=== PATIENT | female | born 1955 | race Caucasian/White ===

== ENCOUNTER 2021-10-11 09:24 | Outpatient (CLI) | payer OTHER, SELFPAY | END 2021-10-11 09:25 | disposition home or self-care (01) | LOC: INJ CL 09:25 | PROVIDERS: PCP Internal Medicine; Visit Provider Family Medicine | DX: M54.16 Radiculopathy, lumbar region (principal); M51.36 Other intervertebral disc degeneration, lumbar region | CPT/HCPCS: 62323; J0702; Q9966 ==

== ENCOUNTER 2023-04-03 09:13 | Outpatient (CLI) | payer OTHER, SELFPAY | END 2023-04-03 09:14 | disposition home or self-care (01) | LOC: INJ CL 09:15 | PROVIDERS: PCP Internal Medicine; Visit Provider Family Medicine | DX: M51.36 Other intervertebral disc degeneration, lumbar region (principal); M54.16 Radiculopathy, lumbar region | CPT/HCPCS: 62323; J0702; Q9966 ==

== ENCOUNTER 2023-07-02 10:52 | Outpatient (RCR) | payer OTHER, SELFPAY | END 2023-07-11 17:01 | disposition home or self-care (01) | PROVIDERS: PCP Internal Medicine; Visit Provider Orthopaedic Surgery | DX: M16.12 Unilateral primary osteoarthritis, left hip (principal); Z96.642 Presence of left artificial hip joint; M25.552 Pain in left hip; Z74.09 Other reduced mobility; R26.9 Unspecified abnormalities of gait and mobility; M62.81 Muscle weakness (generalized); Z51.89 Encounter for other specified aftercare | CPT/HCPCS: 97161; 97535 ==

== ENCOUNTER 2023-07-10 06:01 | Day surgery (SDC) | payer OTHER, SELFPAY ==
[2023-07-10] VITALS (40 sets, daily range): BP systolic 82–159; BP diastolic 46–112; PULSE 50–78; RESP 6–20; TEMP 35.7–36.8; O2SAT 95–100; BMI 32.8
[2023-07-10] MEDS: LACTATED RINGERS 1000 ML 1,000 ML 100 ML IV (06:31)
[2023-07-10] MEDS: OXYCODONE (CR) 10 MG TAB.ER.12H PO (06:40)
[2023-07-10] MEDS: ACETAMINOPHEN 500 MG TABLET 1000 MG PO ×3 (06:40→18:44)
[2023-07-10] MEDS: CELECOXIB 200 MG CAPSULE PO (06:40)
--- NOTE | 2023-07-10 06:57 | SUR.PREOP ---
TIME?OUT:?0700 PT/RN/MDA?VERIFICATION?OF?SURGICAL?SITE,?PROCEDURE,?AND?CONSENT OBTAINED?PRIOR?TO?INVASIVE?PROCEDURE.
[2023-07-10] MEDS: fentaNYL 100 MCG/2 ML inj IVP (07:08)
[2023-07-10] MEDS: MIDAZOLAM HCL 1 MG/ML inj IVP (07:08)
--- NOTE | 2023-07-10 07:15 | XR_ITS ---
Patient: PRO NELSON Facility:?[facility] Patient ID:?[id number] Site Patient ID:?[id number]. Site :?[id number] Study:?XRay-Hip LT HIP CORINNA-07/10/2023 9:02:17 AM Ordering Physician:JEFFREY Final Report: INDICATION: Post left hip arthroplasty. TECHNIQUE: AP view of the pelvis as well as AP and lateral projections of the left hip. COMPARISON: : 05/23/2023 FINDINGS: Immediate postop change of left total hip arthroplasty. Prosthetic components well-seated and aligned. Pre-existing right hip arthroplasty. IMPRESSION: : Immediate postop left total hip arthroplasty without evidence of complication. Dictated by Juma Brock MD @ 07/10/2023 2:27:55 PM Signed by:?Juma Brock MD @07/10/2023 2:27:55 PM (Electronic Signature)
[2023-07-10] MEDS: CEFAZOLIN 2 GM INJ IVP (07:34)
[2023-07-10] MEDS: TRANEXAMIC ACID 100 MG/ML INJ 1000 MG IV (07:42)
--- NOTE | 2023-07-10 08:04 | SUR.OPER ---
PATIENT QUESTIONS ANSWERED SATISFACTORILY PREOPERATIVELY. PATIENT BROUGHT TO OR #3 PER CART AFTER ADMINISTRATION OF A BLOCK. Patient positioned supine on OR #3 bed. The perioperative team supported arms bilaterally on arm boards. Final approval of positioning by surgeon.
--- NOTE | 2023-07-10 08:50 | XR_ITS ---
Patient: PRO NELSON Facility:?[facility] Patient ID:?[id number] Site Patient ID:?[id number]. Site :?[id number] Study:?XRay-Hip Left POST OP LT CORINNA-07/10/2023 10:13:57 AM Ordering Physician:JEFFREY Final Report: INDICATION: Post left hip arthroplasty. TECHNIQUE: AP view of the pelvis as well as AP and lateral projections of the left hip. COMPARISON: : 05/23/2023 FINDINGS: Immediate postop change of left total hip arthroplasty. Prosthetic components well-seated and aligned. Pre-existing right total hip arthroplasty. IMPRESSION: : Immediate postop left total hip arthroplasty without evidence of complication. Dictated by Juma Brock MD @ 07/10/2023 5:05:10 PM Signed by:?Juma Brock MD @07/10/2023 5:05:10 PM (Electronic Signature)
--- NOTE | 2023-07-10 08:52 | P.ORPRC_ITS ---
Procedure Note Date of procedure: 07/10/23 Procedure: PREOPERATIVE DIAGNOSIS: Left hip osteoarthritis POSTOPERATIVE DIAGNOSIS: Left hip osteoarthritis NAME OF OPERATION: Left total hip arthroplasty SURGEON: Abhijit Rai MD ALUMINUM MOLDING MACHINE OPERATOR: Mary Anne Connolly PA-C, ROSIE Matthews IMPLANTS: 1. [employer] [place] # 50 sector ingrowth cup 2. 32 x 50 +4 neutral polyethylene 3. Actis # 3 standard collared ingrowth stem 4. 32 + 1 ceramic femoral head ANESTHESIA: General ESTIMATED BLOOD LOSS: 500 cc COMPLICATIONS: None SPECIMENS: None DRAINS: None PREOPERATIVE ANTIBIOTICS: Ancef 2 grams INDICATIONS: The patient is a 67-year-old with a longstanding history of sever e, unrelenting left hip pain secondary to end-stage left hip osteoarthritis. Despite appropriate nonoperative management, including activity modification, use of an assist device, anti-inflammatories, [id number] pain medication, physical therapy and injections, they continue to have pain and disability. Operative intervention was offered. The risks, benefits and expected outcomes were discussed in detail. These included but were not limited to: Infection, bleeding, injury to blood vessel or nerve, venous thromboembolism. All questions were answered to their satisfaction. Use of an graduate assistant athletic trainer was necessary throughout the case for patient positioning and safety, soft tissue retraction and closure. PROCEDURE: The patient was placed supine on the [place] table. General anesthesia was administered. The graduate assistant athletic trainer made sure the patient was properly positioned. The left hip was prepped and draped in the usual sterile fashion. The image intensifier was brought in for a perfect AP pelvis and a perfect double tear drop AP view of each hip which were used for intraoperative templating with our fluoroscopic guide. An oblique incision was made 3 cm distal and 3 cm lateral to the anterior superior iliac spine. The graduate assistant athletic trainer retracted the soft tissues to protect them. Subcutaneous dissection was taken with electrocautery to the superficial fascia. The fascia was divided in line with the incision. Blunt dissection was carried medially to the tensor fascia anabel and sartorius interval. Deep dissection was carried with electrocautery. The circumflex vessels were caute rized and divided. The capsule was exposed and then divided in a T-fashion, tagged with #1 Ethibond sutures. Retractors were placed in the joint, held by the graduate assistant athletic trainer. The corkscrew was placed in the femoral head. The neck cut was made in the subcapital region. We made a second neck cut more distal. The napkin ring of bone was removed. The femoral head was removed intact. Acetabular retractors were placed, held by the graduate assistant athletic trainer. The labrum was sharply debrided. The capsule was released. The 43 mm reamer was used to the true medial wall. We then enlarged in 2 mm increments using the image intensifier for our reamer placement. We impacted the cup which had excellent purchase. We placed the polyethylene. Attention was then turned to the proximal femur. The limb was placed in 140 degrees of external rotation, maximum extension and adduction. A significant amount of time was spent releasing the capsule to allow us to deliver the femur into the wound and complete the femoral side safely. Retractors were held by the graduate assistant athletic trainer throughout the femoral preparation. The stretch box tender and canal finder were used. Broaches were used to a stable size. The calcar reamer was used. Trial components were placed. The hip was reduced and was found to be stable with appropriate soft tissue tension. Length and offset had been nicely restored using the image intensifier and our fluoroscopic guide. Trial components were removed. The stem was impacted. We placed the femoral head. Again, the hip was reduced and was found to be stable with appropriate soft tissue tension. Length and offset had been nicely restored. The graduate assistant athletic trainer did a three minute dilute Betadine solution soak. The graduate assistant athletic trainer irrigated the wound with 3 liters of normal saline via pulse lavage. The dm delgado repaired the anterior capsule with a #1 Vicryl and our previously placed Ethibond sutures. The graduate assistant athletic trainer closed the fascia over the tensor fascia anabel with a #1 PDO Stratafix, subcutaneous tissues with 2-0 Vicryl, skin with a running 3-0 Stratafix and glue. A dry dressing was applied by the graduate assistant athletic trainer. Sponge and needle counts were correct x 2. The patient tolerated the procedure well; there were no apparent complications. They were awakened and extubated in the operating room, sent to the Post-Anesthesia Care Unit in satisfactory condition. PLAN: 1. The patient will be mobilized with physical therapy, weight-bearing as tolerates 2. Xarelto x 5 days then aspirin x 30 days will be used for DVT prophylaxis 3. The patient will be discharged once medically appropriate
[2023-07-10] MEDS: LACTATED RINGERS 1000 ML 1,000 ML 35 ML IV ×2 (09:36→11:30)
--- NOTE | 2023-07-10 09:50 | W.ANESCHARGE ---
Anesthesia Charges Start Date/Time Anesthesia Start Date: 07/10/23 Anesthesia Start Time: 07:15 Stop Date/Time Anesthesia Stop Date: 07/10/23 Anesthesia Stop Time: 09:38
[2023-07-10] MEDS: HYDROmorphone 0.5 mg/0.5 ml inj IVP ×4 (10:00→12:13)
[2023-07-10] MEDS: hydrOXYzine pamoate 25 MG CAPSULE PO (10:12)
[2023-07-10] MEDS: fentaNYL 100 MCG/2 ML inj 50 MCG IVP ×2 (10:20→10:44)
--- NOTE | 2023-07-10 11:24 | P.NB_ITS ---
Nerve Block Nerve Block Time Seen by Provider: 07:10 Date Seen: 07/10/23 Type of block requested by surgeon for post-operative analgesia: JHONY/LFCN Side: left Time out performed: Yes Verification of patient name: Yes Verification of date of : Yes Site marking: site marked Name of person performing procedure: Stefan Continuous monitoring Was continuous monitoring of O2 sat, B/P, property assessment monitor, recorded every 15 minutes?: Yes Procedure Checklist: sterile prep, needles and gloves Ultrasound guided. Images saved: Yes Medications given in 5ml increments after negative aspiration: Ropivicaine %: 0.5 mL: 30 Needle gauge: 20 Decadron (mg): 10 Precedex (mcg): 25 Patient tolerated procedure well: Yes Additional comments: Needle noted below psoas tendon needle noted adjacent to LFCN Block Charges Block Charge (with Pro Fee): Other Periph Nerve Block Use of Ultrasound Machine for Block: Yes- US Guidance/pain block
--- NOTE | 2023-07-10 11:24 | W.ANESCHARGE ---
Anesthesia Charges Start Date/Time Anesthesia Start Date: 07/10/23 Anesthesia Start Time: 07:15 Stop Date/Time Anesthesia Stop Date: 07/10/23 Anesthesia Stop Time: 09:38
--- NOTE | 2023-07-10 11:50 | SUR.PHASEI ---
patient remained in pain rating 10/10 throughout recovery. All doses of narcotics allotted for pain management utilized. Patient falls asleep and sedated after medications given but once medications subside patient wakes up and states pain still 10/10. Patient Moaning from pain. train operations supervisor/medsurg rn/MDA aware of situation and patient requiring hospital stay.
[2023-07-10] MEDS: OXYCODONE 5 MG TABLET PO ×4 (13:48→23:49)
--- NOTE | 2023-07-10 14:21 | P.IMCN_ITS ---
Date of Consult Patient: Girish Patient Consult date: 07/10/23 Requesting Physician: Orthopedics Primary Care Provider: Lucero Bunch Consult Narrative Reason for consult: Medical management of comorbidities Narrative: Bell Hernandez is a 67 year old female who presented to the hospital today for an elective L CORINNA. There were no surgical or anesthetic complications noted during procedure. Patient's H&P reviewed, PCP is Dr. Bunch at [facility]. Past medical history significant for: CKD, anxiety, GERD, HTN, hyperlipidemia. Chronic neck pain, on daily Gabapentin and [place]. History of blood clots: No Postoperative plan: Home with sister Patient was initially a same-day surgery trial, but had uncontrolled pain in the PACU. Upon arrival to the floor, she had severe bradypnea (4-6 breaths/minute) with a significantly decreased level of responsiveness. After monitoring, decision was made to administer 0.02mg of Naloxone. Patient was awake soon after administration, noting pain but no other concerns. Review of Systems Status of ROS: Reports: 10 or more systems reviewed and unremarkable except as noted in History and below [facility] Medical History (Updated 07/09/23 @ 11:35 by Carlie Loya RN) Controlled substance agreement signed ?Z79.899 - Other certified rehabilitation counselor (current) drug therapy (ICD-10) Hypertensive heart and chronic kidney disease stage 3 ?I13.10 - Hypertensive heart and chronic kidney disease without heart failure, with stage 1 through stage 4 chronic kidney disease, or unspecified chronic kidney disease (ICD-10) ?N18.30 - Chronic kidney disease, stage 3 unspecified (ICD-10) Uncomplicated opioid dependence ?F11.20 - Opioid dependence, uncomplicated (ICD-10) Chronic pain ?G89.29 - Other chronic pain (ICD-10) Anxiety ?F41.9 - Anxiety disorder, unspecified (ICD-10) PTSD (post-traumatic stress disorder) ?F43.10 - Post-traumatic stress disorder, unspecified (ICD-10) GERD (gastroesophageal reflux disease) ?K21.9 - Gastro-esophageal reflux disease without esophagitis (ICD-10) Hyperlipidemia ?E78.5 - Hyperlipidemia, unspecified (ICD-10) Hypertension ?I10 - Essential (primary) hypertension (ICD-10) Rosacea ?L71.9 - Rosacea, unspecified (ICD-10) Neck pain ?M54.2 - Cervicalgia (ICD-10) Surgical History (Updated 07/10/23 @ 14:30 by Isabella Odonnell MD) Status post left hip replacement ?Z96.642 - Presence of left artificial hip joint (ICD-10) History of carpal tunnel release (~2021) ?Z98.890 - Other specified postprocedural states (ICD-10) H/O foot surgery ?Z98.890 - Other specified postprocedural states (ICD-10) History of right hip replacement (~01/2022) ?Z96.641 - Presence of right artificial hip joint (ICD-10) Meds Home Medications and Allergies Home Medications Medication Instructions Recorded Confirmed Type amlodipine 10 mg tablet 10 mg PO DAILY 05/23/23 07/10/23 History citalopram 20 mg tablet 20 mg PO DAILY 05/23/23 07/10/23 History doxycycline hyclate 100 mg capsule 100 mg PO DAILY 05/23/23 07/10/23 History eszopiclone 3 mg tablet 3 mg PO HS 05/23/23 07/10/23 History gabapentin 300 mg capsule 300 mg PO HS PRN 05/23/23 07/10/23 History hydrocodone 10 mg-acetaminophen 1 tab PO BID PRN 05/23/23 07/10/23 History 325 mg tablet lorazepam 0.5 mg tablet 0.5 mg PO DAILY PRN 05/23/23 07/10/23 History meloxicam 7.5 mg tablet 7.5 mg PO BIDWM PRN 05/23/23 05/23/23 History omeprazole 20 mg capsule,delayed 20 mg PO DAILY 05/23/23 07/10/23 History release tizanidine 4 mg tablet 4 mg PO Q8H PRN 05/23/23 07/10/23 History furosemide 20 mg tablet 20 mg PO DAILY PRN 07/09/23 07/10/23 History indomethacin 50 mg capsule 50 mg PO TID PRN 07/09/23 07/10/23 History Allergies Allergy/AdvReac Type Severity Reaction Status Date / Time adhesive Allergy Verified 07/10/23 06:28 amoxicillin Allergy Verified 07/10/23 06:28 latex Allergy Verified 07/10/23 06:28 prednisone Allergy Verified 07/10/23 06:28 tramadol Allergy Verified 07/10/23 06:28 Exam Narrative: Exam Narrative: GEN: After Narcan, patient is alert and answering questions appropriately, nontoxic HEENT: EOMIs bilaterally, no scleral icterus CV: RRR, No concerning murmurs R: LCTA bilaterally without concerning wheezing, air movement adequate Skin: No concerning skin lesions or rashes on exposed skin Neuro: Nonfocal Psych: Appropriate Const: Vital Signs, click to edit/add: Vital Signs - 24 hr 07/10/23 06:46 07/10/23 07:09 07/10/23 07:15 Temperature 98.2 F Pulse Rate 67 71 64 Respiratory Rate 16 16 16 Blood Pressure 134/66 159/112 H 134/63 Pulse Oximetry 97 98 99 Oxygen Delivery Me thod Room Air Nasal Cannula Nasal Cannula Oxygen Flow Rate 3 3 07/10/23 09:33 07/10/23 09:40 07/10/23 09:45 Temperature 97.3 F L Pulse Rate 50 L 53 L 59 L Respiratory Rate 14 14 16 Blood Pressure 95/51 L 91/54 L 83/52 L Pulse Oximetry 100 100 98 Oxygen Delivery Me thod OxyMask Oxygen Flow Rate 6 07/10/23 09:50 07/10/23 09:55 07/10/23 10:00 Temperature Pulse Rate 58 L 58 L 57 L Respiratory Rate 16 18 20 Blood Pressure 101/53 L 101/78 95/46 L Pulse Oximetry 96 100 99 Oxygen Delivery Me thod Oxygen Flow Rate 07/10/23 10:05 07/10/23 10:10 07/10/23 10:15 Temperature Pulse Rate 57 L 54 L 59 L Respiratory Rate 18 16 16 Blood Pressure 137/76 135/70 100/52 L Pulse Oximetry 100 99 100 Oxygen Delivery Me thod Oxygen Flow Rate 07/10/23 10:20 07/10/23 10:25 07/10/23 10:30 Temperature Pulse Rate 61 59 L 57 L Respiratory Rate 14 12 14 Blood Pressure 104/69 102/50 L 87/52 L Pulse Oximetry 99 100 99 Oxygen Delivery Me thod Oxygen Flow Rate 07/10/23 10:35 07/10/23 10:40 07/10/23 10:45 Temperature Pulse Rate 53 L 55 L 61 Respiratory Rate 12 14 12 Blood Pressure 94/50 L 98/53 L 82/72 L Pulse Oximetry 100 100 100 Oxygen Delivery Me thod Oxygen Flow Rate 07/10/23 10:50 07/10/23 10:55 07/10/23 11:00 Temperature Pulse Rate 65 63 69 Respiratory Rate 14 16 14 Blood Pressure 108/61 104/58 L 105/64 Pulse Oximetry 99 98 99 Oxygen Delivery Me thod Oxygen Flow Rate 07/10/23 11:05 07/10/23 11:10 07/10/23 11:15 Temperature Pulse Rate 62 67 67 Respiratory Rate 16 16 14 Blood Pressure 111/62 107/65 100/65 Pulse Oximetry 96 96 95 Oxygen Delivery Me thod Room Air Oxygen Flow Rate 07/10/23 11:20 07/10/23 11:25 07/10/23 11:47 Temperature 97.2 F L Pulse Rate 62 65 62 Respiratory Rate 12 12 6 L Blood Pressure 105/60 98/63 106/55 L Pulse Oximetry 98 97 97 Oxygen Delivery Me thod Nasal Cannula Oxygen Flow Rate 2 07/10/23 12:00 07/10/23 12:15 07/10/23 12:30 Temperature 96.3 F L 96.7 F L 96.5 F L Pulse Rate 54 L 64 56 L Respiratory Rate 10 L 12 12 Blood Pressure 98/53 L 117/89 104/50 L Pulse Oximetry 99 100 100 Oxygen Delivery Me thod Nasal Cannula Nasal Cannula Nasal Cannula Oxygen Flow Rate 2 2 2 07/10/23 13:00 07/10/23 13:30 07/10/23 13:56 Temperature 96.3 F L 96.2 F L Pulse Rate 69 68 64 Respiratory Rate 14 14 6 L Blood Pressure 105/54 L 110/56 L 95/49 L Pulse Oximetry 98 98 97 Oxygen Delivery Me thod Nasal Cannula Nasal Cannula Nasal Cannula Oxygen Flow Rate 2 2 2 Assessment and Plan Assessment and plan (1) Status post left hip replacement: Problem comment: - Dr. Rai, 07/10/23 Status: Acute Plan - pain management and prophylaxis per orthopedic surgery team - continue home medications for comorbidities - anticipate routine postoperative course
--- NOTE | 2023-07-10 14:37 | PC.NURSE ---
End of Shift Nursing Note: Patient arrived to room on med/surg unit at 11:30 post-operatively. Per report from OR nurse, patient required a significant amount of pain medication post-operatively and patient was quite lethargic when she arrived to unit. Patient closely monitored and required 2L O2 to maintain saturations. Patient became very bradypneic (4-6 breaths per minute). MD notified and came to bedside and ordered Narcan IV. Patient responded well to Narcan but had an increase of pain. Respirations increased and patient became much more alert. Patient's pain currently managed with PRN pain medications per MAY. Patient able to work with PT and use [email or web address] and has urinated twice post-operatively. Vitals stable post-operatively after Narcan administration. L) hip dressing C/D/I. Patient has full sensation in L) hip but weakness noted. Patient reports significant anxiety due to previous issue with block when R) hip was replaced. Patient afebrile post-operatively. Patient has fluids running and IV remains patent. Patient currently on room air and recovering as anticipated. Will continue to implement ongoing plan of care.
[2023-07-10] MEDS: SENNOSIDES 1 TAB TABLET 2 TAB PO (23:13)
--- NOTE | 2023-07-10 23:55 | PC.NURSE ---
End of shift [id number] - Pt alert, oriented, cooperative. Up with standby assistance and walker/gait belt to bathroom. Ice pack to surgical site, dressing CDI. Pt reported pain as 8/10 which was tolerable with medication given per MAY. Tolerating RA, regular diet, fluids. Observed to sleep during shift. Pt appears to be resting comfortably in chair at end of shift.
[2023-07-11] MEDS: ACETAMINOPHEN 500 MG TABLET 1000 MG PO ×2 (01:33→07:49)
[2023-07-11 01:50] VITALS: BP 140/60; PULSE 75; RESP 18; TEMP 36.6; O2SAT 97
[2023-07-11] MEDS: OXYCODONE 5 MG TABLET PO ×3 (05:08→10:10)
[2023-07-11 07:00] VITALS: BP 139/60; PULSE 86; RESP 16; TEMP 36.7; O2SAT 99
--- NOTE | 2023-07-11 07:47 | PM.ORPN ---
Subjective Subjective Time Seen by Provider: 07:47 Date Seen: 07/11/23 Principal diagnosis: Status post left hip replacement Interval history: Traci is moving well. She will discharge to home. She has family members helping her. Ortho Exam Narrative Exam Narrative: Alert and oriented x3. Patient is in no acute distress. Converses without labored breathing. Hearing is grossly intact. Ambulates with a walker. Examination of the left hip shows dressing is clean, dry, and intact. No ecchymosis. Very minimal soft tissue edema. No erythema or warmth or sign of infection. Bilateral calves are soft and nontender. CMS intact left lower extremity. In her recliner she easily moves from reclining to sitting position. She is quite comfortable. Const Vital Signs, click to edit/add: Vital Signs - 24 hr 07/10/23 09:33 07/10/23 09:40 07/10/23 09:45 Temperature 97.3 F L Pulse Rate 50 L 53 L 59 L Pulse Rate [Left Pulse Oximeter] Respiratory Rate 14 14 16 Blood Pressure 95/51 L 91/54 L 83/52 L Blood Pressure [Right Arm] Pulse Oximetry 100 100 98 Oxygen Delivery Method OxyMask Oxygen Flow Rate 6 07/10/23 09:50 07/10/23 09:55 07/10/23 10:00 Temperature Pulse Rate 58 L 58 L 57 L Pulse Rate [Left Pulse Oximeter] Respiratory Rate 16 18 20 Blood Pressure 101/53 L 101/78 95/46 L Blood Pressure [Right Arm] Pulse Oximetry 96 100 99 Oxygen Delivery Method Oxygen Flow Rate 07/10/23 10:05 07/10/23 10:10 07/10/23 10:15 Temperature Pulse Rate 57 L 54 L 59 L Pulse Rate [Left Pulse Oximeter] Respiratory Rate 18 16 16 Blood Pressure 137/76 135/70 100/52 L Blood Pressure [Right Arm] Pulse Oximetry 100 99 100 Oxygen Delivery Method Oxygen Flow Rate 07/10/23 10:20 07/10/23 10:25 07/10/23 10:30 Temperature Pulse Rate 61 59 L 57 L Pulse Rate [Left Pulse Oximeter] Respiratory Rate 14 12 14 Blood Pressure 104/69 102/50 L 87/52 L Blood Pressure [Right Arm] Pulse Oximetry 99 100 99 Oxygen Delivery Method Oxygen Flow Rate 07/10/23 10:35 07/10/23 10:40 07/10/23 10:45 Temperature Pulse Rate 53 L 55 L 61 Pulse Rate [Left Pulse Oximeter] Respiratory Rate 12 14 12 Blood Pressure 94/50 L 98/53 L 82/72 L Blood Pressure [Right Arm] Pulse Oximetry 100 100 100 Oxygen Delivery Method Oxygen Flow Rate 07/10/23 10:50 07/10/23 10:55 07/10/23 11:00 Temperature Pulse Rate 65 63 69 Pulse Rate [Left Pulse Oximeter] Respiratory Rate 14 16 14 Blood Pressure 108/61 104/58 L 105/64 Blood Pressure [Right Arm] Pulse Oximetry 99 98 99 Oxygen Delivery Method Oxygen Flow Rate 07/10/23 11:05 07/10/23 11:10 07/10/23 11:15 Temperature Pulse Rate 62 67 67 Pulse Rate [Left Pulse Oximeter] Respiratory Rate 16 16 14 Blood Pressure 111/62 107/65 100/65 Blood Pressure [Right Arm] Pulse Oximetry 96 96 95 Oxygen Delivery Method Room Air Oxygen Flow Rate 07/10/23 11:20 07/10/23 11:25 07/10/23 11:47 Temperature 97.2 F L Pulse Rate 62 65 62 Pulse Rate [Left Pulse Oximeter] Respiratory Rate 12 12 6 L Blood Pressure 105/60 98/63 106/55 L Blood Pressure [Right Arm] Pulse Oximetry 98 97 97 Oxygen Delivery Method Nasal Cannula Oxygen Flow Rate 2 07/10/23 12:00 07/10/23 12:15 07/10/23 12:30 Temperature 96.3 F L 96.7 F L 96.5 F L Pulse Rate 54 L 64 56 L Pulse Rate [Left Pulse Oximeter] Respiratory Rate 10 L 12 12 Blood Pressure 98/53 L 117/89 104/50 L Blood Pressure [Right Arm] Pulse Oximetry 99 100 100 Oxygen Delivery Method Nasal Cannula Nasal Cannula Nasal Cannula Oxygen Flow Rate 2 2 2 07/10/23 13:00 07/10/23 13:30 07/10/23 13:56 Temperature 96.3 F L 96.2 F L Pulse Rate 69 68 64 Pulse Rate [Left Pulse Oximeter] Respiratory Rate 14 14 6 L Blood Pressure 105/54 L 110/56 L 95/49 L Blood Pressure [Right Arm] Pulse Oximetry 98 98 97 Oxygen Delivery Method Nasal Cannula Nasal Cannula Nasal Cannula Oxygen Flow Rate 2 2 2 07/10/23 14:30 07/10/23 15:30 07/10/23 16:06 Temperature 96.4 F L 96.6 F L Pulse Rate 64 70 Pulse Rate [Left Pulse Oximeter] Respiratory Rate 16 16 16 Blood Pressure 109/61 115/62 Blood Pressure [Right Arm] Pulse Oximetry 98 96 96 Oxygen Delivery Method Nasal Cannula Nasal Cannula Nasal Cannula Oxygen Flow Rate 1 2 2 07/10/23 16:30 07/10/23 17:30 07/10/23 23:00 Temperature 96.7 F L Pulse Rate 57 L 68 Pulse Rate [Left Pulse Oximeter] Respiratory Rate 16 16 18 Blood Pressure 106/60 Blood Pressure [Right Arm] Pulse Oximetry 98 99 97 Oxygen Delivery Method Nasal Cannula Nasal Cannula Room Air Oxygen Flow Rate 2 2 07/10/23 23:57 07/11/23 01:50 Temperature 97.5 F L 97.8 F Pulse Rate Pulse Rate [Left Pulse Oximeter] 78 75 Respiratory Rate 16 18 Blood Pressure Blood Pressure [Right Arm] 125/52 L 140/60 H Pulse Oximetry 96 97 Oxygen Delivery Method Room Air Room Air Oxygen Flow Rate Assessment and Plan Assessment and plan (1) Status post left hip replacement: Problem details: - Dr. Rai, 07/10/23 Status: Acute Assessment and Plan: Traci and I had a very long discussion regarding her hydrocodone/acetaminophen 10/325 and taking oxycodone along with that. She is also on an antianxiety lower leg pain medication. The combination of all these could cause decrease respiratory issues, especially at night and with rest. She understands. She feels she is well equipped to manage all of these medications for she has been doing it for many years and has taken the same medications after her right hip replacement. She will discuss with her provider refilling her hydrocodone/acetaminophen 10/325 for she has a pain contract. Plan for discharge is today, and when they meets discharge criteria. DVT prophylaxis upon discharge include Xarelto 10 mg daily for 5 days, then aspirin 81 mg b.i.d. for 30 days. Compression stockings as needed for edema. On the side ambulate every hour throughout the day. Remove dressing 1 week. Observe wound and phone Orthopedics with any questions or concerns Use Ice on operative hip unrestricted. Return to clinic in 1 week with PA for a wound check Return to clinic in 6 weeks with surgeon Minimize narcotic use. Wean off and discontinue soon as possible. Activities as tolerated. No strenuous activity. Attend outpt PT
[2023-07-11] MEDS: OMEPRAZOLE 20 MG CAPSULE DR PO (07:49)
--- NOTE | 2023-07-11 07:59 | PC.NURSE ---
Pt is alert and oriented x3. Afebrile. Pt reports 7/10 pain in left hip managed with cold pack to site and scheduled and PRN medications. Pt?s left hip dressing is CDI. Pt is voiding, tolerating a regular diet and up SBA with walker and gait belt to bathroom. Pt slept throughout most of night. ?
[2023-07-11] MEDS: SENNOSIDES 1 TAB TABLET 2 TAB PO (08:30)
[2023-07-11] MEDS: RIVAROXABAN 10 MG TABLET PO (08:30)
--- NOTE | 2023-07-11 10:27 | PC.NURSE ---
Patient discharged home self care today at 10:22. Patient transported to vehicle via wheelchair and accompanied by daughter who will be staying with patient at patient's home while patient recovers. Discharge education provided to patient and family member. Prescriptions sent to patient's preferred pharmacy. VSS stable prior to DC and patient asymptomatic. IV removed prior to DC. Patient denied any further questions/concerns at discharge and knows how to follow-up with orthopedic services if needed.
== END 2023-07-11 10:22 | disposition home or self-care (01) ==
LOC: OR 06:02 → MEDSURG 11:59
PROVIDERS: PCP Internal Medicine; Visit Provider Orthopaedic Surgery
PROC: (CPT 27130; principal; 2023-07-10 07:15)
DX: M16.12 Unilateral primary osteoarthritis, left hip (principal); G89.18 Other acute postprocedural pain; R06.89 Other abnormalities of breathing; I12.9 Hypertensive chronic kidney disease with stage 1 through stage 4 chronic kidney disease, or unspecified chronic kidney disease; N18.30 Chronic kidney disease, stage 3 unspecified; F41.9 Anxiety disorder, unspecified; K21.9 Gastro-esophageal reflux disease without esophagitis; M54.2 Cervicalgia; G89.29 Other chronic pain; E78.5 Hyperlipidemia, unspecified
CPT/HCPCS: 27130; 01214; 36415; 64450; 73501; 76000; 76942; 86850; 86900; 86901; 97110; 97116; 97161; 97165; 97530; 97535; A9270; C1776; J0330; J0690; J1100; J1170; J2250; J2310; J2405; J2704; J2710; J2795; J3010; J3475; J3490; J7120

== ENCOUNTER 2023-10-30 10:29 | Outpatient (CLI) | payer OTHER, SELFPAY | END 2023-10-30 10:30 | disposition home or self-care (01) | LOC: RAD 10:30 | PROVIDERS: PCP Internal Medicine; Visit Provider Family Medicine | DX: M54.16 Radiculopathy, lumbar region (principal); M51.36 Other intervertebral disc degeneration, lumbar region | CPT/HCPCS: 62323; J0702; Q9966 ==

== ENCOUNTER 2024-01-07 20:11 | Outpatient (CLI) | payer OTHER, SELFPAY ==
--- OUTSIDE RECORDS SUMMARY | 2024-01-07 20:16 | XMS_ITS | Encounter Summary ---
Author Organization [facility] Address [address] [place] [address] Care Team Providers Care Life Enrichment Specialist Name Role Phone Elsewhere, Pcp Primary Care Provider Unavailabl e Reason for Visit * Reason Comments Rosacea * Outpatient (Routine) - Closed Specialty Diagnoses / Procedures Referred By Donaldo vargas Referred To Contact Dermatology Diagnoses Rosacea Darien Rodriguez Jr., M.D. [address] [place] [address] Phone: tel: fax: [facility] Region Referral ID Status Reason Start Date Expiration Date V isits Requested Visits Authorized [id number] Closed Specialty Services Required 09/18/2023 03/19/2025 1 1 Encounter Details Date Type Department Care Team (Latest Contact Info) Description 10/18/2023 1:30 PM CDT Comprehensive Visit Department of Family Medicine, [facility], in [place], [place] [address] [place] [address] Mckenna Montalvo APRN, C.N.P. [address], [place] [phone] Keratosis Seborrheic Inflamed (Primary Dx); Rosacea; Wart Social History Tobacco Use Types Packs/Day Years Used Date Smoking Tobacco: Former Cigarettes 1.5 35.8 0 03/05/1969 - 01/03/2005 Smokeless Tobacco: Former Tobacco Cessation:Counseling Given: Not Answered Alcohol Use Standard Drinks/Week Comments Yes 1 (1 standard drink = 0.6 oz pur e alcohol) only on rare occasions [facility] Utilities Answer Date Recorded In the past 12 months has e electric, gas, oil, or water company threatened to shut off services in your home? No 05/10/2023 Humiliation, Afraid, Rape, and Kick questionnair e Answer Date Recorded Within the last year, have y ou been afraid of your partner or ex-partner? No 03/27/2022 Within the last year, have y ou been humiliated or emotionally abused in other ways by your partner or ex-partner? No Within the last year, have y ou been kicked, hit, slapped, or otherwise physically hurt by your partner or ex-partner? No 03/27/2022 Within the last year, have y ou been raped or forced to have any kind of sexual activity by your partner or ex-partner? No 03/27/2022 Social Connection and Isolation Panel [NHANES] A nswer Date Recorded In a typical week, how many times do you talk on the phone with family, friends, or neighbors? Twice a week 03/27/2022 How often do you get togethe r with friends or relatives? Once a week 03/27/2022 How often do you attend orthodoxy or jehovah's witness serv ices? Patient declined 03/27/2022 Do you belong to any clubs o r organizations such as orthodoxy groups, unions, fraternal or athletic groups, or school groups? No 03/27/2022 How often do you attend meet ings of the clubs or organizations you belong to? Never 03/27/2022 Are you , , di vorced, , never , or living with a partner? 03/27/2022 AUDIT-C Answer Date Recorded Q1: How often do you have a drink containing alc ohol? Never 09/18/2021 Average Number of Drinks Not on file 022 Frequency of Binge Drinking Not on file 09/02 Overall Financial Resource Strain (CARDIA) Answe r Date Recorded How hard is it for you to pa y for the very basics like food, housing, medical care, and heating? Not very hard 03/27/2022 PHQ-2 Answer Date Recorded PHQ-2 Score 2 03/15/2023 [place] [facility] - Occupational Stress Questionnaire Answer Date Recorded Do you feel stress - tense, restless, nervous, or anxious, or unable to sleep at night because your mind is troubled all the time - these days? To some extent 03/27/2022 Exercise Vital Sign Answer Date Recorde d On average, how many days pe r week do you engage in moderate to strenuous exercise (like a brisk walk)? 0 days 05/10/2023 On average, how many minutes do you engage in exercise at this level? 0 min 05/10/2023 Hunger Vital Sign Answer Date Recorded Within the past 12 months, y ou worried that your food would run out before you got the money to buy more. Never true 05/10/19 24 Within the past 12 months, t he food you bought just didn't last and you didn't have money to get more. Never true 05/10/2023 PRAPARE - Transportation Answer Date Re corded In the past 12 months, has l ack of transportation kept you from medical appointments or from getting medications? No 09/2023 In the past 12 months, has l ack of transportation kept you from meetings, work, or from getting things needed for daily living? No 05/10/2023 Depression Answer Date Recor ded PHQ-9 Total Score (max 27) 17 04/01 Nutrition Answer Date Recorded On average, how many serving s of fruits and vegetables do you eat per day (serving size is equal to 1 cup or approximately the size of a tennis ball)? 0-2 05/10/2023 Dental Answer Date Recorded Dental: Regular Dentist Yes 04/22/19 21 Employment Answer Date Recorded Employment status Retired 05/10/2023 Housing Stability Answer Date Recorded What is your living situation today? I have a [facility] place to live 05/10/2023 Education Answer Date Recorded What is the highest level of school you have completed or the highest degree you have received? Associate degree: academic program 09/18/2021 Comments No Sex and Gender Information Value Date Recorded Sex Assigned at Female 01/15/2017 8:07 PM WINDOWS SOFTWARE ENGINEER Legal Sex Female 5:08 AM WINDOWS SOFTWARE ENGINEER Gender Identity Female 01/15/2017 8:07 PM WINDOWS SOFTWARE ENGINEER Sexual Orientation Straight 01/15/2017 8: 07 PM WINDOWS SOFTWARE ENGINEER Occupation Industry Job Start Date Job End Date Not on file Not on file Not on file Not on file documented as of this encounter Progress Notes * Mckenna Montalvo APRN, C.N.P. - 10/18/2023 1:30 PM CDT SUBJECTIVE CHIEF COMPLAINT / REASON FOR VISIT Rosacea. HISTORY OF PRESENT ILLNESS Bell Perea is a 68 y.o. female who presents for evaluation of her rosacea, irritated lesion her left inframammary, and a wart her right index finger. Per nursing notes: How long has rash been present, any symptoms (pain, bleeding, or itching)? : Hussein General location of rash: Referral from Dr. Rodriguez-eyes What treatments/medication has patient tried: was given minocycline- hasn't started Was patient referred, self referred, or a returning derm patient? : Returning The following portions of the patient's history were reviewed and updated as appropriate: allergies, current medications, family history, medical history, social history and problem list. REVIEW OF SYSTEMS Constitutional, integumentary, and allergic/immunologic review of systems is negative except as otherwise remarked above or below. OBJECTIVE PHYSICAL EXAM General: Well-appearing female in no acute distress. Well groomed and dressed and answers appropriately to questions. Skin: This skin was examined and palpated where appropriate, skin findings as described below: There is washing and telangiectasias on the cheeks and nose. No significant acne rosacea noted on exam. Eyes are slightly injected. On the left inframammary there is an inflamed, brown, hyperkeratotic, stuck on appearing papule consistent with seborrheic keratosis. On the right index finger along the distal there is a small verrucous papule. ASSESSMENT / PLAN #1 Rosacea The nature of condition was discussed with patient, advised that she avoid triggers and recommend sensitive/dry skin care. She is not interested in any topicals at this time and does not have any significant acne rosacea. She does report having scaling on the left nasal sidewall areas. I suggested some [id number] clotrimazole 1% cream and/or hydrocortisone 1% cream 2 to 3 times a week to help with possible underlying seborrheic dermatitis. #2 Keratosis Seborrheic Inflamed The benign nature of this lesion(s) was discussed with the patient. Given the inflamed nature of this lesion(s), its treatment is medically indicated. We treated a total of 1 lesion(s) with one 20-second freeze-thaw cycle of liquid nitrogen cryotherapy. The patient tolerated the procedure well. Aftercare instructions were provided in written and verbal form to the patient. Should any of these lesions recur, the patient should return for further evaluation. #3 Wart After explaining the procedure, discussing the associated risks, benefits, and alternatives, and obtaining verbal informed consent, the lesion(s) underwent treatment with liquid nitrogen cryotherapy in the standard fashion. Wound care was discussed. Patient offered educational materials. PATIENT EDUCATION Ready to learn, no apparent learning barriers were identified; learning preferences include listening. Explained diagnosis and treatment plan; patient expressed understanding of the content. This note represents shared documentation between the assisting nurse and the encounter provider. The content has been reviewed and edited as needed by the provider. documented in this encounter Plan of Treatment Upcoming Encounters Date Type Department Care Team (Latest Contact Info) Description 01/21/2024 11:15 AM WINDOWS SOFTWARE ENGINEER Comprehensive Visit Department of Ophthalmology in [place], [place] [address] [phone] Darien Rodriguez Jr., M.D. [address] [phone] documented as of this encounter Visit Diagnoses Diagnosis Keratosis Seborrheic Inflamed- Primary Rosacea Wart documented in this encounter Additional Health Concerns Assessment Noted Time PHQ-9 Depression Total Score: 17 020 8:36 AM WINDOWS SOFTWARE ENGINEER documented as of this encounter Care Teams Life Enrichment Specialist Relationship Specialty Start Date End Date Elsewhere, Pcp PCP - General Family Medicine 11/01/20 documented as of this encounter
--- OUTSIDE RECORDS SUMMARY | 2024-01-07 20:16 | XMS_ITS | Encounter Summary ---
Author Organization [facility] Address [address] [place] [address] Care Team Providers Care Pigment Pusher Name Role Phone Elsewhere, Pcp Primary Care Provider Unavailabl e Encounter Details Date Type Department Care Team (Late st Contact Info) Description 12/15/2016 Historical Ophthalmology [facility] Wilson Hurley M.D. [address] [phone] Social History Tobacco Use Types Packs/Day Years Used Date Smoking Tobacco: Former Comments No Sex and Gender Information Value Date Recorded Sex Assigned at Female 01/15/2017 8:07 PM HEMMER CHAINSTITCH Legal Sex Female 5:08 AM HEMMER CHAINSTITCH Gender Identity Female 01/15/2017 8:07 PM HEMMER CHAINSTITCH Sexual Orientation Straight 01/15/2017 8: 07 PM HEMMER CHAINSTITCH documented as of this encounter Progress Notes * Wilson Hurley M.D. - 12/15/2016 8:00 AM CDT Eye General CHIEF COMPLAINT Complete exam HISTORY OF PRESENT ILLNESS Feels her vision has gotten a little worse. Would like glasses updated. Current RX is 2 years old IMPRESSION / REPORT / PLAN #1 Age related macular degeneration AREDS 2 #2 Meibomian gland dysfunction Hot Packs lid scrubs 2 to 3 times a weeks Art tears EES ointment qhs prn #4 Cortical cataract mild #3 Blepharoplasty s/p RTC 1 year CE refract DIAGNOSIS #1 Age related macular degeneration #2 Meibomian gland dysfunction #4 Cortical cataract #3 Blepharoplasty CDM Reports - EYEGEN Id: [id number] Status: Fnl documented in this encounter Plan of Treatment Upcoming Encounters Date Type Department Care Team (Latest Contact Info) Description 01/21/2024 11:15 AM HEMMER CHAINSTITCH Comprehensive Visit Department of Ophthalmology in [place], [place] [address] [place] [phone] Darien Rodriguez Jr., M.D. [address] [place] [address] documented as of this encounter Visit Diagnoses Not on filedocumented in this encounter Additional Health Concerns Infection Onset Date Last Indicated Resolved Time COVID19 Pending 2019 2019 2019 1 1:49 PM CDT COVID19 Pending 10/28/2020 10/29/2020 10/29/2020 1 1:25 PM CDT COVID19 Pending 03/03/2021 03/04/2021 03/04/2021 1 0:13 PM HEMMER CHAINSTITCH COVID19 Pending 12/07/2021 12/08/2021 12/08/2021 1 1:34 PM CDT Assessment Noted Time PHQ-9 Depression Total Score: 13 017 8:23 AM CDT documented as of this encounter Care Teams Pigment Pusher Relationship Specialty Start Date End Date Elsewhere, Pcp PCP - General Family Medicine 11/01/20 documented as of this encounter
--- OUTSIDE RECORDS SUMMARY | 2024-01-07 20:16 | XMS_ITS | Encounter Summary ---
Author Organization [facility] Address [address] [place] [address] Care Team Providers Care Student Services Coordinator Name Role Phone Elsewhere, Pcp Primary Care Provider Unavailabl e Reason for Visit * Reason Onset Date Comments Colonoscopy 10/25/2023 Encounter Details Date Type Department Care Team (Late st Contact Info) Description 10/25/2023 Clinical Communication Department of General Surgery in [place], [place] [address] [phone] Anju Oliveira M.D. [address] [place] [phone] Colonoscopy Social History Tobacco Use Types Packs/Day Years Used Date Smoking Tobacco: Former Cigarettes 1.5 35.8 0 03/05/1969 - 01/03/2005 Smokeless Tobacco: Former Alcohol Use Standard Drinks/Week Comments Yes 1 (1 standard drink = 0.6 oz pur e alcohol) only on rare occasions [facility] Utilities Answer Date Recorded In the past 12 months has e [employer], gas, oil, or water [employer] threatened to shut off services in your [...] week 03/27/2022 How often do you attend jehovah's witness or orthodoxy serv ices? Patient declined 03/27/2022 Do you belong to any clubs o r organizations such as jehovah's witness groups, unions, fraternal or athletic groups, or [...] Answer Date Recorded PHQ-2 Score 2 03/15/2023 [facility] [place] [facility] Occup[facility] Health - Occupational Stress [...] Date Recorded Dental: Regular Dentist Yes 04/22/19 Employment Answer Date Recorded Employment status Retired 05/10/2023 Housing Stability Answer Date Recorded What is your living situation today? I have a [facility] place to live 05/10/2023 Education Answer Date Recorded What is the highest level of school you have completed or the highest degree you have received? Associate degree: academic program 09/18/2021 Comments No Sex and Gender Information Value Date Recorded Sex Assigned at Female 01/15/2017 8:07 PM FOREST ECOLOGY PROFESSOR Legal Sex Female 5:08 AM FOREST ECOLOGY PROFESSOR Gender Identity Female 01/15/2017 8:07 PM FOREST ECOLOGY PROFESSOR Sexual Orientation Straight 01/15/2017 8: 07 PM FOREST ECOLOGY PROFESSOR Occupation Industry Job Start Date Job End Date Not on file Not on file Not on file Not on file documented as of this encounter Plan of Treatment Upcoming Encounters Date Type Department Care Team (Latest Contact Info) Description 01/21/2024 11:15 AM FOREST ECOLOGY PROFESSOR Comprehensive Visit Department of Ophthalmology in [place], [place] [address] [place] [phone] Darien Rodriguez Jr., M.D. [address] [place] [phone] documented as of this encounter Visit Diagnoses Not on filedocumented in this encounter Additional Health Concerns Assessment Noted Time PHQ-9 Depression Total Score: 17 04/01/ 020 8:36 AM FOREST ECOLOGY PROFESSOR documented as of this encounter Care Teams Student Services Coordinator Relationship Specialty Start Date End Date Elsewhere, Pcp PCP - General Family Medicine 11/01/20 documented as of this encounter
--- OUTSIDE RECORDS SUMMARY | 2024-01-07 20:16 | XMS_ITS | Continuity of Care Document ---
Author Organization [facility] Address [address] [place] [address] Care Team Providers Care Automation Machine Builder Name Role Phone Elsewhere, Pcp Primary Care Provider Unavailabl e Source Comments Patient records contain information from all sites at [facility]. For routine questions regarding patient records, call [phone] during business hours, M-F 8:00 AM - 5:00 PM Central Time. Record requests for emergency care only can be directed to [phone] at any time.[facility] Encounters Date Type Department Care Team Description Orders Only Pharmacy Prior Auth RO [phone] Lora Brown 024 Orders Only Pharmacy Prior Auth RO [phone] Lora Brown 024 3:30 PM CDT Office Visit Department of Ophthalmology in [place], [place] [address] [address] Darien Rodriguez Jr., M.D. Rosacea (Primary Dx); Dry Eye Syndrome Bilateral Clinical Communication Department of General Surgery in [place], [place] [address] [place] [phone] Anju Oliveira M.D. Colonoscopy 024 1:30 PM CDT Comprehensive Visit Department of Family Medicine, [facility], in [place], [place] [address] [place] [address] Mckenna Montalvo APRN, C.N.P. Keratosis Seborrheic Inflamed (Primary Dx); Rosacea; Wart 024 Orders Only Department of Ophthalmology in [address] [address] Darien Rodriguez Jr., M.D. 024 Refill Department of Ophthalmology in [address] [address] Darien Rodriguez Jr., M.D. Med Refill 024 Clinical Communication Department of Ophthalmology in [address] [address] Darien Rodriguez Jr., M.D. 024 Refill Department of Ophthalmology in [address] [address] Darien Rodriguez Jr., M.D. Med Change Request 024 11:00 AM CDT Office Visit Department of Ophthalmology in [address] [address] Darien Rodriguez Jr., M.D. Rosacea (Primary Dx) 024 Clinical Communication Department of General Surgery in [address] [address] Elsewhere, Pcp 024 Clinical Communication Department of General Surgery in [address] [address] Anju Oliveira M.D. Colonoscopy 024 8:34 PM CDT - 024 9:55 PM CDT Emergency [facility] [address] [place] [phone] Diarrhea (Primary Dx) Discharge Disposition: Home or Self Care 024 Clinical Communication Department of Ophthalmology in [address] [place] [address] Darien Rodriguez Jr., M.D. Follow-up Orders 024 11:15 AM CDT Office Visit Department of Ophthalmology in [address] [address] Darien Rodriguez Jr., M.D. Rosacea Ocular (Primary Dx) 024 1:30 PM CDT Office Visit Department of Ophthalmology in [address] [address] Darien Rodriguez Jr., M.D. Rosacea (Primary Dx) 024 11:00 AM CDT Office Visit Department of Ophthalmology in [address] [address] Darien Rodriguez Jr., M.D. Rosacea Ocular (Primary Dx); Sinusitis Acute Maxillary; Conjunctivitis Acute Left 024 Clinical Communication Department of Ophthalmology in [address] [address] Wilson Hurley M.D. Medical Information 024 9:30 AM FILTRATION OPERATOR Office Visit Department of Family Medicine, [facility], in [address] [address] Romulo Fletcher M.D. Sinusitis Acute (Primary Dx) 024 Nurse Triage Department of Family Medicine, [facility], in [address] [address] Kim Gallardo R.N. Sinusitis 024 Orders Only Department of General Surgery in [address] [address] Anju Oliveira M.D. Clinical Communication Department of General Surgery in [address] [address] Anju Oliveira M.D. Results 10:15 AM FILTRATION OPERATOR Office Visit Department of Orthopedic Surgery in [address] [address] Anastasia Delgadillo P.A.-C., P.A. Arthroplasty Total Hip Replacement Status Post Right (Primary Dx) 9:23 AM FILTRATION OPERATOR - 11:59 PM FILTRATION OPERATOR Hospital Encounter Department of Radiology in [address] [address] Anastasia Delgadillo P.A.-C., P.A. Discharge Disposition: Home or Self Care 11:30 AM FILTRATION OPERATOR Office Visit Department of Family Medicine, [facility], in [address] [address] Danuta Sun, HAIR, C.N.P. Polyp Colon (Primary Dx); Preoperative Exam 8:30 AM FILTRATION OPERATOR Office Visit Department of Family Medicine, [facility], in [address] [address] Santhosh Baca P.A.-C., P.A. Dysuria (Primary Dx); Acute Cystitis With Hematuria; Dependence Drug Opioid (HCC) Nurse Triage Department of Family Medicine, [facility], in [address] [address] Nicole Goldberg R.N. Urinary Problem 023 Clinical Communication Department of General Surgery in [address] [address] Papi Bahena M.D. 023 2:12 PM FILTRATION OPERATOR - 023 11:59 PM FILTRATION OPERATOR Hospital Encounter Department of Radiology in [address] [address] Cece Rivera P.A.-C., P.A. Pain Thumb Left; Pain Thumb Right Discharge Disposition: Home or Self Care 023 2:15 PM FILTRATION OPERATOR Office Visit Department of Orthopedic Surgery in [address] [address] Cece Rivera P.A.-C., P.A. Pain Thumb Left (Primary Dx); Pain Thumb Right; Arthritis Hand 023 11:15 AM FILTRATION OPERATOR Office Visit Department of Orthopedic Surgery in [address] [address] Ming Montenegro M.D. Carpal Tunnel Syndrome Left (Primary Dx) 022 1:00 PM FILTRATION OPERATOR Office Visit Department of Orthopedic Surgery in [address] [address] Anastasia Delgadillo P.A.-C., P.A. Release Carpal Tunnel Status Post (Primary Dx) 022 1:00 PM FILTRATION OPERATOR Office Visit Department of Family Medicine, [facility], in [address] [address] Dario Rabago M.D. Preoperative Exam (Primary Dx); Carpal Tunnel Syndrome Left; Hypertension Essential Primary; Anxiety 022 10:25 AM FILTRATION OPERATOR - 022 11:59 PM FILTRATION OPERATOR Hospital Encounter Department of Radiology in [address] [address] Ming Montenegro M.D. Primary Osteoarthritis Hip Right Discharge Disposition: Home or Self Care 11:15 AM FILTRATION OPERATOR Office Visit Department of Orthopedic Surgery in [address] [address] Ming Montenegro M.D. Arthroplasty Total Hip Replacement Status Post Right (Primary Dx) 12:40 PM FILTRATION OPERATOR Immunization Department of [facility], [facility], in [address] [address] 1:30 PM CDT Office Visit Department of Orthopedic Surgery in [address] [address] Carlos Garcia P.A.-CAryan Arthroplasty Total Hip Replacement Status Post Right (Primary Dx) Orders Only Department of Orthopedic Surgery in [address] [address] Cece Rivera P.A.-C., P.A. Orders Only Department of Orthopedic Surgery in [address] [address] Ming Montengero M.D. Arthroplasty Total Hip Replacement Status Post Right (Primary Dx) 7:36 AM CDT - 11:59 PM CDT Hospital Encounter Department of Radiology in [address] [address] Ming Montenegro M.D. Arthroplasty Total Hip Replacement Status Post Right Discharge Disposition: Home or Self Care 11:50 AM CDT Lab Department of General Surgery in [address] [address] Ming Montenegro M.D. Encounter For Screening For Other Viral Diseases (COVID-19) Orders Only Department of Family Medicine, [facility], in [place], [place] [address] [place] [address] [place] [address] Dario Rabago M.D. Clinical Communication Department of Orthopedic Surgery in [address] [address] Ming Montenegro M.D. SURGERY DATE 022 1:30 PM CDT Office Visit Department of Family Medicine, [facility], in [address] [address] Dario Rabago M.D. Primary Osteoarthritis Hip Right (Primary Dx); Dependence Drug Opioid (HCC); Hypertension Essential Primary 2:00 PM CDT Office Visit Department of Orthopedic Surgery in [address] [address] Guillaume Kirkland M.D. Arthritis Hand (Primary Dx) 022 Clinical Communication Department of Orthopedic Surgery in [address] [address] Guillaume Kirkland M.D. 022 Refill Department of [facility] Medicine, [facility], in [address] [address] Ilsa Mart M.D. Med Refill 022 Clinical Communication Department of Orthopedic Surgery in [address] [address] Anastasia Delgadillo P.A.Tammie., P.A. Clinical Communication Department of Orthopedic Surgery in [address] [address] Ming Montenegro M.D. SURGERY DATE 022 1:00 PM CDT Comprehensive Visit Department of Orthopedic Surgery in [address] [address] Ming Montenegro M.D. Primary Osteoarthritis Hip Right (Primary Dx); Carpal Tunnel Syndrome Left 12:20 PM CDT Immunization Department of Family Medicine, [facility], in [address] [address] Refill Department of Family Medicine, [facility], in [address] [address] Leonor Means APRN, C.N.P. Med Refill 10:30 AM CDT Office Visit Department of Orthopedic Surgery in [address] [address] Cece Rivera P.A.-CAryan, P.A. Pain Wrist Left (Primary Dx); Pain Wrist Right 10:30 AM CDT Nurse Only Department of Gastroenterology in [address] [phone] Heaven Sotomayor APRN C.N.P., M.S.N. Ambar Lea, R.N. Clinical Communication Department of Gastroenterology in [address] [address] Ambar Lae, R.N. Lactose breath test Refill Department of Family Medicine, [facility], in [address] [address] Anabela Lemus P.A.-C., P.A. Med Refill 9:30 AM FILTRATION OPERATOR Office Visit Department of Orthopedic Surgery in [address] [address] Guillaume Kirkland M.D. Release Carpal Tunnel Status Post (Primary Dx) Clinical Communication Department of Gastroenterology in [address] [phone] Ambar Lea, R.N. 9:15 AM FILTRATION OPERATOR Office Visit Department of Ophthalmology in [address] [address] Wilson Hurley M.D. Cystoid Macular Degeneration Bilateral (Primary Dx) 9:30 AM FILTRATION OPERATOR Office Visit Department of Orthopedic Surgery in [address] [address] Cece Rivera P.A.-Raheem., P.A. Carpal Tunnel Syndrome Right (Primary Dx) Orders Only Department of Orthopedic Surgery in [address] [address] Cece Rivera P.Bing.-C., P.A. 021 10:40 AM FILTRATION OPERATOR Lab Department of Family Medicine, [facility], in [address] [address] Cece Rivera P.Bing.-C., P.A. Carpal Tunnel Syndrome Right 9:15 AM FILTRATION OPERATOR Nurse Only Department of Gastroenterology in [address] [phone] Heaven Sotomayor, HAIR, C.N.P., M.S.N. Mikhail Sanders, R.N. Clinical Communication Department of Gastroenterology in [address] [phone] Ambar Lea, R.N. 9:00 AM FILTRATION OPERATOR Office Visit Department of Family Medicine, [facility], in [address] [phone] Anabela Lemus P.A.-CAryan, P.A. Carpal Tunnel Syndrome Right 9:30 AM FILTRATION OPERATOR Office Visit Department of Orthopedic Surgery in [address] [address] Cece Rivera P.A.-C., P.A. Bursitis Trochanteric Bilateral (Primary Dx); Trochanteric Bursitis Left Hip 8:15 AM FILTRATION OPERATOR Ancillary Procedure Department of Orthopedic Surgery 8:00 AM FILTRATION OPERATOR - 11:59 PM FILTRATION OPERATOR Hospital Encounter Department of Radiology in [address] [address] Cece Rivera P.A.-CAryan, P.A. Pain Hip Right Discharge Disposition: Home or Self Care 9:00 AM FILTRATION OPERATOR Office Visit Department of Orthopedic Surgery in [address] [address] Cece Rivera P.A.-CAryan, P.A. Bursitis Trochanteric Bilateral (Primary Dx); Pain Ankle Bilateral; Arthritis Hip Clinical Communication Department of Orthopedic Surgery in [address] [address] Guillaume Kirkland M.D. ORTHO SURGERY DATE 9:30 AM FILTRATION OPERATOR Office Visit Department of Orthopedic Surgery in [address] [address] Cece Rivera P.A.-CAryan, P.A. Pain Hip Right (Primary Dx); Carpal Tunnel Syndrome Right; Pain Wrist Left 1:30 PM FILTRATION OPERATOR Immunization Department of Family Medicine, [facility], in [place], [place] [address] [place] [address] Orders Only RST PCP TH Sarah Taylor M.D. 9:30 AM CDT Comprehensive Visit Department of Ophthalmology in [place], [place] [address], [place] [address] Wilson Hurley M.D. Cataract (Primary Dx) 9:15 AM CDT Nurse Only Department of Gastroenterology in [address] [address] Heaven Sotomayor APRN, C.N.P., M.S.N. Dione Gavin L.P.NAryan Clinical Communication Department of Gastroenterology in [address] [address] Dione Gavin L.P.NAryan 2:05 PM CDT Ancillary Procedure Department of Gastroenterology 2:05 PM CDT Anesthesia Event Department of Gastroenterology in [address] [address] Homa Mejia APRN, LAXMI 12:30 PM CDT - 1:00 PM CDT Surgery Department of Gastroenterology in [address] [address] Bam Chavez M.B.B.SYolette Baeza ESOPHAGOGASTRODUODENOSCOPY 11:34 AM CDT - 3:01 PM CDT Hospital Encounter Department of Gastroenterology in [address] [address] Bam Chavez M.B.B.S., M.D. Discharge Disposition: Home or Self Care 021 10:40 AM CDT Lab Urgent Care in [address] [address] Heaven Sotomayor APRN C.N.P., M.S.N. Encounter For Screening For Other Viral Diseases (COVID-19) 8:45 AM CDT Office Visit Department of Orthopedic Surgery in [address] [address] Cece Rivera P.A.-C., P.A. Pain Ankle Bilateral (Primary Dx) 3:30 PM CDT Telemedicine Department of Gastroenterology in [address] [phone] Heaven Sotomayor APRN C.N.P., M.S.N. Pain Abdominal Chronic Clinical Communication Department of Orthopedic Surgery in [address] [address] Cece Rivera P.Bing.-C., P.A. 021 8:45 AM CDT Office Visit Department of Orthopedic Surgery in [address] [address] Cece Rivera P.A.-C., P.A. Pain Hip Bilateral (Primary Dx); Bursitis Trochanteric Bilateral Orders Only [facility] Leonor Means APRN, C.N.P. Deficiency Estrogen Post Menopausal Clinical Communication Department of Orthopedic Surgery in [address] [address] Cece Rivera P.Bing.-C., P.A. 08/16/2 021 Clinical Communication Department of Orthopedic Surgery in [address] [place] [address] Cece Rivera P.A.-C., P.A. Clinical Communication Department of Orthopedic Surgery in [address] [place] [address] Cece Rivera P.A.-C., P.A. 8:45 AM CDT Office Visit Department of Orthopedic Surgery in [address] [place] [address] Cece Rivera P.A.-C., P.A. Pain Wrist Left (Primary Dx); Pain Wrist Right Clinical Communication Department of [facility], [facility], in [address] [place] [address] Leonor Means APRN, C.N.P. Form Review ([facility] 8-6) Clinical Communication Department of [facility], [facility], in [address] [place] [address] Anabela Lemus P.A.-C., P.A. Clinical Communication Department of [facility], [facility], in [address] [place] [address] Leonor Means APRN, C.N.P. 021 10:03 AM CDT - 11:59 PM CDT Hospital Encounter Department of Laboratory Medicine in [address] [place] [address] Leonor Means APRN, C.N.P. Pain Joint Discharge Disposition: Home or Self Care 9:00 AM CDT Office Visit Department of Family [facility], [facility], in [place], [place] [address] [place] [phone] Leonor Means APRN, C.N.P. Pain Joint (Primary Dx); Dependence Drug Opioid (HCC); Chronic Pain Syndrome; Pain Low Back 9:00 AM CDT Comprehensive Visit Department of Orthopedic Surgery in [place], [place] [address] [place] [phone] Sedrick Escobar, MarlinePAryanMAryan Antalgic Gait Ortho (Primary Dx); Pain Low Back Chronic; Pain Joint Foot Bilateral; Hammer Toe Acquired Left 021 Refill Department of Family Medicine, [facility], in [place], [place] [address] [phone] Leonor Means APRN, C.N.P. Med Refill 2:00 PM CDT Office Visit Department of Family [facility], [facility], in [place], [place] [address] [phone] Anabela Lemus P.A.-C., P.A. Vertigo (Primary Dx); Nausea; Dependence Drug Opioid (HCC) Clinical Communication Department of Family Medicine, [facility], in [place], [place] [address] [place] [address] Angie Natarajan, RAryanN. Medical Information 11:24 AM CDT - 2:59 PM CDT Emergency [facility] [address] [place] [phone] Dizziness (Primary Dx); Vertigo Discharge Disposition: Home or Self Care Nurse Triage Department of Family Medicine, [facility], in [place], [place] [address] [phone] Jeannine Duggan R.N. Vertigo 021 Clinical Communication Department of Family Medicine, [facility], in [address] [phone] Leonor Means APRN, C.N.P. Rx Prior Authorization ([place] DENIED ORPHENADRINE 100 MG TAB) 021 Orders Only Department of Family Medicine, [facility], [address] [address] Angie Natarajan R.N. Pain Low Back Chronic (Primary Dx) 021 Clinical Communication Department of [facility], [facility], [address] [address] Leonor Means APRN, C.N.P. 021 7:30 AM CDT Office Visit Department of Family [facility], [facility], [place], [place] [address] [place] [address] Angie Natarajan R.N. Pain Generalized Abdominal (Primary Dx); Dyspepsia; Hypertensive 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 Glomerular Filtration Rate (GFR) 45 To 59 (HCC); Pain Low Back Chronic 021 Clinical Communication Department of Family Medicine, [facility], in [place], [place] [address] [place] [address] Leonor Means APRN, C.N.P. Medical Information 021 Refill Department of Family Medicine, [facility], in [place], [place] [address] [place] [address] Leonor Means APRN, C.N.P. Med Refill 021 Refill Department of Family Medicine, [facility], in [place], [place] [address] [place] [address] Leonor Means APRN, C.N.P. Med Refill 021 Refill Department of Family [facility], [facility], in [address] [address] Leonor Means APRN, C.N.P. Med Refill 021 Refill Department of Family Medicine, [facility], in [address] [address] Leonor Means APRN, C.N.P. Med Refill 021 Refill Department of Family [facility], [facility], in [address] [address] Leonor Means APRN, C.N.P. Med Refill 021 8:56 AM CDT - 021 11:59 PM CDT Hospital Encounter Department of Laboratory Medicine in [place], [place] [address] [facility] [place] [address] Mariano Kearns P.A.-C., P.A. Discharge Disposition: Home or Self Care 021 Clinical Communication Department of Internal Medicine in [address] [address] Jann Rogel M.D. 021 Orders Only Department of Internal Medicine in [address] [address] Jann Rogel M.D. Enterocolitis Due To Clostridium Difficile Not Specified As Recurrent (Primary Dx) 021 10:47 AM CDT - 021 11:59 PM CDT Hospital Encounter Department of Laboratory Medicine, [facility], in [place], [place] [address] [facility] [place] [address] Mariano Kearns P.A.-C., P.A. Discharge Disposition: Home or Self Care Orders Only Department of Family Medicine, [facility], in [place], [place] [address] [place] [address] Mariano Kearns P.A.-C., P.A. Pain Generalized Abdominal (Primary Dx) 9:25 AM CDT - 11:59 PM CDT Hospital Encounter Department of Laboratory Medicine in [address] [address] Mariano Kearns P.A.-C., P.A. Pain Generalized Abdominal Discharge Disposition: Home or Self Care 021 9:24 AM CDT Hospital Encounter Department of Laboratory Medicine in [place], [place] [address] [place] [address] Mariano Kearns P.A.-C., P.A. Pain Generalized Abdominal Discharge Disposition: Home or Self Care 021 2:41 AM CDT - 021 5:39 AM CDT Emergency [facility] [address] [place] [address] Pain Flank Discharge Disposition: Home or Self Care 8:30 AM CDT Office Visit Department of Family Medicine, [facility], in [place], [place] [address] [place] [address] Mariano Kearns P.A.-C., P.A. Pain Generalized Abdominal (Primary Dx); Diarrhea Clinical Communication Department of Family Medicine, [facility], in [place], [place] [address] [place] [address] Leonor Means APRN, C.N.P. COVID Inquiry 021 10:30 AM CDT Ancillary Procedure Department of Physical Medicine and Rehab 021 9:45 AM CDT Procedure visit Department of Physical Medicine and Rehabilitation in [address] [address] Lewis Villagomez D.O. Pain Hip Bilateral (Primary Dx); Primary Osteoarthritis Hip Bilateral 021 8:00 AM CDT - 021 11:59 PM CDT Hospital Encounter Department of Radiology in [address] [address] Ming Montenegro M.D. Pain Ankle Left Discharge Disposition: Home or Self Care 021 8:45 AM CDT Office Visit Department of Orthopedic Surgery in [address] [address] Ming Montenegro M.D. Pain Ankle Left (Primary Dx); Primary Osteoarthritis Hip Bilateral 021 Refill Department of [facility] Medicine, [facility], in [address] [address] Leonor Means APRN, C.N.P. Med Refill 021 Clinical Communication Department of [facility], [facility], in [address] [address] Leonor Means APRN, C.N.P. COVID Inquiry 021 Orders Only Department of Orthopedic Surgery in [address] [address] Cece Rivera P.A.-C., P.A. 021 Orders Only [facility] [place] [place] APRN, C.N.P. Screening Examination Diabetes Mellitus; Monitoring For Therapeutic Drug Therapy 021 Refill Department of Family Medicine, [facility], in [address] [address] Dino Corbett M.D. Med Refill 021 12:20 PM CDT Immunization Department [facility] in [address] [address] Trey Stephens M.D. Encounter For COVID-19 Vaccine Immunization 021 11:00 AM CDT Office Visit Department of [facility], in [address] [address] Leonor Means APRN, C.N.P. Dependence Drug Opioid (HCC) 021 10:45 AM CDT Office Visit Department of Orthopedic Surgery in [address] [address] Cece Rivera P.A.-C., P.A. Pain Ankle Bilateral (Primary Dx) 021 10:15 AM CDT Office Visit Department of Orthopedic Surgery in [address] [address] Cece Rivera P.A.-C., P.A. Bursitis Trochanteric Bilateral (Primary Dx) 021 Refill Department of [facility], in [address] [address] Dino Corbett M.D. Med Refill 021 11:00 AM CDT Office Visit Department of Orthopedic Surgery in [address] [address] Cece Rivera P.A.-C., P.A. Pain Wrist Left (Primary Dx); Pain Wrist Right; Carpal Tunnel Syndrome Right 021 2:40 PM CDT Immunization Department of [facility], [facility], in [place], [place] [address] [place] [address] Sarah Sweeney M.D. Encounter For COVID-19 Vaccine Immunization (Primary Dx) Clinical Communication Department of [facility], [facility], in [place], [place] [address] [place] [address] Dino Corbett M.D. 021 Orders Only [facility] Sarah Sweeney M.D. 10:30 AM FILTRATION OPERATOR - 11:59 PM FILTRATION OPERATOR Hospital Encounter Department of Laboratory Medicine in [place], [place] [address] [place] [address] Dino Corbett M.D. Hyperlipidemia Discharge Disposition: Home or Self Care 10:00 AM FILTRATION OPERATOR Nurse Only Department of [facility], [facility], in [place], [place] [address] [place] [address] Kalie Hanson P.A.-C. [place], Whitney M, R.NAryan Nurse Visit (CSA enrollment) 021 Clinical Communication Department of [facility], [facility], in [place], [place] [address] [place] [address] Dino Corbett M.D. COVID Inquiry 021 Clinical Communication Department of [facility], [facility], in [place], [place] [address] [place] [address] Dino Corbett M.D. Communication Nurse Triage Department of Family Medicine, [facility], in [place], [place] [address] [place] [phone] Randi Cagle R.N. Urinary Problem; COVID Nurse Line 10:30 AM FILTRATION OPERATOR Telemedicine Department of [facility], [facility], in [place], [place] [address] [place] [phone] Kalie Hanson P.A.-C. Rn Examiner Use Of Opiate Analgesic (Primary Dx); Anxiety Orders Only [facility] Dino Mejía M.D. Hyperlipidemia 9:30 AM FILTRATION OPERATOR Office Visit Department of Orthopedic Surgery in [place], [place] [address] [place] [phone] Cece Rivera P.A.-C., P.A. Pain Ankle Bilateral (Primary Dx); Carpal Tunnel Syndrome Right Orders Only Department of Family Medicine, [facility], in [place], [place] [address] [place] [phone] Jennifer Villaseñor M.D. Sinus Disease (Primary Dx) Clinical Communication Department of [facility], [facility], in [place], [place] [address] [place] [address] Dino Corbett M.D. COVID Inquiry 1:45 PM FILTRATION OPERATOR Office Visit Department of [facility], [facility], in [place], [place] [address] [place] [phone] Jennifer Villaseñor M.D. Headache New (Primary Dx); Congestion Sinus 11:00 AM FILTRATION OPERATOR Diagnostic Department of Physical Medicine and Rehabilitation in [place], [place] [address] [place] [phone] Kole Salinas M.D. Pain Wrist Left; Pain Wrist Right; Numbness Hand 2:45 PM FILTRATION OPERATOR Office Visit Department of Orthopedic Surgery in [address] [address] Cece Rivera P.A.-C., P.A. Bursitis Trochanteric Bilateral (Primary Dx) 9:30 AM FILTRATION OPERATOR Office Visit Department of Orthopedic Surgery in [address] [address] Cece Rivera P.A.-C., P.A. Pain Wrist Left (Primary Dx); Pain Wrist Right; Numbness Hand 9:30 AM FILTRATION OPERATOR Comprehensive Visit Department of Ophthalmology in [address] [address] Wilson Hurley M.D. Cataract (Primary Dx) 10:30 AM CDT - 11:59 PM CDT Hospital Encounter Department of Laboratory Medicine in [address] [address] Dino Corbett M.D. Discharge Disposition: Home or Self Care 10:20 AM CDT - 10:29 AM CDT Hospital Encounter Department of Laboratory Medicine in [address] [address] Dino Corbett M.D. Dependence Drug Opioid (HCC) Discharge Disposition: Home or Self Care 9:30 AM CDT Comprehensive Visit Department of Family Medicine, [facility], in [address] [address] Dino Corbett M.D. Anxiety (Primary Dx); Insomnia; Dependence Drug Opioid (HCC); Constipation; Hypertension Essential Primary; PreDiabetes; Gastroesophageal Reflux Disease; Polyp Colon Adenomatous Personal History; Hyperlipidemia; Pap Smear Examination; Maintenance Health Adult 10:00 AM CDT - 10:19 AM CDT Hospital Encounter Department of Radiology in [address] [address] Dino Corbett M.D. Screening Mammogram Average Risk Patient Discharge Disposition: Home or Self Care 020 Refill Department of Family Medicine, [facility], in [address] [address] Dino Corbett M.D. Med Refill 020 Orders Only Department of Family Medicine, [facility], in [address] [address] Dino Corbett M.D. Dependence Drug Opioid (HCC) (Primary Dx) 020 Refill Department of Family Medicine, [facility], in [address] [address] Dino Corbett M.D. Med Refill 020 Refill Department of Family [facility], [facility], in [address] [address] Dino Corbett M.D. Med Refill 020 10:30 AM CDT - 11:59 PM CDT Hospital Encounter Department of Radiology in [address] [address] Ming Montenegro M.D. Fracture Fibula Maisonneuves Displaced Closed Subsequent With Routine Healing Left Discharge Disposition: Home or Self Care 020 11:15 AM CDT Office Visit Department of Orthopedic Surgery in [address] [address] Ming Montenegro M.D. Fracture Fibula Maisonneuves Displaced Closed Subsequent With Routine Healing Left (Primary Dx) 9:30 AM CDT Office Visit Department of Orthopedic Surgery in [address] [address] Cece Rivera P.A.-C., P.A. Pain Wrist Right (Primary Dx); DeQuervain's Tenosynovitis 2:45 PM CDT Office Visit Department of Family Medicine, [facility], in [address] [address] Dino Corbett M.D. Dependence Drug Opioid (HCC) (Primary Dx) 10:19 AM CDT - 11:59 PM CDT Hospital Encounter Department of Radiology in [address] [address] Ming Montenegro M.D. Fracture Lower Leg Trimalleolar Displaced Closed Subsequent With Routine Healing Left Discharge Disposition: Home or Self Care 11:00 AM CDT Office Visit Department of Orthopedic Surgery in [address] [address] Ming Montenegro M.D. Fracture Lower Leg Trimalleolar Displaced Closed Subsequent With Routine Healing Left (Primary Dx) 10:30 AM CDT Office Visit Department of Family Medicine, [facility], in [address] [address] Dino Corbett M.D. Open Reduction Internal Fixation Ankle Status Post (Primary Dx); Dependence Drug Opioid (HCC); Anxiety; Hypertension Essential Primary Refill Department of Family Medicine, [facility], in [address] [place] [address] Dino Corbett M.D. Med Refill 020 Orders Only Department of Orthopedic Surgery in [address] [place] [address] Anastasia Delgadillo P.A.-C., P.A. 020 Refill Department of Family Medicine, [facility], in [address] [place] [address] Dino Corbett M.D. Med Refill 020 Orders Only Department of Family Medicine, [facility], in [address] [place] [address] Dino Corbett M.D. Screening Mammogram Average Risk Patient (Primary Dx) 2:37 PM CDT - 11:59 PM CDT Hospital Encounter Department of Radiology in [address] [place] [address] Anastasia Delgadillo P.A.-C., P.A. Open Reduction Internal Fixation Ankle Status Post Discharge Disposition: Home or Self Care 020 2:30 PM CDT Office Visit Department of Orthopedic Surgery in [address] [place] [address] Anastasia Delgadillo P.A.-C., P.A. Open Reduction Internal Fixation Ankle Status Post (Primary Dx) Clinical Communication Department of Orthopedic Surgery in [address] [place] [address] Carlos Garcia P.A.-C. Communication (cast problem) 020 1:45 PM CDT Office Visit Department of Orthopedic Surgery in [address] [address] Carlos Garcia P.A.-C. Fracture Lower Leg Bimalleolar Displaced Closed Initial Left (Primary Dx) Orders Only Department of Orthopedic Surgery in [address] [address] Anastasia Delgadillo P.A.-C., P.A. Fracture Lower Leg Bimalleolar Displaced Closed Initial Left (Primary Dx) 7:17 AM CDT - 11:59 PM CDT Hospital Encounter Department of Radiology in [address] [address] Ming Montenegro M.D. Open Reduction Internal Fixation Ankle Status Post Discharge Disposition: Home or Self Care Orders Only RST PCP TH SCT Dino Corbett M.D. Monitoring For Therapeutic Drug Therapy Clinical Communication Department of Orthopedic Surgery in [address] [address] Ming Montenegro M.D. SURGERY DATE (LEFT ORIF ANKLE FX) 9:21 AM CDT - 11:59 PM CDT Hospital Encounter Department of Laboratory Medicine in [address] [address] Ming Montenegro M.D. Fracture Lower Leg Bimalleolar Displaced Closed Initial Left Discharge Disposition: Home or Self Care 10:00 AM CDT Office Visit Department of Family Medicine, [facility], in [address] [address] Marjorie Corrales APRN, C.N.P., D.N.P. Preoperative Exam (Primary Dx); Fracture Lower Leg Bimalleolar Displaced Closed Initial Left; Dependence Drug Opioid (HCC); Hypertension Essential Primary; Gastroesophageal Reflux Disease; Hyperlipidemia; Anxiety; Edema Clinical Communication Department of Orthopedic Surgery in [place], [place] [address] [place] [phone] Ming Montenegro M.D. er follow up 9:15 AM CDT Office Visit Department of Orthopedic Surgery in [place], [place] [address] [place] [phone] Ming Montneegro M.D. Fracture Lower Leg Bimalleolar Displaced Closed Initial Left (Primary Dx) - 6:39 AM CDT Emergency [facility] [address] [place] [phone] Fracture Ankle Closed Initial Left (Primary Dx) Discharge Disposition: Home or Self Care 7:18 PM CDT - 9:41 PM CDT Emergency [facility] [place] [address] [place] [phone] History Of Falling (Primary Dx); Pain Ankle Left Discharge Disposition: Home or Self Care 7:50 PM CDT - 9:50 PM CDT Emergency [facility] [place] [facility] [address] [place] [phone] Injury Ankle Initial Left (Primary Dx) Discharge Disposition: Home or Self Care 7:47 PM CDT - 11:59 PM CDT Hospital Encounter Department of Radiology in [place], [place] [address] [place] [phone] Kim Lovett APRN, C.N.P. Pain Foot Left Discharge Disposition: Home or Self Care 1:00 PM CDT Office Visit Department of Orthopedic Surgery in [place], [place] [address] [place] [address] Guillaume Kirkland M.D. Pain Ankle Bilateral (Primary Dx) 020 Clinical Communication Department of [facility], [facility], in [place], [place] [address] [place] [phone] Guillaume Kirkland M.D. COVID Nurse Line Orders Only RST PCP [facility] Dino Corbett M.D. Screening Examination Diabetes Mellitus 020 3:15 PM CDT Office Visit Department of Orthopedic Surgery in [place], [place] [address] [place] [address] Guillaume Kirkland M.D. Pain Wrist Right (Primary Dx); Arthritis Hand 020 Refill Department of [facility], [facility], in [address] [address] Dino Corbett M.D. Med Refill 020 10:00 AM CDT Virtual Visit Department of [facility], [facility], in [address] [address] Dino Corbett M.D. Insomnia (Primary Dx); Chronic Pain Syndrome; Osteoarthritis; Hypertension Essential Primary; Posttraumatic Stress Disorder Prolonged 020 Refill Department of Family Medicine, [facility], in [place], [place] [address] [place] [address] Dino Corbett M.D. Med Refill 020 3:00 PM CDT Office Visit Department of Urology in [address] [address] Zenobia Jules APRN, C.N.PAryan Urinary Urge Incontinence (Primary Dx) 020 1:30 PM CDT Office Visit Department of Family Medicine, [facility], in [address] [address] Dino Corbett M.D. Chronic Pain Syndrome (Primary Dx); Dependence Drug Opioid (HCC); Hypertension Essential Primary; Posttraumatic Stress Disorder Prolonged 8:30 AM FILTRATION OPERATOR - 11:59 PM FILTRATION OPERATOR Hospital Encounter Department of Laboratory Medicine in [address] [address] Kalie Hanson, P.A.-CAryan Screening Lipid; Hypertension Essential Primary Discharge Disposition: Home or Self Care 020 Refill Department of [facility], in [address] [address] Dino Corbett M.D. Med Refill 020 Orders Only Department of Urology in [address] [address] Zenobia Jules APRN, C.N.P. 020 Refill Department of Physical Medicine and Rehabilitation in [address] [address] Rommel March M.D. Med Refill 020 8:30 AM FILTRATION OPERATOR Office Visit Department of Family Medicine, [facility], in [address] [address] Kalie Hanson P.A.-C. Shelter Use Of Opiate Analgesic (Primary Dx); Hypertension Essential Primary; Screening Lipid; Dependence Drug Opioid (HCC); Anxiety; Urinary Urge Incontinence 020 10:30 AM FILTRATION OPERATOR Office Visit Department of Urology in [address] [address] Zenobia Jules APRN, C.N.P. Urinary Urge Incontinence (Primary Dx); Constipation 020 Orders Only Department of [facility], [facility], in [address] [address] Dino Corbett M.D. Hypertension Essential Primary; Hyperlipidemia; PreDiabetes 020 Refill Department of [facility], [facility], [address] [address] Dino Corbett M.D. Med Refill 020 Clinical Communication Department of [facility], [facility], [address] [address] Dino Corbett M.D. 020 Orders Only Department of Family Medicine, [facility], in [address] [place] [address] Dino Corbett M.D. 020 Refill Department of [facility], [facility], [address] [address] Dino Corbett M.D. Med Refill 020 Orders Only Department of Family Medicine, [facility], in [address] [address] Dino Corbett M.D. 019 2:15 PM FILTRATION OPERATOR Office Visit Department of Orthopedic Surgery in [address] [address] Cece Rivera P.A.-C., P.AAryan Pain Ankle Bilateral (Primary Dx) 019 [facility] [place] [address] [place] [address] Dino Corbett M.D. Med Refill Refill Department of Physical Medicine and Rehabilitation in [place], [place] [address] [place] [address] Rommel March M.D. Med Refill 10:04 AM FILTRATION OPERATOR - 11:59 PM FILTRATION OPERATOR Hospital Encounter Department of Radiology in [address] [address] Cece Rivera P.A.-C., P.A. Pain Hip Bilateral Discharge Disposition: Home or Self Care 9:15 AM FILTRATION OPERATOR Office Visit Department of Orthopedic Surgery in [address] [address] Cece Rivera P.A.-C., P.A. DeQuervain's Tenosynovitis (Primary Dx); Pain Wrist Right; Pain Hip Bilateral 11:15 AM FILTRATION OPERATOR Office Visit Department of Dermatology in [address] [address] Mckenna Montalvo APRN, C.N.P. Tag Skin (Primary Dx); Wart Clinical Communication Department of Family Medicine, [facility], in [address] [address] Cece Rivera P.A.-C., P.A. 2:30 PM FILTRATION OPERATOR Office Visit Department of Urology in [address] [address] Zenobia Jules APRN, C.N.P. Urinary Urge Incontinence (Primary Dx) 9:15 AM FILTRATION OPERATOR Comprehensive Visit Department of Ophthalmology in [address] [address] Wilson Hurley M.D. Cataract (Primary Dx) Refill Department of Ophthalmology in [address] [address] Wilson Hurley M.D. Med Refill Refill Department of Family Medicine, [facility], in [address] [address] Dino Corbett M.D. Med Refill Refill Department of Internal Medicine in [address] [address] Dino Corbett M.D. Med Refill Refill Department of Physical Medicine and Rehabilitation in [place], [place] [address] [place] [address] Rommel March M.D. Med Refill 9:30 AM FILTRATION OPERATOR Office Visit Department of Urology in [address] [address] Zenobia Jules APRN, C.N.PAryan Urgency Urinary (Primary Dx); Frequency Urinary 10:00 AM CDT Office Visit Department of Family Medicine, [facility], in [address] [address] Dino Corbett M.D. Dependence Drug Opioid (HCC) (Primary Dx); Pain Foot Left; Headache; Anxiety; Hypertension Essential Primary; Insomnia Refill Department of Physical Medicine and Rehabilitation in [place], [place] [address] [place] [address] Aj Liu M.D. Med Refill Refill Department of Family Medicine, [facility], in [address] [address] Dino Corbett M.D. Med Refill Clinical Communication Department of [facility], [facility], in [address] [address] Genny Hernandez C.M.A. Refill Department of Ophthalmology in [address] [address] Wilson Hurley M.D. Med Refill 10:33 AM CDT - 1:02 PM CDT Hospital Encounter Department of Laboratory Medicine in [address] [address] Dino Corbett M.D. Migraine Headache Discharge Disposition: Home or Self Care 10:00 AM CDT Nurse Only Department of [facility], [facility], in [address] [address] Genny Lance R.N. Nurse Visit (sign CSA) 11:30 AM CDT Office Visit Department of Family Medicine, [facility], in [address] [address] Dino Corbett M.D. Maintenance Health Adult (Primary Dx); Hypertension Essential Primary; Dependence Drug Opioid (HCC); Anxiety; Osteoarthritis 1:03 PM CDT - 11:59 PM CDT Hospital Encounter Department of Radiology in [address] [address] Dino Corbett M.D. Screening Mammogram Average Risk Patient Discharge Disposition: Home or Self Care Refill Department of Family Medicine, [facility], in [address] [address] Dino Corbett M.D. Med Refill 8:00 AM CDT Clinical Support Department of Nutrition in [address] [address] Dino Corbett M.D. Terpstra, Caitlin A, RDN, LD Obesity Body Mass Index 30-39.9 Adult (Primary Dx); PreDiabetes 8:30 AM CDT Office Visit Department of Urology in [address] [address] Zenobia Jules APRN, C.N.P. Overactive Bladder (Primary Dx); Constipation 8:30 AM CDT Office Visit Department of Orthopedic Surgery in [address] [address] Cece Rivera P.A.-C., P.A. Pain Ankle Left (Primary Dx); Pain Ankle Bilateral 9:45 AM CDT Office Visit Department of Family Medicine, [facility], in [address] [address] Dino Corbett M.D. Osteoarthritis (Primary Dx); Dependence Drug Opioid (HCC); Anxiety; Hypertension Essential Primary Orders Only Department of Family Medicine, [facility], in [address] [address] Dino Corbett M.D. 10:43 AM CDT - 08/14/2 019 11:59 PM CDT Hospital Encounter Department of Radiology in [address] [address] Cece Rivera P.A.-C., P.A. Pain Ankle Left Discharge Disposition: Home or Self Care 019 9:45 AM CDT Comprehensive Visit Department of Orthopedic Surgery in [address] [address] Cece Rivera P.A.-C., P.A. Pain Wrist Left (Primary Dx); Pain Wrist Right; Pain Ankle Left 019 Orders Only Department of Family Medicine, [facility], in [address] [address] Dino Corbett M.D. 019 Refill Department of Family Medicine, [facility], in [place], [place] [address] [place] [address] Dino Corbett M.D. Med Refill 019 Refill Department of Physical Medicine and Rehabilitation in [address] [address] Jason Carballo III, D.O. Med Refill 019 Refill Department of Family Medicine, [facility], in [place], [place] [address] [place] [address] Dino Corbett M.D. Med Refill 019 12:23 PM CDT - 019 11:59 PM CDT Hospital Encounter Department of Radiology in [address] [address] Jennifer Villaseñor M.D. Pain Wrist Left Discharge Disposition: Home or Self Care 019 11:00 AM CDT Office Visit Department of Family Medicine, [facility], in [address] [place] [address] Jennifer Villaseñor M.D. Pain Wrist Left (Primary Dx) Clinical Communication Department of Orthopedic Surgery in [place], [place] [address] [place] [address] Don Orozco M.D. Rx for custom orthodics 3:45 PM CDT Ancillary Procedure Department of Urology 3:00 PM CDT Comprehensive Visit Department of Urology in [place], [place] [address] [place] [address] Dusty Rosales M.D. Urinary Urge Incontinence (Primary Dx); Hematuria 019 12:13 PM CDT - 12:23 PM CDT Hospital Encounter Department of Laboratory Medicine in [place], [place] [address] [place] [address] Jennifer Villaseñor M.D. Hematuria Discharge Disposition: Home or Self Care 019 12:24 PM CDT - 11:59 PM CDT Hospital Encounter Department of Radiology in [place], [place] [address] [place] [address] Jennifer Villaseñor M.D. Hematuria Discharge Disposition: Home or Self Care 019 Orders Only Department of Family Medicine, [facility], in [place], [place] [address] [place] [address] Dino Corbett M.D. 019 Clinical Communication Department of Family Medicine, [facility], in [place], [place] [address] [place] [address] Dino Corbett M.D. 019 Orders Only Department of Family Medicine, [facility], in [place] [place] [address] Dino Corbett M.D. 019 Orders Only Department of Family Medicine, [facility], in [address] [place] [address] Dino Corbett M.D. 019 Clinical Communication Department of Family Medicine, [facility], in [address] [place] [address] Dino Corbett M.D. 019 Clinical Communication Department of Family [facility], [facility], [address] [place] [address] Jennifer Villaseñor M.D. 019 Orders Only Department of Family Medicine, [facility], in [address] [place] [address] Jennifer Villaseñor M.D. Hematuria 019 11:57 AM CDT - 019 11:59 PM CDT Hospital Encounter Department of Laboratory Medicine in [address] [place] [address] Jennifer Villaseñor M.D. Frequency Urinary; Urgency Urinary; Polyuria Discharge Disposition: Home or Self Care 019 10:30 AM CDT Office Visit Department of Family Medicine, [facility], in [address] [place] [address] Jennifer Villaseñor M.D. Frequency Urinary (Primary Dx); Urgency Urinary; Polyuria; Pain Wrist Left 019 Refill Department of Family Medicine, [facility], in [address] [place] [address] Dino Corbett M.D. Med Refill 019 Clinical Communication Department of [facility], [facility], in [address] [place] [address] Sury Bejarano L.P.N. 019 Refill Department of [facility], [facility], in [address] [place] [address] Dino Corbett M.D. Med Refill 019 10:00 AM CDT Clinical Support Department of Nutrition in [address] [place] [address] Letty Trevizo, ARLENEN, LD Obesity Body Mass Index 30-39.9 Adult; PreDiabetes; Hyperlipidemia 019 Clinical Communication Department of [facility], [facility], in [address] [place] [address] Dino Corbett M.D. 019 Orders Only Department of [facility] Medicine, [facility], in [address] [place] [address] Dino Corbett M.D. 019 10:00 AM CDT Clinical Support Department of Nutrition in [address] [place] [address] Jennifer Villaseñor M.D. Terpstra, Caitlin A, RDN, LD PreDiabetes; Obesity Body Mass Index 30-39.9 Adult 019 Orders Only Department of [facility], in [address] [place] [address] Jennifer Villaseñor M.D. PreDiabetes (Primary Dx) Clinical Communication Department of Family [facility], [facility], in [address] [address] Jennifer Villaseñor M.D. [employer]er Order 8:50 AM CDT - 11:59 PM CDT Hospital Encounter Department of Laboratory Medicine in [address] [address] Jennifer Villaseñor M.D. Polyuria Discharge Disposition: Home or Self Care 10:00 AM CDT Office Visit Department of Family Medicine, [facility], in [address] [address] Jennifer Villaseñor M.D. Polyuria (Primary Dx); Discharge Vaginal; Vaginosis Bacterial Refill Department of Ophthalmology in [address] [address] Wilson Hurley M.D. Med Refill 3:41 PM CDT - 11:59 PM CDT Hospital Encounter Department of Radiology in [address] [address] Jennifer Villaseñor M.D. Bloating Abdominal; Pain Pelvic Female Discharge Disposition: Home or Self Care Orders Only Department of Family Medicine, [facility], in [address] [address] Jennifer Villaseñor M.D. 11:45 AM CDT Office Visit Department of Family Medicine, [facility], in [address] [address] Jennifer Villaseñor M.D. Frequency Urinary (Primary Dx); Bloating Abdominal; Pain Pelvic Female; Infection Urinary Tract 019 Nurse Triage Department of Family Medicine, [facility], in [place], [place] [address] [place] [address] Naz Boyd R.N. 019 Orders Only Department of Family Medicine, [facility], in [address] [address] Dino Corbett M.D. 019 Clinical Communication Department of [facility], [facility], in [address] [address] Dino Corbett M.D. 019 Refill Department of Family [facility], [facility], in [address] [address] Talib Centeno C.M.A. Med Refill 019 Clinical Communication Department of Family [facility], [facility], in [address] [place] [address] Dino Corbett M.D. 019 Orders Only Department of Family Medicine, [facility], in [place], [place] [address] [place] [address] Dino Corbett M.D. 019 Refill Department of Family [facility], [facility], in [address] [address] Dario Dhaliwal M.D. Med Refill 019 Refill Department of Family [facility], [facility], in [address] [place] [address] Dino Corbett M.D. Med Refill 019 Refill Department of Family Medicine, [facility] [facility], in [address] [place] [address] Talib Centeno C.M.A. Med Refill 019 Orders Only Department of Family Medicine, [facility], in [address] [place] [address] Ilene Cameron APRN C.N.P., M.S.N. 019 Refill Department of Family Medicine, [facility], in [address] [place] [address] Kinga Bunch L.P.N. Med Refill 019 Clinical Communication Department of Family Medicine, [facility], in [address] [place] [address] Dino Corbett M.D. 019 Refill Department of Family Medicine, [facility], in [address] [place] [address] Dino Corbett M.D. Med Refill 019 Refill Department of Family Medicine, [facility], in [address] [place] [address] Dino Corbett M.D. Med Refill 019 Refill Department of Ophthalmology in [address] [place] [address] Wilson Hurley M.D. Med Refill 018 Refill Department of Family Medicine, [facility], in [address] [address] Dino Corbett M.D. Med Refill 018 Refill Department of Internal Medicine in [address] [address] Choco Beck, HAIR, C.N.P. Med Refill 018 12:17 PM FILTRATION OPERATOR - 018 11:59 PM FILTRATION OPERATOR Hospital Encounter Department of Radiology, [facility], in [place], [place] [address] [place] [address] Don Orozco M.D. Pain Joint Foot Bilateral Discharge Disposition: Home or Self Care 018 1:45 PM FILTRATION OPERATOR Office Visit Department of Orthopedic Surgery in [place], [place] [address] [place] [address] Don Orozco M.D. Pain Joint Foot Bilateral (Primary Dx) 018 Orders Only Department of Family Medicine, [facility], in [address] [address] Dino Corbett M.D. 018 Clinical Communication Department of Orthopedic Surgery in [place], [place] [address] [place] [address] Don Orozco M.D. 018 Refill Department of Ophthalmology in [address] [address] Wilson Hurley M.D. Med Refill 018 9:30 AM FILTRATION OPERATOR Comprehensive Visit Department of Ophthalmology in [address] [address] Wilson Hurley M.D. Cataract (Primary Dx) 018 Clinical Communication Department of General Surgery in [address] [place] [address] Papi Bahena M.D. 018 8:00 AM CDT Nurse Only Department of Family Medicine, [facility], in [place], [place] [address] [place] [address] Dino Corbett M.D. Lawson, Elizabeth J, R.N. 018 7:26 AM CDT - 018 11:59 PM CDT Hospital Encounter Department of Laboratory Medicine in [address] [address] Dino Corbett M.D. Maintenance Health Adult; Screening Lipid; Hypertension Essential Primary; Screening Examination Diabetes Mellitus Discharge Disposition: Home or Self Care 018 Orders Only Department of Family Medicine, [facility], in [address] [address] Dino Corbett M.D. 018 Refill Department of Family Medicine, [facility], in [address] [address] Dino Corbett M.D. Med Refill 018 1:58 PM CDT - 018 11:59 PM CDT Hospital Encounter Department of Radiology in [address] [address] Dino Corbett M.D. Screening Mammogram Average Risk Patient Discharge Disposition: Home or Self Care 018 2:45 PM CDT Comprehensive Visit Department of Family Medicine, [facility], in [place], [place] [address] [place] [address] Dino Corbett M.D. Maintenance Health Adult (Primary Dx); Insomnia Persistent Non Organic; Pain Foot Left; Dependence Drug Opioid (HCC); Anxiety; Hypertension Essential Primary; Polyp Colon Adenomatous; Screening Lipid; Screening Examination Diabetes Mellitus 018 Orders Only Department of Internal Medicine in [address] [address] Choco Beck APRN, C.N.P. 018 Clinical Communication Department of Family Medicine, [facility], in [address] [address] Anastasia Gould, L.P.N. 018 8:00 AM CDT Nurse Only Department of Family [facility], [facility], in [address] [address] Choco Beck APRN, C.N.P. Anastasia Gould, L.P.N. Hypertension 018 Refill Department of Family Medicine, [facility], in [address] [address] Dino Corbett M.D. Med Refill 018 Refill Department of Family [facility], [facility], in [address] [address] Dino Corbett M.D. Med Refill 018 Refill Department of Ophthalmology in [address] [address] Wilson Hurley M.D. Med Refill 018 10:45 AM CDT Comprehensive Visit Department of Internal Medicine in [address] [address] Choco Beck APRN, C.N.P. Hypertension Essential Primary 018 Refill Department of Family Medicine, [facility], in [address] [address] Evens Barfield P.A.-C. Med Refill 018 Clinical Communication Department of Family [facility], [facility], in [address] [address] Konrad Cooley L.P.N. 018 Refill Department of Ophthalmology in [address] [address] Wilson Hurley M.D. Med Refill 018 Refill Department of Family Medicine, [facility], in [address] [address] Dino Corbett M.D. Med Refill 018 5:20 PM CDT - 018 11:59 PM CDT Hospital Encounter Department of Laboratory Medicine in [address] [address] Dino Corbett M.D. Frequency Urinary Discharge Disposition: Home or Self Care 018 4:00 PM CDT Office Visit Department of Family Medicine, [facility], in [address] [address] Dino Corbett M.D. Dependence Drug Opioid (HCC) (Primary Dx); Frequency Urinary; Hypertension Essential Primary; Chronic Pain Syndrome; Fasciitis Plantar; Pain Foot Left; Anxiety 018 1:43 PM CDT - 018 11:59 PM CDT Hospital Encounter Department of Radiology, [facility], in [place], [place] [address] [place] [address] de Vaal, Cass M, O.P.A.-C. Pain Foot Right Discharge Disposition: Home or Self Care 018 1:43 PM CDT - 018 11:59 PM CDT Hospital Encounter Department of Radiology, [facility], in [place], [place] [address] [place] [address] Cass Pradhan O.P.A.-C. Pain Foot Left Discharge Disposition: Home or Self Care 018 3:00 PM CDT Office Visit Department of Orthopedic Surgery in [place], [place] [address] [place] [address] Don Orozco M.D. Fasciitis Plantar (Primary Dx); Hallux Rigidus Left; Pain Foot Left 018 Clinical Communication Department of Orthopedic Surgery in [place], [place] [address] [place] [address] Don Orozco M.D. 018 1:15 PM CDT Office Visit Department of Family Medicine, [facility], in [place], [place] [address] [place] [address] Ilene Cameron APRN C.N.PAryan, M.S.N. Infection Upper Respiratory (Primary Dx) 018 Clinical Communication Department of Family Medicine, [facility], in [place], [place] [address] [place] [address] Dino Corbett M.D. 018 Orders Only Department of Family Medicine, [facility], in [place], [place] [address] [place] [address] Dino Corbett M.D. 018 1:30 PM CDT Office Visit Department of Family Medicine, [facility], in [place], [place] [address] [address] Kole Sarkar M.D. Frequency Urinary (Primary Dx); Acute Cystitis Without Hematuria 018 Nurse Triage Department of Family Medicine, [facility], in [place], [place] [address] [place] [address] Nicole Johnson R.N. 018 Orders Only HX NO MAPPING Cass Pradhan O.P.A.-C. Pain Foot Left 018 8:30 AM CDT Diagnostic Department of Otorhinolaryngology in [address] [address] Anna Marie Vargas AUD, Au.D. Loss Hearing Sensorineural Bilateral 018 Refill Department of Ophthalmology in [address] [address] Wilson Hurley M.D. Med Refill 018 9:00 AM CDT Diagnostic Department of Otorhinolaryngology in [address] [address] Jennifer Chamorro Au.D. Dease, Katie E, AUD, Au.D. Loss Hearing Sensorineural Bilateral; Loss Hearing Sensorineural Asymmetrical 018 10:15 AM FILTRATION OPERATOR Office Visit Department of [facility], [facility], in [address] [address] Dino Corbett M.D. Dependence Drug Opioid (HCC) (Primary Dx); Pain Foot Left; Elevated Blood Pressure Without Hypertension 018 10:00 AM FILTRATION OPERATOR Diagnostic Department of Otorhinolaryngology in [address] [address] Jennifer Chamorro Au.D. Loss Hearing Sensorineural Bilateral (Primary Dx); Loss Hearing Sensorineural Asymmetrical 018 Clinical Communication Department of [facility] Medicine, [facility], in [address] [place] [address] Dino Corbett M.D. Med Refill 018 Orders Only Department of Family Medicine, [facility], in [place], [place] [address] [place] [address] Dino Corbett M.D. 018 8:00 AM FILTRATION OPERATOR Diagnostic Department of Otorhinolaryngology in [place], [place] [address] [place] [address] Jennifer Chamorro Au.D. Loss Hearing Sensorineural Bilateral (Primary Dx) 018 Orders Only Department of Otorhinolaryngology in [address] [place] [address] Jennifer Chamorro Au.D. Loss Hearing Sensorineural Bilateral (Primary Dx) 018 8:00 AM FILTRATION OPERATOR Diagnostic Department of Otorhinolaryngology in [place], [place] [address] [place] [address], [place] [address] Maggy Lira Au.D. Loss Hearing Sensorineural Bilateral 018 Orders Only Department of Ophthalmology in [place], [place] [address] [place] [address] Wilson Hurley M.D. 018 Refill Department of Ophthalmology in [place], [place] [address] [place] [address] Wilson Hurley M.D. Med Refill 018 Refill Department of Family Medicine, [facility], in [place], [place] [address] [place] [address] Dino Corbett M.D. Med Refill 018 3:30 PM FILTRATION OPERATOR Diagnostic Department of Otorhinolaryngology in [address] [place] [address] Genny Trujillo AUD, Au.D. Vitzthum, Colleen M, Au.D. Loss Hearing Sensorineural Bilateral 018 8:30 AM FILTRATION OPERATOR Diagnostic Department of Otorhinolaryngology in [address] [address] Genny Trujillo AUD, Au.D. Vitzthum, Colleen M, Au.D. Loss Hearing Sensorineural Bilateral 017 9:00 AM FILTRATION OPERATOR Diagnostic Department of Otorhinolaryngology in [place], [place] [address] [place] [address] Genny Trujillo AUD, Au.D. Vitzthum, Colleen M, Au.D. Loss Hearing Sensorineural Bilateral 017 Refill Department of Family Medicine, [facility], in [place], [place] [address] [place] [address] Dino Corbett M.D. Med Refill 017 - 017 11:59 PM FILTRATION OPERATOR Hospital Encounter HX NO MAPPING 017 10:09 AM FILTRATION OPERATOR - 017 3:09 PM FILTRATION OPERATOR Emergency [facility] [address] [place] [phone] Pain Postoperative (Primary Dx) Discharge Disposition: Home or Self Care 017 Orders Only Department of Otolaryngology-Head and Neck Surgery in [address] [place] [phone] Genny Trujillo AUD, Mynor Loss Hearing Sensorineural Bilateral (Primary Dx) 017 2:47 PM FILTRATION OPERATOR - 017 11:59 PM FILTRATION OPERATOR Hospital Encounter Department of Radiology in [place], [place] [address] [place] [phone] Dino Corbett M.D. Routine Screening Breast Exam Discharge Disposition: Home or Self Care 017 3:45 PM FILTRATION OPERATOR Comprehensive Visit Department of Family Medicine, [facility], in [place], [place] [address] [address] Dino Corbett M.D. Elevated Blood Pressure Without Hypertension (Primary Dx); Edema; Dependence Drug Opioid (HCC); Hyperlipidemia; Reflux Esophageal; Insomnia Persistent Non Organic 017 7:00 AM FILTRATION OPERATOR - 017 11:59 PM FILTRATION OPERATOR Hospital Encounter Department of Laboratory Medicine in [place], [place] [address] [address] Dino Corbett M.D. General Medical Examination Adult Discharge Disposition: Home or Self Care 017 - 017 11:59 PM FILTRATION OPERATOR Hospital Encounter HX NO MAPPING 017 - 017 11:59 PM FILTRATION OPERATOR Hospital Encounter HX NO MAPPING 017 7:44 AM CDT - 017 11:59 PM CDT Hospital Encounter HX [facility] AUDIOLOGY Genny Trujillo AUD, Au.D. 017 8:26 AM CDT - 017 11:59 PM CDT Hospital Encounter HX NO MAPPING Omar Sofia M.D. 017 2:00 PM CDT - 017 11:59 PM CDT Hospital Encounter [facility] ORTHO Carlos Garcia P.AChristie 017 8:00 AM CDT - 017 11:59 PM CDT Hospital Encounter [facility]X [facility] Sary Fournier M.B.B.S., Ph.D. Historical [facility] 017 7:55 AM CDT - 017 11:59 PM CDT Hospital Encounter HX [facility] Wilson Lin M.D. 017 Orders Only Department of Family Medicine, [facility], in [place], [place] [address] [place] [phone] Dino Corbett M.D. General Medical Examination Adult 017 Abstract Department of Family Medicine in [place], [place] [address] [place] [address] Anju Gotti R.N. 017 12:53 PM CDT - 017 11:59 PM CDT Hospital Encounter [facility]X [facility] AUDIOLOGY Maggy Lira Au.D. 017 10:01 AM CDT - 017 11:59 PM CDT Hospital Encounter [facility]X [facility] SHOTCLINI Dino Corbett M.D. 017 Abstract Department of Family [facility] in [place], [place] [address] [place] [address] Provider, Historical 017 12:36 PM CDT - 017 11:59 PM CDT Hospital Encounter [facility]X [facility] LAB Dino Corbett M.D. 017 3:32 PM CDT - 017 11:59 PM CDT Hospital Encounter [facility]X [facility] Carl Yoder M.D. 017 6:55 PM CDT - 017 11:59 PM CDT Hospital Encounter HX NO MAPPING Carl Haque M.D. 017 2:13 PM CDT - 017 11:59 PM CDT Hospital Encounter [facility] Carl Yoder M.D. 017 3:30 PM CDT - 017 11:59 PM CDT Hospital Encounter [facility]X [facility] FAMILYPRA Dino Corbett M.D. 017 3:33 PM CDT - 017 11:59 PM CDT Hospital Encounter [facility]X [facility] INTERNMED Jina Diehl MPAS, P.A.-C., P.A. 017 2:57 PM CDT - 017 11:59 PM CDT Hospital Encounter [facility]X [facility] INTERNMED Jina Diehl MPAS, P.A.-C., P.A. 017 3:14 PM FILTRATION OPERATOR - 017 11:59 PM FILTRATION OPERATOR Hospital Encounter [facility] Dino Partida M.D. 017 2:51 PM FILTRATION OPERATOR - 017 11:59 PM FILTRATION OPERATOR Hospital Encounter [facility]X [facility] FAMILYDino Chacon M.D. 016 12:26 PM FILTRATION OPERATOR - 016 11:59 PM FILTRATION OPERATOR Hospital Encounter [facility]X [facility] ALLERGY Provider, Historical 016 9:12 AM FILTRATION OPERATOR - 016 11:59 PM FILTRATION OPERATOR Hospital Encounter [facility] MRI Apoorva Andujar P.Bing.Floyd 016 3:04 PM FILTRATION OPERATOR - 016 11:59 PM FILTRATION OPERATOR Hospital Encounter [facility]X [facility] Dino Partida M.D. 016 12:46 PM FILTRATION OPERATOR - 016 11:59 PM FILTRATION OPERATOR Hospital Encounter [facility] ENT Apoorva Andujar P.A.-CAryan 016 2:42 PM FILTRATION OPERATOR - 016 11:59 PM FILTRATION OPERATOR Hospital Encounter [facility]X [facility] AUDIOLOGY Genny Trujillo AUD, Au.D. 016 6:23 PM FILTRATION OPERATOR - 016 11:59 PM FILTRATION OPERATOR Hospital Encounter HX NO MAPPING Chris Martin III, M.D. 016 1:29 PM FILTRATION OPERATOR - 016 11:59 PM FILTRATION OPERATOR Hospital Encounter [facility]X [facility] Dino Partida M.D. 016 3:06 PM FILTRATION OPERATOR - 016 11:59 PM FILTRATION OPERATOR Hospital Encounter [facility]X [facility] MAMMO Dino Corbett M.D. 016 10:47 AM FILTRATION OPERATOR - 016 11:59 PM FILTRATION OPERATOR Hospital Encounter [facility]X [facility] FAMILYPRA Mckenna Montalvo APRN, C.N.P. 016 11:55 AM FILTRATION OPERATOR - 016 11:59 PM FILTRATION OPERATOR Hospital Encounter [facility]X [facility] FAMILYPRA Dino Corbett M.D. 016 10:40 AM CDT - 016 11:59 PM CDT Hospital Encounter [facility]X [facility] FAMILYPRA Mckenna Montalvo APRN, C.N.P. 016 11:09 AM CDT - 016 11:59 PM CDT Hospital Encounter [facility]X [facility] FAMILYPRA Mckenna Montalvo APRN, C.N.P. 016 9:42 AM CDT - 016 11:59 PM CDT Hospital Encounter [facility] ENT Apoorva Andujar P.A.-C. 016 3:37 PM CDT - 016 11:59 PM CDT Hospital Encounter [facility]X [facility] AUDIOLOGY Kate Tucker Au.D., M.A. 016 2:14 PM CDT - 016 11:59 PM CDT Hospital Encounter [facility] ENT Roque Roman M.D. 016 9:09 AM CDT - 016 11:59 PM CDT Hospital Encounter [facility]X [facility] FAMILYPRA Ruben Valdes M.D. 016 3:31 PM CDT - 016 11:59 PM CDT Hospital Encounter [facility] HSP-CT OP Roque Roman M.D. 016 3:10 PM CDT - 016 11:59 PM CDT Hospital Encounter [facility] ENT Roque Roman M.D. 016 11:30 AM FILTRATION OPERATOR - 016 11:59 PM FILTRATION OPERATOR Hospital Encounter [facility]X [facility] FAMILYDino Chacon M.D. 015 - 015 11:59 PM FILTRATION OPERATOR Hospital Encounter HX NO MAPPING 015 7:00 AM FILTRATION OPERATOR - 015 11:59 PM FILTRATION OPERATOR Hospital Encounter [facility]X [facility] LAB Dino Corbett M.D. 015 7:00 AM FILTRATION OPERATOR - 015 11:59 PM FILTRATION OPERATOR Hospital Encounter [facility]X [facility] LAB Dino Corbett M.D. 015 1:22 PM FILTRATION OPERATOR - 015 11:59 PM FILTRATION OPERATOR Hospital Encounter [facility]X [facility] Dino Chacon M.D. 015 9:27 PM FILTRATION OPERATOR - 015 11:59 PM FILTRATION OPERATOR Hospital Encounter HX NO Dino Villavicencio M.D. 015 2:25 PM FILTRATION OPERATOR - 015 11:59 PM FILTRATION OPERATOR Hospital Encounter [facility]X [facility] MAMMO Dino Corbett M.D. 015 - 015 11:59 PM CDT Hospital Encounter HX NO MAPPING 015 2:59 PM CDT - 015 11:59 PM CDT Hospital Encounter [facility] Trey Samuels P.A.-Riki 015 Historical Ophthalmology [facility] [address] M.D. 015 3:18 PM CDT - 015 11:59 PM CDT Hospital Encounter [facility]X [facility] Wilson Lin M.D. 015 8:11 AM FILTRATION OPERATOR - 015 11:59 PM FILTRATION OPERATOR Hospital Encounter [facility] Apoorva Reyes P.A.-C. 015 3:05 PM FILTRATION OPERATOR - 015 11:59 PM FILTRATION OPERATOR Hospital Encounter [facility]X [facility] FAMILYDino Chacon M.D. 2:41 PM FILTRATION OPERATOR - 015 11:59 PM FILTRATION OPERATOR Hospital Encounter [facility] XRAY Dino Corbett M.D. 11:20 AM FILTRATION OPERATOR - 014 11:59 PM FILTRATION OPERATOR Hospital Encounter [facility]X [facility] FAMILYPRA Provider, Historical 12:04 PM FILTRATION OPERATOR - 014 11:59 PM FILTRATION OPERATOR Hospital Encounter [facility]X [facility] Apoorva Reyes P.A.-C. Historical Ophthalmology [facility] OPH Wilson Hurley M.D. 3:58 PM FILTRATION OPERATOR - 11:59 PM FILTRATION OPERATOR Hospital Encounter [facility]X [facility] OPHTH Wilson Hurley M.D. 3:29 PM FILTRATION OPERATOR - 014 11:59 PM FILTRATION OPERATOR Hospital Encounter [facility]X [facility] FAMILYPRA Dino Corbett M.D. 2:52 PM FILTRATION OPERATOR - 11:59 PM FILTRATION OPERATOR Hospital Encounter HX NO MAPPING Omar Sofia M.D. 8:29 AM FILTRATION OPERATOR - 11:59 PM FILTRATION OPERATOR Hospital Encounter HX NO MAPPING Sharla Mccoy M.D. 8:18 AM FILTRATION OPERATOR - 014 11:59 PM FILTRATION OPERATOR Hospital Encounter HX NO MAPPING Omar Sofia M.D. 8:04 AM FILTRATION OPERATOR - 014 11:59 PM FILTRATION OPERATOR Hospital Encounter [facility]X [facility] URGENTCAR Provider, Historical 9:10 AM FILTRATION OPERATOR - 014 11:59 PM FILTRATION OPERATOR Hospital Encounter HX NO MAPPING Santhosh Grant D.P.MAryan 2:54 PM FILTRATION OPERATOR - 014 11:59 PM FILTRATION OPERATOR Hospital Encounter [facility]X [facility] ULTRASOUN Dino Corbett M.D. 014 2:23 PM FILTRATION OPERATOR - 014 11:59 PM FILTRATION OPERATOR Hospital Encounter [facility]X [facility] ETHANO Dino Corbett M.D. 014 - 11:59 PM FILTRATION OPERATOR Hospital Encounter HX NO MAPPING 3:32 PM FILTRATION OPERATOR - 014 11:59 PM FILTRATION OPERATOR Hospital Encounter [facility]X [facility] Apoorva Reyes P.A.-C. 3:30 PM FILTRATION OPERATOR - 11:59 PM FILTRATION OPERATOR Hospital Encounter [facility] AUDIOLOGY Ana Deng Au.D. 7:11 AM FILTRATION OPERATOR - 11:59 PM FILTRATION OPERATOR Hospital Encounter [facility]X [facility] LAB Dino Corbett M.D. 1:49 PM FILTRATION OPERATOR - 11:59 PM FILTRATION OPERATOR Hospital Encounter [facility]X [facility] FAMILYPRA Dino Corbett M.D. 1:50 PM FILTRATION OPERATOR - 11:59 PM FILTRATION OPERATOR Hospital Encounter [facility]X [facility] FAMILYPRA Dino Corbett M.D. 3:26 PM FILTRATION OPERATOR - 11:59 PM FILTRATION OPERATOR Hospital Encounter [facility]X [facility] ETHANO Dino Corbett M.D. 9:11 AM CDT - 11:59 PM CDT Hospital Encounter [facility] Trey Samuels P.A.-C. 3:00 PM CDT - 11:59 PM CDT Hospital Encounter [facility] Wilson Lin M.D. 3:12 PM CDT - 11:59 PM CDT Hospital Encounter [facility]X [facility] Wilson Lin M.D. 7:32 AM CDT - 11:59 PM CDT Hospital Encounter HX [facility] Wilson aLi M.D. 08/05/2 014 3:43 PM CDT - 11:59 PM CDT Hospital Encounter HX NO MAPPING Wilson Hurley M.D. 014 8:10 AM CDT - 014 11:59 PM CDT Hospital Encounter [facility] Wilson Lin M.D. 014 3:18 PM CDT - 014 11:59 PM CDT Hospital Encounter [facility]X [facility] FAMILYDino Chacon M.D. 9:57 AM CDT - 014 11:59 PM CDT Hospital Encounter [facility] Wilson Lin M.D. 014 - 11:59 PM CDT Hospital Encounter HX NO MAPPING 014 2:34 PM CDT - 014 11:59 PM CDT Hospital Encounter [facility]X [facility] OWSHANIQUA Wilson Lni M.D. 12:21 PM CDT - 014 11:59 PM CDT Hospital Encounter HX NO MAPPING Papi Bahena M.D. 2:41 PM CDT - 11:59 PM CDT Hospital Encounter [facility]X [facility] FAMILYDino Chacon M.D. 1:56 PM CDT - 11:59 PM CDT Hospital Encounter [facility] Romulo Baez M.D. 2:59 PM FILTRATION OPERATOR - 11:59 PM FILTRATION OPERATOR Hospital Encounter [facility] Trey Samuels P.A.-C. 3:08 PM FILTRATION OPERATOR - 014 11:59 PM FILTRATION OPERATOR Hospital Encounter [facility] Trey Samuels P.A.-C. 014 6:57 AM FILTRATION OPERATOR - 014 11:59 PM FILTRATION OPERATOR Hospital Encounter [facility] Dino Abreu M.D. 013 11:13 AM FILTRATION OPERATOR - 013 11:59 PM FILTRATION OPERATOR Hospital Encounter [facility] Trey Samuels P.A.-C. 2:09 PM FILTRATION OPERATOR - 013 11:59 PM FILTRATION OPERATOR Hospital Encounter [facility] Trey Samuels P.A.-C. 013 10:08 AM FILTRATION OPERATOR - 013 11:59 PM FILTRATION OPERATOR Hospital Encounter [facility] ORTHO Trey Fung P.A.-C. 8:22 AM FILTRATION OPERATOR - 013 11:59 PM FILTRATION OPERATOR Hospital Encounter [facility] MRI Trey Fung P.A.-C. 013 9:13 AM FILTRATION OPERATOR - 013 11:59 PM FILTRATION OPERATOR Hospital Encounter [facility] Trey Samuels P.A.-C. 013 3:03 PM CDT - 013 11:59 PM CDT Hospital Encounter [facility] MAMMO Dino Corbett M.D. 013 1:47 PM CDT - 013 11:59 PM CDT Hospital Encounter [facility] FAMILYPRA Dino Corbett M.D. 8:11 AM CDT - 013 11:59 PM CDT Hospital Encounter [facility] ORTHO Trey Fung P.A.-C. 3:29 PM CDT - 013 11:59 PM CDT Hospital Encounter [facility] Trey Samuels P.A.-C. 013 1:16 PM CDT - 013 11:59 PM CDT Hospital Encounter [facility] ORTHO Cece Rivera P.A.-C., P.Hillary 013 2:13 PM CDT - 013 11:59 PM CDT Hospital Encounter [facility] FAMILYPRA Dino Corbett M.D. 012 7:00 AM CDT - 012 11:59 PM CDT Hospital Encounter [facility] LAB Dino Corbett M.D. 012 6:59 AM CDT - 012 11:59 PM CDT Hospital Encounter [facility] LAB Dino Corbett M.D. 012 3:48 PM CDT - 012 11:59 PM CDT Hospital Encounter [facility] MAMMO Dino Corbett M.D. 012 2:02 PM CDT - 012 11:59 PM CDT Hospital Encounter [facility] FAMILYDino Chacon M.D. 012 3:29 PM CDT - 012 11:59 PM CDT Hospital Encounter [facility] OCCHEALTH Ming Oviedo M.D. 012 3:02 PM CDT - 012 11:59 PM CDT Hospital Encounter [facility] OCCHE[facility] Ming Oviedo M.D. 011 6:22 PM FILTRATION OPERATOR - 011 11:59 PM FILTRATION OPERATOR Hospital Encounter [facility] PEBBLESCAR Romulo Fletcher M.D. 011 9:24 AM CDT - 011 11:59 PM CDT Hospital Encounter [facility] FAMILYPRA Dino Corbett M.D. 011 2:11 PM CDT - 011 11:59 PM CDT Hospital Encounter [facility] FAMILYPRA Diandra Dubon M.D. 010 7:46 AM CDT - 010 11:59 PM CDT Hospital Encounter [facility] LAB Dino Corbett M.D. 010 3:18 PM CDT - 010 11:59 PM CDT Hospital Encounter [facility] OBGYN ChengDonna N.P. 010 2:48 PM CDT - 010 11:59 PM CDT Hospital Encounter [facility] FAMILYPRA Dino Corbett M.D. 010 4:14 PM CDT - 010 11:59 PM CDT Hospital Encounter [facility] MAMMO Dino Corbett M.D. 010 Hospital Encounter [facility] FAMILYPRA Dino Corbett M.D. 009 Hospital Encounter [facility] SURGERY Ralph Garcia M.D. 009 Hospital Encounter [facility] FAMILYPRA Dino Corbett M.D. 008 Hospital Encounter [facility] FAMILYPRA Dino Corbett M.D. 008 Hospital Encounter [facility] FAMILYPRA Dino Corbett M.D. 008 Hospital Encounter [facility] FAMILYPRA Dino Corbett M.D. 008 Hospital Encounter [facility] FAMILYPRA Provider, Historical 008 Hospital Encounter [facility] FAMILYPRA Dino Corbett M.D. 007 Hospital Encounter [facility] URGENTCAR Provider, Historical 007 Hospital Encounter [facility] URGENTCAR Eric Roman M.D. 007 Hospital Encounter [facility] OPHTH [place] M.D. 007 Hospital Encounter [facility] OPHTH Wilson Hurley M.D. 007 Hospital Encounter [facility] FAMILYPRA Dino Corbett M.D. 007 Hospital Encounter HX [facility] Dino Corbett M.D. 007 Hospital Encounter [facility]X [facility] Dino Corbett M.D. 006 Hospital Encounter [facility]X [facility] Dino Corbett M.D. 006 Hospital Encounter [facility]X [facility] Dino Corbett M.D. 006 Hospital Encounter [facility]X [facility] KaDino tong M.D. 006 Hospital Encounter [facility]X [facility] Provider, Historical 006 Hospital Encounter [facility]X [facility] Dino Corbett M.D. 006 Hospital Encounter [facility]X [facility] Dino Corbett M.D. 006 Hospital Encounter [facility] Dario Rabago M.D. 006 Hospital Encounter [facility]X [facility] Provider, Historical 006 Hospital Encounter [facility]X [facility] Chris Isidro M.D. 006 Hospital Encounter [facility] Eric Roman M.D. 006 Hospital Encounter [facility]X [facility] Provider, Historical 006 Hospital Encounter [facility]X [facility] Dino Corbett M.D. 006 Hospital Encounter [facility] Noreen Jett M.D. 005 Hospital Encounter [facility]X [facility] Dino Corbett M.D. 005 Hospital Encounter [facility]X [facility] Twin Westfall M.D. 005 Hospital Encounter [facility]X [facility] [place] M.D. 005 Hospital Encounter [facility]X [facility] Dino Corbett M.D. 005 Hospital Encounter [facility]X [facility] [place] M.D. 005 Hospital Encounter [facility]X [facility] [place] M.D. 005 Hospital Encounter [facility]X [facility] [place] M.D. 005 Hospital Encounter [facility]X [facility] Umair Huerta M.D. 005 Hospital Encounter [facility]X [facility] [place] M.D. 005 Hospital Encounter [facility] TerryDino tong M.D. 005 Hospital Encounter [facility]X [facility] Dino Corbett M.D. 004 Hospital Encounter [facility]X [facility] KaupDino cheatham M.D. 004 Hospital Encounter [facility]X [facility] KaupDino cheatham M.D. 004 Hospital Encounter [facility]X [facility] Ralph Garcia M.D. 004 Hospital Encounter [facility] Ralph Garcia M.D. 004 Hospital Encounter [facility]X [facility] Ralph Garcia M.D. 004 Hospital Encounter [facility] KaupaDino M.D. 004 Hospital Encounter [facility] Vinod Maurer M.D. 003 Hospital Encounter [facility]X [facility] TerryDino tong M.D. 003 Hospital Encounter [facility]X [facility] Dino Corbett M.D. 003 Hospital Encounter [facility]X [facility]ing Henriquez M.D. 003 Hospital Encounter [facility]X [facility]ing Henriquez M.D. 003 Hospital Encounter [facility]X [facility]ing Henriquez M.D. 003 Hospital Encounter [facility] Dino Corbett M.D. 003 Hospital Encounter [facility]X [facility] [place] Hall M.D. 003 Hospital Encounter [facility]X [facility] Genny Rodas M.D. 003 Hospital Encounter [facility]X [facility] KaDino tong M.D. 003 Hospital Encounter HX NO MAPPING Provider, Historical 003 Hospital Encounter [facility]X [facility] Darien Pennington Jr., M.D. 003 Hospital Encounter [facility]X [facility] Dino Corbett M.D. 003 Hospital Encounter [facility]X [facility] Genny Rodas M.D. 003 Hospital Encounter [facility] Roque Roman M.D. 003 Hospital Encounter [facility] Romulo Fletcher M.D. 003 Hospital Encounter [facility]X [facility] Dino Corbett M.D. 003 Hospital Encounter [facility]X [facility] Roque Roman M.D. 003 Hospital Encounter HX NO MAPPING Marylou Pineda Au.D. 003 Hospital Encounter [facility]X [facility] Dino Corbett M.D. 002 Hospital Encounter [facility]X [facility] Dino Corbett M.D. 002 Hospital Encounter [facility]X [facility] Dino Corbett M.D. 002 Hospital Encounter [facility]X [facility] Dino Corbett M.D. 001 Hospital Encounter [facility]X [facility] Dino Corbett M.D. 001 Hospital Encounter [facility]X [facility] Provider, Historical 001 Hospital Encounter [facility]X [facility] Dino Corbett M.D. 001 Hospital Encounter [facility]X [facility] Ralph Garcia M.D. 001 Hospital Encounter [facility]X [facility] Dino Corbett M.D. 001 Hospital Encounter [facility]X [facility] Morro Rodgers M.D. 001 Hospital Encounter [facility]X [facility] O'Quinten, Morro L, M.D. 001 Hospital Encounter HX [facility] Morro Rodgers M.D. 001 Hospital Encounter HX [facility] K[facility]Y ENT Morro Rodgers M.D. 001 [facility] 001 Hospital Encounter HX [facility] KENDY MASONDino Chacon M.D. 001 [facility] 001 [facility]acon M.[facility] Allergies Active Allergy Reactions Criticality Noted Date Comments Amoxicillin Other (see comments) 08/20/2009 Adhesive Tape-Silicones Rash 08/20/2009 Prednisone Edema (Reselect Reaction) 12/29/2006 Latex Other (see comments) 11/21/2016 Tramadol GI intolerance Low 03/22/2021 Medications LANOLIN/AMMUNITION SUPERVISOR AL OIL/PETROLATU M (ARTIFICIAL TEARS OPHT) Administer into both eyes. 09/22/19 15 Active triamcinolone (KENALOG) 0.1 % cream Apply topically 2 (two) times a day as needed for rash. 60 g 3 07/01/19 20 Active ibuprofen (ADVIL,MOTRIN ) 200 mg tablet Take 400 mg by mouth every 6 (six) hours as needed for headaches. Act rita meloxicam (MOBIC) 7.5 mg tablet Take 1 tablet (7.5 mg total) by mouth 2 (two) times a day as needed for pain. 180 tablet 3 08/17/19 21 Active omeprazole (PriLOSEC) [address] capsule Take 1 capsule (20 mg total) by mouth every morning before breakfast. 90 capsule 4 09/28/19 21 Active LORazepam (ATIVAN) 0.5 mg tablet Take 1 tablet (0.5 mg total) by mouth 2 (two) times a day as needed for anxiety. MUST LAST 30 DAYS 30 tablet 09/28/19 21 Active calcium rsx-bzp-U4-Zn -type copy examiner-prisca (Calcium Citrate Plus) 201-06-092-3. 75 ri-mo-hrta-mg tablet Take by mouth. 02/05/20 21 Active tiZANidine (ZANAFLEX) 4 mg tablet Take 4 mg by mouth. 03/03/20 21 Active prazosin (MINIPRESS) 1 mg capsule TAKE 1 CAPSULE AT BEDTIME FOR BLOOD PRESSURE (MIGHT BENEFIT SLEEP) 90 capsule 06/08/19 22 Active amLODIPine (NORVASC) 5 mg tabletIndicat ions:Hyperten tg Essential Primary TAKE 1 TABLET (5 MG TOTAL) BY MOUTH DAILY. 90 tablet 06/08/19 22 Active temazepam (RESTORIL) 15 mg capsule Take 15 mg by mouth. 0 22 Active indomethacin (INDOCIN) 50 mg capsule Take 50 mg by mouth. Active citalopram (CeleXA) 10 mg tablet 03/17/19 23 Active HYDROcodone-a cetaminophen (NORCO) 10-325 mg per tablet Take 1.5 tabs at bedtime. Dose is based on hydroxycodone amount, 1 tablet = 10mg. Max acetaminophen 4000mg in 24 hours. 03/04/20 22 Active eszopiclone (LUNESTA) 3 mg tablet Take 3 mg by mouth. 02/23/20 23 Active gabapentin (NEURONTIN) 300 mg capsule Take 300 mg by mouth. 23 Active sodium,potass ium,mag sulfates (SUPREP BOWEL PREP) 17.5-3.13-1.6 gram solution PM: Mix one 6oz bottle w/water to 16oz line; drink all plus 32oz water over 1 hr. AM: Repeat; complete at least 2 hrs before appt. 1 kit 04/17/19 24 Active clindamycin (CLEOCIN) 300 mg capsule 05/09/19 24 Active cycloSPORINE (Restasis) 0.05 % ophthalmic emulsionIndic ations:kerato conjunctiviti s sicca Administer 1 drop into both eyes 2 (two) times a day Indications: keratoconjunctivitis sicca, or dry and inflamed cornea and conjunctiva of the eye. 60 each 11 11/20/19 24 2024 Active Active Problems Problem Noted Date Diagnosed Date Arthritis Hand 05/16/2022 Pain Thumb Right 05/12/2022 Arthritis Hip 02/16/2021 Pain Abdominal Chronic 10/26/2020 Overview (10/26/2020): Added automatically from request for surgery [id number] Carpal Tunnel Syndrome Right 02/24/2020 Bursitis Trochanteric Bilateral 02/12/2020 Numbness Hand 01/27/2020 Open Reduction Internal Fixation Ankle Status Po st 09/30/2019 Overview (09/30/2019): L. Ankle, bimalleolar Fx. [place] 08/19/2019. 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 Polyp Colon Adenomatous Personal History 014 Hyperlipidemia 01/02/2012 Gastroesophageal Reflux Disease 01/02/2011 Edema 08/20/2009 Headache Unspecified 08/25/2008 Resolved Problems Problem Noted Date Diagnosed Date Resolved Date History Of Falling 09/30/2019 0 DeQuervain's Tenosynovitis 01/31/2019 0 05/13/2019 Migraine Headache 06/10/2018 12/31/2018 Maintenance Health Adult 02/01/2016 Chronic Kidney Disease Stage 3 Glomerular Filtration Rate 30 To 59 11/19/2015 08/22/2017 Overview (07/25/2016): Chronic Kidney Disease (CKD) Stage 3 GFR 30-59 Fasciitis Plantar 05/03/2015 01/17/2017 Polyp Colon Adenomatous 08/06/201312/04 Trigger Finger 11/19/2012 01/17/2017 Elevated Blood Pressure Without Hypertension 9 11/21/2017 Immunizations Name Administration Dates Next Due DTaP (Infanrix, Tripedia) 08/20/2009 HZV (ZOSTAVAX) 02/09/2016 Influenza Split 01/01/2006 Influenza high dose QV(65 ye ars or older) (PF) 01/17/2022 Influenza, Quadrivalent, Adj uvanted, Preservative Free 12/01/2022,11/05/2020 Influenza, Unspecified 12/04/2016,2015,12/12/2014,2005 PPSV23 11/05/2020 RZV (SHINGRIX) 02/14/2018,09/18/2017 SARS-COV-2 (COVID-19) - MODE RNA BIVALENT(Discontinued) 01/17/2022 SARS-COV-2 (COVID-19) - MODERNA(Discontinued) 09/13/2021,01/26/2021,06/21/2020,2020 Td Preservative Free (TENIVA C, DECAVAC) 12/23/2019,09/22/1999 Tdap 08/20/2009 influenza vaccine quad (FLUZONE/FLUARIX) (6 months and older)(PF) 11/08/2019,12/25/2018,01/16/2018,2016 Family History Medical History Relation Name Comments No Known Problems Brother Chip Alcohol abuse Father Umair Cardona Cirrhosis Father Umair Cardona Hereditary C irrhosis exacerbated by alcoholism Liver disease Father Umair Cardona Diabetes Grandfather Paternal Anxiety disorder Mother Peg Medina Depression Mother Peg Medina Disorder of thyroid gland Mother Peg HernandezBeau Kidney disease Mother Peg HernandezBeau Ovarian cancer Mother Peg Medina Unspecified Disorder of Thyroid Mother Peg HernandezBeau Anxiety disorder Sister 1 Nicole Depression Sister 1 Nicole Learning disorder Sister 1 Nicole Sequencial /Visual Learner Migraines Sister 1 Nicole Ovarian cancer Sister 1 Nicole Anxiety disorder Sister 2 Dorota Depression Sister 2 Dorota Migraines Sister 2 Dorota Rheum arthritis Sister 2 Dorota Anxiety disorder Son Kole Pina Learning disorder Son Kole Pina Sequencia l /Visual Learner - is now on Adderall Relation Name Status Comments Brother Chip Alive Father Umair Cardona (Age 41) Cause o f : Cirrhosis Grandfather Paternal Mother Peg Medina (Age 75) Cause of : amylodosis Sister 1 Nicole Sister 2 Dorota Son Kole Pina Social History Smoking Status as of 01/07/2024 Tobacco Use Types Packs/Day Years Used Date Smoking Tobacco: Never Assessed [facility] Utilities Answer Date Recorded In the [...] week 03/27/2022 How often do you attend confucianist or congregation serv ices? Patient declined 03/27/2022 Do you belong to any clubs o r organizations such as confucianist groups, unions, fraternal or athletic groups, or [...] Answer Date Recorded PHQ-2 Score 2 03/15/2023 [facility] [place] of Occupat ional Health - Occupational Stress [...] your living situation today? I have a [facility] place to live 05/10/2023 Education Answer Date Recorded What is the highest level of school you have completed or the highest degree you have received? Associate degree: academic program 09/18/2021 Sex and Gender Information Value Date Recorded Sex Assigned at Female 01/15/2017 8:07 PM FILTRATION OPERATOR Legal Sex Female 5:08 AM FILTRATION OPERATOR Gender Identity Female 01/15/2017 8:07 PM FILTRATION OPERATOR Sexual Orientation Straight 01/15/2017 8: 07 PM FILTRATION OPERATOR Last Filed Vital Signs Vital Sign Reading Time Taken Comments Blood Pressure 139/80 05/10/2023 9:20 AM FILTRATION OPERATOR Pulse 64 05/10/2023 9:20 AM FILTRATION OPERATOR Temperature 36.3 ??C (97.4 ??F) 05/10/2023 9:20 AM CS T Respiratory Rate 16 03/14/2023 8:24 AM FILTRATION OPERATOR Oxygen Saturation 97% 02/06/2022 12:38 PM FILTRATION OPERATOR Inhaled Oxygen Concentration - - Weight 86.4 kg (190 lb 7.6 oz) 05/10/2023 9:20 A M FILTRATION OPERATOR Height 162.8 cm (5' 4.09) 03/16/2023 11:[address] Body Mass Index 32.6 03/16/2023 11:03 AM FILTRATION OPERATOR Plan of Treatment Upcoming Encounters Date Type Department Care Team (Latest Contact Info) Description 01/21/2024 11:15 AM FILTRATION OPERATOR Comprehensive Visit Department of Ophthalmology in [place], [place] [address] [id number] Darien Rodriguez Jr., M.D. [address] [phone] Medical Devices Implanted Type Area Radiography Technician Device Identifier Shelf Expiration Date Model / Serial / Lot Conversions - Default Historical Implant Device Implanted:2016 (Quantity not on file) Hardware e.g. pins/screws/ rods Description:Device Status Te xt - Hardware. left foot. Kwire Ss 4 .062 - [place]aston [id number] Implanted:Qty: 1 on 01/10/2017 Hardware e.g. pins/screws/ rods Ankit Description:Device Manufactu rer - [employer].. Device Status Text - [id number]. Syn-Screw Gene Self Tap 3.5 X 22 - [place] [id number] Implanted:Qty: 1 on 01/10/2017 Hardware e.g. pins/screws/ rods Depuy Synthes Description:Device Manufactu rer - Synthes. Device Status Text - [id number]. Sm Frag-Screw Canc Part 4 X 40 - [place] [id number] Implanted:Qty: 1 on 01/10/2017 Hardware e.g. pins/screws/ rods Depuy Synthes Description:Device Manufactu rer - Synthes. Device Status Text - [id number]. Hip Implant-12/14/19 22 Implanted:2021 by Ming Montenegro M.D. (Quantity not on file) Hip Implant Right: Hip Ankit TRIDENT II/ACCOLAD E II / / Procedures Procedure Name Priority Date/Time Associated Diagnosis Comments CT ABDOMEN PELVIS WITHOUT IV CONTRAST RAD - Semiurgent (Fast; most ED patients; some inpatients) 07/29/2023 8:54 PM CDT OUTSIDE PHOTO Routine 04/13/2023 12:00 AM FILTRATION OPERATOR NE ARTHCS ASP/INJ MJR JT WO US Routine 0 03/16/2023 10:15 AM FILTRATION OPERATOR Arthroplasty Total Hip Replacement Status Post Right DX HIP AND PELVIS RIGHT 2-3 VIEWS RAD - Routine (most inpatients and all outpatients) 03/16/2023 9:40 AM FILTRATION OPERATOR Arthroplasty Total Hip Replacement Status Post Right NE URINALYSIS AUTO WO MICRO Routine 03/05 8:27 AM FILTRATION OPERATOR URINALYSIS WITH MICROSCOPIC IF INDICATED, U Routine 03/14/2023 8:27 AM FILTRATION OPERATOR Dysuria BACTERIAL CULTURE, AEROBIC + SUSC, URINE Routine 03/14/2023 8:27 AM FILTRATION OPERATOR Dysuria DX HAND BILATERAL 3+ VIEWS RAD - Routine (most inpatients and all outpatients) 05/12/2022 2:21 PM FILTRATION OPERATOR Pain Thumb Left Pain Thumb Right SMALL JOINT INJECTION HAND/WRIST Routine 05/12/2022 2:15 PM FILTRATION OPERATOR Arthritis Hand SMALL JOINT INJECTION HAND/WRIST Routine 05/12/2022 2:15 PM FILTRATION OPERATOR Arthritis Hand SUTURE REMOVAL Routine 02/28/2022 1:00 PM FILTRATION OPERATOR Release Carpal Tunnel Status Post DX HIP AND PELVIS RIGHT 2-3 VIEWS RAD - Routine (most inpatients and all outpatients) 01/23/2022 10:40 AM FILTRATION OPERATOR Primary Osteoarthritis Hip Right DX HIP AND PELVIS RIGHT 2-3 VIEWS RAD - Semiurgent (Fast; most ED patients; some inpatients) 12/13/2021 11:14 AM CDT Arthroplasty Total Hip Replacement Status Post Right SARS CORONAVIRUS-2 RNA, V Routine 2021 11:39 AM CDT Encounter For Screening For Other Viral Diseases (COVID-19) SMALL JOINT INJECTION HAND/WRIST Routine 11/04/2021 2:14 PM CDT Arthritis Hand SMALL JOINT INJECTION HAND/WRIST Routine 11/04/2021 2:13 PM CDT Arthritis Hand SMALL JOINT INJECTION HAND/WRIST Routine 07/01/2021 11:00 AM CDT Pain Wrist Left SMALL JOINT INJECTION HAND/WRIST Routine 07/01/2021 11:00 AM CDT Pain Wrist Right SUTURE REMOVAL Routine 03/22/2021 9:48 AM FILTRATION OPERATOR Carpal Tunnel Syndrome Right SARS CORONAVIRUS-2 RNA, V Routine 2020 10:44 AM FILTRATION OPERATOR Carpal Tunnel Syndrome Right NE ARTHCS ASP/INJ MJR JT WO US Routine 1 04/26/2020 10:00 AM FILTRATION OPERATOR Trochanteric Bursitis Left Hip SMALL JOINT INJECTION FOOT/ANKLE Routine 02/16/2021 9:15 AM FILTRATION OPERATOR Pain Ankle Bilateral SMALL JOINT INJECTION FOOT/ANKLE Routine 02/16/2021 9:15 AM FILTRATION OPERATOR Pain Ankle Bilateral DX HIP AND PELVIS RIGHT 2-3 VIEWS RAD - Routine (most inpatients and all outpatients) 02/16/2021 8:19 AM FILTRATION OPERATOR Pain Hip Right ORTHOPEDIC SURGERY IMAGE EXAM Routine 8:15 AM FILTRATION OPERATOR SMALL JOINT INJECTION HAND/WRIST Routine 02/09/2021 11:35 AM FILTRATION OPERATOR Pain Wrist Left SURGICAL PATHOLOGY Routine 11/01/2020 2:12 PM CDT UPPER GI ENDOSCOPY 11/01/2020 2:05 PM CDT GASTROENTEROLOGY IMAGE EXAM Routine 10/05 2:05 PM CDT ESOPHAGOGASTRODUODENOSCOPY 11/01 2:04 PM CDT Pain Abdominal Chronic SARS CORONAVIRUS-2 RNA, V STAT 2020 10:18 AM CDT Encounter For Screening For Other Viral Diseases (COVID-19) SMALL JOINT INJECTION FOOT/ANKLE Routine 10/27/2020 9:03 AM CDT Pain Ankle Bilateral SMALL JOINT INJECTION FOOT/ANKLE Routine 10/27/2020 9:03 AM CDT Pain Ankle Bilateral NE ARTHCS ASP/INJ MJR JT WO US Routine 0 10/20/2020 8:58 AM CDT Bursitis Trochanteric Bilateral NE ARTHCS ASP/INJ MJR JT WO US Routine 0 10/20/2020 8:57 AM CDT Bursitis Trochanteric Bilateral SMALL JOINT INJECTION HAND/WRIST Routine 10/13/2020 9:01 AM CDT Pain Wrist Right SMALL JOINT INJECTION HAND/WRIST Routine 10/13/2020 9:01 AM CDT Pain Wrist Left COMPREHENSIVE METABOLIC PANE L, S/P Routine 10/01/2020 10:11 AM CDT Pain Joint CBC WITH DIFFERENTIAL, B Routine 021 10:11 AM CDT Pain Joint C-REACTIVE PROTEIN (CRP), S/P Routine 10:11 AM CDT Pain Joint ANTINUCLEAR ABS (FABIAN), S Routine 021 10:11 AM CDT Pain Joint CYCLIC CITRULLINATED PEPTIDE ABS, IGG, S Routine 10/01/2020 10:11 AM CDT Pain Joint RHEUMATOID FACTOR, S/P Routine 10:11 AM CDT Pain Joint SEDIMENTATION RATE, B Routine 10/01/2020 10:11 AM CDT Pain Joint DX CHEST 1 VIEW RAD - Semiurgent (Fast; most ED patients; some inpatients) 09/07/2020 1:[address] HEAD WITHOUT IV CONTRAST RAD - Semiurgent (Fast; most ED patients; some inpatients) 09/07/2020 1:09 PM CDT Vertigo GI PATHOGEN PANEL, PCR, F Routine 2020 10:45 AM CDT Pain Generalized Abdominal HELICOBACTER PYLORI AG, F Routine 2020 11:00 AM CDT Pain Generalized Abdominal INFLAMMATORY BOWEL DISEASE SEROLOGY PANEL, S Routine 08/05/2020 9:40 AM CDT TISSUE TRANSGLUTAMINASE (TTG ) AB, IGA, S Routine 08/05/2020 9:40 AM CDT TISSUE TRANSGLUTAMINASE (TTG ) AB, IGG, S Routine 08/05/2020 9:40 AM CDT Pain Generalized Abdominal CELIAC DISEASE COMPREHENSIVE CASCADE Routine 08/05/2020 9:40 AM CDT Pain Generalized Abdominal CT ABDOMEN PELVIS WITHOUT IV CONTRAST RAD - Semiurgent (Fast; most ED patients; some inpatients) 08/05/2020 4:32 AM CDT Pain Flank NE ARTHCS ASP/INJ MJR JT W US Routine 10:49 AM CDT Primary Osteoarthritis Hip Bilateral PHYSICAL MEDICINE AND REHAB IMAGE EXAM Routine 07/26/2020 10:30 AM CDT DX ANKLE LEFT 3+ VIEWS RAD - Routine (most inpatients and all outpatients) 07/26/2020 8:11 AM CDT Pain Ankle Left SMALL JOINT INJECTION FOOT/ANKLE Routine 06/15/2020 10:45 AM CDT Pain Ankle Bilateral SMALL JOINT INJECTION FOOT/ANKLE Routine 06/15/2020 10:45 AM CDT Pain Ankle Bilateral NE ARTHCS ASP/INJ MJR JT WO US Routine 0 06/08/2020 10:15 AM CDT Bursitis Trochanteric Bilateral NE ARTHCS ASP/INJ MJR JT WO US Routine 0 06/08/2020 10:15 AM CDT Bursitis Trochanteric Bilateral SMALL JOINT INJECTION HAND/WRIST Routine 06/01/2020 11:00 AM CDT Carpal Tunnel Syndrome Right SMALL JOINT INJECTION HAND/WRIST Routine 06/01/2020 11:00 AM CDT Carpal Tunnel Syndrome Right LIPID PANEL, S Routine 05/06/2020 11:20 AM FILTRATION OPERATOR Hyperlipidemia SMALL JOINT INJECTION FOOT/ANKLE Routine 02/25/2020 9:30 AM FILTRATION OPERATOR Pain Ankle Bilateral SMALL JOINT INJECTION FOOT/ANKLE Routine 02/25/2020 9:30 AM FILTRATION OPERATOR Pain Ankle Bilateral EMG Routine 02/18/2020 10:55 AM FILTRATION OPERATOR Pain Wrist Left Pain Wrist Right Numbness Hand NE ARTHCS ASP/INJ MJR JT WO US Routine 1 04/15/2019 2:45 PM FILTRATION OPERATOR Bursitis Trochanteric Bilateral NE ARTHCS ASP/INJ MJR JT WO US Routine 1 04/15/2019 2:45 PM FILTRATION OPERATOR Bursitis Trochanteric Bilateral SMALL JOINT INJECTION HAND/WRIST Routine 01/27/2020 9:30 AM FILTRATION OPERATOR Pain Wrist Right Numbness Hand SMALL JOINT INJECTION HAND/WRIST Routine 01/27/2020 9:30 AM FILTRATION OPERATOR Pain Wrist Left Numbness Hand CONTROLLED SUBSTANCE MONITORING, U Routine 12/23/2019 11:11 AM CDT Dependence Drug Opioid (HCC) BI BREAST SCREENING BILATERA L WITH TOMOSYNTHESIS RAD - Routine (most inpatients and all outpatients) 12/23/2019 10:40 AM CDT Screening Mammogram Average Risk Patient THINPREP SCREEN HPV REFLEX Routine 12/22 10:25 AM CDT Pap Smear Examination Maintenance Health Adult HPV WITH GENOTYPING, PCR, THINPREP Routine 12/23/2019 10:25 AM CDT DX ANKLE LEFT 3+ VIEWS RAD - Routine (most inpatients and all outpatients) 11/17/2019 10:56 AM CDT Fracture Fibula Maisonneuves Displaced Closed Subsequent With Routine Healing Left NE ARTHCS ASP/INJ INT JT WO US Routine 0 11/07/2019 9:30 AM CDT Pain Wrist Right NE INJ SNGL TNDN/SHTH/LGMNT Routine 06/2019 9:30 AM CDT DeQuervain's Tenosynovitis DX ANKLE LEFT 3+ VIEWS RAD - Routine (most inpatients and all outpatients) 10/03/2019 10:40 AM CDT Fracture Lower Leg Trimalleolar Displaced Closed Subsequent With Routine Healing Left DX ANKLE LEFT 3+ VIEWS RAD - Routine (most inpatients and all outpatients) 08/29/2019 2:44 PM CDT Open Reduction Internal Fixation Ankle Status Post SUTURE REMOVAL Routine 08/29/2019 2:30 PM CDT Open Reduction Internal Fixation Ankle Status Post ORS CAST/SPLINT REMOVAL Routine 08/29/19 2:30 PM CDT Open Reduction Internal Fixation Ankle Status Post FL FLUORO LESS THAN 1 HOUR RAD - Routine (most inpatients and all outpatients) 08/19/2019 2:00 PM CDT Open Reduction Internal Fixation Ankle Status Post SARS CORONAVIRUS-2, PCR Routine 08/18/19 11:37 AM CDT Fracture Lower Leg Bimalleolar Displaced Closed Initial Left BASIC METABOLIC PANEL, S/P Routine 08/17 11:01 AM CDT Preoperative Exam CBC WITH DIFFERENTIAL, B Routine 11:01 AM CDT Preoperative Exam SARS-COV-2 IGG AB, SERUM Routine 9:34 AM CDT Fracture Lower Leg Bimalleolar Displaced Closed Initial Left DX ANKLE LEFT 3+ VIEWS RAD - Semiurgent (Fast; most ED patients; some inpatients) 08/16/2019 8:24 PM CDT Pain Foot Left DX FOOT LEFT 3+ VIEWS RAD - Semiurgent (Fast; most ED patients; some inpatients) 08/16/2019 8:24 PM CDT Pain Foot Left NE ARTHCS ASP/INJ INT JT WO US Routine 0 07/31/2019 1:00 PM CDT Pain Ankle Bilateral NE ARTHCS ASP/INJ INT JT WO US Routine 0 07/31/2019 1:00 PM CDT Pain Ankle Bilateral NE ARTHCS ASP/INJ SM JT WO US Routine 3:15 PM CDT Arthritis Hand SMALL JOINT INJECTION HAND/WRIST Routine 07/08/2019 3:15 PM CDT Pain Wrist Right POTASSIUM, S/P Routine 05/06/2019 8:42 AM FILTRATION OPERATOR Hypertension Essential Primary LIPID PANEL, S Routine 05/06/2019 8:42 AM FILTRATION OPERATOR Screening Lipid NE ARTHCS ASP/INJ INT JT WO US Routine 1 04/24/2018 2:15 PM FILTRATION OPERATOR Pain Ankle Bilateral NE ARTHCS ASP/INJ INT JT WO US Routine 1 04/24/2018 2:15 PM FILTRATION OPERATOR Pain Ankle Bilateral DX HIPS AND PELVIS BILATERAL 3-4 VIEWS RAD - Routine (most inpatients and all outpatients) 02/04/2019 10:08 AM FILTRATION OPERATOR Pain Hip Bilateral NE ARTHCS ASP/INJ INT JT WO US Routine 1 04/07/2018 9:15 AM FILTRATION OPERATOR Pain Wrist Right NE INJ SNGL TNDN/SHTH/LGMNT Routine 05/2018 9:15 AM FILTRATION OPERATOR DeQuervain's Tenosynovitis BI BREAST SCREENING BILATERA L WITH TOMOSYNTHESIS RAD - Routine (most inpatients and all outpatients) 11/12/2018 1:17 PM CDT Screening Mammogram Average Risk Patient PAIN CLINIC SURVEY, U Routine 11/12/2018 10:37 AM CDT Migraine Headache NE ARTHCS ASP/INJ INT JT WO US Routine 0 11/01/2018 8:30 AM CDT Pain Ankle Bilateral NE ARTHCS ASP/INJ INT JT WO US Routine 0 11/01/2018 8:30 AM CDT Pain Ankle Bilateral DX ANKLE LEFT 3+ VIEWS RAD - Routine (most inpatients and all outpatients) 10/16/2018 11:15 AM CDT Pain Ankle Left NE ARTHCS ASP/INJ SM JT WO US Routine 9:45 AM CDT Pain Wrist Right NE ARTHCS ASP/INJ SM JT WO US Routine 9:45 AM CDT Pain Wrist Left NE INJ SNGL TNDN/SHTH/LGMNT Routine 10/03 9:45 AM CDT Pain Wrist Left DX WRIST LEFT 2 VIEWS RAD - Routine (most inpatients and all outpatients) 10/08/2018 12:38 PM CDT Pain Wrist Left UROLOGY IMAGE EXAM Routine 09/30/2018 3:[address] UROGRAM WITHOUT AND WITH IV CONTRAST RAD - Routine (most inpatients and all outpatients) 09/26/2018 3:03 PM CDT Hematuria CYTOLOGY NON-VALET ATTENDANT (SCHEDULED) Routine 12:35 PM CDT Hematuria URINALYSIS WITH MICROSCOPIC Routine 09/02 12:48 PM CDT Frequency Urinary Urgency Urinary Polyuria BACTERIAL CULTURE, AEROBIC + SUSC, URINE Routine 09/20/2018 12:48 PM CDT Frequency Urinary Urgency Urinary Polyuria CREATININE WITH EGFR, S/P Routine 2018 12:40 PM CDT Frequency Urinary Urgency Urinary Polyuria CREATININE WITH EGFR, S/P Routine 2018 8:55 AM CDT Polyuria GLUCOSE, FASTING, S/P Routine 07/10/2018 8:55 AM CDT Polyuria VAGINITIS PANEL Routine 07/04/2018 10:24 AM CDT Discharge Vaginal US PELVIS TRANSVAGINAL AND TRANSABDOMINAL WITH DOPPLER RAD - Routine (most inpatients and all outpatients) 06/14/2018 4:14 PM CDT Bloating Abdominal Pain Pelvic Female MICROSCOPIC AUTOMATED Routine 06/10/2018 12:09 PM CDT URINALYSIS WITH MICROSCOPIC IF INDICATED, U Routine 06/10/2018 12:09 PM CDT Frequency Urinary BACTERIAL CULTURE, AEROBIC + SUSC, URINE Routine 06/10/2018 12:09 PM CDT Frequency Urinary DX FOOT ANKLE BILATERAL 3 VIEWS RAD - Routine (most inpatients and all outpatients) 02/06/2018 1:03 PM FILTRATION OPERATOR Pain Joint Foot Bilateral OUTSIDE PHOTO Routine 12/04/2017 12:00 PM CDT PAIN CLINIC SURVEY, U Routine 11/27/2017 9:24 PM CDT Insomnia Persistent Non Organic GLUCOSE, FASTING, S/P Routine 11/27/2017 7:38 AM CDT Maintenance Health Adult Screening Examination Diabetes Mellitus BASIC METABOLIC PANEL, S/P Routine 11/27 7:38 AM CDT Maintenance Health Adult Hypertension Essential Primary LIPID PANEL, S Routine 11/27/2017 7:38 AM CDT Maintenance Health Adult Screening Lipid BI BREAST SCREENING BILATERAL RAD - Rout ine (most inpatients and all outpatients) 11/21/2017 2:14 PM CDT Screening Mammogram Average Risk Patient MICROSCOPIC AUTOMATED Routine 08/22/2017 5:33 PM CDT URINALYSIS WITH MICROSCOPIC IF INDICATED, U Routine 08/22/2017 5:33 PM CDT Frequency Urinary BACTERIAL CULTURE, AEROBIC + SUSC, URINE Routine 08/22/2017 5:33 PM CDT Frequency Urinary DX FOOT BILATERAL 3+ VIEWS RAD - Routine (most inpatients and all outpatients) 08/07/2017 2:37 PM CDT Pain Foot Left DX ANKLE RIGHT 3+ VIEWS RAD - Routine (most inpatients and all outpatients) 08/07/2017 2:36 PM CDT Pain Foot Right MICROSCOPIC AUTOMATED Routine 06/27/2017 1:45 PM CDT URINALYSIS WITH MICROSCOPIC IF INDICATED, U Routine 06/27/2017 1:45 PM CDT Frequency Urinary BACTERIAL CULTURE, AEROBIC + SUSC, URINE Routine 06/27/2017 1:45 PM CDT Frequency Urinary DX FOOT UNILATERAL 3+ VIEWS Routine 05/2017 2:02 PM FILTRATION OPERATOR AUDIOLOGY EVALUATION 02/23/2017 3:46 PM FILTRATION OPERATOR DX FOOT UNILATERAL 3+ VIEWS Routine 02/03 2:15 PM FILTRATION OPERATOR BI BREAST SCREENING BILATERAL RAD - Rout ine (most inpatients and all outpatients) 01/17/2017 3:09 PM FILTRATION OPERATOR Routine Screening Breast Exam BASIC METABOLIC PANEL, S/P Routine 01/15 7:15 AM FILTRATION OPERATOR General Medical Examination Adult LIPID PANEL, S Routine 01/15/2017 7:15 AM FILTRATION OPERATOR General Medical Examination Adult FL FLUORO LESS THAN 1 HOUR Routine 01/10 10:46 AM FILTRATION OPERATOR ECG Routine 01/09/2017 9:27 AM FILTRATION OPERATOR DX CERVICAL SPINE 2-3 VIEWS Routine 12/04 2:33 PM CDT DX SHOULDER BILATERAL 2+ VIEWS Routine 1 2:33 PM CDT DX CHEST AP OR PA AND LATERA L 2 VIEWS Routine 12/25/2016 9:18 AM CDT DX FOOT UNILATERAL 3+ VIEWS Routine 11/03 8:32 AM CDT PAIN CLINIC SURVEY, U Routine 10/18/2016 12:45 PM CDT SURGICAL PATHOLOGY Routine 09/14/2016 11:45 AM CDT RADIOLOGY IMAGE EXAM Routine 03/01/2016 3:49 PM FILTRATION OPERATOR MR BRAIN WITHOUT AND WITH IV CONTRAST Routine 02/17/2016 9:36 AM FILTRATION OPERATOR URIC ACID, S/P Routine 02/16/2016 4:[address] NECK WITH IV CONTRAST Routine 016 6:26 PM FILTRATION OPERATOR BI BREAST SCREENING BILATERAL Routine 3:53 PM FILTRATION OPERATOR RADIOLOGY IMAGE EXAM Routine 01/19/2016 2:21 PM FILTRATION OPERATOR RADIOLOGY IMAGE EXAM Routine 12/22/2015 2:01 PM CDT RADIOLOGY IMAGE EXAM Routine 12/22/2015 2:01 PM CDT HEMOGLOBIN, B Routine 11/19/2015 10:02 AM CDT BASIC METABOLIC PANEL, S/P Routine 11/18 10:[address] NECK WITH IV CONTRAST Routine 016 3:30 PM CDT RADIOLOGY IMAGE EXAM Routine 11/15/2015 3:09 PM CDT RADIOLOGY IMAGE EXAM Routine 11/15/2015 3:09 PM CDT RADIOLOGY IMAGE EXAM Routine 11/15/2015 3:09 PM CDT RADIOLOGY IMAGE EXAM Routine 11/15/2015 3:09 PM CDT RADIOLOGY IMAGE EXAM Routine 10/20/2015 1:33 PM CDT RADIOLOGY IMAGE EXAM Routine 10/20/2015 1:33 PM CDT HXGENERAL PATHOLOGY REPORT Routine 02/19 1:26 PM FILTRATION OPERATOR GASTROENTEROLOGY IMAGE EXAM Routine 02/02 10:53 AM FILTRATION OPERATOR COLONOSCOPY Routine 02/19/2015 10:53 AM FILTRATION OPERATOR LIPID PANEL, S Routine 02/18/2015 7:06 AM FILTRATION OPERATOR BASIC METABOLIC PANEL, S/P Routine 02/18 7:06 AM FILTRATION OPERATOR BI BREAST SCREENING BILATERAL Routine 2:34 PM FILTRATION OPERATOR PATHOLOGY VALET ATTENDANT CYTOLOGY Routine 5 12:00 AM FILTRATION OPERATOR GASTROENTEROLOGY IMAGE EXAM Routine 04/2014 2:32 PM CDT COLONOSCOPY Routine 12/04/2014 2:32 PM CDT AUTOMATED DIFFERENTIAL, B Routine 2014 4:25 PM FILTRATION OPERATOR CBC WITH DIFFERENTIAL, B Routine 015 4:25 PM FILTRATION OPERATOR ELECTROLYTE PANEL, S Routine 03/24/2014 4:25 PM FILTRATION OPERATOR C-REACTIVE PROTEIN (CRP), S/P Routine 4:25 PM FILTRATION OPERATOR DX CHEST AP OR PA AND LATERA L 2 VIEWS Routine 03/24/2014 2:58 PM FILTRATION OPERATOR DX CHEST AP OR PA AND LATERA L 2 VIEWS Routine 02/03/2014 9:38 AM FILTRATION OPERATOR FL FLUORO LESS THAN 1 HOUR Routine 01/20 10:16 AM FILTRATION OPERATOR BI ULTRASOUND BREAST FOCUSED RIGHT Routine 01/19/2014 3:05 PM FILTRATION OPERATOR BI BREAST DIAGNOSTIC RIGHT WITH COMPUTER AIDED DETECTION Routine 01/19/2014 2:44 PM FILTRATION OPERATOR HXGENERAL PATHOLOGY REPORT Routine 01/16 10:52 AM FILTRATION OPERATOR GASTROENTEROLOGY IMAGE EXAM Routine 01/03 8:00 AM FILTRATION OPERATOR COLONOSCOPY Routine 01/16/2014 8:00 AM FILTRATION OPERATOR BASIC METABOLIC PANEL, S/P Routine 01/08 7:17 AM FILTRATION OPERATOR LIPID PANEL, S Routine 01/08/2014 7:17 AM FILTRATION OPERATOR HEMOGLOBIN A1C, B Routine 01/08/2014 7:17 AM FILTRATION OPERATOR BI BREAST SCREENING BILATERAL Routine 3:36 PM FILTRATION OPERATOR DX SHOULDER LEFT 2+ VIEWS Routine 2013 9:55 AM CDT DX ELBOW LEFT 3+ VIEWS Routine 4 9:28 AM CDT DX HAND LEFT 3+ VIEWS Routine 11/18/2013 9:28 AM CDT CBC WITHOUT DIFFERENTIAL, B Routine 09/03 4:45 PM CDT HEPATIC FUNCTION PANEL, S Routine 2013 4:45 PM CDT CREATININE WITH EGFR, S/P Routine 2013 4:45 PM CDT HXGENERAL PATHOLOGY REPORT Routine 08/15 12:55 PM CDT GASTROENTEROLOGY IMAGE EXAM Routine 08/03 10:05 AM CDT COLONOSCOPY Routine 08/15/2013 10:05 AM CDT HXGENERAL PATHOLOGY REPORT Routine 07/25 11:15 AM CDT SURGICAL PATHOLOGY Routine 07/11/2013 12:00 AM CDT OUTSIDE PHOTO Routine 07/11/2013 12:00 AM CDT OUTSIDE PHOTO Routine 07/11/2013 12:00 AM CDT LIPID PANEL, S Routine 03/06/2013 7:16 AM FILTRATION OPERATOR BASIC METABOLIC PANEL, S/P Routine 03/06 7:16 AM FILTRATION OPERATOR MR FINGERS RIGHT WITHOUT IV CONTRAST Routine 01/17/2013 8:46 AM FILTRATION OPERATOR BI BREAST SCREENING BILATERAL Routine 3:16 PM CDT DX FINGERS RIGHT 2 VIEWS Routine 013 3:58 PM CDT DX HAND RIGHT 3+ VIEWS Routine 3 3:24 PM CDT BASIC METABOLIC PANEL, S/P Routine 01/03 7:07 AM CDT LIPID PANEL, S Routine 01/04/2012 7:07 AM CDT ALANINE AMINOTRANSFERASE (ALT), S/P Routine 01/04/2012 7:07 AM CDT ASPARTATE AMINOTRANSFERASE (AST), S/P Routine 01/04/2012 7:07 AM CDT ACUTE HEPATITIS PROFILE Routine 01/04/20 12 7:07 AM CDT BI BREAST SCREENING BILATERAL Routine 4:00 PM CDT PATHOLOGY VALET ATTENDANT CYTOLOGY Routine 2 12:00 AM CDT HX DRUG SCREEN COLLECTION Routine 2011 3:49 PM CDT BI BREAST SCREENING BILATERAL Routine 5:15 PM CDT SURGICAL PATHOLOGY Routine 12/28/2008 12:00 AM CDT SURGICAL PATHOLOGY Routine 12/28/2008 12:00 AM CDT RADIOLOGY IMAGE EXAM Routine 08/25/2008 5:26 PM CDT BI BREAST SCREENING BILATERAL Routine 5:15 PM CDT ZZPATHOLOGY NON-VALET ATTENDANT CYTOLOGY Routine 12:00 AM CDT BI BREAST SCREENING BILATERAL Routine 4:02 PM CDT RADIOLOGY IMAGE EXAM Routine 08/22/2007 1:17 PM CDT RADIOLOGY IMAGE EXAM Routine 09/22/1999 1:36 PM CDT Results * CT Abdomen Pelvis without IV Contrast (07/29/2023 8:54 PM CDT) Only the most recent of2 resultswithin the time period is included. Anatomical Region Laterality Modality Abdomen, Pelvis, Abdominal R ST LOS, Abdominal ARZ LOS, Abdominal FLA LOS N/A Computed Tomography Impressions 07/29/2023 9:01 PM CDT 1. Findings suggestive of mild colitis involving the left hemicolon. No bowel obstruction. No pneumatosis, portal venous gas or free intraperitoneal air. 2. Diffuse hepatic steatosis. Narrative 07/29/2023 9:01 PM CDT EXAM: CT ABDOMEN PELVIS WITHOUT IV CONTRAST COMPARISON: CT abdomen/pelvis without contrast 08/05/2020. FINDINGS: No hydronephrosis or obstructing urinary system calculi. Simple right upper pole renal cortical cyst. Diffuse hepatic steatosis. Grossly unremarkable gallbladder, spleen, and adrenal glands. Punctate calcification within the pancreatic uncinate process that may be sequela of chronic pancreatitis. No pancreatic or peripancreatic inflammatory changes/edema suggest acute pancreatitis. No loculated fluid collection. No bowel obstruction. Mild wall thickening/edema involving the left hemicolon with engorged vasa recta. No pneumatosis, portal venous gas or free intraperitoneal air. Negative right lower quadrant appendix. Limited evaluation of the pelvic structures secondary to bilateral CORINNA-related streak artifact. Tiny fat-containing umbilical hernia. Bibasilar atelectasis/scarring. Procedure Note Ja Sanz M.D. - 07/29/2023 EXAM: CT ABDOMEN PELVIS WITHOUT IV CONTRAST COMPARISON: CT abdomen/pelvis without contrast 08/05/2020. FINDINGS: No hydronephrosis or obstructing urinary system calculi. Simple rightupper pole renal cortical cyst. Diffuse hepatic steatosis. Grossly unremarkable gallbladder, spleen, andadrenal glands. Punctate calcification within the pancreatic uncinateprocess that may be sequela of chronic pancreatitis. No pancreatic orperipancreatic inflammatory changes/edema suggest acute pancreatitis. No loculated fluid collection. No bowelobstruction. Mild wall thickening/edema involving the left hemicolon withengorged vasa recta. No pneumatosis, portal venous gas or freeintraperitoneal air. Negative right lower quadrant appendix. Limited evaluation of the pelvic structures secondaryto bilateral CORINNA-related streak artifact. Tiny fat-containing umbilicalhernia. Bibasilar atelectasis/scarring. IMPRESSION: 1. Findings suggestive of mild colitis involving the left hemicolon. Nobowel obstruction. No pneumatosis, portal venous gas or freeintraperitoneal air. 2. Diffuse hepatic steatosis. Andrea Oliver M.D. IMG CT PROCEDURES Final Resu lt * Colon-Outside Photo (04/13/2023 12:00 AM FILTRATION OPERATOR) Only the most recent of4 resultswithin the time period is included. Narrative IIMS - 04/18/2023 8:52 AM FILTRATION OPERATOR This order has been created and auto-finalized to support the import of outside images. If available, original interpretation can be found on the Media Tab in Chart Review, in Document Viewer, or as an image in QREADS. If a re-interpretation or overread is required please follow defined workflow. ?? us Provider Not In System IMG NON RAD IMAGING PROCE DURES Final Result IIMT NA * NE ARTHCS ASP/INJ MJR JT WO US (03/16/2023 10:15 AM FILTRATION OPERATOR) Narrative MMODAL - 03/16/2023 10:15 AM FILTRATION OPERATOR Anastasia Delgadillo P.A.Tammie., P.A. ? 03/16/2023 11:35 AM Hip site - Right greater trochanteric bursa: injection only Performed by: Anastasia Delgadillo P.A.-C., PAryanAAryan Authorized by: Anastasia Delgadillo P.A.-C., P.A. ?? PROCEDURE DETAILS Procedure Location hip Hip site - Right greater trochanteric bursa Procedural approach: lateral Procedure performed: injection only Procedural Medication The following medications were administered at the target site(s) Local anesthetic: 8 mL lidocaine 10 mg/mL (1 %) Corticosteroid: 9 mg betamethasone acetate & sodium phosphate 6 mg/mL CONSENT Consent obtained: written (Risks, benefits and alternatives were discussed and a written Informed Consent was obtained. Please see Informed Consent form for further details.) UNIVERSAL PROTOCOL All relevant documentation and testing were reviewed and available. All required blood products, implants, devices and or special equipment were made available as applicable. Pre-procedure verification was conducted and the correct site was marked if required. A fire risk assessment was done as applicable. The procedural time-out to verify correct patient, correct side/site, and procedure was conducted prior to performing the procedure and confirmed in a procedural pause. PRE-PROCEDURE DETAILS Procedure purpose: therapeutic Site preparation: chlorhexidine SEDATION / ANESTHESIA Anesthesia method: topical application Topical application type: aerosol cold spray POST-PROCEDURE DETAILS Complications: no apparent complications ?? Discharge instructions: ice area as needed for comfort us Anastasia Delgadillo P.A.-C., P.A. PROCEDURE/MINOR SURGICAL ORDERABLES Final Result MMODAL NA * DX Hip And Pelvis Right 2-3 Views (03/16/2023 9:40 AM FILTRATION OPERATOR) Only the most recent of4 resultswithin the time period is included. Anatomical Region Laterality Modality Lower Extremity, Pelvis, Hip , Musculoskeletal RST LOS, Musculoskeletal ARZ LOS, Muskuloskeletal FLA LOS Right Digit al Radiography Impressions 03/16/2023 9:53 AM FILTRATION OPERATOR Right hip arthroplasty hardware components appear well seated and intact. No dislocation. Negative for acute fracture. Moderate left hip osteoarthritis. Lower lumbar spondylosis. Comparison January 23, 2022. Narrative 03/16/2023 9:53 AM FILTRATION OPERATOR EXAM: DX HIP AND PELVIS RIGHT 2-3 VIEWS Procedure Note Choco Hernandez M.D. - 03/16/2023 EXAM: DX HIP AND PELVIS RIGHT 2-3 VIEWS IMPRESSION: Right hip arthroplasty hardware components appear well seated and intact.No dislocation. Negative for acute fracture. Moderate left hiposteoarthritis. Lower lumbar spondylosis. Comparison January 23, 2022. Anastasia Delgadillo P.A.-C., P.A. IMG DIAGNOSTIC IMAGING PROCEDURES Final Result * (ABNORMAL) Urinalysis with Microscopic if Indicated (03/14/2023 8:27 AM FILTRATION OPERATOR) Only the most recent of4 resultswithin the time period is included. Source Urine, Urine, Midstream 03/14/2023 8:43 AM FILTRATION OPERATOR OWAT Clarity Cloudy(A) Clear 03/14/2023 8:43 AM FILTRATION OPERATOR OWAT Color Yellow 03/14/2023 8:43 AM FILTRATION OPERATOR OWAT Comment: ----REFERENCE VALUE---- Colorless Yellow Bambi Blood Trace(A) Negative 03/14/2023 8:43 AM FILTRATION OPERATOR OWAT Nitrite Negative Negative 03/14/2023 8:43 AM FILTRATION OPERATOR OWAT Leukocyte Esterase Small(A) Negative 03/14/2023 8:43 AM FILTRATION OPERATOR OWAT Protein Negative mg/dL 03/14/2023 8:43 AM FILTRATION OPERATOR OWAT Comment: ----REFERENCE VALUE---- Negative Trace Glucose Negative Negative mg/dL 03/14/2023 8:43 AM FILTRATION OPERATOR OWAT Ketone Negative Negative mg/dL 03/14/2023 8:43 AM FILTRATION OPERATOR OWAT Bilirubin Negative Negative 03/14/2023 8:43 AM FILTRATION OPERATOR OWAT pH 7.5 5.0 - 8.0 03/14/2023 8:43 AM FILTRATION OPERATOR OWAT Specific [place] 1.014 1.001 - 1.035 03/14/2023 8:43 AM FILTRATION OPERATOR OWAT Urobilinogen 1.0 0.2 - 1.0 mg/dL 03/14/2023 8:43 AM FILTRATION OPERATOR OWAT Urine (Urine, Midstream) 03/14/2023 8:27 AM FILTRATION OPERATOR 03/14/2023 8:39 AM FILTRATION OPERATOR us Santhosh Baca P.A.-C., P.A. LAB URINE ORDER SARAH Final Result Performing Organization Address [facility] Co de Phone Number [facility] [address] [place] [address], [place] OW[place] [facility] [place] [address] [place] [address] * (ABNORMAL) Microscopic Automated (03/14/2023 8:27 AM FILTRATION OPERATOR) Only the most recent of4 resultswithin the time period is included. White Blood Cells 4-10 /hpf 03/14/2023 9:16 AM FILTRATION OPERATOR OWAT Comment: ----REFERENCE VALUE---- Males: 0-3 Females: 0-10 Unknown: 0-10 Red Blood Cells 3-10(A) 0 - 2 /hpf 9:16 AM FILTRATION OPERATOR OWAT Dysmorphic Red Blood Cells <=25 <=25 % 03/14/2023 9:16 AM FILTRATION OPERATOR OWAT Squamous Cells Occ-3 /hpf 03/14/2023 9:16 AM FILTRATION OPERATOR OWAT Urine 03/14/2023 8:27 AM FILTRATION OPERATOR 03/14/2023 8:39 AM FILTRATION OPERATOR us Santhosh Baca P.A.-C., P.A. LAB URINE ORDER SARAH Final Result Performing Organization Address [facility] Co de Phone Number [facility] [address] [place] [address], [place] OW[place] [facility] [place] [address] [place] [address] * (ABNORMAL) Bacterial Culture, Aerobic + Susceptibility, Urine (03/14/2023 8:27 AM FILTRATION OPERATOR) Only the most recent of5 resultswithin the time period is included. Urine Culture Mixed microbiota (A) 03/15/2023 8:24 AM FILTRATION OPERATOR MKTO Urine (Urine, Midstream) 03/14/2023 8:27 AM FILTRATION OPERATOR 03/14/2023 2:26 PM FILTRATION OPERATOR Comment:Specimen Source Site : Urine us Rachel Dutton P.A.-C. LAB MICROBIOLOG Y - GENERAL ORDERABLES Final Result [facility] [address] [place] [address], [place] [facility] [place] [address] [place] [address] * DX Hand Bilateral 3+ Views (05/12/2022 2:21 PM FILTRATION OPERATOR) Anatomical Region Laterality Modality Upper Extremity, Hand, Muscu loskeletal RST LOS, Musculoskeletal ARZ LOS, Muskuloskeletal FLA LOS Bilateral Digit al Radiography 05/12/2022 3:52 PM FILTRATION OPERATOR Impressions 05/12/2022 3:55 PM FILTRATION OPERATOR LEFT: Mild triscaphe degeneration. Moderate first metatarsophalangeal degeneration and first interphalangeal degeneration. Mild additional polyarticular interphalangeal degeneration. No dislocation. Negative for acute fracture. RIGHT: Mild triscaphe and first carpal metacarpal degeneration. Mild polyarticular interphalangeal degeneration. No dislocation. Negative for acute fracture. Mild right wrist chondrocalcinosis in the region of the triangular fibrocartilage. Comparison October 08, 2018. Narrative 05/12/2022 3:55 PM FILTRATION OPERATOR EXAM: DX HAND BILATERAL 3+ VIEWS Procedure Note Choco Hernandez M.D. - 05/12/2022 EXAM: DX HAND BILATERAL 3+ VIEWS IMPRESSION: LEFT: Mild triscaphe degeneration. Moderate first metatarsophalangealdegeneration and first interphalangeal degeneration. Mild additional polyarticularinterphalangeal degeneration. No dislocation. Negative for acute fracture. RIGHT: Mild triscaphe and first carpal metacarpal degeneration. Mildpolyarticular interphalangeal degeneration. No dislocation. Negative for acute fracture. Mild rightwrist chondrocalcinosis in the region of the triangular fibrocartilage. Comparison October 08, 2018. us Cece Rivera P.A.-C., P.A. IMG DIAGNOSTIC I MAGING PROCEDURES Final Result * hand-wrist arthrocentesis: R thumb CMC joint (05/12/2022 2:15 PM FILTRATION OPERATOR) Narrative Cece Rivera P.A.-C. - 05/12/2022 2:15 PM FILTRATION OPERATOR Cece Rivera P.A.-C. ? 05/17/2022 11:57 AM R thumb CMC joint joint injection, Hand-wrist arthrocentesis: R thumb CMC joint Performed by: Cece Rivera P.A.-C. Authorized by: Cece Rivera P.A.-C. Hand-Wrist procedure site: ?? R thumb CMC joint joint injection, PROCEDURE MEDICATIONS Local anesthetics: 1 mL lidocaine (PF) 10 mg/mL (1 %) Corticosteroid: 3 mg betamethasone acetate & sodium phosphate 6 mg/mL CONSENT Consent obtained: written (Risks, benefits and alternatives were discussed and a written Informed Consent was obtained. Please see Informed Consent form for further details.) UNIVERSAL PROTOCOL All relevant documentation and testing were reviewed and available. All required blood products, implants, devices and or special equipment were made available as applicable. Pre-procedure verification was conducted and the correct site was marked if required. A fire risk assessment was done as applicable. The procedural time-out to verify correct patient, correct side/site, and procedure was conducted prior to performing the procedure and confirmed in a procedural pause. PRE-PROCEDURE DETAILS Procedure purpose: therapeutic Appropriate hand hygiene, gown, cap, mask, protective eyewear, sterile gloves, skin preparation, sterile drape, and strict aseptic technique were utilized as applicable for the procedure. Site preparation: chlorhexidine POST-PROCEDURE DETAILS Procedure outcome: ??successful procedure Complications: no apparent complications Discharge instruction provided: ice area as needed for comfort and follow-up with ordering provider Cece Rivera P.A.-C., P.A. PROCEDURE/MINOR SURGICAL ORDERABLES Final Result * hand-wrist arthrocentesis: L thumb CMC joint (05/12/2022 2:15 PM FILTRATION OPERATOR) Cece Renee P.A.-C. - 05/12/2022 2:15 PM FILTRATION OPERATOR Cece Rivera P.A.-C. ? 05/17/2022 11:57 AM L thumb CMC joint joint injection, Hand-wrist arthrocentesis: L thumb CMC joint Performed by: Cece Rivera P.A.-C. Authorized by: Cece Rivera P.A.-C. Hand-Wrist procedure site: ?? L thumb CMC joint joint injection, PROCEDURE MEDICATIONS Local anesthetics: 1 mL lidocaine (PF) 10 mg/mL (1 %) Corticosteroid: 3 mg betamethasone acetate & sodium phosphate 6 mg/mL CONSENT Consent obtained: written (Risks, benefits and alternatives were discussed and a written Informed Consent was obtained. Please see Informed Consent form for further details.) UNIVERSAL PROTOCOL All relevant documentation and testing were reviewed and available. All required blood products, implants, devices and or special equipment were made available as applicable. Pre-procedure verification was conducted and the correct site was marked if required. A fire risk assessment was done as applicable. The procedural time-out to verify correct patient, correct side/site, and procedure was conducted prior to performing the procedure and confirmed in a procedural pause. PRE-PROCEDURE DETAILS Procedure purpose: therapeutic Appropriate hand hygiene, gown, cap, mask, protective eyewear, sterile gloves, skin preparation, sterile drape, and strict aseptic technique were utilized as applicable for the procedure. Site preparation: chlorhexidine POST-PROCEDURE DETAILS Procedure outcome: ??successful procedure Complications: no apparent complications Discharge instruction provided: ice area as needed for comfort and follow-up with ordering provider Cece Rivera P.A.-C., P.A. PROCEDURE/MINOR SURGICAL ORDERABLES Final Result * SUTURE REMOVAL (02/28/2022 1:00 PM FILTRATION OPERATOR) Narrative MMODAL - 02/28/2022 1:00 PM FILTRATION OPERATOR Wilmer Tyson ? 02/28/2022 ??1:49 PM Suture removal Performed by: Wilmer Tyson Authorized by: Anastasia Delgadillo P.A.-C. PROCEDURE DETAILS Wound appearance: no signs of infection, good wound healing, clean and good approximation of wound edges Number of sutures removed: 3 CONSENT Consent obtained: verbal Consent given by: patient The benefits, risks and alternatives to the procedure and the potential need for sedation or anesthesia as well as the names, roles, and responsibilities of healthcare team members performing significant interventional tasks were discussed with the patient and/or decision maker. UNIVERSAL PROTOCOL All relevant documentation and testing were reviewed and available. All required blood products, implants, devices and or special equipment were made available as applicable. Pre-procedure verification was conducted and the correct site was marked if required. A fire risk assessment was done as applicable. The procedural time-out to verify correct patient, correct side/site, and procedure was conducted prior to performing the procedure and confirmed in a procedural pause. PRE PROCEDURE DETAILS Sutures were placed at [place] facility: no ?? Indication: scheduled suture removal ?? Location: upper extremity Upper extremity location: wrist Wrist location: left wrist SEDATION / ANESTHESIA Anesthesia method: none POST PROCEDURE DETAILS Procedure completed successfully: yes ?? Complications: no immediate complications ?? COMMENTS Patient had removed splint prior to appt, had band-aid covering incision. All sutures removed. Patient tolerated well. No concerns at this time. Anastasia Delgadillo P.A.-C., P.A. PROCEDURE/MINOR SURGICAL ORDERABLES Final Result MMODAL NA * SARS Coronavirus-2 RNA, V Asymptomatic (12/08/2021 11:39 AM CDT) Only the most recent of3 resultswithin the time period is included. SARS-CoV-2 Specimen Source Swab, Nasopharynx 12/08/2021 11:33 PM CDT MKTO SARS CoV-2 RNA, TMA Undetected Undetected 12/08/2021 11:33 PM CDT MKTO Comment: SARS-CoV-2 RNA absent. This result does not rule out COVID-19 in the patient, as the sensitivity of the test depends on the timing of the specimen collection and the quality of the specimen. Result should be correlated with patient's history and clinical presentation. ----ADDITIONAL INFORMATION---- This molecular amplification test was performed using the Aptima SARS-CoV-2 assay ([employer] on the Sumpto System under emergency use authorization (EUA) by the U.S. Food and Drug Administration. Fact sheets for this EUA assay can be found at the following links: For Healthcare Providers: https://www.fda.gov/media/959537/download For Patients: https://www.fda.gov/media/753827/download Swab (Nasopharynx) 12/08/2021 11:39 AM CDT 12/08/2021 5:15 PM CDT us Ming Montenegro M.D. LAB MICROBIOLOGY - GENERA L ORDERABLES Final Result [facility] [address] [place] [address], [facility] MKTO [facility] [place] [address] [place] [address] * hand-wrist arthrocentesis: L thumb CMC joint (11/04/2021 2:14 PM CDT) Narrative Guillaume Kirkland M.D. - 11/04/2021 2:14 PM CDT Guillaume Kirkland M.D. ? 11/04/2021 ??2:16 PM L thumb CMC joint joint injection, Hand-wrist arthrocentesis: L thumb CMC joint Date/Time: 11/04/2021 2:14 PM Performed by: Guillaume Kirkland M.D. Authorized by: Guillaume Kirkland M.D. PROCEDURE DETAILS Needle gauge: 25 G Hand-Wrist procedure site: ?? L thumb CMC joint joint injection, PROCEDURE MEDICATIONS Local anesthetics: 1 mL lidocaine 10 mg/mL (1 %) Corticosteroid: 3 mg betamethasone acetate & sodium phosphate 6 mg/mL CONSENT Consent obtained: written UNIVERSAL PROTOCOL All relevant documentation and testing were reviewed and available. All required blood products, implants, devices and or special equipment were made available as applicable. Pre-procedure verification was conducted and the correct site was marked if required. A fire risk assessment was done as applicable. The procedural time-out to verify correct patient, correct side/site, and procedure was conducted prior to performing the procedure and confirmed in a procedural pause. PRE-PROCEDURE DETAILS Procedure purpose: therapeutic Appropriate hand hygiene, gown, cap, mask, protective eyewear, sterile gloves, skin preparation, sterile drape, and strict aseptic technique were utilized as applicable for the procedure. Site preparation: alcohol POST-PROCEDURE DETAILS Procedure outcome: ??successful procedure Complications: no apparent complications Discharge instruction provided: ice area as needed for comfort and follow-up with ordering provider Comments The procedure site was marked by the proceduralist and verified with the patient. A time out/final pause was completed with verification of patient identity using two identifiers, confirmation of the site and side(s), agreement on the procedure to be performed, and appropriate fire risk assessment. Guillaume Kirkland M.D. PROCEDURE/MINOR SURGICAL ORDER SARAH Final Result * hand-wrist arthrocentesis: R thumb CMC joint (11/04/2021 2:13 PM CDT) Narrative Guillaume Kirkland M.D. - 11/04/2021 2:13 PM CDT Guillaume Kirkland M.D. ? 11/04/2021 ??2:16 PM R thumb CMC joint joint injection, Hand-wrist arthrocentesis: R thumb CMC joint Date/Time: 11/04/2021 2:13 PM Performed by: Guillaume Kirkland M.D. Authorized by: Guillaume Kirkland M.D. PROCEDURE DETAILS Needle gauge: 25 G Hand-Wrist procedure site: ?? R thumb CMC joint joint injection, PROCEDURE MEDICATIONS Local anesthetics: 1 mL lidocaine 10 mg/mL (1 %) Corticosteroid: 3 mg betamethasone acetate & sodium phosphate 6 mg/mL CONSENT Consent obtained: written UNIVERSAL PROTOCOL All relevant documentation and testing were reviewed and available. All required blood products, implants, devices and or special equipment were made available as applicable. Pre-procedure verification was conducted and the correct site was marked if required. A fire risk assessment was done as applicable. The procedural time-out to verify correct patient, correct side/site, and procedure was conducted prior to performing the procedure and confirmed in a procedural pause. PRE-PROCEDURE DETAILS Procedure purpose: therapeutic Appropriate hand hygiene, gown, cap, mask, protective eyewear, sterile gloves, skin preparation, sterile drape, and strict aseptic technique were utilized as applicable for the procedure. Site preparation: alcohol POST-PROCEDURE DETAILS Procedure outcome: ??successful procedure Complications: no apparent complications Discharge instruction provided: ice area as needed for comfort and follow-up with ordering provider Comments The procedure site was marked by the proceduralist and verified with the patient. A time out/final pause was completed with verification of patient identity using two identifiers, confirmation of the site and side(s), agreement on the procedure to be performed, and appropriate fire risk assessment. Guillaume Kirkland M.D. PROCEDURE/MINOR SURGICAL ORDER SARAH Final Result * hand-wrist arthrocentesis: L carpal tunnel (07/01/2021 11:00 AM CDT) Narrative Cece Rivera P.A.-C. - 07/01/2021 11:00 AM CDT Cece Rivera P.A.-C. ? 07/01/2021 11:02 AM L carpal tunnel volar injection, Hand-wrist arthrocentesis: L carpal tunnel Date/Time: 07/01/2021 11:00 AM Performed by: Cece Rivera P.A.-C. Authorized by: Cece Rivera P.A.-C. Hand-Wrist procedure site: L carpal tunnel volar injection, PROCEDURE MEDICATIONS Local anesthetics: 2 mL lidocaine (PF) 10 mg/mL (1 %) Corticosteroid: 3 mg betamethasone acetate & sodium phosphate 6 mg/mL CONSENT Consent obtained: written UNIVERSAL PROTOCOL All relevant documentation and testing were reviewed and available. All required blood products, implants, devices and or special equipment were made available as applicable. Pre-procedure verification was conducted and the correct site was marked if required. A fire risk assessment was done as applicable. The procedural time-out was conducted prior to performing the procedure and confirmed in a procedural pause. PRE-PROCEDURE DETAILS Procedure purpose: therapeutic Appropriate hand hygiene, gown, cap, mask, protective eyewear, sterile gloves, skin preparation, sterile drape, and strict aseptic technique were utilized as applicable for the procedure. Site preparation: chlorhexidine POST-PROCEDURE DETAILS Procedure outcome: ??successful procedure Complications: no apparent complications Discharge instruction provided: ice area as needed for comfort and follow-up with ordering provider Cece Rivera P.A.-C., P.AAryan PROCEDURE/MINOR SURGICAL ORDERABLES Final Result * hand-wrist arthrocentesis: R thumb CMC joint (07/01/2021 11:00 AM CDT) Narrative Cece Rivera P.A.-C. - 07/01/2021 11:00 AM CDT Cece Rivera P.A.-C. ? 07/01/2021 11:02 AM R thumb CMC joint joint injection, Hand-wrist arthrocentesis: R thumb CMC joint Date/Time: 07/01/2021 11:00 AM Performed by: Cece Rivera P.A.-C. Authorized by: Cece Rivera P.A.-C. Hand-Wrist procedure site: R thumb CMC joint joint injection, PROCEDURE MEDICATIONS Local anesthetics: 1 mL lidocaine (PF) 10 mg/mL (1 %) Corticosteroid: 3 mg betamethasone acetate & sodium phosphate 6 mg/mL CONSENT Consent obtained: written UNIVERSAL PROTOCOL All relevant documentation and testing were reviewed and available. All required blood products, implants, devices and or special equipment were made available as applicable. Pre-procedure verification was conducted and the correct site was marked if required. A fire risk assessment was done as applicable. The procedural time-out was conducted prior to performing the procedure and confirmed in a procedural pause. PRE-PROCEDURE DETAILS Procedure purpose: therapeutic Appropriate hand hygiene, gown, cap, mask, protective eyewear, sterile gloves, skin preparation, sterile drape, and strict aseptic technique were utilized as applicable for the procedure. Site preparation: chlorhexidine POST-PROCEDURE DETAILS Procedure outcome: ??successful procedure Complications: no apparent complications Discharge instruction provided: ice area as needed for comfort and follow-up with ordering provider Cece Rivera P.A.-C., P.A. PROCEDURE/MINOR SURGICAL ORDERABLES Final Result * SUTURE REMOVAL (03/22/2021 9:48 AM FILTRATION OPERATOR) Narrative MMODAL - 03/22/2021 9:48 AM FILTRATION OPERATOR Eliezer Negrete ? 03/22/2021 12:18 PM Suture removal Date/Time: 03/22/2021 9:48 AM Performed by: Eliezer Negrete Authorized by: Cece Rivera P.A.-C. PROCEDURE DETAILS Wound appearance: ??No signs of infection, good wound healing, clean and good approximation of wound edges Number of sutures removed: ??6 CONSENT Consent obtained: verbal Consent given by: patient The benefits, risks and alternatives to the procedure and the potential need for sedation or anesthesia as well as the names, roles, and responsibilities of healthcare team members performing significant interventional tasks were discussed with the patient and/or decision maker. UNIVERSAL PROTOCOL All relevant documentation and testing were reviewed and available. All required blood products, implants, devices and or special equipment were made available as applicable. Pre-procedure verification was conducted and the correct site was marked if required. A fire risk assessment was done as applicable. The procedural time-out was conducted prior to performing the procedure and confirmed in a procedural pause. PRE PROCEDURE DETAILS Sutures were placed at [facility]: no ?? Indicaton: scheduled suture removal ?? Location: ??Upper extremity Upper extremity location: ??Hand Hand location: ??Right hand SEDATION / ANESTHESIA Anesthesia method: none POST PROCEDURE DETAILS Procedure completed successfully: yes ?? Complications: no immediate complications ?? Post-removal: ??No dressing applied Cece Rivera P.A.-C., P.AAryan PROCEDURE/MINOR SURGICAL ORDERABLES Final Result Performing Organization Address City/State/[facility] Co de Phone Number MMODAL NA * NE ARTHCS ASP/INJ MJR JT WO US (02/23/2021 10:00 AM FILTRATION OPERATOR) Narrative MMODAL - 02/23/2021 10:00 AM FILTRATION OPERATOR Cece Rivera P.A.-C. ? 02/23/2021 10:02 AM Hip site - L greater troch bursa : injection only Date/Time: 02/23/2021 10:00 AM Performed by: Cece Rivera P.A.-C. Authorized by: Cece Rivera P.A.-C. PROCEDURE DETAILS Procedure Location hip Hip site: L greater troch bursa Site prep: patient was prepped and draped in usual sterile fashion ?? Patient position: seated Procedural approach: lateral Procedure performed: injection only Needle gauge: 21 G Procedural Medication The following medications were administered at the target site(s) Local anesthetic: 8 mL lidocaine 10 mg/mL (1 %) Corticosteroid: 9 mg betamethasone acetate & sodium phosphate 6 mg/mL CONSENT Consent obtained: written UNIVERSAL PROTOCOL All relevant documentation and testing were reviewed and available. All required blood products, implants, devices and or special equipment were made available as applicable. Pre-procedure verification was conducted and the correct site was marked if required. A fire risk assessment was done as applicable. The procedural time-out was conducted prior to performing the procedure and confirmed in a procedural pause. PRE-PROCEDURE DETAILS Procedure purpose: therapeutic Appropriate hand hygiene, gown, cap, mask, protective eyewear, sterile gloves, skin preparation, sterile drape, and strict aseptic technique were utilized as applicable for the procedure. Site preparation: alcohol SEDATION / ANESTHESIA Anesthesia method: none POST-PROCEDURE DETAILS Procedure completed successfully: yes Complications: no apparent complications ?? Discharge instructions: ice area as needed for comfort Cece Rivera P.A.-C., P.AAryan PROCEDURE/MINOR SURGICAL ORDERABLES Final Result MMODAL NA * foot-ankle arthrocentesis: L ankle (02/16/2021 9:15 AM FILTRATION OPERATOR) Narrative Cece Rivera P.A.-C. - 02/16/2021 9:15 AM FILTRATION OPERATOR Cece Rivera P.A.-C. ? 03/09/2021 12:59 PM L ankle joint injection, : injection only Foot-ankle arthrocentesis: L ankle Date/Time: 02/16/2021 9:15 AM Performed by: Cece Rivera P.A.-C. Authorized by: Cece Rivera P.A.-C. PROCEDURE DETAILS ?? Procedure performed: injection only Foot-Ankle procedure site: L ankle joint injection, PROCEDURE MEDICATIONS Local anesthetics: 2 mL lidocaine (PF) 10 mg/mL (1 %) Corticosteroid: 3 mg betamethasone acetate & sodium phosphate 6 mg/mL CONSENT Consent obtained: written UNIVERSAL PROTOCOL All relevant documentation and testing were reviewed and available. All required blood products, implants, devices and or special equipment were made available as applicable. Pre-procedure verification was conducted and the correct site was marked if required. A fire risk assessment was done as applicable. The procedural time-out was conducted prior to performing the procedure and confirmed in a procedural pause. PRE-PROCEDURE DETAILS Procedure purpose: therapeutic Site preparation: alcohol POST-PROCEDURE DETAILS Procedure outcome: ??successful procedure Complications: no apparent complications Post-procedure instructions: avoid strenuous activity for 2 days Discharge instruction provided: ice area as needed for comfort Cece Rivera P.A.-C., PSommer PROCEDUR E/MINOR SURGICAL ORDERABLES Edited Result - Final * foot-ankle arthrocentesis: R ankle (02/16/2021 9:15 AM FILTRATION OPERATOR) Narrative Cece Rivera P.A.-C. - 02/16/2021 9:15 AM FILTRATION OPERATOR Cece Rivera P.A.-C. ? 03/09/2021 12:59 PM R ankle joint injection, : injection only Foot-ankle arthrocentesis: R ankle Date/Time: 02/16/2021 9:15 AM Performed by: Cece Rivera P.A.-C. Authorized by: Cece Rivera P.A.-C. PROCEDURE DETAILS ?? Procedure performed: injection only Foot-Ankle procedure site: R ankle joint injection, PROCEDURE MEDICATIONS Local anesthetics: 2 mL lidocaine 10 mg/mL (1 %) Corticosteroid: 3 mg betamethasone acetate & sodium phosphate 6 mg/mL CONSENT Consent obtained: written UNIVERSAL PROTOCOL All relevant documentation and testing were reviewed and available. All required blood products, implants, devices and or special equipment were made available as applicable. Pre-procedure verification was conducted and the correct site was marked if required. A fire risk assessment was done as applicable. The procedural time-out was conducted prior to performing the procedure and confirmed in a procedural pause. PRE-PROCEDURE DETAILS Procedure purpose: therapeutic Site preparation: alcohol POST-PROCEDURE DETAILS Procedure outcome: ??successful procedure Complications: no apparent complications Post-procedure instructions: avoid strenuous activity for 2 days Discharge instruction provided: ice area as needed for comfort Cece SousaCAryan, P.A. RAYMON E/MINOR SURGICAL ORDERABLES Edited Result - Final * DX HIP AND PELVIS RIGHT 2-3 VIEWS-Orthopedic Surgery Image Exam (02/16/2021 8:15 AM FILTRATION OPERATOR) Narrative IIMT - 12/07/2021 9:35 AM CDT This order has been created and auto-finalized to support the import of images acquired without order. The clinical documentation to support these images can be found on the encounter that produced images. Provider Not In System IMG NON RAD IMAGING PROCE DURES Final Result IIMS NA * hand-wrist arthrocentesis: L radiocarpal (02/09/2021 11:35 AM FILTRATION OPERATOR) Narrative Cece Rivera P.A.-C. - 02/09/2021 11:35 AM FILTRATION OPERATOR Cece Rivera P.A.-C. ? 02/09/2021 11:36 AM L radiocarpal wrist joint injection, Date/Time: 02/09/2021 11:35 AM Performed by: Cece Rivera P.A.-C. Authorized by: Cece Rivera P.A.-C. Hand-Wrist procedure site: L radiocarpal wrist joint injection, PROCEDURE MEDICATIONS Local anesthetics: 2 mL lidocaine (PF) 10 mg/mL (1 %) Corticosteroid: 3 mg betamethasone acetate & sodium phosphate 6 mg/mL CONSENT Consent obtained: written UNIVERSAL PROTOCOL All relevant documentation and testing were reviewed and available. All required blood products, implants, devices and or special equipment were made available as applicable. Pre-procedure verification was conducted and the correct site was marked if required. A fire risk assessment was done as applicable. The procedural time-out was conducted prior to performing the procedure and confirmed in a procedural pause. PRE-PROCEDURE DETAILS Procedure purpose: therapeutic Appropriate hand hygiene, gown, cap, mask, protective eyewear, sterile gloves, skin preparation, sterile drape, and strict aseptic technique were utilized as applicable for the procedure.: yes ?? Skin preparation: chlorhexidine POST-PROCEDURE DETAILS Procedure outcome: ??successful procedure Complications: no apparent complications Discharge instruction provided: ice area as needed for comfort and follow-up with ordering provider Cece Rivera P.A.-C., P.A. PROCEDURE/MINOR SURGICAL ORDERABLES Final Result * Surgical Pathology (11/01/2020 2:12 PM CDT) Only the most recent of5 resultswithin the time period is included. 11/02/2020 11:07 AM CDT MKTO Report electronically signed by Dez Bansal MD 11/02/2020 11:07 AM CDT MKTO Specimen Received A. ??Duodenum biopsy 1st and 2nd part; r/o celiac sprue B. ??Stomach biopsy antrum / body (gastritis); r/o H. pylori 11/02/2020 11:07 AM CDT MKTO Clinical History Chronic abdominal pain 11/02/2020 11:07 AM CDT MKTO Gross Description A: ??Submitted as duodenum are prieto mucosal fragments aggregating to 0.4 cm. ??ESB, A. B: ??Submitted as stomach are prieto mucosal fragments aggregating to 0.5 cm. ??ESB, B. ?BHC;pp 11/02/2020 11:07 AM CDT MKTO Interpretation FINAL DIAGNOSIS A. Duodenum, biopsies: ??Duodenal mucosa without diagnostic abnormality. B. Gastric biopsies: ??Gastric antral-duodenal junction mucosa and unremarkable fundic mucosa. There are no changes for Helicobacter organisms. 11/02/2020 11:07 AM CDT MKTO Biopsy (Duodenum) 11/01/2020 2:12 PM CDT Comment:Abd pain Biopsy (Stomach) 11/01/2020 2:13 PM CDT Comment:gastritis Bam Waggoner M.D. LAB SURG PATH ORDERA BLES Final Result [facility] [place] [address], [facility] [place] [address] [place] [address] * UPPER GI ENDOSCOPY (11/01/2020 2:05 PM CDT) Narrative Procedure Note Bam Chavez M.B.B.S., M.D. - 11/01/2020 2:05 PM CDT [facility] GI Patient Name: Bell Mcbride Procedure Date: 11/01/2020 2:05 PM Date of : 1955 Age: 65 Gender: Female Procedure: Upper GI endoscopy Providers: PERI Gonzalez, Heaven Montague NP (Ordering Provider) Referring Provider: Heaven Montague NP Pre-op Diagnoses: Epigastric abdominal pain, Dyspepsia Post-op Diagnoses: - Normal esophagus. - Z-line regular, 35 cm from the incisors. - Gastritis. Biopsied. - Normal duodenal bulb, first portion of the duodenum and secondportion of the duodenum. Biopsied. Recommendation: - Discharge patient to home. - Resume previous diet. - Await pathology results. - Return to referring physician. Findings: The examined esophagus was normal. The Z-line was regular and was found 35 cm from the incisors. Scattered mild inflammation characterized by congestion (edema) and erythema was found in the gastric body and in the gastric antrum. Biopsies were taken with a cold forceps for Helicobacter pyloritesting. The duodenal bulb, first portion of the duodenum and second portionof the duodenum were normal. Biopsies were taken with a cold forceps for histology. Medicines: Monitored Anesthesia Care Estimated Blood Loss: Estimated blood loss was minimal. Complications: No immediate complications. Procedure Details: The patient was seen, evaluated, and history reviewed. Airway and heart and lung exams were performed and were satisfactory for plannedsedation care. The risks, benefits and alternatives for the procedure and sedation were discussed andinformed consent was obtained. A procedural pause was conducted in the presence of assisting personnelto verify the correct patient identity and procedureto be performed. Throughout the procedure, the patient's blood pressure, pulse, and oxygen saturations were monitored continuously. The Endoscope was introduced under direct vision through the mouth, and advanced to the secondpart of duodenum. The upper GI endoscopy wasaccomplished without difficulty. The patient tolerated the procedure fairly well. Sedation: An independent trained observer was present and continuouslymonitored the patient. PERI Rogers 11/01/2020 2:23:16 PM This report has been signed electronically. Number of Addenda: 0 Note Initiated On: 11/01/2020 2:05 PM us Heaven Montague APRN, C.N.P., M.S.N. GI NE OCEDURE ORDERABLES Final Result * Duodenum, 2nd part of the duodenum Upper GI endoscopy-Gastroenterology Image Exam (11/01/2020 2:05 PM CDT) Only the most recent of5 resultswithin the time period is included. 11/01/2020 2:05 PM CDT Narrative IIMS - 11/01/2020 2:36 PM CDT This order has been created and auto-finalized to support the import of images acquired without order. The clinical documentation to support these images can be found on the encounter that produced images. us Provider Not In System IMG NON RAD IMAGING PROCE DURES Final Result IIMS NA * foot-ankle arthrocentesis: L ankle (10/27/2020 9:03 AM CDT) Narrative Cece Rivera P.A.-C. - 10/27/2020 9:03 AM CDT Cece Rivera P.A.-C. ? 11/23/2020 ??1:37 PM L ankle joint injection, : injection only Date/Time: 10/27/2020 9:03 AM Performed by: Cece Rivera P.A.-C. Authorized by: Cece Rivera P.A.-C. PROCEDURE DETAILS ?? Procedure performed: injection only Foot-Ankle procedure site: L ankle joint injection, PROCEDURE MEDICATIONS Local anesthetics: 2 mL lidocaine (PF) 10 mg/mL (1 %) Corticosteroid: 3 mg betamethasone acetate & sodium phosphate 6 mg/mL CONSENT Consent obtained: written UNIVERSAL PROTOCOL All relevant documentation and testing were reviewed and available. All required blood products, implants, devices and or special equipment were made available as applicable. Pre-procedure verification was conducted and the correct site was marked if required. A fire risk assessment was done as applicable. The procedural time-out was conducted prior to performing the procedure and confirmed in a procedural pause. PRE-PROCEDURE DETAILS Procedure purpose: therapeutic Skin preparation: alcohol POST-PROCEDURE DETAILS Procedure outcome: ??successful procedure Complications: no apparent complications Post-procedure instructions: avoid strenuous activity for 2 days Discharge instruction provided: ice area as needed for comfort Cece Rviera P.A.-C., P.AAryan PROCEDUR E/MINOR SURGICAL ORDERABLES Edited Result - Final * foot-ankle arthrocentesis: R ankle (10/27/2020 9:03 AM CDT) Narrative Cece Rivera P.A.-C. - 10/27/2020 9:03 AM CDT Cece Rivera P.A.-C. ? 11/23/2020 ??1:37 PM R ankle joint injection, : injection only Date/Time: 10/27/2020 9:03 AM Performed by: Cece Rivera P.A.-C. Authorized by: Cece Rivera P.A.-C. PROCEDURE DETAILS ?? Procedure performed: injection only Foot-Ankle procedure site: R ankle joint injection, PROCEDURE MEDICATIONS Local anesthetics: 2 mL lidocaine 10 mg/mL (1 %) Corticosteroid: 3 mg betamethasone acetate & sodium phosphate 6 mg/mL CONSENT Consent obtained: written UNIVERSAL PROTOCOL All relevant documentation and testing were reviewed and available. All required blood products, implants, devices and or special equipment were made available as applicable. Pre-procedure verification was conducted and the correct site was marked if required. A fire risk assessment was done as applicable. The procedural time-out was conducted prior to performing the procedure and confirmed in a procedural pause. PRE-PROCEDURE DETAILS Procedure purpose: therapeutic Skin preparation: alcohol POST-PROCEDURE DETAILS Procedure outcome: ??successful procedure Complications: no apparent complications Post-procedure instructions: avoid strenuous activity for 2 days Discharge instruction provided: ice area as needed for comfort Cece SousaCAryan, P.AAryan ENNIS E/MINOR SURGICAL ORDERABLES Edited Result - Final * NE ARTHCS ASP/INJ MJR JT WO US (10/20/2020 8:58 AM CDT) Narrative [facility] - 10/20/2020 8:58 AM CDT Cece Rivera P.A.-C. ? 10/20/2020 ??9:03 AM Hip site - R greater troch bursa : injection only Date/Time: 10/20/2020 8:58 AM Performed by: Cece Rivera P.A.-C. Authorized by: Cece Rivera P.A.-C. PROCEDURE DETAILS Procedure Location hip Hip site: R greater troch bursa Site prep: patient was prepped and draped in usual sterile fashion ?? Patient position: side-lying Procedural approach: anterolateral and lateral Procedure performed: injection only Needle gauge: 21 G Procedural Medication The following medications were administered at the target site(s) Local anesthetic: 8 mL lidocaine 10 mg/mL (1 %) Corticosteroid: 9 mg betamethasone acetate & sodium phosphate 6 mg/mL CONSENT Consent obtained: written UNIVERSAL PROTOCOL All relevant documentation and testing were reviewed and available. All required blood products, implants, devices and or special equipment were made available as applicable. Pre-procedure verification was conducted and the correct site was marked if required. A fire risk assessment was done as applicable. The procedural time-out was conducted prior to performing the procedure and confirmed in a procedural pause. PRE-PROCEDURE DETAILS Procedure purpose: therapeutic Appropriate hand hygiene, gown, cap, mask, protective eyewear, sterile gloves, skin preparation, sterile drape, and strict aseptic technique were utilized as applicable for the procedure. Site preparation: alcohol SEDATION / ANESTHESIA Anesthesia method: none POST-PROCEDURE DETAILS Procedure completed successfully: yes Complications: no apparent complications ?? Discharge instructions: ice area as needed for comfort Result [facility] Cece Rivera P.A.-C., P.AAryan PROCEDURE/MINOR SURGICAL ORDERABLES Final Result MMODAL NA * NE ARTHCS ASP/INJ MJR JT WO (10/20/2020 8:57 AM CDT) Narrative MMODAL - 10/20/2020 8:57 AM CDT Cece Rivera P.A.-C. ? 10/20/2020 ??9:03 AM Hip site - L greater troch bursa : injection only Date/Time: 10/20/2020 8:57 AM Performed by: Cece Rivera P.A.-C. Authorized by: Cece Rivera P.A.-C. PROCEDURE DETAILS Procedure Location hip Hip site: L greater troch bursa Site prep: patient was prepped and draped in usual sterile fashion ?? Patient position: seated Procedural approach: lateral Procedure performed: injection only Needle gauge: 21 G Procedural Medication The following medications were administered at the target site(s) Local anesthetic: 8 mL lidocaine 10 mg/mL (1 %) Corticosteroid: 9 mg betamethasone acetate & sodium phosphate 6 mg/mL CONSENT Consent obtained: written UNIVERSAL PROTOCOL All relevant documentation and testing were reviewed and available. All required blood products, implants, devices and or special equipment were made available as applicable. Pre-procedure verification was conducted and the correct site was marked if required. A fire risk assessment was done as applicable. The procedural time-out was conducted prior to performing the procedure and confirmed in a procedural pause. PRE-PROCEDURE DETAILS Procedure purpose: therapeutic Appropriate hand hygiene, gown, cap, mask, protective eyewear, sterile gloves, skin preparation, sterile drape, and strict aseptic technique were utilized as applicable for the procedure. Site preparation: alcohol SEDATION / ANESTHESIA Anesthesia method: none POST-PROCEDURE DETAILS Procedure completed successfully: yes Complications: no apparent complications ?? Discharge instructions: ice area as needed for comfort Cece Rivera P.A.-C., P.AAryan PROCEDURE/MINOR SURGICAL ORDERABLES Final Result MMODAL NA * hand-wrist arthrocentesis: R radiocarpal (10/13/2020 9:01 AM CDT) Narrative Cece Rivera P.A.-C. - 10/13/2020 9:01 AM CDT Cece Rivera P.A.-C. ? 10/13/2020 ??9:03 AM R radiocarpal wrist joint injection, Date/Time: 10/13/2020 9:01 AM Performed by: Cece Rivera P.A.-C. Authorized by: Cece Rivera P.A.-C. Hand-Wrist procedure site: R radiocarpal wrist joint injection, PROCEDURE MEDICATIONS Local anesthetics: 2 mL lidocaine (PF) 10 mg/mL (1 %) Corticosteroid: 3 mg betamethasone acetate & sodium phosphate 6 mg/mL CONSENT Consent obtained: written UNIVERSAL PROTOCOL All relevant documentation and testing were reviewed and available. All required blood products, implants, devices and or special equipment were made available as applicable. Pre-procedure verification was conducted and the correct site was marked if required. A fire risk assessment was done as applicable. The procedural time-out was conducted prior to performing the procedure and confirmed in a procedural pause. PRE-PROCEDURE DETAILS Procedure purpose: therapeutic Appropriate hand hygiene, gown, cap, mask, protective eyewear, sterile gloves, skin preparation, sterile drape, and strict aseptic technique were utilized as applicable for the procedure.: yes ?? Skin preparation: chlorhexidine POST-PROCEDURE DETAILS Procedure outcome: ??successful procedure Complications: no apparent complications Discharge instruction provided: ice area as needed for comfort and follow-up with ordering provider Rachel Hoskins P.A.-C. PROCEDURE/MINOR SURGICAL ORDERABLES Final Result * hand-wrist arthrocentesis: L radiocarpal (10/13/2020 9:01 AM CDT) Narrative Cece Rivera P.A.-C. - 10/13/2020 9:01 AM CDT Cece Rivera P.A.-C. ? 10/13/2020 ??9:03 AM L radiocarpal wrist joint injection, Date/Time: 10/13/2020 9:01 AM Performed by: Cece Rivera P.A.-C. Authorized by: Cece Rivera P.A.-C. Hand-Wrist procedure site: L radiocarpal wrist joint injection, PROCEDURE MEDICATIONS Local anesthetics: 2 mL lidocaine (PF) 10 mg/mL (1 %) Corticosteroid: 3 mg betamethasone acetate & sodium phosphate 6 mg/mL CONSENT Consent obtained: written UNIVERSAL PROTOCOL All relevant documentation and testing were reviewed and available. All required blood products, implants, devices and or special equipment were made available as applicable. Pre-procedure verification was conducted and the correct site was marked if required. A fire risk assessment was done as applicable. The procedural time-out was conducted prior to performing the procedure and confirmed in a procedural pause. PRE-PROCEDURE DETAILS Procedure purpose: therapeutic Appropriate hand hygiene, gown, cap, mask, protective eyewear, sterile gloves, skin preparation, sterile drape, and strict aseptic technique were utilized as applicable for the procedure.: yes ?? Skin preparation: chlorhexidine POST-PROCEDURE DETAILS Procedure outcome: ??successful procedure Complications: no apparent complications Discharge instruction provided: ice area as needed for comfort and follow-up with ordering provider Cece Rivera P.A.-C., P.A. PROCEDURE/MINOR SURGICAL ORDERABLES Final Result * Cyclic Citrullinated Peptide Antibodies, IgG (10/01/2020 10:11 AM CDT) Cyclic Citrullinated Peptide Ab, S <15.6 <20.0 (Negative) U 10/02/2020 11:23 AM CDT [facility] Blood (Blood, Venous) 10/01/2020 10:11 AM CDT 10/02/2020 7:09 AM CDT Leonor Means APRN, C.N.P. LAB BLOOD ADD-ON Fi nal Result Performing Organization Address City/[facility]/ZIP Co de Phone Number [facility] [address] [place] [address] [facility] of Laboratory Medicine and Pathology [address] [place] [place] [address] * Sedimentation Rate (10/01/2020 10:11 AM CDT) Pathologist [facility] Sedimentation Rate, B 19 0 - 29 mm/1 h 10/01/2020 11:51 AM CDT [facility] Blood (Blood, Venous) 10/01/2020 10:11 AM CDT 10/01/2020 10:12 AM CDT Leonor Means APRN, C.N.P. LAB BLOOD ADD-ON Fi nal Result Performing Organization Address City/[facility]/ZIP Co de Phone Number [facility] [address] [place] [address], [place] [facility] [place] [address] [place] [address] * CBC with Differential, Blood (10/01/2020 10:11 AM CDT) Only the most recent of3 resultswithin the time period is included. Hemoglobin 15.0 11.6 - 15.0 g/dL 10/01/2020 10:16 AM CDT [facility] Hematocrit 43.0 35.5 - 44.9 % 10/01/2020 10:16 AM CDT [facility] Erythrocytes 4.72 3.92 - 5.13 x10(12)/L 10/01/2020 10:16 AM CDT [facility] MCV 91.1 78.2 - 97.9 fL 10/01/2020 10:16 AM CDT [facility] RBC Distrib Width 12.9 12.2 - 16.1 % 10/01/2020 10:16 AM CDT [facility] Platelet Count 242 157 - 371 x10(9)/L 10/01/2020 10:16 AM CDT [facility] Leukocytes 6.0 3.4 - 9.6 x10(9)/L 10/01/2020 10:16 AM CDT [facility] Neutrophils 4.06 1.56 - 6.45 x10(9)/L 10/01/2020 10:16 AM CDT [facility] Lymphocytes 1.41 0.95 - 3.07 x10(9)/L 10/01/2020 10:16 AM CDT [facility] Monocytes 0.37 0.26 - 0.81 x10(9)/L 10/01/2020 10:16 AM CDT [facility] Eosinophils 0.13 0.03 - 0.48 x10(9)/L 10/01/2020 10:16 AM CDT [facility] Basophils 0.02 0.01 - 0.08 x10(9)/L 10/01/2020 10:16 AM CDT [facility] Blood (Blood, Venous) 10/01/2020 10:11 AM CDT 10/01/2020 10:12 AM CDT us Leonor Means APRN, C.N.P. LAB BLOOD ADD-ON Fi nal Result [facility] [address] [place] [address], [facility] OW[facility] [place] [address] [place] [address] * Rheumatoid Factor (10/01/2020 10:11 AM CDT) Pathologist [facility] Rheumatoid Factor, S <10 <15 IU/mL 10/01/2020 4:56 PM CDT [facility] Blood (Blood, Venous) 10/01/2020 10:11 AM CDT 10/01/2020 4:32 PM CDT Leonor Means APRN, C.N.P. LAB BLOOD ADD-ON Fi nal Result [facility] [address] [place] [address], [facility] - [facility] [address] [place] [address] * CRP (C-Reactive Protein) (10/01/2020 10:11 AM CDT) Only the most recent of2 resultswithin the time period is included. Pathologist [facility] C-Reactive Protein (CRP), P 4.7 <=8.0 mg/L 10/01/2020 10:47 AM CDT OW Blood (Blood, Venous) 10/01/2020 10:11 AM CDT 10/01/2020 10:12 AM CDT Leonor Means APRN, C.N.P. LAB BLOOD ADD-ON Fi nal Result [facility] [address] [place] [address], [place] [facility] [place] [address] [place] [address] * FABIAN (Antinuclear Antibodies) (10/01/2020 10:11 AM CDT) Pathologist [facility] Antinuclear Ab, S 0.3 <=1.0 (Negative) U 10/02/2020 1:25 PM CDT [facility] Comment: ----ADDITIONAL INFORMATION---- Method: Enzyme-linked immunoassay using HEp-2 nuclear extract supplemented with purified antigens. Blood (Blood, Venous) 10/01/2020 10:11 AM CDT 10/02/2020 7:09 AM CDT us Leonor Means APRN, C.N.P. LAB BLOOD ADD-ON Fi nal Result [facility] [address] [place] [address] [facility] Dept. of Laboratory Medicine and Pathology [address] [place] [address] * Comprehensive Metabolic Panel (10/01/2020 10:11 AM CDT) Potassium, P 4.4 3.6 - 5.2 mmol/L 10/01/2020 10:47 AM CDT [facility] Sodium, P 142 135 - 145 mmol/L 10/01/2020 10:47 AM CDT [facility] Chloride, P 106 98 - 107 mmol/L 10/01/2020 10:47 AM CDT [facility] Bicarbonate, P 27 22 - 29 mmol/L 10/01/2020 10:47 AM CDT [facility] Anion Gap, P 9 7 - 15 10/01/2020 10:47 AM CDT [facility] BUN (Blood Urea Nitrogen), P 13 6 - 21 mg/dL 10/01/2020 10:47 AM CDT [facility] Creatinine 0.92 0.59 - 1.04 mg/dL 10/01/2020 10:47 AM CDT [facility] eGFR-Black/ 76 >=60 mL/min/BS A 10/01/2020 10:47 AM CDT [facility] Comment: ----ADDITIONAL INFORMATION---- Estimated GFR calculated using the 2009 CKD_EPI creatinine equation. eGFR Non-Black/ 66 >=60 mL/min/BS A 10/01/2020 10:47 AM CDT [facility] Comment: ----ADDITIONAL INFORMATION---- Estimated GFR calculated using the 2009 CKD_EPI creatinine equation. Calcium, Total, P 9.7 8.8 - 10.2 mg/dL 10/01/2020 10:47 AM CDT [facility] Glucose, P 111 70 - 140 mg/dL 10/01/2020 10:47 AM CDT [facility] Protein, Total, P 7.4 6.3 - 7.9 g/dL 10/01/2020 10:47 AM CDT [facility] Albumin, P 4.3 3.5 - 5.0 g/dL 10/01/2020 10:47 AM CDT [facility] Aspartate Aminotransferase (AST), P 27 8 - 43 U/L 10/01/2020 10:47 AM CDT [facility] Alkaline Phosphatase, P 67 35 - 104 U/L 10/01/2020 10:47 AM CDT [facility] Alanine Aminotransferase (ALT), P 23 7 - 45 U/L 10/01/2020 10:47 AM CDT [facility] Bilirubin, Total, P 0.2 <=1.2 mg/dL 10/01/2020 10:47 AM CDT [facility] Blood (Blood, Venous) 10/01/2020 10:11 AM CDT 10/01/2020 10:12 AM CDT us Leonor Means APRN, C.N.P. LAB BLOOD ADD-ON Fi nal Result [facility] [address] [place] [address], [facility] OWAT [facility] [place] [address] [place] [address] * DX Chest 1 View (09/07/2020 1:11 PM CDT) Anatomical Region Laterality Modality Chest, Thoracic RST LOS, Tho racic ARZ LOS, Thoracic FLA LOS N/A Digital Radiography 09/07/2020 1:20 PM CDT Impressions 09/07/2020 1:21 PM CDT No consolidation. No pleural effusion. No pneumothorax. Cardiac silhouette and pulmonary vascularity within normal limits. No significant change from 12/25/2016. Narrative 09/07/2020 1:21 PM CDT EXAM: DX CHEST 1 VIEW Procedure Note Janene Orellana M.D. - 09/07/2020 EXAM: DX CHEST 1 VIEW IMPRESSION: No consolidation. No pleural effusion. No pneumothorax. Cardiac silhouette and pulmonary vascularity within normal limits. No significantchange from 12/25/2016. us Kim Lovett APRN, C.N.P. IMG DIAGNOSTIC IMAGING PROCEDURES Final Result * CT Head without IV Contrast (09/07/2020 1:09 PM CDT) Anatomical Region Laterality Modality Head, Neuroradiology RST LOS , Neuroradiology ARZ LOS, Neuroradiology FLA LOS N/A Computed Tomography 09/07/2020 1:14 PM CDT Impressions 09/07/2020 1:27 PM CDT No acute findings. Additional, non-emergent findings discussed in the findings section of the report. Narrative 09/07/2020 1:27 PM CDT EXAM: CT HEAD WITHOUT IV CONTRAST COMPARISON: None FINDINGS: No midline shift. No hydrocephalus. No intracranial hemorrhage. No mastoid effusion. No acute sinusitis. No acute calvarial fracture. Partially empty sella. Asymmetric intraosseous lucency of the right skull base of the sphenoid, example series 6 image 53 and series 7 image 62, of indeterminate clinical relevance. Findings could be seen with fibrous dysplasia, however there is no associated groundglass matrix or expansile bone lesion. Procedure Note Landon Fischer M.D. - 09/07/2020 EXAM: CT HEAD WITHOUT IV CONTRAST COMPARISON: None FINDINGS: No midline shift. No hydrocephalus. No intracranial hemorrhage. Nomastoid effusion. No acute sinusitis. No acute calvarial fracture. Partiallyempty sella. Asymmetric intraosseous lucency of the right skull base of the sphenoid,example series 6 image 53 and series 7 image 62, of indeterminate clinicalrelevance. Findings could be seen with fibrous dysplasia, however there is noassociated groundglass matrix or expansile bone lesion. IMPRESSION: No acute findings. Additional, non-emergent findings discussed in thefindings section of the report. Kim Lovett APRN, C.N.P. IMG CT PROCEDUR ES Final Result * (ABNORMAL) GI Pathogen Panel, PCR, Feces (08/09/2020 10:45 AM CDT) Specimen Source STOOL 5:31 PM CDT [facility] Campylobacter species Negative Negative 08/09/2020 5:31 PM CDT [facility] C. difficile toxin Positive(A) Negative 08/09 5:31 PM CDT [facility] Comment: A positive C. difficile result may reflect asymptomatic carriage or C. difficile-associated diarrhea. Plesiomonas shigelloides Negative Negative 08/09/2020 5:31 PM CDT [facility] Salmonella species Negative Negative 2020 5:31 PM CDT [facility] Vibrio species Negative Negative 08/09/2020 5:31 PM CDT [facility] Vibrio cholerae Negative Negative 5:31 PM CDT [facility] Yersinia species Negative Negative 08/10/19 5:31 PM CDT [facility] Enteroaggregative E. coli (EAEC) Negative Negative 08/09/2020 5:31 PM CDT [facility] Enteropathogenic E. coli (EPEC) Negative Negative 08/09/2020 5:31 PM CDT [facility] Enterotoxigenic E. coli (ETEC) Negative Negative 08/09/2020 5:31 PM CDT [facility] Shiga toxin producing E. coli Negative Negative 08/09/2020 5:31 PM CDT [facility] Shigella/Enteroinvas rita E. coli Negative Negative 08/09/2020 5:31 PM CDT [facility] Cryptosporidium species Negative Negative 08/09/2020 5:31 PM CDT [facility] Cyclospora cayetanensis Negative Negative 08/09/2020 5:31 PM CDT [facility] Entamoeba histolytica Negative Negative 08/09/2020 5:31 PM CDT [facility] Giardia Negative Negative 08/09/2020 5:31 PM CDT [facility] Adenovirus F40/41 Negative Negative 021 5:31 PM CDT [facility] Astrovirus Negative Negative 08/09/2020 5:31 PM CDT [facility] Norovirus GI/GII Negative Negative 08/10/19 5:31 PM CDT [facility] Rotavirus Ag, F Negative Negative 5:31 PM CDT [facility] Sapovirus Negative Negative 08/09/2020 5:31 PM CDT [facility] Comment: ----ADDITIONAL INFORMATION---- This assay is performed using the FDA-cleared FilmArray GI Panel ([employer] Semi-Urgent This is a semi-urgent result(RITCHIE) [facility] Stool (Stool) 08/09/2020 10: 45 AM CDT 08/09/2020 3:59 PM CDT Mariano Kearns P.A.-C., P.A. LAB [facility] - GENERAL ORDERABLES Final Result Performing Organization Address [facility]/ZIP Co de Phone Number [facility] [address] [place] [address], [facility] - [facility] [address] [place] [address] * Helicobacter pylori Ag, F (08/07/2020 11:00 AM CDT) Helicobacter pylori Ag, F Negative Negative 08/09/2020 4:44 PM CDT [facility] Stool (Stool) 08/07/2020 11: 00 AM CDT 08/09/2020 3:33 PM CDT Mariano Kearns P.A.-C., P.A. LAB [facility] - GENERAL ORDERABLES Final Result Performing Organization Address City/[facility]/ZIP Co de Phone Number [facility] [address] [place] [address], [place] [address] * Celiac Disease Comprehensive [place] (08/05/2020 9:40 AM CDT) HLA-DQA1 Locus Molecular 01:02, 05 Not Applicable 08/10/2020 12:40 PM CDT [id number] HLA-DQB1 Locus Molecular 03:01, 06:02 Not Applicable 08/10/2020 12:40 PM CDT [id number] Comment: DQ Serologic Equivalent: 7, 6 Celiac Gene Pairs Present? No 08/10/2020 12:40 PM CDT [id number] Comment: Method: Molecular typing of HLA antigens performed using reverse SSOP and/or SSP methods, reported as serological equivalents and low to medium resolution molecular values. CLIA: [id number] ??CLIA Program Director/Morning Show Host: JASON ZENDEJAS MD,PhD Immunoglobulin A (IgA), S 267 61 - 356 mg/dL 08/06/2020 9:26 AM CDT [facility] Celiac Disease Interpretation Permissive genes absent and negative serology. Celiac disease extremely unlikely. 08/10/2020 9:52 PM CDT [facility] Blood (Blood, Venous) 08/05/2020 9:40 AM CDT 08/06/2020 7:43 AM CDT Narrative [facility] - 08/10/2020 9:52 PM CDT Specimen Information: Specimen ID: [id number] Specimen Type: Blood Specimen Collection Start Date: 08/05/2020 ??9:40 AM Specimen Received Date: 08/06/2020 ??7:43 AM Specimen ID: [id number] Specimen Type: Blood Specimen Collection Start Date: 08/05/2020 ??9:40 AM Specimen Received Date: 08/06/2020 ??6:16 AM Specimen ID: [id number] Specimen Type: Blood Specimen Collection Start Date: 08/05/2020 ??9:40 AM Specimen Received Date: 08/06/2020 ??7:08 AM Mariano Kearns P.A.-C., P.A. LAB BLOOD NON ADD-ON Final Result [facility] [address] [place] [address] D[facility]8 [facility] [address] [place] [address] [facility] Dept. of Laboratory Medicine and Pathology [address] [place] [address] * tTG (Tissue Transglutaminase), Antibody, IgA (08/05/2020 9:40 AM CDT) Tissue Transglutaminase Ab, IgA, S <1.2 <4.0 (Negative ) U/mL 08/06/2020 6:13 PM CDT [facility] Blood 08/05/2020 9:40 AM CDT 08/06/2020 9:45 AM CDT Mariano Kearns P.A.-C., P.A. LAB BLOOD ADD -ON Final Result Performing Organization Address City/[facility]/ZIP Co de Phone Number [facility] [address] [place] [address] [facility] of Laboratory Medicine and Pathology [address] [place] [address] * tTG (Tissue Transglutaminase) Antibody, IgG (08/05/2020 9:40 AM CDT) Tissue Transglutaminase Ab, IgG, S <0.8 <15.0 U/mL 08/06/2020 10:31 AM CDT [facility] Blood (Blood, Venous) 08/05/2020 9:40 AM CDT 08/05/2020 3:45 PM CDT Mariano Kearns P.A.-C., P.A. LAB BLOOD ADD -ON Final Result Performing Organization Address City/[facility]/ZIP Co de Phone Number [facility] [address] [place] [id number], [facility] [place] [address] * (ABNORMAL) Inflammatory Bowel Disease Serology Panel (08/05/2020 9:40 AM CDT) Saccharomyces cerevisiae Ab, IgA, S 32.6(H) <20.0 (Negative) RU/mL 2020 12:20 PM CDT [facility] Comment: ----ADDITIONAL INFORMATION---- This test was developed and its performance characteristics determined by [facility] in a manner consistent with CLIA requirements. This test has not been cleared or approved by the U.S. Food and Drug Administration. Saccharomyces cerevisiae Ab, IgG, S 3.0 <20.0 (Negative) RU/mL 2020 12:21 PM CDT [facility] Comment: ----ADDITIONAL INFORMATION---- This test was developed and its performance characteristics determined by [facility] in a manner consistent with CLIA requirements. This test has not been cleared or approved by the U.S. Food and Drug Administration. Cytoplasmic Neutrophilic Ab IBD, S Positive(A) Negative 08/19/2020 3:23 PM CDT [facility] ANCA2 Interpretation Results are not conclusive as some patients with Crohn's disease have detectable pANCA and some patients with ulcerative colitis have detectable IgA or IgG S. cerevisiae antibodies. Correlation with clinical symptoms, endoscopy and biopsy findings is required to confirm the diagnosis. 08/19/2020 3:23 PM CDT [facility] Comment: ----ADDITIONAL INFORMATION---- This test was developed and its performance characteristics determined by [facility] in a manner consistent with CLIA requirements. This test has not been cleared or approved by the U.S. Food and Drug Administration. Blood 08/05/2020 9:40 AM CDT 08/06/2020 6:59 AM CDT Mariano Kearns P.A.-C., P.A. LAB BLOOD ADD -ON Final Result [facility] [address] [place] [address] [facility] Medicine and Path[facility] [address] [place] [address] * NE ARTHCS ASP/INJ MJR JT W US (07/26/2020 10:49 AM CDT) Narrative [facility] - 07/26/2020 10:49 AM CDT Lewis Villagomez D.O. ? 07/26/2020 10:52 AM Hip site - Bilat hip joint : injection only Date/Time: 07/26/2020 10:49 AM Performed by: Lewis Villagomez D.O. Authorized by: Ming Montenegro M.D. Care team members present 1. Marilyn Welsh, BritPAryanN. PROCEDURE DETAILS Procedure Location hip Hip site: Bilat hip joint Patient position: supine Procedural approach: anterior Procedure performed: injection only Needle gauge: 22 GNeedle length: 4 in. Image guidance Ultrasound The use of direct ultrasound visualization of the needle was required (rather than a non-guided injection) to ensure accurate injection delivery and to maximize clinical benefit beyond that obtained with a non-guided injection. ??Additionally, there can be diagnostic specificity when evaluating effectiveness of the injection, and for safety purposes to minimize risk of bleeding or injury to surrounding structures. Images saved: yes Pre-procedure image guidance used to localize target and identify at risk structures, and plan approach and site was marked using indelible marker. Probe: convex low/mid-frequency Needle approach: lateral to medial Ultrasound visualization: in-plane Procedural Medication The following medications were administered at the target site(s) On the right: Local anesthetic: 5 mL lidocaine (PF) 10 mg/mL (1 %); 4 mL ropivacaine (PF) 2 mg/mL (0.2 %) Corticosteroid: 40 mg methylPREDNISolone acetate 40 mg/mL On the left: Local anesthetic: 5 mL lidocaine (PF) 10 mg/mL (1 %); 4 mL ropivacaine (PF) 2 mg/mL (0.2 %) Corticosteroid: 40 mg methylPREDNISolone acetate 40 mg/mL CONSENT Consent obtained: written PRE-PROCEDURE DETAILS Procedure purpose: therapeutic Appropriate hand hygiene, gown, cap, mask, protective eyewear, sterile gloves, skin preparation, sterile drape, and strict aseptic technique were utilized as applicable for the procedure: yes ?? Skin preparation: chlorhexidine SEDATION / ANESTHESIA Anesthesia method: local infiltration POST-PROCEDURE DETAILS Procedure completed successfully: yes Complications: no apparent complications ?? Post-procedure instructions: avoid strenuous activity for 2 days, avoid submersion of procedure site for 48 hours and post-procedure activity instructions provided Discharge instructions: pain management instructions and ice area as needed for comfort Other procedure detail: A 25 gauge 2 inch needle was used to provide 5 milliliters of 1% lidocaine for local anesthetic purposes bilaterally. ?? Subsequently, a 22 gauge 4 inch spinal needle was used to provide 4 milliliters of 0.2% ropivacaine and 1 milliliter of 40 milligrams/milliliter Depo-Medrol bilaterally. PPE use information for possible contact monitoring: PPE used during visit: Provider was wearing a mask and eye protection throughout entire session. Patient was wearing a mask throughout entire session. us Ming Montenegro M.D. PROCEDURE/MINOR SURGICAL ORDERABLES Final Result MMODAL NA * Non-Radiology Image-Physical Medicine And Rehab Image Exam (07/26/2020 10:30 AM CDT) 07/26/2020 10:2 9 AM CDT Narrative [facility]IMS - 07/26/2020 11:03 AM CDT This order has been created and auto-finalized to support the import of images acquired without order. The clinical documentation to support these images can be found on the encounter that produced images. us Provider Not In System IMG NON RAD IMAGING PROCE DURES Final Result Performing Organization Address City/[facility]/ZIP Co de Phone Number IIMS NA * DX Ankle Left 3+ Views (07/26/2020 8:11 AM CDT) Only the most recent of6 resultswithin the time period is included. Anatomical Region Laterality Modality Lower Extremity, Ankle, Musc uloskeletal RST LOS, Musculoskeletal ARZ LOS, Muskuloskeletal FLA LOS Left Digit al Radiography 07/26/2020 8:25 AM CDT Impressions 07/26/2020 8:28 AM CDT Lateral plate and screw fixation of the distal fibula with transplant syndesmotic repair. No evidence of hardware fracture or loosening. Ankle mortise is symmetric. Chronic appearing ossific fragment adjacent to the medial malleolus. Posterior plantar calcaneal enthesophytes. November 17, 2019 comparison. Narrative 07/26/2020 8:28 AM CDT EXAM: DX ANKLE LEFT 3+ VIEWS Procedure Note Daniel Dover M.D. - 07/26/2020 EXAM: DX ANKLE LEFT 3+ VIEWS IMPRESSION: Lateral plate and screw fixation of the distal fibula with transplant syndesmotic repair. No evidence of hardware fracture or loosening. Anklemortise is symmetric. Chronic appearing ossific fragment adjacent to the medial malleolus. Posterior plantar calcaneal enthesophytes. November 17, 2019 comparison. Ming Montenegro M.D. IMG DIAGNOSTIC IMAGING NE OCEDURES Final Result * foot-ankle arthrocentesis: L ankle (06/15/2020 10:45 AM CDT) Narrative Cece Rivera P.A.-C. - 06/15/2020 10:45 AM CDT Cece Rivera P.A.-C. ? 07/13/2020 ??4:40 PM L ankle joint injection, : injection only Date/Time: 06/15/2020 10:45 AM Performed by: Cece Rivera P.A.-C. Authorized by: Cece Rivera P.A.-C. PROCEDURE DETAILS ?? Procedure performed: injection only Foot-Ankle procedure site: L ankle joint injection, PROCEDURE MEDICATIONS Local anesthetics: 2 mL lidocaine (PF) 10 mg/mL (1 %) Corticosteroid: 3 mg betamethasone acetate & sodium phosphate 6 mg/mL CONSENT Consent obtained: written UNIVERSAL PROTOCOL All relevant documentation and testing were reviewed and available. All required blood products, implants, devices and or special equipment were made available as applicable. Pre-procedure verification was conducted and the correct site was marked if required. A fire risk assessment was done as applicable. The procedural time-out was conducted prior to performing the procedure and confirmed in a procedural pause. PRE-PROCEDURE DETAILS Procedure purpose: therapeutic Skin preparation: alcohol POST-PROCEDURE DETAILS Procedure outcome: ??successful procedure Complications: no apparent complications Post-procedure instructions: avoid strenuous activity for 2 days Discharge instruction provided: ice area as needed for comfort Result [facility] Rachel Hoskins P.A.-C. PROCEDUR E/MINOR SURGICAL ORDERABLES Edited Result - Final * foot-ankle arthrocentesis: R ankle (06/15/2020 10:45 AM CDT) Narrative Cece Rivera P.A.-C. - 06/15/2020 10:45 AM CDT Cece Rivera P.A.-C. ? 07/13/2020 ??4:40 PM R ankle joint injection, : injection only Date/Time: 06/15/2020 10:45 AM Performed by: Cece Rivera P.A.-C. Authorized by: Cece Rivera P.A.-C. PROCEDURE DETAILS ?? Procedure performed: injection only Foot-Ankle procedure site: R ankle joint injection, PROCEDURE MEDICATIONS Local anesthetics: 2 mL lidocaine (PF) 10 mg/mL (1 %) Corticosteroid: 3 mg betamethasone acetate & sodium phosphate 6 mg/mL CONSENT Consent obtained: written UNIVERSAL PROTOCOL All relevant documentation and testing were reviewed and available. All required blood products, implants, devices and or special equipment were made available as applicable. Pre-procedure verification was conducted and the correct site was marked if required. A fire risk assessment was done as applicable. The procedural time-out was conducted prior to performing the procedure and confirmed in a procedural pause. PRE-PROCEDURE DETAILS Procedure purpose: therapeutic Skin preparation: alcohol POST-PROCEDURE DETAILS Procedure outcome: ??successful procedure Complications: no apparent complications Post-procedure instructions: avoid strenuous activity for 2 days Discharge instruction provided: ice area as needed for comfort Cece Rivera P.A.-C. P.AAryan PROCEDUR E/MINOR SURGICAL ORDERABLES Edited Result - Final * NE ARTHCS ASP/INJ MJR JT WO US (06/08/2020 10:15 AM CDT) Narrative MMODAL - 06/08/2020 10:15 AM CDT Cece Rivera P.A.-C. ? 06/08/2020 10:40 AM Hip site - L greater troch bursa : injection only Date/Time: 06/08/2020 10:15 AM Performed by: Cece Rivera P.A.-C. Authorized by: Cece Rivera P.A.-C. PROCEDURE DETAILS Procedure Location hip Hip site: L greater troch bursa Site prep: patient was prepped and draped in usual sterile fashion ?? Patient position: seated Procedural approach: lateral Procedure performed: injection only Needle gauge: 21 G Procedural Medication The following medications were administered at the target site(s) Local anesthetic: 8 mL lidocaine 10 mg/mL (1 %) Corticosteroid: 9 mg betamethasone acetate & sodium phosphate 6 mg/mL CONSENT Consent obtained: written UNIVERSAL PROTOCOL All relevant documentation and testing were reviewed and available. All required blood products, implants, devices and or special equipment were made available as applicable. Pre-procedure verification was conducted and the correct site was marked if required. A fire risk assessment was done as applicable. The procedural time-out was conducted prior to performing the procedure and confirmed in a procedural pause. PRE-PROCEDURE DETAILS Procedure purpose: therapeutic Appropriate hand hygiene, gown, cap, mask, protective eyewear, sterile gloves, skin preparation, sterile drape, and strict aseptic technique were utilized as applicable for the procedure: yes ?? Skin preparation: alcohol SEDATION / ANESTHESIA Anesthesia method: none POST-PROCEDURE DETAILS Procedure completed successfully: yes Complications: no apparent complications ?? Discharge instructions: ice area as needed for comfort Cece Rivera P.A.-C., P.A. PROCEDURE/MINOR SURGICAL ORDERABLES Final Result MMODAL NA * NE ARTHCS ASP/INJ MJR JT WO (06/08/2020 10:15 AM CDT) Narrative MMODAL - 06/08/2020 10:15 AM CDT Cece Rivera P.A.-C. ? 06/08/2020 10:40 AM Hip site - R greater troch bursa : injection only Date/Time: 06/08/2020 10:15 AM Performed by: Cece Rivera P.A.-C. Authorized by: Cece Rivera P.A.-C. PROCEDURE DETAILS Procedure Location hip Hip site: R greater troch bursa Site prep: patient was prepped and draped in usual sterile fashion ?? Patient position: side-lying Procedural approach: anterolateral and lateral Procedure performed: injection only Needle gauge: 21 G Procedural Medication The following medications were administered at the target site(s) Local anesthetic: 8 mL lidocaine 10 mg/mL (1 %) Corticosteroid: 9 mg betamethasone acetate & sodium phosphate 6 mg/mL CONSENT Consent obtained: written UNIVERSAL PROTOCOL All relevant documentation and testing were reviewed and available. All required blood products, implants, devices and or special equipment were made available as applicable. Pre-procedure verification was conducted and the correct site was marked if required. A fire risk assessment was done as applicable. The procedural time-out was conducted prior to performing the procedure and confirmed in a procedural pause. PRE-PROCEDURE DETAILS Procedure purpose: therapeutic Appropriate hand hygiene, gown, cap, mask, protective eyewear, sterile gloves, skin preparation, sterile drape, and strict aseptic technique were utilized as applicable for the procedure: yes ?? Skin preparation: alcohol SEDATION / ANESTHESIA Anesthesia method: none POST-PROCEDURE DETAILS Procedure completed successfully: yes Complications: no apparent complications ?? Discharge instructions: ice area as needed for comfort Cece Rivera P.A.-C., P.AAryan PROCEDURE/MINOR SURGICAL ORDERABLES Final Result MMODAL NA * hand-wrist arthrocentesis: R carpal tunnel (06/01/2020 11:00 AM CDT) Narrative Cece Rivera P.A.-C. - 06/01/2020 11:00 AM CDT Cece Rivera P.A.-C. ? 06/01/2020 ??2:02 PM R carpal tunnel volar injection, Date/Time: 06/01/2020 11:00 AM Performed by: Cece Rivera P.A.-C. Authorized by: Cece Rivera P.A.-C. Hand-Wrist procedure site: R carpal tunnel volar injection, PROCEDURE MEDICATIONS Local anesthetics: 1 mL lidocaine (PF) 10 mg/mL (1 %) Corticosteroid: 3 mg betamethasone acetate & sodium phosphate 6 mg/mL CONSENT Consent obtained: written UNIVERSAL PROTOCOL All relevant documentation and testing were reviewed and available. All required blood products, implants, devices and or special equipment were made available as applicable. Pre-procedure verification was conducted and the correct site was marked if required. A fire risk assessment was done as applicable. The procedural time-out was conducted prior to performing the procedure and confirmed in a procedural pause. PRE-PROCEDURE DETAILS Procedure purpose: therapeutic Appropriate hand hygiene, gown, cap, mask, protective eyewear, sterile gloves, skin preparation, sterile drape, and strict aseptic technique were utilized as applicable for the procedure.: yes ?? Skin preparation: chlorhexidine POST-PROCEDURE DETAILS Procedure outcome: ??successful procedure Complications: no apparent complications Discharge instruction provided: ice area as needed for comfort and follow-up with ordering provider Cece Rivera P.A.-C., P.AAryan PROCEDURE/MINOR SURGICAL ORDERABLES Final Result * hand-wrist arthrocentesis: L carpal tunnel (06/01/2020 11:00 AM CDT) Narrative Cece Rivera P.A.-C. - 06/01/2020 11:00 AM CDT Cece Rivera P.A.-C. ? 06/01/2020 ??2:02 PM L carpal tunnel volar injection, Date/Time: 06/01/2020 11:00 AM Performed by: Cece Rivera P.A.-C. Authorized by: Cece Rivera P.A.-C. Hand-Wrist procedure site: L carpal tunnel volar injection, PROCEDURE MEDICATIONS Local anesthetics: 1 mL lidocaine (PF) 10 mg/mL (1 %) Corticosteroid: 3 mg betamethasone acetate & sodium phosphate 6 mg/mL CONSENT Consent obtained: written UNIVERSAL PROTOCOL All relevant documentation and testing were reviewed and available. All required blood products, implants, devices and or special equipment were made available as applicable. Pre-procedure verification was conducted and the correct site was marked if required. A fire risk assessment was done as applicable. The procedural time-out was conducted prior to performing the procedure and confirmed in a procedural pause. PRE-PROCEDURE DETAILS Procedure purpose: therapeutic Appropriate hand hygiene, gown, cap, mask, protective eyewear, sterile gloves, skin preparation, sterile drape, and strict aseptic technique were utilized as applicable for the procedure.: yes ?? Skin preparation: chlorhexidine POST-PROCEDURE DETAILS Procedure outcome: ??successful procedure Complications: no apparent complications Discharge instruction provided: ice area as needed for comfort and follow-up with ordering provider Cece Rivera P.A.-C., P.AAryan PROCEDURE/MINOR SURGICAL ORDERABLES Final Result * (ABNORMAL) Lipid Panel (05/06/2020 11:20 AM FILTRATION OPERATOR) Only the most recent of8 resultswithin the time period is included. [facility] Cholesterol, Total 183 mg/dL 2020 12:00 PM FILTRATION OPERATOR OWAT Comment: ----REFERENCE VALUE---- Desirable: < 200 Borderline high: 200 - 239 High: > or = 240 Triglycerides 204(H) mg/dL 05/06/2020 12:00 PM FILTRATION OPERATOR OWAT Comment: ----REFERENCE VALUE---- Normal: <150 Borderline high: 150-199 High: 200-499 Very high: > or =500 Cholesterol, HDL 46(L) >=50 mg/dL 05/07/19 12:00 PM FILTRATION OPERATOR OWAT Calculated LDL 96 mg/dL 05/06/2020 12:00 PM FILTRATION OPERATOR OWAT Comment: ----REFERENCE VALUE---- Desirable: <100 Above Desirable: 100-129 Borderline high: 130-159 High: 160-189 Very high: > or =190 Cholesterol, Non-HDL, Calculated 137 mg/dL 05/06/2020 12:00 PM FILTRATION OPERATOR OWAT Comment: ----REFERENCE VALUE---- Desirable: <130 Above Desirable: 130-159 Borderline high: 160-189 High: 190-219 Very high: > or =220 Blood (Blood, Venous) 05/06/2020 11:20 AM FILTRATION OPERATOR 05/06/2020 11:21 AM FILTRATION OPERATOR Dino Corbett M.D. LAB BLOOD ADD-ON Final Resu lt [facility] [address] [place] [id number], [facility] OW[facility] [place] [address] [place] [id number] * foot-ankle arthrocentesis: L ankle (02/25/2020 9:30 AM FILTRATION OPERATOR) Narrative Cece Rivera P.A.-C. - 02/25/2020 9:30 AM FILTRATION OPERATOR Cece Rivera P.A.-C. ? 04/12/2020 ??3:04 PM L ankle joint injection, : injection only Date/Time: 02/25/2020 9:30 AM Performed by: Cece Rivera P.A.-C. Authorized by: Cece Rivera P.A.-C. PROCEDURE DETAILS ?? Procedure performed: injection only Foot-Ankle procedure site: L ankle joint injection, PROCEDURE MEDICATIONS Local anesthetics: 2 mL lidocaine (PF) 10 mg/mL (1 %) Corticosteroid: 3 mg betamethasone acetate & sodium phosphate 6 mg/mL CONSENT Consent obtained: written UNIVERSAL PROTOCOL All relevant documentation and testing were reviewed and available. All required blood products, implants, devices and or special equipment were made available as applicable. Pre-procedure verification was conducted and the correct site was marked if required. A fire risk assessment was done as applicable. The procedural time-out was conducted prior to performing the procedure and confirmed in a procedural pause. PRE-PROCEDURE DETAILS Procedure purpose: therapeutic Skin preparation: alcohol POST-PROCEDURE DETAILS Procedure outcome: ??successful procedure Complications: no apparent complications Post-procedure instructions: avoid strenuous activity for 2 days Discharge instruction provided: ice area as needed for comfort Rachel Hoskins P.A.-C. PROCEDUR E/MINOR SURGICAL ORDERABLES Edited Result - Final * foot-ankle arthrocentesis: R ankle (02/25/2020 9:30 AM FILTRATION OPERATOR) Narrative Cece Rivera P.A.-C. - 02/25/2020 9:30 AM FILTRATION OPERATOR Cece Rivera P.A.-C. ? 04/12/2020 ??3:04 PM R ankle joint injection, : injection only Date/Time: 02/25/2020 9:30 AM Performed by: Cece Rivera P.A.-C. Authorized by: Cece Rivera P.A.-C. PROCEDURE DETAILS ?? Procedure performed: injection only Foot-Ankle procedure site: R ankle joint injection, PROCEDURE MEDICATIONS Local anesthetics: 5 mL lidocaine (PF) 10 mg/mL (1 %) Corticosteroid: 3 mg betamethasone acetate & sodium phosphate 6 mg/mL CONSENT Consent obtained: written UNIVERSAL PROTOCOL All relevant documentation and testing were reviewed and available. All required blood products, implants, devices and or special equipment were made available as applicable. Pre-procedure verification was conducted and the correct site was marked if required. A fire risk assessment was done as applicable. The procedural time-out was conducted prior to performing the procedure and confirmed in a procedural pause. PRE-PROCEDURE DETAILS Procedure purpose: therapeutic Skin preparation: alcohol POST-PROCEDURE DETAILS Procedure outcome: ??successful procedure Complications: no apparent complications Post-procedure instructions: avoid strenuous activity for 2 days Discharge instruction provided: ice area as needed for comfort Cece Rivera P.A.-C., PAryanAAryan PROCEDUR E/MINOR SURGICAL ORDERABLES Edited Result - Final * EMG (02/18/2020 10:55 AM FILTRATION OPERATOR) 02/18/2020 11:0 0 AM FILTRATION OPERATOR Narrative [facility] EMG - 02/18/2020 12:16 PM FILTRATION OPERATOR 18-Feb-2020 ? Electromyography ? Final Report Study Number: 1 EMG Brazing Machine Operator Helper: Kole Salinas 127 or [phone] Referred by: CECE RIVERA ( ) Referred for: Referral Code: ?038 RX: 211 SUMMARY: Prior to starting the procedure, the patient's identity was verified, pertinent available records were reviewed, the nature of the procedure was explained, the appropriate sites of the exam were confirmed directly with the patient, and a pre-procedure pause was performed for final verification of all of the above. ?? The bilateral median and ulnar motor nerve conduction responses were normal. ??The right median sensory nerve conduction response had a prolonged distal latency. ??The left median and bilateral ulnar sensory nerve conduction responses were normal. Needle examination of the left upper extremity was normal. 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 There is no electrophysiologic evidence of a left median or bilateral ulnar neuropathy; left cervical radiculopathy; or a length-dependent peripheral neuropathy affecting the upper limbs. Julia Salinas (127 or [phone]) NERVE CONDUCTIONS ??Record Rep ?? Normal ??Normal Distal Normal F-Wave F-Wave Temp Nerve Type Site Stim Side Amp Amp CV CV Lat Lat Lat Est (??C) Ulnar Motor ADM ??L 7.2 (> 6.0) 53 (> 51) 2.5 (< 3.6) ? Ulnar Motor ADM ??R 9.8 (> 6.0) 63 (> 51) 2.2 (< 3.6) ? Median Motor APB ??L 10.3 (> 4.0) 51 (> 48) 3.9 (< 4.5) ? Median Motor APB ??R 10.6 (> 4.0) 53 (> 48) 3.3 (< 4.5) ? Median Sensory Wrist ??L 112 (> 50.0) ??(> 56) 2.1 (< 2.3) ? Median Sensory Wrist ??R 74 (> 50.0) ??(> 56) 2.3 (< 2.3) ? Ulnar Sensory Wrist ??L 33 (> 15.0) ??(> 55) 2.0 (< 2.3) ? Ulnar Sensory Wrist ??R 24 (> 15.0) ??(> 55) 1.5 (< 2.3) ? NEEDLE EMG ??Ins Spont ??MUP ??Recruitment ??Duration ??Amplitude ??Phases ?? Muscle Side Act Fib Fasc Normal Activ Reduced Rapid Long Short High Low % Turns First dorsal interosseous L NL 0 0 NL ? Pronator teres L NL 0 0 NL ? Biceps brachii L NL 0 0 NL ? Deltoid L NL 0 0 NL ? Triceps brachii L NL 0 0 NL ? This interpretation has been electronically signed: Kole Salinas MD at 02/18/2020 12:20:04 PM FILTRATION OPERATOR Procedure Note Kole Salinas M.D. - 02/18/2020 18-Feb-2020 Electromyography Final Report Study Number: 1 EMG Brazing Machine Operator Helper: Kole Salinas 127 or [phone] Referred by: CECE RIVERA ( ) Referred for: Referral Code: 038 RX: 211 SUMMARY: Prior to starting the procedure, the patient's identity wasverified, pertinent available records were reviewed, the nature of the procedure was explained, theappropriate sites of the exam were confirmed directly with the patient, and a pre-procedure pausewas performed for final verification of all of the above. The bilateral median and ulnar motor nerve conduction responses were normal. The right median sensory nerve conduction responsehad a prolonged distal latency. The left median and bilateral ulnar sensory nerve conductionresponses were normal. Needle examination of the left upper extremity was normal. CLINICAL INTERPRETATION: There is electrophysiologic evidence of a mildright median neuropathy at the wrist. There is no electrophysiologic evidence of a left median orbilateral ulnar neuropathy; left cervical radiculopathy; or a length-dependent peripheral neuropathyaffecting the upper limbs. Julia Salinas (127 or [phone]) NERVE CONDUCTIONS Record Rep Normal Normal Distal Normal F-Wave F-Wave Temp Nerve Type Site Stim Side Amp Amp CV CV Lat Lat Lat Est (??C) Ulnar Motor ADM L 7.2 (> 6.0) 53 (> 51) 2.5 (< 3.6) Ulnar Motor ADM R 9.8 (> 6.0) 63 (> 51) 2.2 (< 3.6) Median Motor APB L 10.3 (> 4.0) 51 (> 48) 3.9 (< 4.5) Median Motor APB R 10.6 (> 4.0) 53 (> 48) 3.3 (< 4.5) Median Sensory Wrist L 112 (> 50.0) (> 56) 2.1 (< 2.3) Median Sensory Wrist R 74 (> 50.0) (> 56) 2.3 (< 2.3) Ulnar Sensory Wrist L 33 (> 15.0) (> 55) 2.0 (< 2.3) Ulnar Sensory Wrist R 24 (> 15.0) (> 55) 1.5 (< 2.3) NEEDLE EMG Ins Spont MUP Recruitment Duration Amplitude Phases Muscle Side Act Fib Fasc Normal Activ Reduced Rapid Long Short High Low %Turns First dorsal interosseous L NL 0 0 NL Pronator teres L NL 0 0 NL Biceps brachii L NL 0 0 NL Deltoid L NL 0 0 NL Triceps brachii L NL 0 0 NL This interpretation has been electronically signed: BradleyF. Salinas MD at 02/18/2020 12:20:04 PM FILTRATION OPERATOR Cece Rivera P.A.-C., P.A. NEUROLOGY ORDERA BLES Edited Result - Final Performing Organization Address [facility] de Phone Number [facility] EMG * NE ARTHCS ASP/INJ MJR JT WO US (02/13/2020 2:45 PM FILTRATION OPERATOR) Narrative MMODAL - 02/13/2020 2:45 PM FILTRATION OPERATOR Cece Rivera P.A.-C. ? 02/13/2020 ??2:56 PM Hip site - R greater troch bursa : injection only Date/Time: 02/13/2020 2:55 PM Performed by: Cece Rivera P.A.-C. Authorized by: Cece Rivera P.A.-C. PROCEDURE DETAILS Procedure Location hip Hip site: R greater troch bursa Site prep: patient was prepped and draped in usual sterile fashion ?? Patient position: side-lying Procedural approach: anterolateral and lateral Procedure performed: injection only Needle gauge: 21 G Procedural Medication The following medications were administered at the target site(s) Local anesthetic: 8 mL lidocaine 10 mg/mL (1 %) Corticosteroid: 9 mg betamethasone acetate & sodium phosphate 6 mg/mL CONSENT Consent obtained: written UNIVERSAL PROTOCOL All relevant documentation and testing were reviewed and available. All required blood products, implants, devices and or special equipment were made available as applicable. Pre-procedure verification was conducted and the correct site was marked if required. A fire risk assessment was done as applicable. The procedural time-out was conducted prior to performing the procedure and confirmed in a procedural pause. PRE-PROCEDURE DETAILS Procedure purpose: therapeutic Appropriate hand hygiene, gown, cap, mask, protective eyewear, sterile gloves, skin preparation, sterile drape, and strict aseptic technique were utilized as applicable for the procedure: yes ?? Skin preparation: alcohol SEDATION / ANESTHESIA Anesthesia method: none POST-PROCEDURE DETAILS Procedure completed successfully: yes Complications: no apparent complications ?? Discharge instructions: ice area as needed for comfort us Cece Rivera P.A.-C., P.A. PROCEDURE/MINOR SURGICAL ORDERABLES Final Result Performing Organization Address [facility] de Phone Number MMODAL NA * NE ARTHCS ASP/INJ MJR JT WO US (02/13/2020 2:45 PM FILTRATION OPERATOR) Narrative MMODAL - 02/13/2020 2:45 PM FILTRATION OPERATOR Cece Rivera P.A.-C. ? 02/13/2020 ??2:56 PM Hip site - L greater troch bursa : injection only Date/Time: 02/13/2020 2:54 PM Performed by: Cece Rivera P.A.-C. Authorized by: Cece Rivera P.A.-C. PROCEDURE DETAILS Procedure Location hip Hip site: L greater troch bursa Site prep: patient was prepped and draped in usual sterile fashion ?? Patient position: seated Procedural approach: lateral Procedure performed: injection only Needle gauge: 21 G Procedural Medication The following medications were administered at the target site(s) Local anesthetic: 8 mL lidocaine 10 mg/mL (1 %) Corticosteroid: 9 mg betamethasone acetate & sodium phosphate 6 mg/mL CONSENT Consent obtained: written [employer]AL [employer] All relevant documentation and testing were reviewed and available. All required blood products, implants, devices and or special equipment were made available as applicable. Pre-procedure verification was conducted and the correct site was marked if required. A fire risk assessment was done as applicable. The procedural time-out was conducted prior to performing the procedure and confirmed in a procedural pause. PRE-PROCEDURE DETAILS Procedure purpose: therapeutic Appropriate hand hygiene, gown, cap, mask, protective eyewear, sterile gloves, skin preparation, sterile drape, and strict aseptic technique were utilized as applicable for the procedure: yes ?? Skin preparation: alcohol SEDATION / ANESTHESIA Anesthesia method: none POST-PROCEDURE DETAILS Procedure completed successfully: yes Complications: no apparent complications ?? Discharge instructions: ice area as needed for comfort Cece Rivera P.A.-C., P.AAryan PROCEDURE/MINOR SURGICAL ORDERABLES Final Result MMODAL NA * hand-wrist arthrocentesis: R carpal tunnel (01/27/2020 9:30 AM FILTRATION OPERATOR) Narrative Cece Rivera P.A.-C. - 01/27/2020 9:30 AM FILTRATION OPERATOR Cece Rivera P.A.-C. ? 01/27/2020 10:09 AM R carpal tunnel volar injection, Date/Time: 01/27/2020 10:05 AM Performed by: Cece Rivera P.A.-C. Authorized by: Cece Rivera P.A.-C. PROCEDURE DETAILS Hand-Wrist procedure site: R carpal tunnel volar injection, PROCEDURE MEDICATIONS Local anesthetics: 2 mL lidocaine (PF) 10 mg/mL (1 %) Corticosteroid: 3 mg betamethasone acetate & sodium phosphate 6 mg/mL CONSENT Consent obtained: written [employer] All relevant documentation and testing were reviewed and available. All required blood products, implants, devices and or special equipment were made available as applicable. Pre-procedure verification was conducted and the correct site was marked if required. A fire risk assessment was done as applicable. The procedural time-out was conducted prior to performing the procedure and confirmed in a procedural pause. PRE-PROCEDURE DETAILS Procedure purpose: therapeutic Appropriate hand hygiene, gown, cap, mask, protective eyewear, sterile gloves, skin preparation, sterile drape, and strict aseptic technique were utilized as applicable for the procedure.: yes ?? Skin preparation: chlorhexidine POST-PROCEDURE DETAILS Procedure outcome: ??successful procedure Complications: no apparent complications Discharge instruction provided: ice area as needed for comfort and follow-up with ordering provider Cece Rivera P.A.-C., P.AAryan PROCEDURE/MINOR SURGICAL ORDERABLES Final Result * hand-wrist arthrocentesis: L carpal tunnel (01/27/2020 9:30 AM FILTRATION OPERATOR) Narrative Cece Rivera P.A.-C. - 01/27/2020 9:30 AM FILTRATION OPERATOR Cece Rivera P.A.-C. ? 01/27/2020 10:09 AM L carpal tunnel volar injection, Date/Time: 01/27/2020 10:05 AM Performed by: Cece Rivera P.A.-C. Authorized by: Cece Rivera P.A.-C. PROCEDURE DETAILS Hand-Wrist procedure site: L carpal tunnel volar injection, PROCEDURE MEDICATIONS Local anesthetics: 2 mL lidocaine (PF) 10 mg/mL (1 %) Corticosteroid: 3 mg betamethasone acetate & sodium phosphate 6 mg/mL CONSENT Consent obtained: written [employer] All relevant documentation and testing were reviewed and available. All required blood products, implants, devices and or special equipment were made available as applicable. Pre-procedure verification was conducted and the correct site was marked if required. A fire risk assessment was done as applicable. The procedural time-out was conducted prior to performing the procedure and confirmed in a procedural pause. PRE-PROCEDURE DETAILS Procedure purpose: therapeutic Appropriate hand hygiene, gown, cap, mask, protective eyewear, sterile gloves, skin preparation, sterile drape, and strict aseptic technique were utilized as applicable for the procedure.: yes ?? Skin preparation: chlorhexidine POST-PROCEDURE DETAILS Procedure outcome: ??successful procedure Complications: no apparent complications Discharge instruction provided: ice area as needed for comfort and follow-up with ordering provider Cece Rivera P.A.-C., P.A. PROCEDURE/MINOR SURGICAL ORDERABLES Final Result * (ABNORMAL) Controlled Substance Monitoring Panel, Urine (12/23/2019 11:11 AM CDT) List patient's current medications Not provided 12/24/2019 7:19 AM CDT [facility] Comment: ----ADDITIONAL INFORMATION---- Accuracy and completeness of declared medications on reports solely dependent on information submitted by client. Creatinine, Random, U 155.6 mg/dL 9:25 AM CDT [facility] Specific [place] 1.011 12/24/19 9:25 AM CDT [facility] pH 7.7 12/24/2019 9:25 AM CDT [facility] Oxidants Negative Cutoff: 200 mg/L 12/24/2019 9:25 AM CDT [facility] Comment Normal 12/24/2019 9:25 AM CDT [facility] Amphetamines Negative Cutoff: 500 ng/mL 12/24/2019 9:25 AM CDT [facility] Barbiturates Negative Cutoff: 200 ng/mL 12/24/2019 9:25 AM CDT [facility] Cocaine Negative Cutoff: 150 ng/mL 12/24/2019 9:25 AM CDT [facility] Phencyclidine Negative Cutoff: 25 ng/mL 12/24/2019 9:25 AM CDT [facility] Tetrahydrocannabinol Negative Cutoff: 50 ng/mL 12/24/2019 9:25 AM CDT [facility] Comment: ----ADDITIONAL INFORMATION---- This report is intended for use in clinical monitoring or management of patients. ??It is not intended for use in employment-related testing. Codeine Not Detected Cutoff: 25 ng/mL 12/25/2019 8:08 AM CDT [facility] Comment:Tylenol 3 Rxtkywj-2-qepr-glucuron john Not Detected Cutoff: 100 ng/mL 12/25/2019 8:08 AM CDT [facility] Comment:Metabolite of codein e Morphine Not Detected Cutoff: 25 ng/mL 12/25/2019 8:08 AM CDT [facility] Comment: Flor Ngo, MS Contin; Also a minor metabolite (10%) of codeine and can be seen in low concentrations (<2,000 ng/mL) with poppy seed ingestion. Jwezigcu-3-iawy-glucuro nide Not Detected Cutoff: 100 ng/mL 12/25/2019 8:08 AM CDT [facility] Comment:Metabolite of morphi ne 6-monoacetylmorphine Not Detected Cutoff: 25 ng/mL 12/25/2019 8:08 AM CDT [facility] Comment:Metabolite of heroin Hydrocodone Present(A) Cutoff: 25 ng/mL 12/25/2019 8:08 AM CDT [facility] Comment: Lortab, Lee, Vicodin; Also a very minor metabolite of codeine and impurity (<1%) of oxycodone. Norhydrocodone Present(A) Cutoff: 25 ng/mL 12/25/2019 8:08 AM CDT [facility] Comment:Metabolite of hydroc odone Dihydrocodeine Present(A) Cutoff: 25 ng/mL 12/25/2019 8:08 AM CDT [facility] Comment:Metabolite of hydroc odone Hydromorphone Not Detected Cutoff: 25 ng/mL 12/25/2019 8:08 AM CDT [facility] Comment: Dilaudid, Exalgo; Also a metabolite of hydrocodone and a minor (<5%) metabolite of morphine. Mrmxsujjscbcq-3-thco-gl ucuronide Present(A) Cutoff: 100 ng/mL 12/25/2019 8:08 AM CDT [facility] Comment:Metabolite of hydrom orphone Oxycodone Not Detected Cutoff: 25 ng/mL 12/25/2019 8:08 AM CDT [facility] Comment:Endocet, Percocet, O xycontin Noroxycodone Not Detected Cutoff: 25 ng/mL 12/25/2019 8:08 AM CDT [facility] Comment:Metabolite of oxycod one Oxymorphone Not Detected Cutoff: 25 ng/mL 12/25/2019 8:08 AM T [facility] Comment:Numorphan, Opana; Al so a metabolite of oxycodone. Heclqnvhozi-2-gmrk-gluc uronide Not Detected Cutoff: 100 ng/mL 12/25/2019 8:08 AM CDT [facility] Comment:Metabolite of oxymor phone and/or naloxone (nornaloxone) Noroxymorphone Not Detected Cutoff: 25 ng/mL 12/25/2019 8:08 AM CDT [facility] Comment:Metabolite of oxymor phone and/or naloxone (nornaloxone) Fentanyl Not Detected Cutoff: 2 ng/mL 12/25/2019 8:08 AM T [facility] Comment:Actiq, Duragesic, Fe ntora Norfentanyl Not Detected Cutoff: 2 ng/mL 12/25/2019 8:08 AM T [facility] Comment:Metabolite of fentan yl Meperidine Not Detected Cutoff: 25 ng/mL 12/25/2019 8:08 AM T [facility] Comment:Demerol Normeperidine Not Detected Cutoff: 25 ng/mL 12/25/2019 8:08 AM T [facility] Comment:Metabolite of meperi dine Naloxone Not Detected Cutoff: 25 ng/mL 12/25/2019 8:08 AM T [facility] Comment:Narcan Uyxlxlyf-9-vfdb-glucuro nide Not Detected Cutoff: 100 ng/mL 12/25/2019 8:08 AM T [facility] Comment:Metabolite of naloxo ne Methadone, U Not Detected Cutoff: 25 ng/mL 12/25/2019 8:08 AM T [facility] Comment:Dolophine EDDP Not Detected Cutoff: 25 ng/mL 12/25/2019 8:08 AM T [facility] Comment:Metabolite of methad one Propoxyphene Not Detected Cutoff: 25 ng/mL 12/25/2019 8:08 AM T [facility] Comment:Darvon, Darvocet Norpropoxyphene Not Detected Cutoff: 25 ng/mL 12/25/2019 8:08 AM T [facility] Comment:Metabolite of propox yphene Tramadol Not Detected Cutoff: 25 ng/mL 12/25/2019 8:08 AM T [facility] Comment:Tradol, Ultram, Ultr acet O-desmethyltramadol Not Detected Cutoff: 25 ng/mL 12/25/2019 8:08 AM CDT [facility] Comment:Metabolite of tramad ol Tapentadol Not Detected Cutoff: 25 ng/mL 12/25/2019 8:08 AM CDT [facility] Comment:Nucynta N-desmethyltapentadol Not Detected Cutoff: 50 ng/mL 12/25/2019 8:08 AM CDT [facility] Comment:Metabolite of tapent adol Htmirnpjgs-rjqk-arhwwot nide Not Detected Cutoff: 100 ng/mL 12/25/2019 8:08 AM CDT [facility] Comment:Metabolite of tapent adol Buprenorphine Not Detected Cutoff: 5 ng/mL 12/25/2019 8:08 AM CDT [facility] Comment:Buprenex, Suboxone Norbuprenorphine Not Detected Cutoff: 5 ng/mL 12/25/2019 8:08 AM CDT [facility] Comment:Metabolite of bupren orphine Norbuprenorphine glucuronide Not Detected Cutoff: 20 ng/mL 12/25/2019 8:08 AM CDT [facility] Comment:Metabolite of bupren orphine Opioid Interpretation Test detected the presence of hydrocodone, two of its metabolites (norhydrocodo ne and dihydrocodein e), and hydromorphone -2-hgsu-dwlto ronide (metabolite of hydromorphone ). Suspect use of hydrocodone and/or hydromorphone within the past three days. Trace amounts of hydrocodone can also be found as an impurity in hydromorphone . 12/25/2019 8:08 AM T [facility] Comment: ----ADDITIONAL INFORMATION---- This test was developed and its performance characteristics determined by [facility] in a manner consistent with CLIA requirements. This test has not been cleared or approved by the U.S. Food and Drug Administration. Alprazolam Not Detected Cutoff: 10 ng/mL 12/25/2019 7:32 AM CDT [facility] Comment:Xanax Alpha-Hydroxyalprazolam Not Detected Cutoff: 10 ng/mL 12/25/2019 7:32 AM CDT [facility] Comment:Metabolite of Alpraz olam Alpha-Hydroxyalprazolam Glucuronide Not Detected Cutoff: 50 ng/mL 12/25/2019 7:32 AM CDT [facility] Comment:Metabolite of Alpraz olam Chlordiazepoxide Not Detected Cutoff: 10 ng/mL 12/25/2019 7:32 AM CDT [facility] Comment:Librium Clobazam Not Detected Cutoff: 10 ng/mL 12/25/2019 7:32 AM CDT [facility] Comment:Adriane Onjacek N-Desmethylclobazam Not Detected Cutoff: 200 ng/mL 12/25/2019 7:32 AM CDT [facility] Comment:Metabolite of Clobaz am Clonazepam Not Detected Cutoff: 10 ng/mL 12/25/2019 7:32 AM CDT [facility] Comment:Klonopin, Rivotril 7-aminoclonazepam Not Detected Cutoff: 10 ng/mL 12/25/2019 7:32 AM CDT [facility] Comment:Metabolite of Clonaz epam Diazepam Not Detected Cutoff: 10 ng/mL 12/25/2019 7:32 AM CDT [facility] Comment:Valium Nordiazepam Not Detected Cutoff: 10 ng/mL 12/25/2019 7:32 AM T [facility] Comment:Metabolite of Chlord iazepoxide, Diazepam, or Prazepam. Flunitrazepam Not Detected Cutoff: 10 ng/mL 12/25/2019 7:32 AM CDT [facility] Comment:Rohypnol 7-aminoflunitrazepam Not Detected Cutoff: 10 ng/mL 12/25/2019 7:32 AM CDT [facility] Comment:Metabolite of Flunit razepam Flurazepam Not Detected Cutoff: 10 ng/mL 12/25/2019 7:32 AM CDT [facility] Comment:Dalmane 2-Hydroxy Ethyl Flurazepam Not Detected Cutoff: 10 ng/mL 12/25/2019 7:32 AM CDT [facility] Comment:Metabolite of Fluraz epam Lorazepam Not Detected Cutoff: 10 ng/mL 12/25/2019 7:32 AM CDT [facility] Comment:Ativan Lorazepam Glucuronide Present(A) Cutoff: 50 ng/mL 12/25/2019 7:32 AM CDT [facility] Comment:Metabolite of Loraze martha Midazolam Not Detected Cutoff: 10 ng/mL 12/25/2019 7:32 AM CDT [facility] Comment:Versed Alpha-Hydroxy Midazolam Not Detected Cutoff: 10 ng/mL 12/25/2019 7:32 AM CDT [facility] Comment:Metabolite of Midazo lambert Oxazepam Not Detected Cutoff: 10 ng/mL 12/25/2019 7:32 AM CDT [facility] Comment:Serax; Also a metabo lite of Chlordiazepoxide, Diazepam, or Temazepam. Oxazepam Glucuronide Not Detected Cutoff: 50 ng/mL 12/25/2019 7:32 AM CDT [facility] Comment:Metabolite of Oxazep am Prazepam Not Detected Cutoff: 10 ng/mL 12/25/2019 7:32 AM CDT [facility] Comment:Centrax Temazepam Not Detected Cutoff: 10 ng/mL 12/25/2019 7:32 AM CDT [facility] Comment:Restoril; Also a met abolite of Diazepam. Temazepam Glucuronide Not Detected Cutoff: 50 ng/mL 12/25/2019 7:32 AM CDT [facility] Comment:Metabolite of Temaze martha Triazolam Not Detected Cutoff: 10 ng/mL 12/25/2019 7:32 AM CDT [facility] Comment:Halcion Alpha-Hydroxy Triazolam Not Detected Cutoff: 10 ng/mL 12/25/2019 7:32 AM CDT [facility] Comment:Metabolite of Triazo lambert Zolpidem Not Detected Cutoff: 10 ng/mL 12/25/2019 7:32 AM CDT [facility] Comment:Ambien Zolpidem Wgqqmh-2-Zsgvamrpql acid Not Detected Cutoff: 10 ng/mL 12/25/2019 7:32 AM CDT [facility] Comment:Metabolite of Zolpid em Benzodiazepine Interpretation Test detected the presence of lorazepam glucuronide (metabolite of lorazepam) only. Suspect use of lorazepam within the past five days. 12/25/2019 7:32 AM CDT [facility] Comment: ----ADDITIONAL INFORMATION---- This test was developed and its performance characteristics determined by [facility] in a manner consistent with CLIA requirements. This test has not been cleared or approved by the U.S. Food and Drug Administration. Urine (Urine, Clean Catch) 12/23/2019 11:11 AM CDT 12/24/2019 7:19 AM CDT us Dino Corbett M.D. LAB URINE ORDERABLES Final Result [facility] [address] [place] [address] [facility] [address] [place] [address] * BI Breast Screening Bilateral with Tomosynthesis (12/23/2019 10:40 AM CDT) Only the most recent of2 resultswithin the time period is included. Anatomical Region Laterality Modality Breast, Breast Imaging RST L OS, Breast Imaging ARZ LOS, Breast Imaging FLA LOS Bilateral Mammography 12/23/2019 11:4 9 AM CDT Impressions 12/23/2019 11:50 AM CDT Negative. RECOMMENDATION: ??Annual Screening Mammogram ASSESSMENT: ??BI-RADS: 1: Negative. Narrative 12/23/2019 11:50 AM CDT EXAM: ??BI BREAST SCREENING BILATERAL WITH TOMOSYNTHESIS Current study was evaluated with a Computer Aided Detection (CAD) system. INDICATION: ??Screening mammogram. COMPARISON: ??Prior exam(s) were available and reviewed for comparison. DENSITY: ??c. The breast(s) are heterogeneously dense, which may obscure small masses. FINDINGS: ??No mammographic findings of malignancy. Procedure Note Lewis Moulton M.D. - 12/23/2019 EXAM: BI BREAST SCREENING BILATERAL WITH TOMOSYNTHESIS Current study was evaluated with a Computer Aided Detection (CAD) system. INDICATION: Screening mammogram. COMPARISON: Prior exam(s) were available and reviewed for comparison. DENSITY: c. The breast(s) are heterogeneously dense, which may obscuresmall masses. FINDINGS: No mammographic findings of malignancy. IMPRESSION: Negative. RECOMMENDATION: Annual Screening Mammogram ASSESSMENT: BI-RADS: 1: Negative. us Dino Corbett M.D. IM BI PROCEDURES Final Res ult * (ABNORMAL) ThinPrep Screen HPV Reflex (12/23/2019 10:25 AM CDT) (A) 0 9:15 AM CDT LYNDA Participated in the Interpretation Interpreted by: Sho Cifuentes M.D.(A) 12/31/2019 9:15 AM CDT [facility] Report electronically signed by LINDEN Corbett. Ch.B. I verify that I have examined all relevant slides/material s for the specimen(s) and rendered or confirmed the diagnosis. (A) 12/31/2019 9:15 AM CDT [facility] Gross Description Received specimen in a ThinPrep vial.(A) 12/31/2019 9:15 AM CDT [facility] Pap Test Source Cervical/Endoce rvical(A) 12/31/2019 9:15 AM CDT [facility] Clinical History Post Menopausal(A) 12/31/2019 9:15 AM CDT [facility] Menstrual Status(LMP, PM, ) Post Menopausal(A) 12/31/2019 9:15 AM CDT [facility] Hormone Therapy/Contracep tives None/Not known(A) 12/31/2019 9:15 AM CDT [facility] Interpretation Cervical/Endoce rvical ??(ThinPrep): Satisfactory for Evaluation Epithelial Cell Abnormality Atypical squamous cells of undetermined significance High Risk HPV: ??Negative Negative for High Risk HPV by nucleic acid amplification. The following High Risk HPV types were not detected: 16, 18, 31, 33, 35, 39, 45, 51, 52, 56, 58, 59, 66, and 68. (A) 12/31/2019 9:15 AM CDT [facility] Varies (Cervix/Endocerv ix) 12/23/2019 10:25 AM CDT 12/23/2019 2:11 PM CDT us Dino Corbett M.D. LAB PAP PATHDX ORDERABLES F inal Result [facility] [address] [place] [address], [facility] [address] [place] [address] * HPV with Genotyping, PCR, ThinPrep (12/23/2019 10:25 AM CDT) HPV with Genotyping, ThinPrep, PCR Negative Negative 12/30/2019 6:54 PM CDT [facility] Comment: Negative for high risk HPV by nucleic acid amplification. ??The following high risk HPV types were not detected: 16, 18, 31, 33, 35, 39, 45, 51, 52, 56, 58, 59, 66, and 68 Varies 12/23/2019 10:2 5 AM CDT 12/23/2019 2:11 PM CDT Dino Corbett M.D. LAB MICROBIOLOGY - GENERAL ORDERABLES Final Result [facility] [address] [place] [address], [facility] [place] [address] * NE ARTHCS [facility] (11/07/2019 9:30 AM CDT) Narrative Cece Rivera P.A.-C. - 11/07/2019 9:30 AM CDT Cece Rivera P.A.-C. ? 11/07/2019 ??9:42 AM R radiocarpal wrist joint injection, Date/Time: 11/07/2019 9:41 AM Performed by: Cece Rivera P.A.-C. Authorized by: Cece Rivera P.A.-C. PROCEDURE DETAILS Hand-Wrist procedure site: R radiocarpal wrist joint injection, PROCEDURE MEDICATIONS Local anesthetics: 2 mL lidocaine (PF) 10 mg/mL (1 %) Corticosteroid: 3 mg betamethasone acetate & sodium phosphate 6 mg/mL CONSENT Consent obtained: written [employer] All relevant documentation and testing were reviewed and available. All required blood products, implants, devices and or special equipment were made available as applicable. Pre-procedure verification was conducted and the correct site was marked if required. A fire risk assessment was done as applicable. The procedural time-out was conducted prior to performing the procedure and confirmed in a procedural pause. PRE-PROCEDURE DETAILS Procedure purpose: therapeutic Appropriate hand hygiene, gown, cap, mask, protective eyewear, sterile gloves, skin preparation, sterile drape, and strict aseptic technique were utilized as applicable for the procedure.: yes ?? Skin preparation: chlorhexidine POST-PROCEDURE DETAILS Procedure outcome: ??successful procedure Complications: no apparent complications Discharge instruction provided: ice area as needed for comfort and follow-up with ordering provider Cece Rivera P.A.-C., P.AAryan PROCEDURE/MINOR SURGICAL ORDERABLES Final Result * NE INJ SNGL TNDN/SHTH/LGMNT (11/07/2019 9:30 AM CDT) Narrative Cece Rivera P.A.-C. - 11/07/2019 9:30 AM CDT Cece Rivera P.A.-C. ? 11/07/2019 ??9:42 AM L wrist extensor compartment 1 tendon sheath injection, Date/Time: 11/07/2019 9:40 AM Performed by: Cece Rivera P.A.-C. Authorized by: Cece Rivera P.A.-C. PROCEDURE DETAILS Hand-Wrist procedure site: L wrist extensor compartment 1 tendon sheath injection, PROCEDURE MEDICATIONS Local anesthetics: 2 mL lidocaine (PF) 10 mg/mL (1 %) Corticosteroid: 3 mg betamethasone acetate & sodium phosphate 6 mg/mL CONSENT Consent obtained: written [employer] All relevant documentation and testing were reviewed and available. All required blood products, implants, devices and or special equipment were made available as applicable. Pre-procedure verification was conducted and the correct site was marked if required. A fire risk assessment was done as applicable. The procedural time-out was conducted prior to performing the procedure and confirmed in a procedural pause. PRE-PROCEDURE DETAILS Procedure purpose: therapeutic Appropriate hand hygiene, gown, cap, mask, protective eyewear, sterile gloves, skin preparation, sterile drape, and strict aseptic technique were utilized as applicable for the procedure.: yes ?? Skin preparation: chlorhexidine POST-PROCEDURE DETAILS Procedure outcome: ??successful procedure Complications: no apparent complications Discharge instruction provided: ice area as needed for comfort and follow-up with ordering provider Result [facility] Cece Rivera P.A.-C., P.A. PROCEDURE/MINOR SURGICAL ORDERABLES Final Result * cast-splint removal (08/29/2019 2:30 PM CDT) Narrative MMODAL - 08/29/2019 2:30 PM CDT Stephanie Dave L.P.N. ? 08/29/2019 ??3:26 PM Cast-splint removal Date/Time: 08/29/2019 3:04 PM Performed by: Stephanie Dave L.P.N. Authorized by: Anastasia Delgadillo P.A.-C. PROCEDURE DETAILS Location: left lower extremity Procedure details: unscheduled splint removal Appearance: skin bruised in foot, foot swollen, pedal pulse present CONSENT Consent obtained: verbal Consent given by: patient The benefits, risks and alternatives to the procedure and the potential need for sedation or anesthesia as well as the names, roles, and responsibilities of healthcare team members performing significant interventional tasks were discussed with the patient and/or decision maker. [employer] All relevant documentation and testing were reviewed and available. All required blood products, implants, devices and or special equipment were made available as applicable. Pre-procedure verification was conducted and the correct site was marked if required. A fire risk assessment was done as applicable. The procedural time-out was conducted prior to performing the procedure and confirmed in a procedural pause. PRE-PROCEDURE DETAILS Procedure purpose: therapeutic Indications: Left ankle ORIF with syndesmotic fixation Appropriate hand hygiene, gown, cap, mask, protective eyewear, sterile gloves, skin preparation, sterile drape, and strict aseptic technique were utilized as applicable for the procedure. SEDATION / ANESTHESIA Anesthesia method: none POST-PROCEDURE DETAILS ?? Procedure completed successfully. yes ?? Complications: no apparent complications Anastasia Delgadillo P.A.-C., P.A. PROCEDURE/MINOR SURGICAL ORDERABLES Final Result [facility]AL NA * SUTURE REMOVAL (08/29/2019 2:30 PM CDT) Narrative [facility] - 08/29/2019 2:30 PM CDT Stephanie Dave L.P.N. ? 08/29/2019 ??3:26 PM Suture removal Date/Time: 08/29/2019 3:07 PM Performed by: Stephanie Dave L.P.N. Authorized by: Anastasia Delgadillo P.A.-C. PROCEDURE DETAILS Wound appearance: ??No signs of infection, dried drainage on wound edges and tender Number of sutures removed: ??13 CONSENT Consent obtained: verbal Consent given by: patient The benefits, risks and alternatives to the procedure and the potential need for sedation or anesthesia as well as the names, roles, and responsibilities of healthcare team members performing significant interventional tasks were discussed with the patient and/or decision maker. [employer] All relevant documentation and testing were reviewed and available. All required blood products, implants, devices and or special equipment were made available as applicable. Pre-procedure verification was conducted and the correct site was marked if required. A fire risk assessment was done as applicable. The procedural time-out was conducted prior to performing the procedure and confirmed in a procedural pause. PRE PROCEDURE DETAILS Sutures were placed at [facility]: no ?? Indicaton: scheduled suture removal ?? Location: ??Lower extremity Lower extremity location: ??Ankle Ankle location: ??Left ankle SEDATION / ANESTHESIA Anesthesia method: none POST PROCEDURE DETAILS Procedure completed successfully: yes ?? Complications: no immediate complications ?? Post-removal: ??Steri-Strips applied us Anastasia Salas.Tammie., P.A. PROCEDURE/MINOR SURGICAL ORDERABLES Final Result Performing Organization Address [facility] de Phone Number MMODAL NA * FL Fluoro Less Than 1 Hour (08/19/2019 2:00 PM CDT) Only the most recent of2 resultswithin the time period is included. Narrative [id number] 08/19/2019 3:32 PM CDT This exam does not require a radiologist review or interpretation. Please refer to the patient's medical record on this date for clinical details. us Ming Montenegro M.D. IMG FLUOROSCOPY PROCEDURE S Final Result Performing Organization Address [facility] Co de Phone Number [phone] [facility] * SARS Coronavirus-2, PCR Asymptomatic (2019 11:37 AM CDT) SARS Coronavirus-2 Source Swab, Nasopharynx 2019 11:49 PM CDT DTL SARS Coronavirus-2, PCR Undetected Undetected 2019 11:49 PM CDT DTL Comment: SARS-CoV-2 RNA absent. This result does not rule out COVID-19 in the patient, as the sensitivity of the test depends on the timing of the specimen collection and quality of the specimen. Result should be correlated with patient's history and clinical presentation. ----ADDITIONAL INFORMATION---- This test was developed and its performance characteristics determined by [facility] in a manner consistent with CLIA requirements. Independent review by the U.S. Food and Drug Administration is pending. Visit the CDC website: https://www.cdc.gov/coronavirus/ ?? for the most recent guidelines on Coronavirus testing. Fact Sheet for Healthcare Providers: (https://www.O4IT/it-mmfiles/ Provider_Fact_Sheet_for_[facility]_COVID-19.pdf) Fact Sheet for Patients: (https://www.O4IT/it-mmfiles/ Patient_Fact_Sheet_for_COVID-19.pdf) Varies (Nasopharynx) 2019 11:37 AM CDT 2019 2:45 PM CDT us Ming Montenegro M.D. LAB MICROBIOLOGY - GENERA L ORDERABLES Final Result [facility] [address] [place] [address], [facility] [address] [place] [address] * (ABNORMAL) Basic Metabolic Panel (2019 11:01 AM CDT) Only the most recent of8 resultswithin the time period is included. Potassium, P 4.1 3.6 - 5.2 mmol/L 2019 12:05 PM CDT OW[facility] Sodium, P 141 135 - 145 mmol/L 2019 12:05 PM CDT [facility] Chloride, P 104 98 - 107 mmol/L 2019 12:05 PM CDT [facility] Bicarbonate, P 26 22 - 29 mmol/L 2019 12:05 PM CDT [facility] Anion Gap, P 11 7 - 15 2019 12:05 PM CDT [facility] BUN (Blood Urea Nitrogen), P 18 6 - 21 mg/dL 2019 12:05 PM CDT [facility] Creatinine 1.06(H) 0.59 - 1.04 mg/dL 2019 12:05 PM CDT [facility] eGFR-Black/Afri can [place] 64 >=60 mL/min/BSA 2019 12:05 PM CDT OW[facility] Comment: ----ADDITIONAL INFORMATION---- Estimated GFR calculated using the 2009 CKD_EPI creatinine equation. eGFR Non-Black/Afric an [place] 56(L) >=60 mL/min/BSA 2019 12:05 PM CDT OW[facility] Comment: ----ADDITIONAL INFORMATION---- Estimated GFR calculated using the 2009 CKD_EPI creatinine equation. Calcium, Total, P 9.3 8.8 - 10.2 mg/dL 2019 12:05 PM CDT OW[facility] Glucose, P 97 70 - 140 mg/dL 2019 12:05 PM CDT OW[facility] Blood (Blood, Venous) 2019 11:01 AM CDT 2019 11:16 AM CDT Marjorie Corrales APRN, C.N.P., D.N.P. LAB BLOOD ADD -ON Final Result [facility] [address] [place] [id number], [facility] OWAT [facility] [place] [address] [place] [id number] * SARS Coronavirus 2 IgG Ab, Serum (2019 9:34 AM CDT) Pathologist [facility] SARS-CoV-2 IgG Ab Negative Negative 020 12:23 PM CDT [facility] Comment: No IgG antibodies to SARS-CoV-2 detected. ?? Negative results may occur in serum collected too soon following infection, or in immunosuppressed patients. ?? Follow-up testing with a molecular test is recommended in symptomatic patients. ??This test should not be used to exclude active/recent COVID-19. ?? Testing was performed using the EUROIMMUN Bgig-IUYJ-MeB-2 JAMES (IgG), which has received Emergency Use Authorization (EUA) by the U.S. Food and Drug Administration. ?? Fact sheets for this EUA assay can be found at the following links: ?? Factsheet for healthcare Providers: ?? https://www.fda.gov/media/870339/download Factsheet for healthcare Patients: ?? https://www.fda.gov/media/714575/download Blood (Blood, Venous) 2019 9:34 AM CDT 08/19/2019 5:50 AM CDT us Ming Montenegro M.D. LAB MICROBIOLOGY - BLOOD ORDERABLES Final Result [facility] [address] [place] [address] [facility] of Laboratory Medicine and Pathology [address] [place] [address] * DX Foot Left 3+ Views (08/16/2019 8:24 PM CDT) Anatomical Region Laterality Modality Lower Extremity, Foot, Muscu loskeletal RST LOS, Musculoskeletal ARZ LOS, Muskuloskeletal FLA LOS Left Digit al Radiography 08/17/2019 7:18 AM CDT Impressions 08/17/2019 7:20 AM CDT No evidence of acute fracture of the foot. Screw arthrodesis of the first MTP joint. Prior osteotomy at the second metatarsal head with screw fixation. Scattered degenerative arthritis left foot. Plantar and Achilles heel spurs. Narrative 08/17/2019 7:20 AM CDT EXAM: DX FOOT LEFT 3+ VIEWS Procedure Note Rufino Fischer M.D. - 08/17/2019 EXAM: DX FOOT LEFT 3+ VIEWS IMPRESSION: No evidence of acute fracture of the foot. Screw arthrodesis of the first MTP joint. Prior osteotomy at the second metatarsal head with screw fixation. Scattered degenerative arthritis leftfoot. Plantar and Achilles heel spurs. us Kim Lovett APRN, C.N.P. IMG DIAGNOSTIC IMAGING PROCEDURES Final Result * NE ARTHCS ASP/INJ INT JT WO US (07/31/2019 1:00 PM CDT) Narrative Guillaume Kirkland M.D. - 07/31/2019 1:00 PM CDT Guillaume Kirkland M.D. ? 07/31/2019 ??1:46 PM L ankle joint injection, Date/Time: 07/31/2019 1:42 PM Performed by: Guillaume Kirkland M.D. Authorized by: Guillaume Kirkland M.D. Foot-Ankle procedure site: L ankle joint injection, PROCEDURE MEDICATIONS Local anesthetics: 4 mL lidocaine 10 mg/mL (1 %) Corticosteroid: 6 mg betamethasone acetate & sodium phosphate 6 mg/mL CONSENT Consent obtained: written UNIVERSAL PROTOCOL All relevant documentation and testing were reviewed and available. All required blood products, implants, devices and or special equipment were made available as applicable. Pre-procedure verification was conducted and the correct site was marked if required. A fire risk assessment was done as applicable. The procedural time-out was conducted prior to performing the procedure and confirmed in a procedural pause. PRE-PROCEDURE DETAILS Procedure purpose: therapeutic Appropriate hand hygiene, gown, cap, mask, protective eyewear, sterile gloves, skin preparation, sterile drape, and strict aseptic technique were utilized as applicable for the procedure.: yes ?? Skin preparation: alcohol POST-PROCEDURE DETAILS Procedure outcome: ??successful procedure Complications: no apparent complications Discharge instruction provided: ice area as needed for comfort and follow-up with ordering provider Other procedure detail: The procedure site was marked by the proceduralist and verified with the patient. A time out/final pause was completed with verification of patient identity using two identifiers, confirmation of the site and side(s), agreement on the procedure to be performed, and appropriate fire risk assessment. Guillaume Kirkland M.D. PROCEDURE/MINOR SURGICAL ORDER SARAH Final Result * NE ARTHCS ASP/INJ INT JT WO (07/31/2019 1:00 PM CDT) Narrative Guillaume Kirkland M.D. - 07/31/2019 1:00 PM CDT Guillaume Kirkland M.D. ? 07/31/2019 ??1:46 PM R ankle joint injection, Date/Time: 07/31/2019 1:41 PM Performed by: Guillaume Kirkland M.D. Authorized by: Guillaume Kirkland M.D. Foot-Ankle procedure site: R ankle joint injection, PROCEDURE MEDICATIONS Local anesthetics: 4 mL lidocaine 10 mg/mL (1 %) Corticosteroid: 6 mg betamethasone acetate & sodium phosphate 6 mg/mL CONSENT Consent obtained: written UNIVERSAL PROTOCOL All relevant documentation and testing were reviewed and available. All required blood products, implants, devices and or special equipment were made available as applicable. Pre-procedure verification was conducted and the correct site was marked if required. A fire risk assessment was done as applicable. The procedural time-out was conducted prior to performing the procedure and confirmed in a procedural pause. PRE-PROCEDURE DETAILS Procedure purpose: therapeutic Appropriate hand hygiene, gown, cap, mask, protective eyewear, sterile gloves, skin preparation, sterile drape, and strict aseptic technique were utilized as applicable for the procedure.: yes ?? Skin preparation: alcohol POST-PROCEDURE DETAILS Procedure outcome: ??successful procedure Complications: no apparent complications Discharge instruction provided: ice area as needed for comfort and follow-up with ordering provider Other procedure detail: The procedure site was marked by the proceduralist and verified with the patient. A time out/final pause was completed with verification of patient identity using two identifiers, confirmation of the site and side(s), agreement on the procedure to be performed, and appropriate fire risk assessment. us Guillaume Kirkland M.D. PROCEDURE/MINOR SURGICAL ORDER SARAH Final Result * NE ARTHCS ASP/INJ SM JT WO (07/08/2019 3:15 PM CDT) Narrative Guillaume Kirkland M.D. - 07/08/2019 3:15 PM CDT Guillaume Kirkland M.D. ? 07/08/2019 ??3:41 PM L thumb CMC joint joint injection, Date/Time: 07/08/2019 3:35 PM Performed by: Guillaume Kirkland M.D. Authorized by: Guillaume Kirkland M.D. PROCEDURE DETAILS Hand-Wrist procedure site: L thumb CMC joint joint injection, PROCEDURE MEDICATIONS Local anesthetics: 2 mL lidocaine 10 mg/mL (1 %) Corticosteroid: 3 mg betamethasone acetate & sodium phosphate 6 mg/mL CONSENT Consent obtained: written UNIVERSAL PROTOCOL All relevant documentation and testing were reviewed and available. All required blood products, implants, devices and or special equipment were made available as applicable. Pre-procedure verification was conducted and the correct site was marked if required. A fire risk assessment was done as applicable. The procedural time-out was conducted prior to performing the procedure and confirmed in a procedural pause. PRE-PROCEDURE DETAILS Procedure purpose: therapeutic Appropriate hand hygiene, gown, cap, mask, protective eyewear, sterile gloves, skin preparation, sterile drape, and strict aseptic technique were utilized as applicable for the procedure.: yes ?? Skin preparation: alcohol POST-PROCEDURE DETAILS Procedure outcome: ??successful procedure Complications: no apparent complications Discharge instruction provided: ice area as needed for comfort and follow-up with ordering provider Other procedure detail: The procedure site was marked by the proceduralist and verified with the patient. A time out/final pause was completed with verification of patient identity using two identifiers, confirmation of the site and side(s), agreement on the procedure to be performed, and appropriate fire risk assessment. Guillaume Kirkland M.D. PROCEDURE/MINOR SURGICAL ORDER SARAH Final Result * hand-wrist arthrocentesis: R radiocarpal (07/08/2019 3:15 PM CDT) Narrative Guillaume Kirkland M.D. - 07/08/2019 3:15 PM CDT Guillaume Kirkland M.D. ? 07/08/2019 ??3:41 PM R radiocarpal wrist joint injection, Date/Time: 07/08/2019 3:34 PM Performed by: Guillaume Kirkland M.D. Authorized by: Guillaume Kirkland M.D. PROCEDURE DETAILS Hand-Wrist procedure site: R radiocarpal wrist joint injection, PROCEDURE MEDICATIONS Local anesthetics: 2 mL lidocaine 10 mg/mL (1 %) Corticosteroid: 3 mg betamethasone acetate & sodium phosphate 6 mg/mL CONSENT Consent obtained: written UNIVERSAL PROTOCOL All relevant documentation and testing were reviewed and available. All required blood products, implants, devices and or special equipment were made available as applicable. Pre-procedure verification was conducted and the correct site was marked if required. A fire risk assessment was done as applicable. The procedural time-out was conducted prior to performing the procedure and confirmed in a procedural pause. PRE-PROCEDURE DETAILS Procedure purpose: therapeutic Appropriate hand hygiene, gown, cap, mask, protective eyewear, sterile gloves, skin preparation, sterile drape, and strict aseptic technique were utilized as applicable for the procedure.: yes ?? Skin preparation: alcohol POST-PROCEDURE DETAILS Procedure outcome: ??successful procedure Complications: no apparent complications Discharge instruction provided: ice area as needed for comfort and follow-up with ordering provider Other procedure detail: The procedure site was marked by the proceduralist and verified with the patient. A time out/final pause was completed with verification of patient identity using two identifiers, confirmation of the site and side(s), agreement on the procedure to be performed, and appropriate fire risk assessment. Guillaume Kirkland M.D. PROCEDURE/MINOR SURGICAL ORDER SARAH Final Result * Potassium (05/06/2019 8:42 AM FILTRATION OPERATOR) Potassium, P 4.2 3.6 - 5.2 mmol/L 05/06/2019 10:06 AM FILTRATION OPERATOR OW Blood (Blood, Venous) 05/06/2019 8:42 AM FILTRATION OPERATOR 05/06/2019 9:03 AM FILTRATION OPERATOR Kalie Hanson P.A.-C. LAB BLOOD ADD-ON Fin al Result [facility] [address] [place] [id number], [facility] OWAT [facility] [place] [address] [place] [id number] * NE ARTHCS ASP/INJ INT JT WO US (02/21/2019 2:15 PM FILTRATION OPERATOR) Narrative Cece Rivera P.A.-C. - 02/21/2019 2:15 PM FILTRATION OPERATOR Cece Rivera P.A.-C. ? 03/07/2019 ??3:51 PM L ankle joint injection, : injection only Date/Time: 02/21/2019 3:04 PM Performed by: Cece Rivera P.A.-C. Authorized by: Cece Rivera P.A.-C. PROCEDURE DETAILS ?? Procedure performed: injection only Foot-Ankle procedure site: L ankle joint injection, PROCEDURE MEDICATIONS Local anesthetics: 2 mL lidocaine 10 mg/mL (1 %) Corticosteroid: 3 mg betamethasone acetate & sodium phosphate 6 mg/mL CONSENT Consent obtained: written UNIVERSAL PROTOCOL All relevant documentation and testing were reviewed and available. All required blood products, implants, devices and or special equipment were made available as applicable. Pre-procedure verification was conducted and the correct site was marked if required. A fire risk assessment was done as applicable. The procedural time-out was conducted prior to performing the procedure and confirmed in a procedural pause. PRE-PROCEDURE DETAILS Procedure purpose: therapeutic Skin preparation: alcohol POST-PROCEDURE DETAILS Procedure outcome: ??successful procedure Complications: no apparent complications Post-procedure instructions: avoid strenuous activity for 2 days Discharge instruction provided: ice area as needed for comfort Rachel Hoskins P.A.-C. PROCEDUR E/MINOR SURGICAL ORDERABLES Edited Result - Final * NE ARTHCS ASP/INJ INT JT WO US (02/21/2019 2:15 PM FILTRATION OPERATOR) Narrative Cece Rivera P.A.-C. - 02/21/2019 2:15 PM FILTRATION OPERATOR Cece Rivera P.A.-C. ? 03/07/2019 ??3:51 PM R ankle joint injection, : injection only Date/Time: 02/21/2019 3:04 PM Performed by: Cece Rivera P.A.-C. Authorized by: Cece Rivera P.A.-C. PROCEDURE DETAILS ?? Procedure performed: injection only Foot-Ankle procedure site: R ankle joint injection, CONSENT Consent obtained: written UNIVERSAL PROTOCOL All relevant documentation and testing were reviewed and available. All required blood products, implants, devices and or special equipment were made available as applicable. Pre-procedure verification was conducted and the correct site was marked if required. A fire risk assessment was done as applicable. The procedural time-out was conducted prior to performing the procedure and confirmed in a procedural pause. PRE-PROCEDURE DETAILS Procedure purpose: therapeutic Skin preparation: alcohol POST-PROCEDURE DETAILS Procedure outcome: ??successful procedure Complications: no apparent complications Post-procedure instructions: avoid strenuous activity for 2 days Discharge instruction provided: ice area as needed for comfort Cece Rivera P.A.-C., P.A. PROCEDUR E/MINOR SURGICAL ORDERABLES Edited Result - Final * DX Hips and Pelvis Bilateral 3-4 Views (02/04/2019 10:08 AM FILTRATION OPERATOR) Anatomical Region Laterality Modality Lower Extremity, Pelvis, Hip , Musculoskeletal RST LOS, Musculoskeletal ARZ LOS, Muskuloskeletal FLA LOS Bilateral Digit al Radiography 02/04/2019 10:5 8 AM FILTRATION OPERATOR Impressions 02/04/2019 10:59 AM FILTRATION OPERATOR No acute fracture or dislocation. Mild bilateral hip degenerative joint disease with marginal osteophytes. Preserved joint spaces. Narrative 02/04/2019 10:59 AM FILTRATION OPERATOR EXAM: DX HIPS AND PELVIS BILATERAL 3-4 VIEWS Procedure Note Guillaume Harrison M.D. - 02/04/2019 EXAM: DX HIPS AND PELVIS BILATERAL 3-4 VIEWS IMPRESSION: No acute fracture or dislocation. Mild bilateral hip degenerative joint disease with marginal osteophytes. Preserved joint spaces. Cece Rivera P.A.-C., P.A. IMG DIAGNOSTIC I MAGING PROCEDURES Final Result * hand-wrist arthrocentesis: R radiocarpal (02/04/2019 9:15 AM FILTRATION OPERATOR) Narrative Cece Rivera P.A.-C. - 02/04/2019 9:15 AM FILTRATION OPERATOR Cece Rivera P.A.-C. ? 02/04/2019 10:03 AM R radiocarpal wrist joint injection, Date/Time: 02/04/2019 10:02 AM Performed by: Cece Rivera P.A.-C. Authorized by: Cece Rivera P.A.-C. PROCEDURE DETAILS Hand-Wrist procedure site: R radiocarpal wrist joint injection, PROCEDURE MEDICATIONS Local anesthetics: 2 mL lidocaine (PF) 10 mg/mL (1 %) Corticosteroid: 3 mg betamethasone acetate & sodium phosphate 6 mg/mL CONSENT Consent obtained: written UNIVERSAL PROTOCOL All relevant documentation and testing were reviewed and available. All required blood products, implants, devices and or special equipment were made available as applicable. Pre-procedure verification was conducted and the correct site was marked if required. A fire risk assessment was done as applicable. The procedural time-out was conducted prior to performing the procedure and confirmed in a procedural pause. PRE-PROCEDURE DETAILS Procedure purpose: therapeutic Appropriate hand hygiene, gown, cap, mask, protective eyewear, sterile gloves, skin preparation, sterile drape, and strict aseptic technique were utilized as applicable for the procedure.: yes ?? Skin preparation: chlorhexidine POST-PROCEDURE DETAILS Procedure outcome: ??successful procedure Complications: no apparent complications Discharge instruction provided: ice area as needed for comfort and follow-up with ordering provider Cece Rivera P.A.-C., P.AAryan PROCEDURE/MINOR SURGICAL ORDERABLES Final Result * NE INJ SNGL TNDN/SHTH/LGMNT (02/04/2019 9:15 AM FILTRATION OPERATOR) Narrative Cece Rivera P.A.-C. - 02/04/2019 9:15 AM FILTRATION OPERATOR Cece Rivera P.A.-C. ? 02/04/2019 10:03 AM L wrist extensor compartment 1 tendon sheath injection, Date/Time: 02/04/2019 10:02 AM Performed by: Cece Rivera P.A.-C. Authorized by: Cece Rivera P.A.-C. PROCEDURE DETAILS Hand-Wrist procedure site: L wrist extensor compartment 1 tendon sheath injection, PROCEDURE MEDICATIONS Local anesthetics: 2 mL lidocaine (PF) 10 mg/mL (1 %) Corticosteroid: 3 mg betamethasone acetate & sodium phosphate 6 mg/mL CONSENT Consent obtained: written UNIVERSAL PROTOCOL All relevant documentation and testing were reviewed and available. All required blood products, implants, devices and or special equipment were made available as applicable. Pre-procedure verification was conducted and the correct site was marked if required. A fire risk assessment was done as applicable. The procedural time-out was conducted prior to performing the procedure and confirmed in a procedural pause. PRE-PROCEDURE DETAILS Procedure purpose: therapeutic Appropriate hand hygiene, gown, cap, mask, protective eyewear, sterile gloves, skin preparation, sterile drape, and strict aseptic technique were utilized as applicable for the procedure.: yes ?? Skin preparation: chlorhexidine POST-PROCEDURE DETAILS Procedure outcome: ??successful procedure Complications: no apparent complications Discharge instruction provided: ice area as needed for comfort and follow-up with ordering provider Cece Rivera P.A.-C., P.A. PROCEDURE/MINOR SURGICAL ORDERABLES Final Result * Pain [facility] Survey, Urine (11/12/2018 10:37 AM CDT) Only the most recent of3 resultswithin the time period is included. Creatinine, Random, U 71.9 mg/dL 01/2019 2:02 PM CDT Specific [place] 1.009 11/14/19 19 2:02 PM CDT pH 8.0 11/13/2018 2:02 PM CDT Oxidants Negative Cutoff: 200 mg/L 11/13/2018 2:02 PM CDT Comment Normal 11/13/2018 2:02 PM CDT Amphetamines Negative Cutoff: 500 ng/mL 11/13/2018 2:02 PM CDT Barbiturates Negative Cutoff: 200 ng/mL 11/13/2018 2:02 PM CDT Benzodiazepines Negative Cutoff: 100 ng/mL 11/13/2018 2:02 PM CDT Cocaine Negative Cutoff: 150 ng/mL 11/13/2018 2:02 PM CDT Phencyclidine Negative Cutoff: 25 ng/mL 11/13/2018 2:02 PM CDT Tetrahydrocannabinol Negative Cutoff: 50 ng/mL 11/13/2018 2:02 PM CDT Comment: ----ADDITIONAL INFORMATION---- This report is intended for use in clinical monitoring or management of patients. ??It is not intended for use in employment-related testing. Codeine Not Detected Cutoff: 25 ng/mL 11/15/2018 8:17 AM CDT Comment:Tylenol 3 Vfaabcy-7-nclr-glucuron john Not Detected Cutoff: 100 ng/mL 11/15/2018 8:17 AM CDT Comment:Metabolite of codein e Morphine Not Detected Cutoff: 25 ng/mL 11/15/2018 8:17 AM CDT Comment: Flor Ngo, MS Contin; Also a minor metabolite (10%) of codeine and can be seen in low concentrations (<2,000 ng/mL) with poppy seed ingestion. Xluhobta-7-ibpn-glucuro nide Not Detected Cutoff: 100 ng/mL 11/15/2018 8:17 AM CDT Comment:Metabolite of morphi ne 6-monoacetylmorphine Not Detected Cutoff: 25 ng/mL 11/15/2018 8:17 AM CDT Comment:Metabolite of heroin Hydrocodone Not Detected Cutoff: 25 ng/mL 11/15/2018 8:17 AM CDT Comment: Lortab, Lee, Vicodin; Also a very minor metabolite of codeine and impurity (<1%) of oxycodone. Norhydrocodone Not Detected Cutoff: 25 ng/mL 11/15/2018 8:17 AM CDT Comment:Metabolite of hydroc odone Dihydrocodeine Not Detected Cutoff: 25 ng/mL 11/15/2018 8:17 AM CDT Comment:Metabolite of hydroc odone Hydromorphone Not Detected Cutoff: 25 ng/mL 11/15/2018 8:17 AM CDT Comment: Dilaudid, Exalgo; Also a metabolite of hydrocodone and a minor (<5%) metabolite of morphine. Fnvjjbjnoyoie-6-bkyh-gl ucuronide Not Detected Cutoff: 100 ng/mL 11/15/2018 8:17 AM CDT Comment:Metabolite of hydrom orphone Oxycodone Not Detected Cutoff: 25 ng/mL 11/15/2018 8:17 AM CDT Comment:Endocet, Percocet, O xycontin Noroxycodone Not Detected Cutoff: 25 ng/mL 11/15/2018 8:17 AM CDT Comment:Metabolite of oxycod one Oxymorphone Not Detected Cutoff: 25 ng/mL 11/15/2018 8:17 AM CDT Comment:Numorphan, Opana; Al so a metabolite of oxycodone. Cmzrwqhhwgq-4-peoi-gluc uronide Not Detected Cutoff: 100 ng/mL 11/15/2018 8:17 AM CDT Comment:Metabolite of oxymor phone Noroxymorphone Not Detected Cutoff: 25 ng/mL 11/15/2018 8:17 AM CDT Comment:Metabolite of oxymor phone Fentanyl Not Detected Cutoff: 2 ng/mL 11/15/2018 8:17 AM CDT Comment:Actiq, Duragesic, Fe ntora Norfentanyl Not Detected Cutoff: 2 ng/mL 11/15/2018 8:17 AM CDT Comment:Metabolite of fentan yl Meperidine Not Detected Cutoff: 25 ng/mL 11/15/2018 8:17 AM CDT Comment:Demerol Normeperidine Not Detected Cutoff: 25 ng/mL 11/15/2018 8:17 AM CDT Comment:Metabolite of meperi dine Naloxone Not Detected Cutoff: 25 ng/mL 11/15/2018 8:17 AM CDT Comment:Narcan Vkhclgbe-2-ubka-glucuro nide Not Detected Cutoff: 100 ng/mL 11/15/2018 8:17 AM CDT Comment:Metabolite of naloxo ne Methadone, U Not Detected Cutoff: 25 ng/mL 11/15/2018 8:17 AM CDT Comment:Dolophine EDDP Not Detected Cutoff: 25 ng/mL 11/15/2018 8:17 AM CDT Comment:Metabolite of methad one Propoxyphene Not Detected Cutoff: 25 ng/mL 11/15/2018 8:17 AM CDT Comment:Darvon, Darvocet Norpropoxyphene Not Detected Cutoff: 25 ng/mL 11/15/2018 8:17 AM CDT Comment:Metabolite of propox yphene Tramadol Not Detected Cutoff: 25 ng/mL 11/15/2018 8:17 AM CDT Comment:Tradol, Ultram, Ultr acet O-desmethyltramadol Not Detected Cutoff: 25 ng/mL 11/15/2018 8:17 AM CDT Comment:Metabolite of tramad ol Tapentadol Not Detected Cutoff: 25 ng/mL 11/15/2018 8:17 AM CDT Comment:Nucynta N-desmethyltapentadol Not Detected Cutoff: 50 ng/mL 11/15/2018 8:17 AM CDT Comment:Metabolite of tapent adol Zjbjshsfnl-xpov-fyjttsy nide Not Detected Cutoff: 100 ng/mL 11/15/2018 8:17 AM CDT Comment:Metabolite of tapent adol Buprenorphine Not Detected Cutoff: 5 ng/mL 11/15/2018 8:17 AM CDT Comment:Buprenex, Suboxone Norbuprenorphine Not Detected Cutoff: 5 ng/mL 11/15/2018 8:17 AM CDT Comment:Metabolite of bupren orphine Norbuprenorphine glucuronide Not Detected Cutoff: 20 ng/mL 11/15/2018 8:17 AM CDT Comment:Metabolite of bupren orphine Opioid Interpretation No opioids were detected. The absence of expected drug(s) and/or drug metabolite(s) may indicate non-complianc e, altered pharmacokinet ics, inappropriate timing of specimen collection relative to drug administratio n, diluted/adult erated urine, or limitations of testing. 11/15/2018 8:17 AM CDT Comment: ----ADDITIONAL INFORMATION---- This test was developed and its performance characteristics determined by [facility] in a manner consistent with CLIA requirements. This test has not been cleared or approved by the U.S. Food and Drug Administration. Urine (Urine, Clean Catch) 11/12/2018 10:37 AM CDT 11/13/2018 7:39 AM CDT us Dino Corbett M.D. LAB URINE ORDERABLES Final Result [facility] [address] [place] [address] * NE ARTHCS ASP/INJ INT JT WO US (11/01/2018 8:30 AM CDT) Narrative Cece Rivera P.A.-C. - 11/01/2018 8:30 AM CDT Cece Rivera P.A.-C. ? 11/26/2018 ??9:47 AM L ankle joint injection, : injection only Date/Time: 11/01/2018 9:00 AM Performed by: Cece Rivera P.A.-C. Authorized by: Cece Rivera P.A.-C. PROCEDURE DETAILS ?? Procedure performed: injection only Foot-Ankle procedure site: L ankle joint injection, PROCEDURE MEDICATIONS Local anesthetics: 3 mL lidocaine (PF) 10 mg/mL (1 %) Corticosteroid: 3 mg betamethasone acetate & sodium phosphate 6 mg/mL CONSENT Consent obtained: written UNIVERSAL PROTOCOL All relevant documentation and testing were reviewed and available. All required blood products, implants, devices and or special equipment were made available as applicable. Pre-procedure verification was conducted and the correct site was marked if required. A fire risk assessment was done as applicable. The procedural time-out was conducted prior to performing the procedure and confirmed in a procedural pause. PRE-PROCEDURE DETAILS Procedure purpose: therapeutic Skin preparation: alcohol POST-PROCEDURE DETAILS Procedure outcome: ??successful procedure Complications: no apparent complications Post-procedure instructions: avoid strenuous activity for 2 days Discharge instruction provided: ice area as needed for comfort Other procedure detail: Patient has tolerated Celestone injection previously Result [facility] Cece Rivera P.A.-C., P.AAryan PROCEDUR E/MINOR SURGICAL ORDERABLES Edited Result - Final * NE ARTHCS [facility] (11/01/2018 8:30 AM CDT) Narrative Cece Rivera P.A.-C. - 11/01/2018 8:30 AM CDT Cece Rivera P.A.-C. ? 11/26/2018 ??9:47 AM R ankle joint injection, : injection only Date/Time: 11/01/2018 9:00 AM Performed by: Cece Rivera P.A.-C. Authorized by: Cece Rivera P.A.-C. PROCEDURE DETAILS ?? Procedure performed: injection only Foot-Ankle procedure site: R ankle joint injection, CONSENT Consent obtained: written UNIVERSAL PROTOCOL All relevant documentation and testing were reviewed and available. All required blood products, implants, devices and or special equipment were made available as applicable. Pre-procedure verification was conducted and the correct site was marked if required. A fire risk assessment was done as applicable. The procedural time-out was conducted prior to performing the procedure and confirmed in a procedural pause. PRE-PROCEDURE DETAILS Procedure purpose: therapeutic Skin preparation: alcohol POST-PROCEDURE DETAILS Procedure outcome: ??successful procedure Complications: no apparent complications Post-procedure instructions: avoid strenuous activity for 2 days Discharge instruction provided: ice area as needed for comfort Result [facility] Cece Rivera P.A.-C., P.AAryan PROCEDUR E/MINOR SURGICAL ORDERABLES Edited Result - Final * NE ARTHCS ASP/INJ SM JT WO (10/16/2018 9:45 AM CDT) Narrative Cece Rivera P.A.-C. - 10/16/2018 9:45 AM CDT Cece Rivera P.A.-C. ? 10/17/2018 ??2:46 PM R radiocarpal wrist joint injection, R thumb CMC joint joint injection, Date/Time: 10/16/2018 2:44 PM Performed by: Cece Rivera P.A.-C. Authorized by: Cece Rivera P.A.-C. PROCEDURE DETAILS Hand-Wrist procedure site: R radiocarpal wrist joint injection, R thumb CMC joint joint injection, PROCEDURE MEDICATIONS Local anesthetics: 1 mL lidocaine (PF) 10 mg/mL (1 %) Corticosteroid: 3 mg betamethasone acetate & sodium phosphate 6 mg/mL CONSENT Consent obtained: written UNIVERSAL PROTOCOL All relevant documentation and testing were reviewed and available. All required blood products, implants, devices and or special equipment were made available as applicable. Pre-procedure verification was conducted and the correct site was marked if required. A fire risk assessment was done as applicable. The procedural time-out was conducted prior to performing the procedure and confirmed in a procedural pause. PRE-PROCEDURE DETAILS Procedure purpose: therapeutic Appropriate hand hygiene, gown, cap, mask, protective eyewear, sterile gloves, skin preparation, sterile drape, and strict aseptic technique were utilized as applicable for the procedure.: yes ?? Skin preparation: chlorhexidine POST-PROCEDURE DETAILS Procedure outcome: ??successful procedure Complications: no apparent complications Discharge instruction provided: ice area as needed for comfort and follow-up with ordering provider Other procedure detail: Has tolerated celestone in the past Cece Rivera P.A.-C., P.AAryan PROCEDURE/MINOR SURGICAL ORDERABLES Final Result * NE INJ SNGL TNDN/SHTH/LGMNT, NE ARTHCS ASP/INJ SM JT WO US (10/16/2018 9:45 AM CDT) Narrative Cece Rivera P.A.-C. - 10/16/2018 9:45 AM CDT Cece Rivera P.A.-C. ? 10/17/2018 ??2:46 PM L wrist extensor compartment 1 tendon sheath injection, L thumb CMC joint joint injection, : injection only Date/Time: 10/16/2018 2:40 PM Performed by: Cece Rivera P.A.-C. Authorized by: Cece Rivera P.A.-C. PROCEDURE DETAILS Procedure performed: injection only Hand-Wrist procedure site: L wrist extensor compartment 1 tendon sheath injection, L thumb CMC joint joint injection, PROCEDURE MEDICATIONS Local anesthetics: 2 mL lidocaine (PF) 10 mg/mL (1 %) Corticosteroid: 3 mg betamethasone acetate & sodium phosphate 6 mg/mL CONSENT Consent obtained: written UNIVERSAL PROTOCOL All relevant documentation and testing were reviewed and available. All required blood products, implants, devices and or special equipment were made available as applicable. Pre-procedure verification was conducted and the correct site was marked if required. A fire risk assessment was done as applicable. The procedural time-out was conducted prior to performing the procedure and confirmed in a procedural pause. PRE-PROCEDURE DETAILS Procedure purpose: therapeutic Appropriate hand hygiene, gown, cap, mask, protective eyewear, sterile gloves, skin preparation, sterile drape, and strict aseptic technique were utilized as applicable for the procedure.: yes ?? Skin preparation: chlorhexidine POST-PROCEDURE DETAILS Procedure outcome: ??successful procedure Complications: no apparent complications Discharge instruction provided: ice area as needed for comfort and follow-up with ordering provider Other procedure detail: Has tolerated celestone in the past us Cece Rivera P.A.-C., P.A. PROCEDURE/MINOR SURGICAL ORDERABLES Final Result * DX Wrist Left 2 Views (10/08/2018 12:38 PM CDT) Anatomical Region Laterality Modality Upper Extremity, Wrist, Musc uloskeletal RST LOS, Musculoskeletal ARZ LOS, Muskuloskeletal FLA LOS Left Digit al Radiography 10/08/2018 1:58 PM CDT Impressions 10/08/2018 1:59 PM CDT Comparison 11/18/13. No acute fracture or dislocation. Mild first CMC degenerative joint disease with marginal osteophytes. First MCP degenerative joint disease. Subchondral cysts or erosions of radial styloid. Narrative 10/08/2018 1:59 PM CDT EXAM: DX WRIST LEFT 2 VIEWS Procedure Note Guillaume Harrison M.D. - 10/08/2018 EXAM: DX WRIST LEFT 2 VIEWS IMPRESSION: Comparison 11/18/13. No acute fracture or dislocation. Mild first CMC degenerative joint disease with marginal osteophytes. First MCPdegenerative joint disease. Subchondral cysts or erosions of radial styloid. us Jennifer Villaseñor M.D. IMG DIAGNOSTIC IMAGING PROCE DURES Final Result * CYSTOSCOPY-Urology Image Exam (09/30/2018 3:45 PM CDT) 09/30/2018 3:43 PM CDT Narrative [facility] - 09/30/2018 3:48 PM CDT This order has been created and auto-finalized to support the import of images acquired without order. The clinical documentation to support these images can be found on the encounter that produced images. us Provider Not In System IMG NON RAD IMAGING PROCE DURES Final Result [facility] NA * CT Urogram without and with IV Contrast (09/26/2018 3:03 PM CDT) Anatomical Region Laterality Modality Abdomen, Pelvis, Abdominal R ST LOS, Abdominal ARZ LOS, Abdominal FLA LOS N/A Computed Tomography 09/26/2018 3:34 PM CDT Impressions 09/26/2018 3:43 PM CDT 1. ??2 subcentimeter right renal hypodensities, likely cysts though too small to definitively characterize. 2. ??Hepatic steatosis. Narrative 09/26/2018 3:43 PM CDT EXAM: CT UROGRAM WITHOUT AND WITH IV CONTRAST COMPARISON: None FINDINGS: Limited lower thorax: Unremarkable. Abdomen/pelvis: Mild diffuse hepatic steatosis. No suspicious focal liver abnormalities. Decompressed gallbladder. The spleen, adrenals, and pancreas are normal in appearance. The large and small bowel loops are normal in appearance with a normal air-filled appendix. Small fat-containing periumbilical hernia. Atherosclerotic vascular disease is nonaneurysmal aorta. No renal or ureteral calculi. 2 subcentimeter right renal hypodensities which likely represent cysts though are too small to definitively characterize. No abnormal filling defects within the ureters or bladder though the anterior portion of the bladder is not well opacified on the delayed images. Bones: No aggressive or destructive osseous lesions. Procedure Note Daniel Dover M.D. - 09/26/2018 EXAM: CT UROGRAM WITHOUT AND WITH IV CONTRAST COMPARISON: None FINDINGS: Limited lower thorax: Unremarkable. Abdomen/pelvis: Mild diffuse hepatic steatosis. No suspicious focal liver abnormalities. Decompressed gallbladder. The spleen, adrenals, and pancreas are normalin appearance. The large and small bowel loops are normal in appearance witha normal air-filled appendix. Small fat-containing periumbilical hernia. Atherosclerotic vascular disease is nonaneurysmal aorta. No renal or ureteral calculi. 2 subcentimeter right renal hypodensitieswhich likely represent cysts though are too small to definitively characterize.No abnormal filling defects within the ureters or bladder though theanterior portion of the bladder is not well opacified on the delayed images. Bones: No aggressive or destructive osseous lesions. IMPRESSION: 1. 2 subcentimeter right renal hypodensities, likely cysts though toosmall to definitively characterize. 2. Hepatic steatosis. Jennifer Villaseñor M.D. IM CT PROCEDURES Final Resu lt * Cytology Non-VALET ATTENDANT (Scheduled) (09/26/2018 12:35 PM CDT) Gross Description Received 20 ml of yellow alcohol fixed fluid 09/27/2018 12:16 PM CDT Collection Procedure urine voided 09/27/2018 12:16 PM CDT Fixative yes 09/27/2018 12:16 PM CDT Source A. Urine, voided 09/27/2018 12:16 PM CDT Clinical History R31.9 09/28/19 19 12:16 PM CDT Report electronically signed by Sho Cifuentes MD I verify that I have examined all relevant slides/materi als for the specimen(s) and rendered or confirmed the diagnosis. 09/27/2018 12:16 PM CDT 09/27/2018 12:16 PM CDT Interpretation A. Urine, voided (cytospin): Negative for High-Grade Urothelial Carcinoma. 09/27/2018 12:16 PM CDT Varies 09/26/2018 12:3 5 PM CDT 09/27/2018 7:23 AM CDT us Jennifer Villaseñor M.D. LAB SURG PATH ORDERABLES Fin al Result [facility] [address] [place] [address], [facility] * (ABNORMAL) Urinalysis with Microscopic: Urine, Clean Catch (09/20/2018 12:48 PM CDT) Source Midstream 09/20/2018 1:53 PM CDT Clarity Clear Clear 09/20/2018 1:54 PM CDT Color Yellow 09/20/2018 1:54 PM CDT Comment: ----REFERENCE VALUE---- Colorless Yellow Bambi Blood Trace(A) Negative 09/20/2018 1:54 PM CDT Nitrite Negative Negative 09/20/2018 1:54 PM CDT Leukocyte Esterase Negative Negative 09/20/2018 1:54 PM CDT Protein Negative mg/dL 09/20/2018 1:54 PM CDT Comment: ----REFERENCE VALUE---- Negative Trace Glucose Negative Negative mg/dL 09/20/2018 1:54 PM CDT Ketone Negative Negative mg/dL 09/20/2018 1:54 PM CDT Bilirubin Negative Negative 09/20/2018 1:54 PM CDT pH 7.0 5.0 - 8.0 09/20/2018 1:54 PM CDT Specific [place] 1.018 1.001 - 1.035 09/20/2018 1:54 PM CDT Urobilinogen 1.0 0.2 - 1.0 09/20/2018 1:54 PM CDT White Blood Cells None Seen /hpf 09/20/2018 1:54 PM CDT Comment: ----REFERENCE VALUE---- Males: 0-3 Females: 0-10 Unknown: 0-10 Red Blood Cells 3-10(A) 0 - 2 /hpf 9 1:54 PM CDT Dysmorphic Red Blood Cells <=25 <=25 % 09/20/2018 1:54 PM CDT Urine (Urine, Clean Catch) 09/20/2018 12:48 PM CDT 09/20/2018 12:48 PM CDT Jennifer Villaseñor M.D. LAB URINE ORDERABLES Final R esult Performing Organization Address City/[facility]/ZIP Co de Phone Number [facility] [address] [place] [phone], [facility] * Creatinine with Estimated GFR (09/20/2018 12:40 PM CDT) Only the most recent of3 resultswithin the time period is included. Creatinine 0.93 0.59 - 1.04 mg/dL 09/20/2018 1:54 PM CDT eGFR-Non Black/ 66 >=60 mL/min/BSA 09/20/2018 1:54 PM CDT Comment: ----ADDITIONAL INFORMATION---- Estimated GFR calculated using the 2009 CKD_EPI creatinine equation. eGFR-Black/Afric an [place] 76 >=60 mL/min/BSA 09/20/2018 1:54 PM CDT Comment: ----ADDITIONAL INFORMATION---- Estimated GFR calculated using the 2009 CKD_EPI creatinine equation. Blood (Blood, Venous) 09/20/2018 12:40 PM CDT 09/20/2018 12:41 PM CDT Jennifer Villaseñor M.D. LAB BLOOD ADD-ON Final Resul t Performing Organization Address [facility] Co de Phone Number [facility] [address] [place] [phone], [facility] * (ABNORMAL) Glucose, Fasting (07/10/2018 8:55 AM CDT) Only the most recent of2 resultswithin the time period is included. Glucose, P 103(H) 70 - 100 mg/dL 07/10/2018 9:[address] [facility] Last Intake 15 hr 07/10/2018 9:[address] [facility] Blood (Blood, Venous) 07/10/2018 8:55 AM CDT 07/10/2018 9:00 AM CDT us Jennifer Villaseñor M.D. LAB BLOOD NON ADD-ON Final R esult Performing Organization Address [facility] Co de Phone Number [facility] [address] [place] [address] * (ABNORMAL) Vaginitis Panel - [facility] (07/04/2018 10:24 AM CDT) Rosalba species, DNA Negative Negative 07/04/2018 11:25 AM CDT [facility] Gardnerella vaginalis, DNA Positive(A) Negative 07/04/2018 11:25 AM CDT [facility] Trichomonas vaginalis, DNA Negative Negative 07/04/2018 11:25 AM CDT [facility] Swab (Vagina) 07/04/2018 10: 24 AM CDT 07/04/2018 10:27 AM CDT us Jennifer Villaseñor M.D. LAB MICROBIOLOGY - GENERAL O RDERABLES Final Result Performing Organization Address [facility] Co de Phone Number [facility] [address] [place] [address] * US Pelvis Transvaginal and Transabdominal Doppler (06/14/2018 4:14 PM CDT) Anatomical Region Laterality Modality Pelvis, Ultrasound RST LOS, Ultrasound ARZ LOS, Ultrasound FLA LOS N/A Ultrasound 06/14/2018 4:20 PM CDT Impressions 06/14/2018 4:22 PM CDT IMPRESSION: Normal pelvic ultrasound. Narrative 06/14/2018 4:22 PM CDT EXAM: ??US PELVIS TRANSVAGINAL AND TRANSABDOMINAL DOPPLER Exam performed with color and spectral Doppler analysis. COMPARISON: ??None. TECHNIQUE: Transabdominal and transvaginal. FINDINGS: Uterus: 3.7 x 4.7 x 8.1cm. Myometrium: Normal. Endometrium: Normal. Thickness: 4 mm ?? Right ovary: Normal. ??Ovarian volume: 3 ml. Right ovary Doppler: Normal arterial and venous Doppler evaluation, including color flow with spectral waveform. Left ovary: Normal. ??Ovarian volume: 5 ml. Left ovary Doppler: Normal arterial and venous Doppler evaluation, including color flow with spectral waveform Intraperitoneal Fluid: None. Transvaginal exam performed to better visualize the adnexa. Procedure Note Janene Orellana M.D. - 06/14/2018 EXAM: US PELVIS TRANSVAGINAL AND TRANSABDOMINAL DOPPLER Exam performed with color and spectral Doppler analysis. COMPARISON: None. TECHNIQUE: Transabdominal and transvaginal. FINDINGS: Uterus: 3.7 x 4.7 x 8.1cm. Myometrium: Normal. Endometrium: Normal. Thickness: 4 mm Right ovary: Normal. Ovarian volume: 3 ml. Right ovary Doppler: Normal arterial and venous Doppler evaluation,including color flow with spectral waveform. Left ovary: Normal. Ovarian volume: 5 ml. Left ovary Doppler: Normal arterial and venous Doppler evaluation,including color flow with spectral waveform Intraperitoneal Fluid: None. Transvaginal exam performed to better visualize the adnexa. IMPRESSION: Normal pelvic ultrasound. us Jennifer Villaseñor M.D. IMG US PROCEDURES Final Resu lt * DX Foot Ankle Bilateral 3 Views (02/06/2018 1:03 PM FILTRATION OPERATOR) Anatomical Region Laterality Modality Lower Extremity, Foot, Ankle , Musculoskeletal RST LOS, Musculoskeletal ARZ LOS, Muskuloskeletal FLA LOS Bilateral Digit al Radiography 02/06/2018 1:20 PM FILTRATION OPERATOR Impressions 02/06/2018 1:22 PM FILTRATION OPERATOR IMPRESSION: ??Ossicles about both medial malleoli consistent with old trauma. Soft tissue swelling both ankles is more prominent than on 18. Left 1st MTP arthrodesis with screw fixation. Left 2nd hammertoe correction. 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 Bilateral plantar and Achilles heel spurs. Narrative 02/06/2018 1:22 PM FILTRATION OPERATOR EXAM: ??DX FOOT ANKLE BILATERAL 3 VIEWS Procedure Note Camron Hernandez M.D. - 02/06/2018 EXAM: DX FOOT ANKLE BILATERAL 3 VIEWS IMPRESSION: Ossicles about both medial malleoli consistent with oldtrauma. Soft tissue swelling both ankles is more prominent than on 18. [id number] MTP arthrodesis with screw fixation. 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 Bilateral plantar and Achilles heel spurs. Don Orozco M.D. IM DIAGNOSTIC IMAGING PRO CEDURES Final Result * BI Breast Screening Bilateral (11/21/2017 2:14 PM CDT) Only the most recent of10 resultswithin the time period is included. Anatomical Region Laterality Modality Breast, Breast Imaging RST L OS, Breast Imaging ARZ LOS, Breast Imaging FLA LOS Bilateral Mammography 11/21/2017 3:40 PM CDT Impressions 11/21/2017 3:41 PM CDT IMPRESSION: ??Negative. RECOMMENDATION: ??Annual Screening Mammogram ASSESSMENT: ??BI-RADS: 1: Negative. Narrative 11/21/2017 3:41 PM CDT EXAM: ??BI BREAST SCREENING BILATERAL Current study was evaluated with a Computer Aided Detection (CAD) system. INDICATION: ??Screening mammogram. COMPARISON: ??Prior exams were available for comparison. DENSITY: ??c. The breast(s) are heterogeneously dense, which may obscure small masses. FINDINGS: ??No mammographic findings of malignancy. Procedure Note Carli Ramos M.D. - 11/21/2017 EXAM: BI BREAST SCREENING BILATERAL Current study was evaluated with a Computer Aided Detection (CAD) system. INDICATION: Screening mammogram. COMPARISON: Prior exams were available for comparison. DENSITY: c. The breast(s) are heterogeneously dense, which may obscuresmall masses. FINDINGS: No mammographic findings of malignancy. IMPRESSION: Negative. RECOMMENDATION: Annual Screening Mammogram ASSESSMENT: BI-RADS: 1: Negative. Dino Corbett M.D. [facility] BI PROCEDURES Final Res ult * DX Foot Bilateral 3+ Views (08/07/2017 2:37 PM CDT) Anatomical Region Laterality Modality Lower Extremity, Foot, Musculoskeletal RST LOS B ilateral Computed Radiography 08/07/2017 3:12 PM CDT Impressions 08/07/2017 3:59 PM CDT IMPRESSION: ??Postoperative changes arthrodesis of the left 1st MTP joint with screw fixation and osseous fusion. PO changes 2nd MTP joint with single screw in the metatarsal head. Mild soft tissue thickening along the dorsum of the left foot. Left foot is not significantly changed since 03/07/2017. Scattered osteoarthritis of the midfoot bilaterally. Bilateral plantar and Achilles calcaneal bone spurs. Narrative 08/07/2017 3:59 PM CDT EXAM: ??DX FOOT BILATERAL 3+ VIEWS Procedure Note Eunice Houston M.D. - 08/07/2017 EXAM: DX FOOT BILATERAL 3+ VIEWS IMPRESSION: Postoperative changes arthrodesis of the left 1st MTP jointwith screw fixation and osseous fusion. PO changes 2nd MTP joint with singlescrew in the metatarsal head. Mild soft tissue thickening along the dorsum of theleft foot. Left foot is not significantly changed since 03/07/2017. Scattered osteoarthritis of the midfoot bilaterally. Bilateral plantar andAchilles calcaneal bone spurs. us Cass Dotson IMG DIAGNOSTIC IMAGIN G PROCEDURES Final Result * DX Ankle Right 3+ Views (08/07/2017 2:36 PM CDT) Anatomical Region Laterality Modality Lower Extremity, Ankle, Musculoskeletal RST LOS Right Computed Radiography 08/07/2017 3:09 PM CDT Impressions 08/07/2017 3:36 PM CDT IMPRESSION: ??Chronic ossicles about the medial malleolus right ankle, may be posttraumatic. Right ankle is otherwise negative. Calcaneal bone spurs. Degenerative hypertrophic changes in the mid foot. Narrative 08/07/2017 3:36 PM CDT EXAM: ??DX ANKLE RIGHT 3+ VIEWS Procedure Note Eunice Houston M.D. - 08/07/2017 EXAM: DX ANKLE RIGHT 3+ VIEWS IMPRESSION: Chronic ossicles about the medial malleolus right ankle, maybe posttraumatic. Right ankle is otherwise negative. Calcaneal bone spurs. Degenerative hypertrophic changes in the mid foot. us Cass Dotson IMG DIAGNOSTIC IMAGIN G PROCEDURES Final Result * DX Foot 3+ Views (03/07/2017 2:02 PM FILTRATION OPERATOR) Only the most recent of3 resultswithin the time period is included. Anatomical Region Laterality Modality Lower Extremity, Foot N/A Radiograph ic Imaging 03/07/2017 2:02 PM FILTRATION OPERATOR Impressions 03/07/2017 2:22 PM FILTRATION OPERATOR Arthrodesis of the left 1st MTP joint with screw fixation. There is solid bony fusion. PO changes of bunionectomy with screws in the 1st metatarsal head. PO changes 2nd MTP joint. Plantar and Achilles calcaneal spurs. Electronically signed by: ?? Nidhi Zarate [id number] 07-Mar-2017 14:22 Narrative 03/07/2017 2:22 PM FILTRATION OPERATOR 07-Mar-2017 14:02:00 ??Exam: L Foot 3vw/STDG AP/Lat/Obl Indications: Pain Foot L ORIGINAL REPORT - 07-Mar-2017 14:22:00 EXAM: Left Foot 3vw/STDG AP/Lat/Obl: Procedure Note Nidhi Zarate M.B., Ch.B. - 06/12/2017 07-Mar-2017 14:02:00 Exam: L Foot 3vw/STDG AP/Lat/Obl Indications: Pain Foot L ORIGINAL REPORT - 07-Mar-2017 14:22:00 EXAM: Left Foot 3vw/STDG AP/Lat/Obl: IMPRESSION: Arthrodesis of the left 1st MTP joint with screw fixation.There is solid bony fusion. PO changes of bunionectomy with screws in the1st metatarsal head. PO changes 2nd MTP joint. Plantar and Achillescalcaneal spurs. Electronically signed by: Nidhi Zarate [id number] 07-Mar-2017 14:22 us Cass Clark. IMG DIAGNOSTIC IMAGIN G PROCEDURES Final Result * AUDIOLOGY EVALUATION (02/23/2017 3:46 PM FILTRATION OPERATOR) Narrative 02/23/2017 3:46 PM FILTRATION OPERATOR Ordered by an unspecified provider. us Default Authenticator Guilherme AUDIOLOGY SERVICES ORD ERABLES Final Result * ECG 12 Lead (01/09/2017 9:27 AM FILTRATION OPERATOR) 01/09/2017 9:27 AM FILTRATION OPERATOR Narrative GABINO CHAMPAGNE CONVERSION - 01/09/2017 9:39 AM FILTRATION OPERATOR 09Jan2017 09:27 VENTRICULAR RATE 58 Sinus bradycardia Otherwise normal ECG No previous ECGs available [id number]^ADAM ??^ANDRADE Procedure Note Andrade Villagomez M.D., Ph.D. - 05/24/2017 09Jan2017 09:27 VENTRICULAR RATE 58 Sinus bradycardia Otherwise normal ECG No previous ECGs available [id number]^ADAM SMALL^ANDRADE Guillaume Flynn M.D. ECG ORDERABLES Final Res ult [facility] CONVERSION * DX Shoulder Bilateral 2+ Views (12/25/2016 2:33 PM CDT) Anatomical Region Laterality Modality Upper Extremity, Shoulder Bilateral Radiog raphic Imaging 12/25/2016 2:33 PM CDT Addenda Addendum by ProviderCe M.D. on 12/25/2016 2:33 PM CDT RAD^^^OW XR Shoulder Bilat 4 view 12/25/2016 14:33:40 XR Shoulder Bilat 4 view Impressions 12/27/2016 9:01 AM CDT Skeletally mature individual. Good bone quality no obvious fractures. Bilateral shoulders AC joints are arthritic. Glenohumeral joint spaces of both shoulders are well preserved. Acromiohumeral joint spaces are well preserved of bilateral shoulders. Normal looking soft tissues about bilateral shoulders. Narrative 12/27/2016 9:01 AM CDT EXAM: XR Shoulder Bilat 4 view INDICATION: Bilateral shoulder pain, verify to [place] COMPARISON: None. ?? Procedure Note Guillaume Kirkland M.D. / Ce Davidson M.D. - 01/02/2017 EXAM: XR Shoulder Bilat 4 view INDICATION: Bilateral shoulder pain, verify to [place] COMPARISON: None. IMPRESSION: Skeletally mature individual. Good bone quality no obvious fractures. Bilateral shoulders AC joints are arthritic. Glenohumeral joint spaces of both shoulders are well preserved. Acromiohumeral joint spaces are well preserved of bilateral shoulders. Normal looking soft tissues about bilateral shoulders. Cayla Nassar R.T.(R), R.T.(R)(M) IMG DIAGNOSTIC IMAGING PROCEDURES Edited Result - Final * DX Cervical Spine 2-3 Views (12/25/2016 2:33 PM CDT) Anatomical Region Laterality Modality Cervical Spine N/A Radiographic [place] 12/25/2016 2:33 PM CDT Addenda Addendum by Ce Davidson M.D. on 12/25/2016 2:33 PM CDT RAD^^^OW XR Cervical Spine 2 or 3 views 12/25/2016 14:33:40 XR Cervical Spine 2 or 3 views Impressions 12/27/2016 9:00 AM CDT Skeletally mature individual. Good bone quality no obvious fractures. Cervical spine line has some loss of cervical lordosis. Has a small calcification of the anterior inferior C5 vertebrae. Disc spaces are still well preserved within the cervical spine. Narrative 12/27/2016 9:00 AM CDT EXAM: XR Cervical Spine 2 or 3 views INDICATION: radicular pain symptoms, verify to [place] COMPARISON: None. ?? Procedure Note Guillaume Kirkland M.D. / Ce Davidson M.D. - 01/02/2017 EXAM: XR Cervical Spine 2 or 3 views INDICATION: radicular pain symptoms, verify to [place] COMPARISON: None. IMPRESSION: Skeletally mature individual. Good bone quality no obvious fractures. Cervical spine line has some loss of cervical lordosis. Has a small calcification of the anterior inferior C5 vertebrae. Disc spaces are still well preserved within the cervical spine. Cayla Nassar R.TAryan(R), Lucretia(R)(M) IMG DIAGNOSTIC IMAGING PROCEDURES Edited Result - Final * DX Chest AP or PA and Lateral 2 Views (12/25/2016 9:18 AM CDT) Only the most recent of3 resultswithin the time period is included. Anatomical Region Laterality Modality Chest N/A Radiographic [place] 12/25/2016 9:18 AM CDT Addenda Addendum by ProviderCe M.D. on 12/25/2016 9:05 AM CDT RAD^^^OW XR Chest 2 Views 12/25/2016 09:05:32 XR Chest 2 Views Impressions 12/25/2016 9:22 AM CDT Negative for acute cardiopulmonary disease. Mild bibasilar scarring or atelectasis. Normal cardiac silhouette and pulmonary vascularity. No pleural effusion. Degenerative changes of the spine. No significant change from prior exam. Narrative 12/25/2016 9:22 AM CDT EXAM: XR Chest 2 Views INDICATION: chest pain and tingling in arms. ??Has migraine headache also. . COMPARISON: 03/24/2014 Procedure Note ProviderCe M.D. / Rufino Fischer M.D. - 01/18/2017 EXAM: XR Chest 2 Views INDICATION: chest pain and tingling in arms. Has migraine headache also. . COMPARISON: 03/24/2014 IMPRESSION: Negative for acute cardiopulmonary disease. Mild bibasilar scarring or atelectasis. Normal cardiac silhouette and pulmonary vascularity. No pleural effusion. Degenerative changes of the spine. No significant change from prior exam. Pastora Sifuentes(R) IMG DIAGNOSTIC IMAGIN G PROCEDURES Edited Result - Final * XR Foot Left 3 or more views (03/01/2016 3:49 PM FILTRATION OPERATOR) Only the most recent of13 resultswithin the time period is included. Anatomical Region Laterality Modality Other 03/01/2016 3:49 PM FILTRATION OPERATOR Historical Provider IMG NON RAD IMAGING PROCEDUR ES Final Result * MR Brain without and with IV Contrast (02/17/2016 9:36 AM FILTRATION OPERATOR) Anatomical Region Laterality Modality Head, Brain N/A Magnetic Resonan ce 02/17/2016 9:36 AM FILTRATION OPERATOR Addenda Addendum by Ce Davidson M.D. on 02/17/2016 9:36 AM FILTRATION OPERATOR RAD^^^OW MR IAC w ??and w o contrast 02/17/2016 09:36:02 Addendum by Ce Davidson M.D. on 02/17/2016 9:15 AM FILTRATION OPERATOR RAD^^^OW MR IAC w ??and w o contrast 02/17/2016 09:15:00 Impressions 02/17/2016 12:13 PM FILTRATION OPERATOR 1. Normal internal auditory canals. FINDINGS: Negative for vestibular schwannoma. The seventh and eighth cranial nerves have normal signal intensity, morphology, and enhancement. ??Bilateral cerebellopontine angle cisterns and internal auditory canals are normal without masses or fluid collections. Bilateral temporal bones have no masses or fluid collections. 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 Partially empty sella is usually asymptomatic, though has been associated with headaches, hypopituitarism, and intracranial hypertension. Narrative 02/17/2016 12:13 PM FILTRATION OPERATOR EXAM: MR IAC w/ + w/o contrast INDICATION: asymmetrical SNHL, tinnitus AGE: 60 years-old COMPARISON: None. TECHNIQUE: IV 8 mL Gadavist contrast. Procedure Note Guillaume Harrison M.D. / Ce Davidson M.D. - 07/08/2016 EXAM: MR IAC w/ + w/o contrast INDICATION: asymmetrical SNHL, tinnitus AGE: 60 years-old COMPARISON: None. TECHNIQUE: IV 8 mL Gadavist contrast. IMPRESSION: 1. Normal internal auditory canals. FINDINGS: Negative for vestibular schwannoma. The seventh and eighth cranial nerves have normal signal intensity, morphology, and enhancement. Bilateral cerebellopontine angle cisterns and internal auditory canals are normal without masses or fluid collections. Bilateral temporal bones have no masses or fluid collections. 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 Partially empty sella is usually asymptomatic, though has been associated with headaches, hypopituitarism, and intracranial hypertension. Citlalli Boykin(R)(CT), RSmitha(R) IMG MRI PROCEDURES Edited Result - Final * Uric Acid (02/16/2016 4:37 PM FILTRATION OPERATOR) Uric Acid, S 5.3 2.7 - 6.1 MGDL POWERCHART Blood 02/16/2016 4:37 PM FILTRATION OPERATOR us Dino Corbett M.D. LAB BLOOD ADD-ON Final Resu lt POWERCHART * CT Neck with IV Contrast (02/06/2016 6:26 PM FILTRATION OPERATOR) Only the most recent of2 resultswithin the time period is included. Anatomical Region Laterality Modality Neck Computed Tomogra phy 02/06/2016 6:26 PM FILTRATION OPERATOR Addenda Addendum by ProviderCe M.D. on 02/06/2016 6:26 PM FILTRATION OPERATOR RAD^^^OW CT Neck w ??contrast 02/06/2016 18:26:00 Impressions 02/07/2016 8:14 AM FILTRATION OPERATOR 1. New right parotiditis. 2. Left second maxillary molar has unchanged periapical cyst or abscess that has eroded through the outer cortex of the maxilla. FINDINGS: Skin marker placed over site of lump, which corresponds with the right parotid gland. Right parotid gland has new enlargement and edema, which are compatible with parotiditis. There is no sialolith or dilatation of the right parotid duct. There are reactive right cervical lymph nodes. No suspicious cervical lymph nodes. Negative bilateral submandibular glands and thyroid gland. There is dental amalgam on multiple teeth, which causes metallic streak artifact. The left second maxillary molar has had root canal treatment and has unchanged 6 mm periapical cyst or abscess that has eroded through the outer cortex of the maxilla (series 3 image 49). Left maxillary sinus has small mucous retention cyst. There is opacification of left anterior ethmoid air cell. Imaged upper lungs show mild emphysema. Otherwise negative. Narrative 02/07/2016 8:14 AM FILTRATION OPERATOR EXAM: CT Neck w/ contrast INDICATION: DIFFICULTY BREATHING (r mandibular lymph node growth sudden today) AGE: 60 years-old COMPARISON: CT 11/18/15 TECHNIQUE: IV 130 mL Omnipaque contrast. Preliminary Radiologist Report was generated by [email or web address] [facility] [place], [place]. Procedure Note Guillaume Harrison M.D. / Ce Davidson M.D. - 07/08/2016 EXAM: CT Neck w/ contrast INDICATION: DIFFICULTY BREATHING (r mandibular lymph node growth sudden today) AGE: 60 years-old COMPARISON: CT 11/18/15 TECHNIQUE: IV 130 mL Omnipaque contrast. Preliminary Radiologist Report was generated by [email or web address] [facility] [place], [place]. IMPRESSION: 1. New right parotiditis. 2. Left second maxillary molar has unchanged periapical cyst or abscess that has eroded through the outer cortex of the maxilla. FINDINGS: Skin marker placed over site of lump, which corresponds with the right parotid gland. Right parotid gland has new enlargement and edema, which are compatible with parotiditis. There is no sialolith or dilatation of the right parotid duct. There are reactive right cervical lymph nodes. No suspicious cervical lymph nodes. Negative bilateral submandibular glands and thyroid gland. There is dental amalgam on multiple teeth, which causes metallic streak artifact. The left second maxillary molar has had root canal treatment and has unchanged 6 mm periapical cyst or abscess that has eroded through the outer cortex of the maxilla (series 3 image 49). Left maxillary sinus has small mucous retention cyst. There is opacification of left anterior ethmoid air cell. Imaged upper lungs show mild emphysema. Otherwise negative. Vane Boykin(R)(CT), R.T.(R) IMG CT PROCED URES Edited Result - Final * Hemoglobin (11/19/2015 10:02 AM CDT) Hemoglobin 14.5 12.0 - 15.5 GDL POWERCHART Blood 11/19/2015 10:0 2 AM CDT Ruben Valdes M.D. LAB BLOOD ADD-ON Final R esult POWERCHART * Hx general Pathology Report (02/19/2015 1:26 PM FILTRATION OPERATOR) Only the most recent of4 resultswithin the time period is included. 02/19/2015 1:26 PM FILTRATION OPERATOR 02/19/2015 1:26 PM FILTRATION OPERATOR Narrative [facility] - 02/19/2015 1:26 PM FILTRATION OPERATOR ??02/19/2015 General Biopsy ?([id number]) ? Requested By: Luis Enrique Hernandez M.D. ??[phone] ? Additional Physician: ??Kalie ??Yolette Saxena [id number] ? SLIDE DISPOSITION: ? DIAGNOSIS: ?? A. ??Colon, Ascending, polyp, endoscopic biopsy: ??Tubular adenoma, low grade dysplasia. ?? B. ??Colon, Recto Sigmoid, polyps, endoscopic biopsy: ??Fragments of hyperplastic polyp. ? 02/22/2015 16:20 Interpreted by: Kassandra Guan M.D. [id number] Report electronically signed by Kassandra Guan M.D. Transcribed by: dallin 02/22/2015 15:38:56 ? TISSUE DESCRIPTION: [id number] A1B1 ?A. ??Received in formalin labeled with the patient's name and and labeled as colon-ascending is a 0.3 x 0.3 x 0.1 cm pale prieto irregular soft tissue fragment. The specimen is submitted en toto in cassette A1. ?? B. ??Received in formalin labeled with the patient's name and and labeled as colon-rectosigmoid colon are six pale prieto-pink irregular soft tissue fragments, ranging from 0.3-0.5 cm in greatest dimension. The specimens are submitted en toto in cassette B1. ? Part A: ??Colon, Ascending, endoscopic biopsy ?1 Ascending ?? Part B: ??Colon, Recto Sigmoid Colon, endoscopic biopsy ?1 Recto Sigmoid Colon ?? GI Path ? Procedure Note 03/29/2018 02/19/2015 General Biopsy ([id number]) Requested By: Luis Enrique Hernandez M.D. [id number] Additional Physician: Kalie Saxena M.D. [id number] SLIDE DISPOSITION: DIAGNOSIS: A. Colon, Ascending, polyp, endoscopic biopsy: Tubular adenoma, low grade dysplasia. B. Colon, Recto Sigmoid, polyps, endoscopic biopsy: Fragments of hyperplastic polyp. 02/22/2015 16:20 Interpreted by: Kassandra Guan M.D. [id number] Report electronically signed by Kassandra Guan M.D. Transcribed by: [facility] greene 02/22/2015 15:38:56 TISSUE DESCRIPTION: [id number] A1B1 A. Received in formalin labeled with the patient's name and and labeled as colon-ascending is a 0.3 x 0.3 x 0.1 cm pale prieto irregular soft tissue fragment. The specimen is submitted en toto in cassette A1. B. Received in formalin labeled with the patient's name and and labeled as colon-rectosigmoid colon are six pale prieto-pink irregular soft tissue fragments, ranging from 0.3-0.5 cm in greatest dimension. The specimens are submitted en toto in cassette B1. Part A: Colon, Ascending, endoscopic biopsy 1 Ascending Part B: Colon, Recto Sigmoid Colon, endoscopic biopsy 1 Recto Sigmoid Colon GI Path Luis Enrique Hernandez M.D. LAB PATHOLOGY/CYTOLOGY GUERREROE SIERRA Final Result [address] [id number] * Colonoscopy (02/19/2015 10:53 AM FILTRATION OPERATOR) 02/19/2015 10:5 3 AM FILTRATION OPERATOR Luis Enrique Hernandez M.D. GI PROCEDURE ORDERABLES Fin al Result [facility] [address] [place] [address] * Pathology VALET ATTENDANT Cytology (01/26/2015 12:00 AM FILTRATION OPERATOR) Only the most recent of2 resultswithin the time period is included. 01/26/2015 Narrative [facility] - 02/08/2015 1:40 PM FILTRATION OPERATOR [facility] [address] [place], [place] ??[address] Patient Name: BELL NELSON Collected: 01/26/2015 Address: City/State/Zip: [address] [place] [address] [address] [place], [place] ??[id number] Received: Reported: 01/27/2015 02/08/2015 Soc. Sec. #: ?/Age/Sex 1955 (Age: 59) ??F Physician(s): IRAM CORBETT MD Copy To: ? [facility] ??[id number] [address] [facility], ??[place] ??[address] CYTOPATHOLOGY VALET ATTENDANT REPORT FINAL CYTOLOGIC DIAGNOSIS Pap Smear - ThinPrep with HPV: NEGATIVE FOR INTRAEPITHELIAL LESION OR MALIGNANCY REACTIVE/REPARATIVE CHANGES. ENDOCERVICAL CELLS/COMPONENT PRESENT. SATISFACTORY SPECIMEN FOR EVALUATION. ??This specimen required a physician interpretation under CLIA 1987 ?? Electronically Signed Out By ddg/02/08/2015 DENSISE LONG M.D. [facility] The Pap test is a screening procedure and, as such, is subject to both false positive and false negative results as evidenced by published data. ??It is not a diagnostic test and results should be interpreted in the context of the patient's history and other clinical findings. ??Obtaining periodic Pap tests may help to minimize the consequences of any false negatives that may occur. Procedures/Addenda: HUMAN PAPILLOMA VIRUS ADDENDUM ? Date Ordered: ? 01/27/2015 ? Status: ??Signed Out Date Complete: ? 02/08/2015 ? By: ??[facility] CT(ASCP) Date Reported: ? 02/08/2015 INTERPRETATION: Test: Aptima High Risk HPV Result: NEGATIVE FOR HIGH RISK HPV Specimen Description: ThinPrep? ? ? Pap Test PreservCyt Solution HPV by Wax Pattern Assembler-Mediated Amplification (TMA) for E6/E7 viral messenger RNA (mRNA) is an in-vitro diagnostic test for the detection of 14 high-risk Human Papillomavirus (HPV) types (16, 18, 31, 33, 35, 39, 45, 51, 52, 56, 58, 59, 66, and 68) in cervical specimen. Intended for co-testing or reflex testing of ASC-US Pap smears. Interpretation for patients with ASC-US cytology: Low likelihood of underlying high-grade CIN2-3 or cancer; results are not intended to prevent women from proceeding to colposcopy. Interpretation for patients with NILM cytology who are over 30 years old: Very low likelihood of underlying high-grade ELIER or cancer; results do not preclude future HPV infection or cytologic abnormalities with underlying CIN2-3 or cancer. SPECIMEN(S) RECEIVED: Pap Smear - ThinPrep with HPV CLINICAL HISTORY: Menstrual History: Postmenopausal Hormonal History: No hormonal therapy Other Clinical Conditions: HPV TYPING REQUESTED Dino Corbett M.D. LAB PAP COPATH ORDERABLES F inal Result Performing Organization Address [facility]/State/ZIP Co de Phone Number [facility] * Colonoscopy (12/04/2014 2:32 PM CDT) 12/04/2014 2:32 PM CDT Luis Enrique Hernandez M.D. GI PROCEDURE ORDERABLES Fin al Result Performing Organization Address [facility] Co de Phone Number [facility] [address] [place] [address] * Electrolyte Panel (03/24/2014 4:25 PM FILTRATION OPERATOR) Chloride, S 102 98 - 107 MMOLL POWERCHART CO2 Total 29 26 - 102 MMOLL POWERCHART Sodium, S 142 135 - 145 MMOLL POWERCHART Potassium, S 4.9 3.6 - 5.2 MMOLL POWERCHART Blood 03/24/2014 4:25 PM FILTRATION OPERATOR Dino Corbett M.D. LAB BLOOD ADD-ON Final Resu lt POWERCHART * Automated Differential (03/24/2014 4:25 PM FILTRATION OPERATOR) Absolute Neutrophils 5.25 1.70 - 7.00 109L POWERCHART Lymphocytes 2.51 0.90 - 2.90 X109L POWERCHART Monocytes 0.39 0.30 - 0.90 X109L POWERCHART Eosinophils 0.18 0.05 - 0.50 X109L POWERCHART Absolute Basophil 0.02 0.00 - 0.30 X109L POWERCHART Blood 03/24/2014 4:25 PM FILTRATION OPERATOR 03/24/2014 4:25 PM FILTRATION OPERATOR Dino Corbett M.D. LAB BLOOD ADD-ON Final Resu lt POWERCHART * FL Fluoro Less Than 1 Hour (01/20/2014 10:16 AM FILTRATION OPERATOR) Anatomical Region Laterality Modality Radiographic [place] 01/20/2014 10:1 6 AM FILTRATION OPERATOR Impressions 01/20/2014 11:08 AM FILTRATION OPERATOR Fluoroscopy time 20 seconds. Images show first metatarsal osteotomy. Narrative 01/20/2014 11:08 AM FILTRATION OPERATOR EXAM: XR Rena less than 1 hour INDICATION: Lt 1st osteotomy metatarsal Procedure Note Guillaume Harrison M.D. / Ce Davidson M.D. - 07/15/2016 EXAM: XR Rena less than 1 hour INDICATION: Lt 1st osteotomy metatarsal IMPRESSION: Fluoroscopy time 20 seconds. Images show first metatarsal osteotomy. Rocio Boykin(R) IMG FLUOROSCOPY PROCE DURES Edited Result - Final * BI Ultrasound Breast Focused Right (01/19/2014 3:05 PM FILTRATION OPERATOR) Anatomical Region Laterality Modality Breast Right Ultrasound 01/19/2014 3:05 PM FILTRATION OPERATOR Impressions 01/19/2014 4:13 PM FILTRATION OPERATOR BI-RADS code 1, negative. BI-RADS 1 -- negative findings (within normal) Narrative 01/19/2014 4:13 PM FILTRATION OPERATOR EXAM: US Breast Right INDICATION: abnormal mammogram/call back COMPARISON: Correlation is made with today's diagnostic mammogram which is reported separately. FINDINGS: The superior half of the right breast was scanned. Also the right axilla. Dense fibroglandular tissue is seen. Nothing suspicious. Largest right axillary lymph nodes seen has a length of 1.7 cm. Procedure Note Jason Gabriel M.D. / Ce Davidson M.D. - 07/15/2016 EXAM: US Breast Right INDICATION: abnormal mammogram/call back COMPARISON: Correlation is made with today's diagnostic mammogram which is reported separately. FINDINGS: The superior half of the right breast was scanned. Also the right axilla. Dense fibroglandular tissue is seen. Nothing suspicious. Largest right axillary lymph nodes seen has a length of 1.7 cm. IMPRESSION: BI-RADS code 1, negative. BI-RADS 1 -- negative findings (within normal) Domenica David R.V.T., RErickMAryanSAryan IM BI PROCED URES Edited Result - Final * BI Breast Diagnostic Right with Computer Aided Detection (01/19/2014 2:44 PM FILTRATION OPERATOR) Anatomical Region Laterality Modality Breast Right Mammography 01/19/2014 2:44 PM FILTRATION OPERATOR Impressions 01/19/2014 4:43 PM FILTRATION OPERATOR BI-RADS code 1, negative Recommendations: ??I recommend a follow-up mammogram in 1 year, self breast exams at least once per month and clinical breast exam at least once per year. ??Of note, benign findings should not deter biopsy in the setting of a palpable abnormality. ??The false negative rate of mammography is approximately 10%. CODE: 1-NEGATIVE Appropriate letter sent. Full field digital mammography is used and Computer Aided Detection is performed on the digital mammogram images. Narrative 01/19/2014 4:43 PM FILTRATION OPERATOR EXAM: LIZ Mammo Diag Unilat Right w/ CADD INDICATION: abnormal mammogram/call back COMPARISON: 2008, 2009, 2011, 2012 and January 06, 2014 Technique: Views of the right breast done today are ML and spot compression in the MLO projection. An ultrasound also was done. The ultrasound is reported separately. FINDINGS: Heterogeneously dense breast. The focal asymmetric density in the superior half of the middle third of the right breast is less conspicuous today within the dense breast. No associated calcifications A mass was not seen by ultrasound. Procedure Note Jason Gabriel M.D. / Ce Davidson M.D. - 07/15/2016 EXAM: MA Mammo Diag Unilat Right w/ CADD INDICATION: abnormal mammogram/call back COMPARISON: 2008, 2009, 2011, 2012 and January 06, 2014 Technique: Views of the right breast done today are ML and spot compression in the MLO projection. An ultrasound also was done. The ultrasound is reported separately. FINDINGS: Heterogeneously dense breast. The focal asymmetric density in the superior half of the middle third of the right breast is less conspicuous today within the dense breast. No associated calcifications A mass was not seen by ultrasound. IMPRESSION: BI-RADS code 1, negative Recommendations: I recommend a follow-up mammogram in 1 year, self breast exams at least once per month and clinical breast exam at least once per year. Of note, benign findings should not deter biopsy in the setting of a palpable abnormality. The false negative rate of mammography is approximately 10%. CODE: 1-NEGATIVE Appropriate letter sent. Full field digital mammography is used and Computer Aided Detection is performed on the digital mammogram images. Komal Ruano R.TAryan(R), R.T.(R)(M) IMG BI P ROCEDURES Edited Result - Final * Colonoscopy (01/16/2014 8:00 AM FILTRATION OPERATOR) 01/16/2014 8:00 AM FILTRATION OPERATOR Luis Enrique Hernandez M.D. GI PROCEDURE ORDERABLES Fin al Result [facility] [address] [place] [id number] * Hemoglobin A1c (01/08/2014 7:17 AM FILTRATION OPERATOR) Hemoglobin A1c, B 5.30 <=5.60 A1C POWERCHART Blood 01/08/2014 7:17 AM FILTRATION OPERATOR us Dino Corbett M.D. LAB BLOOD ADD-ON Final Resu lt POWERCHART * DX Shoulder Left 2+ Views (11/18/2013 9:55 AM CDT) Anatomical Region Laterality Modality Upper Extremity, Shoulder Left Radiog raphic Imaging 11/18/2013 9:55 AM CDT Impressions 11/18/2013 1:01 PM CDT ??Please see above dictation. Narrative 11/18/2013 1:01 PM CDT EXAM: ??XR Shoulder Left 2 or more views INDICATION: ??left shoulder pain COMPARISON: ??None. FINDINGS: ??Skeletally mature individual. Mild degenerative changes of the acromioclavicular joint. No acute fractures or dislocations. Procedure Note Ming Montenegro M.D. / Ce Davidson M.D. - 07/15/2016 EXAM: XR Shoulder Left 2 or more views INDICATION: left shoulder pain COMPARISON: None. FINDINGS: Skeletally mature individual. Mild degenerative changes of the acromioclavicular joint. No acute fractures or dislocations. IMPRESSION: Please see above dictation. Pastora Sifuentes(R) IMG DIAGNOSTIC IMAGIN G PROCEDURES Edited Result - Final * DX Hand Left 3+ Views (11/18/2013 9:28 AM CDT) Anatomical Region Laterality Modality Upper Extremity, Hand Left Radiograph ic Imaging 11/18/2013 9:28 AM CDT Impressions 11/18/2013 12:58 PM CDT ??Please see above dictation. Narrative 11/18/2013 12:58 PM CDT EXAM: ??XR Hand Left 3 or more views INDICATION: ??left wrist pain COMPARISON: ??None. FINDINGS: ??Skeletally mature individual. No acute fractures or dislocations are appreciated. Mild degenerative changes in the thumb CMC joint. Procedure Note Ming Montenegro M.D. / Ce Davidson M.D. - 07/15/2016 EXAM: XR Hand Left 3 or more views INDICATION: left wrist pain COMPARISON: None. FINDINGS: Skeletally mature individual. No acute fractures or dislocations are appreciated. Mild degenerative changes in the thumb CMC joint. IMPRESSION: Please see above dictation. Kamila Bing LongoTAryan(R), Lucretia(R)(M) [facility] PROCEDURES Edited Result - Final * DX Elbow Left 3+ Views (11/18/2013 9:28 AM CDT) Anatomical Region Laterality Modality Upper Extremity, Elbow Left Radiograp hic Imaging 11/18/2013 9:28 AM CDT Impressions 11/18/2013 12:59 PM CDT ??Please see above dictation. Narrative 11/18/2013 12:59 PM CDT EXAM: ??XR Elbow Left 3 or more views INDICATION: ??left elbow injury COMPARISON: ??None. FINDINGS: ??Skeletally mature individual. No acute fractures or dislocations are appreciated. Normal elbow x-rays. Procedure Note Ming Montenegro M.D. / Ce Davidson M.D. - 07/15/2016 EXAM: XR Elbow Left 3 or more views INDICATION: left elbow injury COMPARISON: None. FINDINGS: Skeletally mature individual. No acute fractures or dislocations are appreciated. Normal elbow x-rays. IMPRESSION: Please see above dictation. Pastora MitchellTAryan(R) [facility] G PROCEDURES Edited Result - Final * (ABNORMAL) Hepatic Function Panel (09/24/2013 4:45 PM CDT) Alkaline Phosphatase, S 73 46 - 118 UNITL POWERCHART Alanine Amniotransferase, LD 51(H) 7 - 45 UNITL POWERCHART Aspartate Aminotransferase (AST), S 38 8 - 43 UNITL POWERCHART Bilirubin, Direct, S <0.20 <=0.30 MGDL POWERCHART Bilirubin, Total, S 0.5 0.1 - 1.0 MGDL POWERCHART Total Protein, S 8.0(H) 6.3 - 7.9 GDL POWERCHART Albumin, S 4.8 3.2 - 5.2 GDL POWERCHART HXGlobulin 3 POWERCHART Blood 09/24/2013 4:45 PM CDT Dino Corbett M.D. LAB BLOOD ADD-ON Final Resu lt Performing Organization Address [facility] de Phone Number POWERCHART * CBC without Differential (09/24/2013 4:45 PM CDT) Leukocytes 7.9 3.4 - 10.5 X109L POWERCHART Erythrocytes 4.92 3.90 - 5.03 [id number] POWERCHART Hemoglobin 15.1 12.0 - 15.5 GDL POWERCHART Hematocrit 43.3 34.9 - 44.5 POWERCHART MCV 88.0 82.0 - 98.0 FL POWERCHART HX RDW 13.0 11.9 - 15.5 POWERCHART Platelet Count 280 150 - 450 X109L POWERCHART Blood 09/24/2013 4:45 PM CDT Dino Corbett M.D. LAB BLOOD ADD-ON Final Resu lt Performing Organization Address [facility] de Phone Number POWERCHART * Colonoscopy (08/15/2013 10:05 AM CDT) 08/15/2013 10:0 5 AM CDT Leonor Jha M.D. GI PROCEDURE ORDERABLES Final Result Performing Organization Address [facility] de Phone Number [facility] [address] [place] [address] * MR Fingers Right without IV Contrast (01/17/2013 8:46 AM FILTRATION OPERATOR) Anatomical Region Laterality Modality Upper Extremity, Fingers Right Magneti c Resonance 01/17/2013 8:46 AM FILTRATION OPERATOR Impressions 01/17/2013 10:38 AM FILTRATION OPERATOR Due to relatively inhomogeneous fat saturation STIR images were substituted further T2 with fat-sat of images. No evidence of acute osseous injury. No evidence of contusion. No AVN. Normal MRI appearance of the extensor tendons. Trace tenosynovitis of the mid and distal flexor tendon of the right first digit, indeterminate clinical significance. No evidence of flexor tendon disruption. No appreciable collateral ligament injury of the right first digit. Small amount degenerative changes right first CMC joint. Normal appearance of the visualized neurovascular structures. Narrative 01/17/2013 10:38 AM FILTRATION OPERATOR EXAM: ??MR Fingers Right w/o contrast AGE: ??57 years old. GENDER: ??Female. INDICATION: ??rt thumb pain. Fall December 04, 2012. COMPARISON: ??Radiographs of the right December 12, 2012. FINDINGS/ Procedure Note Lewis Moulton M.D. / ProviderCe M.D. - 07/21/2016 EXAM: MR Fingers Right w/o contrast AGE: [age] years old. GENDER: Female. INDICATION: rt thumb pain. Fall December 04, 2012. COMPARISON: Radiographs of the right December 12, 2012. FINDINGS/IMPRESSION: Due to relatively inhomogeneous fat saturation STIR images were substituted further T2 with fat-sat of images. No evidence of acute osseous injury. No evidence of contusion. No AVN. Normal MRI appearance of the extensor tendons. Trace tenosynovitis of the mid and distal flexor tendon of the right first digit, indeterminate clinical significance. No evidence of flexor tendon disruption. No appreciable collateral ligament injury of the right first digit. Small amount degenerative changes right first CMC joint. Normal appearance of the visualized neurovascular structures. Historical Provider IMG MRI PROCEDURES Edited Re sult - Final * DX Fingers Right 2 Views (12/12/2012 3:58 PM CDT) Anatomical Region Laterality Modality Upper Extremity, Fingers Right Radiogr aphic Imaging 12/12/2012 3:58 PM CDT Impressions 12/12/2012 4:34 PM CDT Negative. Narrative 12/12/2012 4:34 PM CDT EXAM: XR Thumb Right INDICATION: right thumb injury AGE: 57 years-old COMPARISON: None. FINDINGS: No acute fracture or subluxation. No degenerative joint disease. Procedure Note Guillaume Harrison M.D. / ProviderCe M.D. - 07/21/2016 EXAM: XR Thumb Right INDICATION: right thumb injury AGE: 57 years-old COMPARISON: None. FINDINGS: No acute fracture or subluxation. No degenerative joint disease. IMPRESSION: Negative. us Historical Provider IMG DIAGNOSTIC IMAGING PROCE ANA Edited Result - Final * DX Hand Right 3+ Views (11/11/2012 3:24 PM CDT) Anatomical Region Laterality Modality Upper Extremity, Hand Right Radiograph ic Imaging 11/11/2012 3:24 PM CDT Impressions 11/11/2012 3:55 PM CDT Negative. Narrative 11/11/2012 3:55 PM CDT EXAM: XR Hand Right 3 or more views INDICATION: pain at 1st MCPJ. ??Fall 1 month ago. COMPARISON: None. FINDINGS: Normal mineralization and alignment. A fracture is not identified. Procedure Note Jason Gabriel M.D. / ProviderCe M.D. - 07/21/2016 EXAM: XR Hand Right 3 or more views INDICATION: pain at 1st MCPJ. Fall 1 month ago. COMPARISON: None. FINDINGS: Normal mineralization and alignment. A fracture is not identified. IMPRESSION: Negative. us Haylee Boykin(R) IM DIAGNOSTIC IMAGING P RENITAEDKARINE Edited Result - Final * Acute Hepatitis Profile (01/04/2012 7:07 AM CDT) HBs Antigen, S Negative Negative POWERCHART Comment: Test Performed by: [facility] [place] [address] Technical Support Analyst: Nahun Pulliam III, M.D. HX Hep A IgM-[place] Negative Negative POWERCHART HX Hep B Core IgM-[place] Negative Negative POWERCHART Comment: Test Performed by: [facility] [place] [address] Technical Support Analyst: Nahun Pulliam III, M.D. HXHep C Ab-[place] Negative Negative POWERCHART Comment: Hmoyvm-ul-igehcz ratio is <1.00. Test Performed by: [place] [address] Technical Support Analyst: Nahun Pulliam III, M.D. Blood 01/04/2012 7:07 AM CDT Dino Corbett M.D. LAB MICROBIOLOGY - BLOOD OR DERABLES Final Result POWERCHART * (ABNORMAL) ALT (Alanine Aminotransferase) (01/04/2012 7:07 AM CDT) Alanine Amniotransferas e, LD 71(H) 5 - 45 UNITL POWERCHART Blood 01/04/2012 7:07 AM CDT us Dino Corbett M.D. LAB BLOOD ADD-ON Final Resu lt Performing Organization Address [facility] Co de Phone Number POWERCHART * (ABNORMAL) AST (Aspartate Aminotransferase) (01/04/2012 7:07 AM CDT) Aspartate Aminotransferase (AST), S 45(H) 8 - 43 UNITL POWERCHART Blood 01/04/2012 7:07 AM CDT Dino Corbett M.D. LAB BLOOD ADD-ON Final Resu lt Performing Organization Address [facility] Co de Phone Number POWERCHART * HX DRUG SCREEN COLLECTION (10/23/2011 3:49 PM CDT) HXU Drug Screen collect only POWERCHART Urine 10/23/2011 3:49 PM CDT Ming Oviedo M.D. LAB HISTORICAL ORDERS Final R esult POWERCHART * ZZPATHOLOGY NON-VALET ATTENDANT CYTOLOGY (08/25/2008 12:00 AM CDT) 08/25/2008 Narrative [facility] - 07/03/2011 3:57 PM CDT PATIENT IMAGES Choose the Image button to view related documents. 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 01/18/2017 Pain Postoperative 01/21/2017 Loss Hearing Sensorineural Bilateral 02/23/2017 Loss Hearing Sensorineural Bilateral 03/09/2017 Loss Hearing Sensorineural Bilateral 03/23/2017 Loss Hearing Sensorineural Bilateral 04/06/2017 Loss Hearing Sensorineural Bilateral 04/09/2017 Loss Hearing Sensorineural Bilateral 04/18/2017 Loss Hearing Sensorineural Bilateral 05/07/2017 Loss Hearing Sensorineural Asymmetrical 05/07/2017 Dependence Drug Opioid (HCC) 05/08/2017 Pain Foot Left 05/08/2017 Elevated Blood Pressure Without Hypertension 05/08/2017 Loss Hearing Sensorineural Bilateral 05/18/2017 Loss Hearing Sensorineural Asymmetrical 05/18/2017 Loss Hearing Sensorineural Bilateral 06/08/2017 Pain Foot Left 06/22/2017 Acute Cystitis Without Hematuria 06/27/2017 Frequency Urinary 06/27/2017 Infection Upper Respiratory 07/19/2017 Pain Foot Right 08/01/2017 Pain Foot Right 08/07/2017 Pain Foot Left 08/07/2017 Fasciitis Plantar 08/07/2017 Hallux Rigidus Left 08/07/2017 Pain Foot Left 08/07/2017 Frequency Urinary 08/22/2017 Frequency Urinary 08/22/2017 Hypertension Essential Primary 08/22/2017 Dependence Drug Opioid (HCC) 08/22/2017 Chronic Pain Syndrome 08/22/2017 Fasciitis Plantar 08/22/2017 Pain Foot Left 08/22/2017 Anxiety 08/22/2017 Hypertension Essential Primary 10/22/2017 Hypertension Essential Primary 11/06/2017 Screening Mammogram Average Risk Patient 11/21/2017 Maintenance Health Adult 11/21/2017 Insomnia Persistent Non Organic 11/21/2017 Pain Foot Left 11/21/2017 Dependence Drug Opioid (HCC) 11/21/2017 Anxiety 11/21/2017 Hypertension Essential Primary 11/21/2017 Polyp Colon Adenomatous 11/21/2017 Screening Lipid 11/21/2017 Screening Examination Diabetes Mellitus 11/21/2017 Insomnia Persistent Non Organic 11/27/2017 Maintenance Health Adult 11/27/2017 Screening Lipid 11/27/2017 Hypertension Essential Primary 11/27/2017 Screening Examination Diabetes Mellitus 11/27/2017 Cataract 01/14/2018 Pain Joint Foot Bilateral 02/04/2018 Pain Joint Foot Bilateral 02/06/2018 Pain Joint Foot Bilateral 02/06/2018 Frequency Urinary 06/10/2018 Bloating Abdominal 06/10/2018 Pain Pelvic Female 06/10/2018 Urinary Tract Infection Site Not Specified 06/10/2018 Bloating Abdominal 06/14/2018 Pain Pelvic Female 06/14/2018 Polyuria 07/04/2018 Discharge Vaginal 07/04/2018 Vaginosis Bacterial 07/04/2018 Polyuria 07/10/2018 PreDiabetes 07/12/2018 PreDiabetes 07/17/2018 Obesity Body Mass Index 30-39.9 Adult 07/17/2018 Obesity Body Mass Index 30-39.9 Adult 08/26/2018 PreDiabetes 08/26/2018 Hyperlipidemia 08/26/2018 Frequency Urinary 09/20/2018 Urgency Urinary 09/20/2018 Polyuria 09/20/2018 Frequency Urinary 09/20/2018 Urgency Urinary 09/20/2018 Polyuria 09/20/2018 Pain Wrist Left 09/20/2018 Hematuria 09/23/2018 Hematuria 09/26/2018 Hematuria 09/26/2018 Hematuria 09/30/2018 Urinary Urge Incontinence 09/30/2018 Pain Wrist Left 10/08/2018 Pain Wrist Left 10/08/2018 Pain Ankle Left 10/16/2018 Pain Wrist Left 10/16/2018 Pain Wrist Right 10/16/2018 Pain Ankle Left 10/16/2018 Osteoarthritis 10/23/2018 Dependence Drug Opioid (HCC) 10/23/2018 Anxiety 10/23/2018 Hypertension Essential Primary 10/23/2018 Pain Ankle Left 11/01/2018 Pain Ankle Bilateral 11/01/2018 Overactive Bladder 11/05/2018 Constipation 11/05/2018 Obesity Body Mass Index 30-39.9 Adult 11/06/2018 PreDiabetes 11/06/2018 Migraine Headache 11/12/2018 Education Only 11/12/2018 Maintenance Health Adult 11/12/2018 Hypertension Essential Primary 11/12/2018 Dependence Drug Opioid (HCC) 11/12/2018 Anxiety 11/12/2018 Osteoarthritis 11/12/2018 Screening Mammogram Average Risk Patient 11/12/2018 Dependence Drug Opioid (HCC) 12/31/2018 Pain Foot Left 12/31/2018 Headache Unspecified 12/31/2018 Anxiety 12/31/2018 Hypertension Essential Primary 12/31/2018 Insomnia 12/31/2018 Urgency Urinary 01/07/2019 Frequency Urinary 01/07/2019 Cataract 01/15/2019 Urinary Urge Incontinence 01/23/2019 Pain Hip Bilateral 02/04/2019 DeQuervain's Tenosynovitis 02/04/2019 Pain Wrist Right 02/04/2019 Pain Hip Bilateral 02/04/2019 Tag Skin 02/04/2019 Wart 02/04/2019 Pain Ankle Bilateral 02/21/2019 Osteoarthritis 03/16/2019 Hypertension Essential Primary 03/27/2019 Hyperlipidemia 03/27/2019 PreDiabetes 03/27/2019 Hypertension Essential Primary 04/01/2019 Screening Lipid 04/01/2019 Dependence Drug Opioid (HCC) 04/01/2019 Anxiety 04/01/2019 Urinary Urge Incontinence 04/01/2019 Rn Examiner Use Of Opiate Analgesic 04/01/2019 Urinary Urge Incontinence 04/01/2019 Constipation 04/01/2019 Screening Lipid 05/06/2019 Hypertension Essential Primary 05/06/2019 Urinary Urge Incontinence 05/13/2019 Chronic Pain Syndrome 05/13/2019 Dependence Drug Opioid (HCC) 05/13/2019 Hypertension Essential Primary 05/13/2019 Posttraumatic Stress Disorder Prolonged 05/13/2019 Chronic Pain Syndrome 07/01/2019 Osteoarthritis 07/01/2019 Insomnia 07/01/2019 Hypertension Essential Primary 07/01/2019 Posttraumatic Stress Disorder Prolonged 07/01/2019 Pain Wrist Right 07/08/2019 Arthritis Hand 07/08/2019 Screening Examination Diabetes Mellitus 07/21/2019 Pain Ankle Bilateral 07/31/2019 Injury Ankle Initial Left 08/16/2019 Pain Foot Left 08/16/2019 Pain Ankle Left 08/16/2019 History Of Falling 08/16/2019 Monitoring For Therapeutic Drug Therapy 2019 Fracture Lower Leg Bimalleolar Displaced Closed Initial Left 2019 Preoperative Exam 2019 Fracture Lower Leg Bimalleolar Displaced Closed Initial Left 2019 Dependence Drug Opioid (HCC) 2019 Hypertension Essential Primary 2019 Gastroesophageal Reflux Disease 2019 Hyperlipidemia 2019 Anxiety 2019 Edema 2019 Fracture Lower Leg Bimalleolar Displaced Closed Initial Left 2019 Fracture Ankle Closed Initial Left 01/07/2024 Open Reduction Internal Fixation Ankle Status Post 08/19/2019 Fracture Lower Leg Bimalleolar Displaced Closed Initial Left 08/22/2019 Fracture Lower Leg Bimalleolar Displaced Closed Initial Left 08/25/2019 Open Reduction Internal Fixation Ankle Status Post 08/29/2019 Open Reduction Internal Fixation Ankle Status Post 08/29/2019 Screening Mammogram Average Risk Patient 09/11/2019 Hypertension Essential Primary 09/24/2019 Open Reduction Internal Fixation Ankle Status Post 09/30/2019 Dependence Drug Opioid (HCC) 09/30/2019 Anxiety 09/30/2019 Hypertension Essential Primary 09/30/2019 Fracture Lower Leg Trimalleolar Displaced Closed Subsequent With Routine Healing Left 10/03/2019 Fracture Lower Leg Trimalleolar Displaced Closed Subsequent With Routine Healing Left 10/03/2019 Dependence Drug Opioid (HCC) 10/08/2019 Pain Wrist Right 11/07/2019 DeQuervain's Tenosynovitis 11/07/2019 Fracture Fibula Maisonneuves Displaced Closed Subsequent With Routine Healing Left 11/17/2019 Fracture Fibula Maisonneuves Displaced Closed Subsequent With Routine Healing Left 11/17/2019 Dependence Drug Opioid (HCC) 12/09/2019 Dependence Drug Opioid (HCC) 12/23/2019 Anxiety 12/23/2019 Insomnia 12/23/2019 Dependence Drug Opioid (HCC) 12/23/2019 Constipation 12/23/2019 Hypertension Essential Primary 12/23/2019 PreDiabetes 12/23/2019 Gastroesophageal Reflux Disease 12/23/2019 Polyp Colon Adenomatous Personal History 12/23/2019 Hyperlipidemia 12/23/2019 Pap Smear Examination 12/23/2019 Maintenance Health Adult 12/23/2019 Screening Mammogram Average Risk Patient 12/23/2019 Cataract 01/21/2020 Pain Wrist Left 01/27/2020 Pain Wrist Right 01/27/2020 Numbness Hand 01/27/2020 Bursitis Trochanteric Bilateral 02/13/2020 Pain Wrist Left 02/18/2020 Pain Wrist Right 02/18/2020 Numbness Hand 02/18/2020 Sinus Disease 02/23/2020 Headache New 02/23/2020 Congestion Sinus 02/23/2020 Pain Ankle Bilateral 02/25/2020 Carpal Tunnel Syndrome Right 02/25/2020 Hyperlipidemia 04/05/2020 Rn Examiner Use Of Opiate Analgesic 04/06/2020 Anxiety 04/06/2020 Hyperlipidemia 05/06/2020 Administrative Encounter No Exam 05/06/2020 Encounter For COVID-19 Vaccine Immunization 05/19/2020 Pain Wrist Left 06/01/2020 Pain Wrist Right 06/01/2020 Carpal Tunnel Syndrome Right 06/01/2020 Bursitis Trochanteric Bilateral 06/08/2020 Pain Ankle Bilateral 06/15/2020 Encounter For COVID-19 Vaccine Immunization 06/21/2020 Dependence Drug Opioid (HCC) 06/21/2020 Screening Examination Diabetes Mellitus 07/06/2020 Monitoring For Therapeutic Drug Therapy 07/06/2020 Pain Hip Bilateral 07/26/2020 Primary Osteoarthritis Hip Bilateral 07/26/2020 Pain Ankle Left 07/26/2020 Pain Ankle Left 07/26/2020 Primary Osteoarthritis Hip Bilateral 07/26/2020 Pain Generalized Abdominal 08/05/2020 Pain Generalized Abdominal 08/05/2020 Pain Flank 08/05/2020 Pain Generalized Abdominal 08/05/2020 Diarrhea 08/05/2020 Pain Generalized Abdominal 08/07/2020 Enterocolitis Due To Clostridium Difficile Not Specified As Recurrent 08/09/2020 Dependence Drug Opioid (HCC) 08/13/2020 Hypertension Essential Primary 08/13/2020 Pain Generalized Abdominal 08/24/2020 Dyspepsia 08/24/2020 Hypertensive 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 Glomerular Filtration Rate (GFR) 45 To 59 (HCC) 08/24/2020 Pain Low Back Chronic 08/24/2020 Pain Low Back Chronic 08/30/2020 Vertigo 09/07/2020 Dizziness 09/07/2020 Vertigo 09/15/2020 Nausea 09/15/2020 Dependence Drug Opioid (HCC) 09/15/2020 Pain Low Back Chronic 09/28/2020 Pain Joint Foot Bilateral 09/28/2020 Antalgic Gait Ortho 09/28/2020 Hammer Toe Acquired Left 09/28/2020 Pain Joint 10/01/2020 Dependence Drug Opioid (HCC) 10/01/2020 Pain Joint 10/01/2020 Chronic Pain Syndrome 10/01/2020 Pain Low Back Unspecified 10/01/2020 Pain Wrist Left 10/13/2020 Pain Wrist Right 10/13/2020 Deficiency Estrogen Post Menopausal 10/19/2020 Pain Hip Bilateral 10/20/2020 Bursitis Trochanteric Bilateral 10/20/2020 Pain Abdominal Chronic 10/26/2020 Pain Ankle Bilateral 10/27/2020 Encounter For Screening For Other Viral Diseases (COVID-19) 10/29/2020 Pain Abdominal Chronic 11/01/2020 Pain Abdominal Chronic 11/25/2020 Cataract 12/15/2020 Pain Hip Right 02/09/2021 Carpal Tunnel Syndrome Right 02/09/2021 Pain Wrist Left 02/09/2021 Pain Hip Right 02/16/2021 Bursitis Trochanteric Bilateral 02/16/2021 Pain Ankle Bilateral 02/16/2021 Arthritis Hip 02/16/2021 Carpal Tunnel Syndrome Right 02/23/2021 Bursitis Trochanteric Bilateral 02/23/2021 Trochanteric Bursitis Left Hip 02/23/2021 Pain Abdominal Chronic 03/02/2021 Carpal Tunnel Syndrome Right 03/04/2021 Carpal Tunnel Syndrome Right 03/22/2021 Cystoid Macular Degeneration Bilateral 03/28/2021 Release Carpal Tunnel Status Post 04/20/2021 Hypertension Essential Primary 06/06/2021 Pain Abdominal Chronic 06/30/2021 Pain Wrist Left 07/01/2021 Pain Wrist Right 07/01/2021 Primary Osteoarthritis Hip Right 09/19/2021 Carpal Tunnel Syndrome Left 09/19/2021 Hypertension Essential Primary 10/19/2021 Arthritis Hand 11/04/2021 Primary Osteoarthritis Hip Right 12/05/2021 Dependence Drug Opioid (HCC) 12/05/2021 Hypertension Essential Primary 12/05/2021 Encounter For Screening For Other Viral Diseases (COVID-19) 12/08/2021 Arthroplasty Total Hip Replacement Status Post Right 12/13/2021 Arthroplasty Total Hip Replacement Status Post Right 12/14/2021 Arthroplasty Total Hip Replacement Status Post Right 12/28/2021 Primary Osteoarthritis Hip Right 01/23/2022 Arthroplasty Total Hip Replacement Status Post Right 01/23/2022 Preoperative Exam 02/06/2022 Carpal Tunnel Syndrome Left 02/06/2022 Hypertension Essential Primary 02/06/2022 Anxiety 02/06/2022 Release Carpal Tunnel Status Post 02/28/2022 Carpal Tunnel Syndrome Left 03/27/2022 Pain Thumb Left 05/12/2022 Pain Thumb Right 05/12/2022 Pain Thumb Left 05/12/2022 Pain Thumb Right 05/12/2022 Arthritis Hand 05/12/2022 Dysuria 03/14/2023 Acute Cystitis With Hematuria 03/14/2023 Dependence Drug Opioid (HCC) 03/14/2023 Arthroplasty Total Hip Replacement Status Post Right 03/16/2023 Polyp Colon 03/16/2023 Preoperative Exam 03/16/2023 Sinusitis Acute 05/10/2023 Rosacea Ocular 05/15/2023 Sinusitis Acute Maxillary 05/15/2023 Conjunctivitis Acute Left 05/15/2023 Rosacea 05/29/2023 Rosacea Ocular 06/19/2023 Diarrhea 07/29/2023 Rosacea 09/18/2023 Rosacea 10/18/2023 Keratosis Seborrheic Inflamed 10/18/2023 Wart 10/18/2023 Rosacea 11/20/2023 Dry Eye Syndrome Bilateral 11/20/2023 Pain Abdominal Chronic 11/01/2020 Care Teams Automation Machine Builder Relationship Specialty Start Date End Date Elsewhere, Pcp PCP - General Family Medicine 11/01/20
--- OUTSIDE RECORDS SUMMARY | 2024-01-07 20:16 | XMS_ITS | Encounter Summary ---
Author Organization [facility] Address [address] [place] [address] Care Team Providers Care Punch Finisher Name Role Phone Elsewhere, Pcp Primary Care Provider Unavailabl e Encounter Details Date Type Department Care Team (Late st Contact Info) Description 10/05/2023 Orders Only Department of Ophthalmology in [place], [place] [address] [address] Darien Rodriguez Jr., M.D. [address] [address] Social History Tobacco Use Types Packs/Day Years Used Date Smoking Tobacco: Former Cigarettes 1.5 35.8 0 03/05/1969 - 01/03/2005 Smokeless Tobacco: Former Alcohol Use Standard Drinks/Week Comments Yes 1 (1 standard drink = 0.6 oz pur e alcohol) only on rare occasions [facility] Utilities Answer Date Recorded In the past 12 months has [facility] [employer], gas, oil, or water [employer] threatened to shut off services in your [...] week 03/27/2022 How often do you attend tenriism or yazidi serv ices? Patient declined 03/27/2022 Do you belong to any clubs o r organizations such as tenriism groups, unions, fraternal or athletic groups, or [...] Answer Date Recorded PHQ-2 Score 2 03/15/2023 [facility] - Occupational Stress Questionnaire Answer Date Recorded [...] your living situation today? I have a [facility] place to live 05/10/2023 Education Answer Date Recorded What is the highest level of school you have completed or the highest degree you have received? Associate degree: academic program 09/18/2021 Comments No Sex and Gender Information Value Date Recorded Sex Assigned at Female 01/15/2017 8:07 PM VISUAL LEAD Legal Sex Female 5:08 AM VISUAL LEAD Gender Identity Female 01/15/2017 8:07 PM VISUAL LEAD Sexual Orientation Straight 01/15/2017 8: 07 PM VISUAL LEAD Occupation Industry Job Start Date Job End Date Not on file Not on file Not on file Not on file documented as of this encounter Plan of Treatment Upcoming Encounters Date Type Department Care Team (Latest Contact Info) Description 01/21/2024 11:15 AM VISUAL LEAD Comprehensive Visit Department of Ophthalmology in [place], [place] [address] [place] [address] Darien Rodriguez Jr., M.D. [address] [place] [address] documented as of this encounter Visit Diagnoses Not on filedocumented in this encounter Additional Health Concerns Assessment Noted Time PHQ-9 Depression Total Score: 17 020 8:36 AM VISUAL LEAD documented as of this encounter Care Teams Punch Finisher Relationship Specialty Start Date End Date Elsewhere, Pcp PCP - General Family Medicine 11/01/20 documented as of this encounter
--- OUTSIDE RECORDS SUMMARY | 2024-01-07 20:16 | XMS_ITS | Encounter Summary ---
Author Organization [facility] Address [address] [place] [address] Care Team Providers Care Baking Assistant Name Role Phone Elsewhere, Pcp Primary Care Provider Unavailabl e Reason for Visit * Reason Comments Med Refill Encounter Details Date Type Department Care Team (Late st Contact Info) Description 10/05/2023 Refill Department of Ophthalmology in [place], [place] [address] [phone] Darien Rodriguez Jr., M.D. [address] [phone] Med Refill Social History Tobacco Use Types Packs/Day Years Used Date Smoking Tobacco: Former Cigarettes 1.5 35.8 0 03/05/1969 - 01/03/2005 Smokeless Tobacco: Former Alcohol Use Standard Drinks/Week Comments Yes 1 (1 standard drink = 0.6 oz pur e alcohol) only on rare occasions [facility] Utilities Answer Date Recorded In the past 12 months has [employer], gas, oil, or water [employer] threatened to shut off services in your [...] week 03/27/2022 How often do you attend druze or advent serv ices? Patient declined 03/27/2022 Do you belong to any clubs o r organizations such as druze groups, unions, fraternal or athletic groups, or [...] Answer Date Recorded PHQ-2 Score 2 03/15/2023 [facility] - Occupational Stress [...] your living situation today? I have a [facility] place to live 05/10/2023 Education Answer Date Recorded What is the highest level of school you have completed or the highest degree you have received? Associate degree: academic program 09/18/2021 Comments No Sex and Gender Information Value Date Recorded Sex Assigned at Female 01/15/2017 8:07 PM STRAP MACHINE OPERATOR Legal Sex Female 5:08 AM STRAP MACHINE OPERATOR Gender Identity Female 01/15/2017 8:07 PM STRAP MACHINE OPERATOR Sexual Orientation Straight 01/15/2017 8: 07 PM STRAP MACHINE OPERATOR Occupation Industry Job Start Date Job End Date Not on file Not on file Not on file Not on file documented as of this encounter Plan of Treatment Upcoming Encounters Date Type Department Care Team (Latest Contact Info) Description 01/21/2024 11:15 AM STRAP MACHINE OPERATOR Comprehensive Visit Department of Ophthalmology in [place], [place] [address] [place] [address] Darien Rodriguez Jr., M.D. [address] [place] [address] documented as of this encounter Visit Diagnoses Not on filedocumented in this encounter Additional Health Concerns Assessment Noted Time PHQ-9 Depression Total Score: 17 04/01/ 020 8:36 AM STRAP MACHINE OPERATOR documented as of this encounter Care Teams Baking Assistant Relationship Specialty Start Date End Date Elsewhere, Pcp PCP - General Family Medicine 11/01/20 documented as of this encounter
--- OUTSIDE RECORDS SUMMARY | 2024-01-07 20:16 | XMS_ITS | Encounter Summary ---
Author Organization [facility] Address [address] [place] [address] Care Team Providers Care Student Services Director Name Role Phone Elsewhere, Pcp Primary Care Provider Unavailabl e Encounter Details Date Type Department Care Team (Latest Contact Info) Description 10/05/2023 Clinical Communication Department of Ophthalmology in [place], [place] [address] [address] Darien Rodriguez Jr., M.D. [address] [address] Social History Tobacco Use Types Packs/Day Years Used Date Smoking Tobacco: Former Cigarettes 1.5 35.8 0 03/05/1969 - 01/03/2005 Smokeless Tobacco: Former Alcohol Use Standard Drinks/Week Comments Yes 1 (1 standard drink = 0.6 oz pur e alcohol) only on rare occasions [facility] Utilities Answer Date Recorded In the past 12 months has [facility] [employer], gas, oil, or water [employer] threatened to shut off services in your [...] week 03/27/2022 How often do you attend orthodox or sabianism serv ices? Patient declined 03/27/2022 Do you belong to any clubs o r organizations such as orthodox groups, unions, fraternal or athletic groups, or [...] Answer Date Recorded PHQ-2 Score 2 03/15/2023 [facility] - Occupational Stress Questionnaire Answer Date Recorded [...] your living situation today? I have a [facility] place to live 05/10/2023 Education Answer Date Recorded What is the highest level of school you have completed or the highest degree you have received? Associate degree: academic program 09/18/2021 Comments No Sex and Gender Information Value Date Recorded Sex Assigned at Female 01/15/2017 8:07 PM PROTOTYPE ENGINEER Legal Sex Female 5:08 AM PROTOTYPE ENGINEER Gender Identity Female 01/15/2017 8:07 PM PROTOTYPE ENGINEER Sexual Orientation Straight 01/15/2017 8: 07 PM PROTOTYPE ENGINEER Occupation Industry Job Start Date Job End Date Not on file Not on file Not on file Not on file documented as of this encounter Plan of Treatment Upcoming Encounters Date Type Department Care Team (Latest Contact Info) Description 01/21/2024 11:15 AM PROTOTYPE ENGINEER Comprehensive Visit Department of Ophthalmology in [place], [place] [address] [place] [address] Darien Rodriguez Jr., M.D. [address] [place] [address] documented as of this encounter Visit Diagnoses Not on filedocumented in this encounter Additional Health Concerns Assessment Noted Time PHQ-9 Depression Total Score: 17 020 8:36 AM PROTOTYPE ENGINEER documented as of this encounter Care Teams Student Services Director Relationship Specialty Start Date End Date Elsewhere, Pcp PCP - General Family Medicine 11/01/20 documented as of this encounter
--- OUTSIDE RECORDS SUMMARY | 2024-01-07 20:16 | XMS_ITS ---
Author Organization [facility] Address [address] [place] [address] Care Team Providers Care Passenger Elevator Operator Name Role Phone Unavailable Unavailable Unavailable Surgery Details Not on file Complications Check Surgery Details section. Procedure Estimated Blood Loss Check Surgery Details section. Procedure Findings Check Surgery Details section. Procedure Specimens Taken Check Surgery Details section.
--- OUTSIDE RECORDS SUMMARY | 2024-01-07 20:16 | XMS_ITS | Encounter Summary ---
Author Organization [facility] Address [address] [place] [address] Care Team Providers Care Livestock Laborer Name Role Phone Elsewhere, Pcp Primary Care Provider Unavailabl e Encounter Details Date Type Department Care Team (Late st Contact Info) Description 11/23/2023 Orders Only Pharmacy Prior Auth [facility] [phone] Lora Brown Social History Tobacco Use Types Packs/Day Years Used Date Smoking Tobacco: Former Cigarettes 1.5 35.8 0 03/05/1969 - 01/03/2005 Smokeless Tobacco: Former Alcohol Use Standard Drinks/Week Comments Yes 1 (1 standard drink = 0.6 oz pur e alcohol) only on rare occasions [facility] Utilities Answer Date Recorded In the [...] week 03/27/2022 How often do you attend scientologist or moravian serv ices? Patient declined 03/27/2022 Do you belong to any clubs o r organizations such as scientologist groups, unions, fraternal or athletic groups, or [...] Answer Date Recorded PHQ-2 Score 2 03/15/2023 [facility]at ional [facility] - Occupational Stress Questionnaire Answer Date [...] your living situation today? I have a [facility] place to live 05/10/2023 Education Answer Date Recorded What is the highest level of school you have completed or the highest degree you have received? Associate degree: academic program 09/18/2021 Comments No Sex and Gender Information Value Date Recorded Sex Assigned at Female 01/15/2017 8:07 PM CNA GNA Legal Sex Female 5:08 AM CNA GNA Gender Identity Female 01/15/2017 8:07 PM CNA GNA Sexual Orientation Straight 01/15/2017 8: 07 PM CNA GNA Occupation Industry Job Start Date Job End Date Not on file Not on file Not on file Not on file documented as of this encounter Plan of Treatment Upcoming Encounters Date Type Department Care Team (Latest Contact Info) Description 01/21/2024 11:15 AM CNA GNA Comprehensive Visit Department of Ophthalmology in [place], [place] [address], [place] [address] Darien Rodriguez Jr., M.D. [address] [address] documented as of this encounter Visit Diagnoses Not on filedocumented in this encounter Additional Health Concerns Assessment Noted Time PHQ-9 Depression Total Score: 17 020 8:36 AM CNA GNA documented as of this encounter Care Teams Livestock Laborer Relationship Specialty Start Date End Date Elsewhere, Pcp PCP - General Family Medicine 11/01/20 documented as of this encounter
--- OUTSIDE RECORDS SUMMARY | 2024-01-07 20:16 | XMS_ITS | Encounter Summary ---
Author Organization [facility] Address [address] [place] [address] Care Team Providers Care Director Construction Services Name Role Phone Elsewhere, Pcp Primary Care Provider Unavailabl e Reason for Referral * Outpatient (Routine) - Authorized Specialty Diagnoses / Procedures Referred By Donaldo vargas Referred To Contact Ophthalmology Darien Rodriguez Jr., M.D. [address] [address] Phone: tel: fax: [facility] Referral ID Status Reason Start Date Expiration Date V isits Requested Visits Authorized [id number] Authorized 11/20/2023 05/21/2025 1 1 * Medication Prior Authorization - Closed Specialty Diagnoses / Procedures Referred By Donaldo vargas Referred To Contact Darien Rodriguez Jr., M.D. [address] [place] [phone] Phone: tel: fax: Referral ID Status Reason Start Date Expiration Date Visits Re quested Visits Authorized [id number] Closed 1 1 Reason for Visit * Reason Comments Rosacea * Outpatient (Routine) - Closed Specialty Diagnoses / Procedures Referred By Donaldo t Referred To Contact Ophthalmology Darien Rodriguez Jr., M.D. [address] [place] [phone] Phone: tel: fax: [facility] Region Referral ID Status Reason Start Date Expiration Date Visits Re quested Visits Authorized [id number] Closed 09/18/2023 03/19/2025 1 1 Encounter Details Date Type Department Care Team (Latest Contact Info) Description 11/20/2023 3:30 PM CDT Office Visit Department of Ophthalmology in [place], [place] [address] [address] Darien Rodriguez Jr., M.D. [address], [place] [address] Rosacea (Primary Dx); Dry Eye Syndrome Bilateral Social History Tobacco Use Types Packs/Day Years Used Date Smoking Tobacco: Former Cigarettes 1.5 35.8 0 03/05/1969 - 01/03/2005 Smokeless Tobacco: Former Alcohol Use Standard Drinks/Week Comments Yes 1 (1 standard drink = 0.6 oz pur e alcohol) only on rare occasions [facility] Utilities Answer Date Recorded In the past [...] week 03/27/2022 How often do you attend buddhism or islam serv ices? Patient declined 03/27/2022 Do you belong to any clubs o r organizations such as buddhism groups, unions, fraternal or athletic groups, or [...] Answer Date Recorded PHQ-2 Score 2 03/15/2023 [facility] of Occupat ional Health - Occupational Stress [...] your living situation today? I have a [facility] place to live 05/10/2023 Education Answer Date Recorded What is the highest level of school you have completed or the highest degree you have received? Associate degree: academic program 09/18/2021 Comments No Sex and Gender Information Value Date Recorded Sex Assigned at Female 01/15/2017 8:07 PM REPAIR WEAVER Legal Sex Female 5:08 AM REPAIR WEAVER Gender Identity Female 01/15/2017 8:07 PM REPAIR WEAVER Sexual Orientation Straight 01/15/2017 8: 07 PM REPAIR WEAVER Occupation Industry Job Start Date Job End Date Not on file Not on file Not on file Not on file documented as of this encounter Progress Notes * Darien Rodriguez Jr., M.D. - 11/20/2023 3:30 PM CDT Bell CardonaChelitaDavid was seen today for Rosacea #1 Rosacea #2 Dry Eye Syndrome Bilateral #1 Minocycline not really helping per patient. She has mixed mechanism dry eye; definitely has rosacea, but no tear [place] so not able to prevent tears from evaporating. Really needs Restasis to make tears. Xiidra or Restasis 1 drop both eyes BID Rto 6-8 weeks. Continue warm compresses and lid scrubs at least daily. Continue tears QID, Systane balance QID. documented in this encounter Plan of Treatment Upcoming Encounters Date Type Department Care Team (Latest Contact Info) Description 01/21/2024 11:15 AM REPAIR WEAVER Comprehensive Visit Department of Ophthalmology in [place], [place] [address] [place] [phone] Darien Rodriguez Jr., M.D. [address] [place] [address] Scheduled Referrals Name Type Priority Associated Diagnoses Order Schedule Ophthalmology office visit (clinic) Outpatient Referral Routine Expected: 01/20/2024, Expires: 02/18/2025 documented as of this encounter Visit Diagnoses Diagnosis Rosacea- Primary Dry Eye Syndrome Bilateral documented in this encounter Additional Health Concerns Assessment Noted Time PHQ-9 Depression Total Score: 17 04/01/ 020 8:36 AM REPAIR WEAVER documented as of this encounter Care Teams Director Construction Services Relationship Specialty Start Date End Date Elsewhere, Pcp PCP - General Family Medicine 11/01/20 documented as of this encounter
--- OUTSIDE RECORDS SUMMARY | 2024-01-07 20:16 | XMS_ITS | Encounter Summary ---
Author Organization [facility] Address [address] [place] [address] Care Team Providers Care Cooker Sulfate Name Role Phone Elsewhere, Pcp Primary Care Provider Unavailabl e Encounter Details Date Type Department Care Team (Late st Contact Info) Description 11/22/2023 Orders Only Pharmacy Prior Auth [facility] [phone] Lora Brown Social History Tobacco Use Types Packs/Day Years Used Date Smoking Tobacco: Former Cigarettes 1.5 35.8 0 03/05/1969 - 01/03/2005 Smokeless Tobacco: Former Alcohol Use Standard Drinks/Week Comments Yes 1 (1 standard drink = 0.6 oz pur e alcohol) only on rare occasions [facility] Utilities Answer Date Recorded In the past 12 months has e electric, gas, oil, or water [employer] threatened to shut off services in your [...] week 03/27/2022 How often do you attend yarsani or baptist serv ices? Patient declined 03/27/2022 Do you belong to any clubs o r organizations such as yarsani groups, unions, fraternal or athletic groups, or [...] Answer Date Recorded PHQ-2 Score 2 03/15/2023 [facility] Occupat ional [facility] - Occupational Stress Questionnaire Answer Date Recorded [...] your living situation today? I have a [facility] place to live 05/10/2023 Education Answer Date Recorded What is the highest level of school you have completed or the highest degree you have received? Associate degree: academic program 09/18/2021 Comments No Sex and Gender Information Value Date Recorded Sex Assigned at Female 01/15/2017 8:07 PM SHOTBLAST EQUIPMENT OPERATOR Legal Sex Female 5:08 AM SHOTBLAST EQUIPMENT OPERATOR Gender Identity Female 01/15/2017 8:07 PM SHOTBLAST EQUIPMENT OPERATOR Sexual Orientation Straight 01/15/2017 8: 07 PM SHOTBLAST EQUIPMENT OPERATOR Occupation Industry Job Start Date Job End Date Not on file Not on file Not on file Not on file documented as of this encounter Plan of Treatment Upcoming Encounters Date Type Department Care Team (Latest Contact Info) Description 01/21/2024 11:15 AM SHOTBLAST EQUIPMENT OPERATOR Comprehensive Visit Department of Ophthalmology in [place], [place] [address], [place] [address] Darien Rodriguez Jr., M.D. [address] [address] documented as of this encounter Visit Diagnoses Not on filedocumented in this encounter Additional Health Concerns Assessment Noted Time PHQ-9 Depression Total Score: 17 020 8:36 AM SHOTBLAST EQUIPMENT OPERATOR documented as of this encounter Care Teams Cooker Sulfate Relationship Specialty Start Date End Date Elsewhere, Pcp PCP - General Family Medicine 11/01/20 documented as of this encounter
--- OUTSIDE RECORDS SUMMARY | 2024-01-07 20:16 | XMS_ITS | Referral Summary ---
Author Organization [facility] Address [address] [place] [address] Care Team Providers Care Sports Centre Manager Name Role Phone Elsewhere, Pcp Primary Care Provider Unavailabl e Source Comments Patient records contain information from all sites at [facility]. For routine questions regarding patient records, call [phone] during business hours, M-F 8:00 AM - 5:00 PM Central Time. Record requests for emergency care only can be directed to [phone] at any time.[facility] Encounters Date Type Department Care Team Description 11/23/2023 Orders Only Pharmacy Prior Auth RO [phone] Lora Brown 11/22/2023 Orders Only Pharmacy Prior Auth [facility] [phone] Lora Brown 11/20/2023 3:30 PM CDT Office Visit Department of Ophthalmology in [place], [place] [address] [phone] Darien Rodriguez Jr., M.D. Rosacea (Primary Dx); Dry Eye Syndrome Bilateral 10/25/2023 Clinical Communication Department of General Surgery in [place], [place] [address] [place] [phone] Anju Oliveira M.D. Colonoscopy 10/18/2023 1:30 PM CDT Comprehensive Visit Department of Family Medicine, [facility], in [place], [place] [address] [place] [phone] Mckenna Montalvo APRN, C.N.P. Keratosis Seborrheic Inflamed (Primary Dx); Rosacea; Wart from Last 3 Months Allergies Active Allergy Reactions Criticality Noted Date Comments Adhesive Tape-Silicones Rash 08/20/2009 Amoxicillin Other (see comments) 08/20/2009 Latex Other (see comments) 11/21/2016 Prednisone Edema (Reselect Reaction) 12/29/2006 Tramadol GI intolerance Low 03/22/2021 Medications LANOLIN/MATERIAL HANDLER LOADER AL OIL/PETROLATU M (ARTIFICIAL TEARS OPHT) Administer [...] DAYS 30 tablet 09/28/19 21 Active calcium bwy-lzu-F5-Zn -atomic spectroscopist-prisca (Calcium Citrate Plus) [id number]. 75 ha-yv-noyd-mg tablet Take by mouth. 02/05/20 21 Active [...] (10/26/2020): Added automatically from request for surgery [id number] Carpal Tunnel Syndrome Right 02/24/2020 Bursitis Trochanteric Bilateral 02/12/2020 Numbness Hand 01/27/2020 Open Reduction Internal Fixation Ankle Status Po st 09/30/2019 Overview (09/30/2019): L. Ankle, bimalleolar Fx. Lan 08/19/2019. Constipation 04/01/2019 Urinary Urge Incontinence 02/08/2019 Pain Wrist Left 10/16/2018 Pain Wrist Right 10/16/2018 Pain Ankle Bilateral 10/16/2018 PreDiabetes 07/12/2018 Stasis Dermatitis Lower Extremity Bilateral 07/03 Pain Foot Left 04/26/2016 Dependence Drug Opioid 03/14/2016 Overview (07/25/2016): Opioid Dependence Posttraumatic Stress Disorder Prolonged 02/16/20 Hypertension Essential Primary 02/01/2016 Overview (12/31/2018): Anxiety [...] quad (FLUZONE/FLUARIX) (6 months and older)(PF) 11/08/2019,12/25/2018,01/16/2018,2016 Social History Tobacco Use Types Packs/Day Years Used Date Smoking Tobacco: Former Cigarettes 1.5 35.8 0 03/05/1969 - 01/03/2005 Smokeless Tobacco: Former Tobacco Cessation:Counseling Given: Not Answered Alcohol Use Standard Drinks/Week Comments Yes 1 (1 standard drink = 0.6 oz pur e alcohol) only on rare occasions [facility] Answer Date Recorded In the past 12 months has e [employer], gas, oil, or water [employer] threatened to shut off services in your [...] week 03/27/2022 How often do you attend advent or christianity serv ices? Patient declined 03/27/2022 Do you belong to any clubs o r organizations such as advent groups, unions, fraternal or athletic groups, or [...] Answer Date Recorded PHQ-2 Score 2 03/15/2023 [facility] - Occupational Stress Questionnaire Answer Date Recorded [...] your living situation today? I have a [facility] place to live 05/10/2023 Education Answer Date Recorded What is the highest level of school you have completed or the highest degree you have received? Associate degree: academic program 09/18/2021 Comments No Sex and Gender Information Value Date Recorded Sex Assigned at Female 01/15/2017 8:07 PM SPORTS RECRUITER Legal Sex Female 5:08 AM SPORTS RECRUITER Gender Identity Female 01/15/2017 8:07 PM SPORTS RECRUITER Sexual Orientation Straight 01/15/2017 8: 07 PM SPORTS RECRUITER Occupation Industry Job Start Date Job End Date Not on file Not on file Not on file Not on file Last Filed Vital Signs Vital Sign Reading Time Taken Comments Blood Pressure 139/80 05/10/2023 9:20 AM SPORTS RECRUITER Pulse 64 05/10/2023 9:20 AM SPORTS RECRUITER Temperature 36.3 ??C (97.4 ??F) 05/10/2023 9:20 AM CS T Respiratory Rate 16 03/14/2023 8:24 AM SPORTS RECRUITER Oxygen Saturation 97% 02/06/2022 12:38 PM SPORTS RECRUITER Inhaled Oxygen Concentration - - Weight 86.4 kg (190 lb 7.6 oz) 05/10/2023 9:20 A M SPORTS RECRUITER Height 162.8 cm (5' 4.09) 03/16/2023 11:[address] Body Mass Index 32.6 03/16/2023 11:03 AM SPORTS RECRUITER Plan of Treatment Upcoming Encounters Date Type Department Care Team (Latest Contact Info) Description 01/21/2024 11:15 AM SPORTS RECRUITER Comprehensive Visit Department of Ophthalmology in [place], [place] [address] [place] [phone] Darien Rodriguez Jr., M.D. [address] [place] [phone] Medical Devices Implanted Type Area Operational Meteorologist Device Identifier Shelf Expiration Date Model / Serial / Lot Hardware E.G. Pins/Screws/Rods Hardware e.g. pins/screws/ rods Foot Description:Plate and 2 scre ws on left lower extremity (calf), wire across left ankle, 2 screws in left foot. Conversions - Default Historical Implant Device Implanted:2016 (Quantity not on file) Hardware e.g. pins/screws/ rods Description:Device Status Te xt - Hardware. left foot. Kwire Ss 4 .062 - [place] [id number] Implanted:Qty: 1 on 01/10/2017 Hardware e.g. pins/screws/ rods [place] Description:Device Manufactu rer - [place] Kate.. Device Status Text - [id number]. Syn-Screw Gene Self Tap 3.5 X 22 - [place] [id number] Implanted:Qty: 1 on 01/10/2017 Hardware e.g. pins/screws/ rods Depuy Synthes Description:Device Manufactu rer - Synthes. Device Status Text - [id number]. Sm Frag-Screw Canc Part 4 X 40 - [place] [id number] Implanted:Qty: 1 on 01/10/2017 Hardware e.g. pins/screws/ rods [employer]uy Synthes Description:Device Manufactu rer - Synthes. Device Status Text - [id number]. Hip Implant-12/14/19 Implanted:2021 by Ming Montenegro M.D. (Quantity not on file) Hip Implant Right: Hip [place] TRIDENT II/ACCOLAD E II / / Procedures Procedure Name Priority Date/Time Associated Diagnosis Comments COMPREHENSIVE METABOLIC PANEL, S/P Routine 10/01/2020 10:11 AM CDT Pain Joint LIPID PANEL, S Routine 05/06/2020 11:20 AM SPORTS RECRUITER Hyperlipidemia BI BREAST SCREENING BILATERAL WITH TOMOSYNTHESIS RAD - Routine (most inpatients and all outpatients) 12/23/2019 10:40 AM CDT Screening Mammogram Average Risk Patient THINPREP SCREEN HPV REFLEX Routine 12/23/2019 10:25 AM CDT Pap Smear Examination Maintenance Health Adult COLONOSCOPY Routine 02/19/2015 10:53 AM SPORTS RECRUITER ACUTE HEPATITIS PROFILE Routine 01/04/2012 7:07 AM CDT from Last 3 Months or Most Recently Relevant to Health Maintenance Results * Comprehensive Metabolic Panel (10/01/2020 10:11 AM [...] C.N.P. LAB BLOOD ADD-ON Fi nal Result [facility] [address] [place] [address], [facility] in [place] [address] [place] [address] * (ABNORMAL) Lipid Panel (05/06/2020 11:20 AM SPORTS RECRUITER) Cholesterol, Total 183 mg/dL 2020 12:00 PM SPORTS RECRUITER OWAT Comment: ----REFERENCE VALUE---- Desirable: < 200 Borderline high: 200 - 239 High: > or = 240 Triglycerides 204(H) mg/dL 05/06/2020 12:00 PM SPORTS RECRUITER OWAT Comment: ----REFERENCE VALUE---- Normal: <150 Borderline high: 150-199 High: 200-499 Very high: > or =500 Cholesterol, HDL 46(L) >=50 mg/dL 05/07/19 12:00 PM SPORTS RECRUITER OWAT Calculated LDL 96 mg/dL 05/06/2020 12:00 PM SPORTS RECRUITER OWAT Comment: ----REFERENCE VALUE---- Desirable: <100 Above Desirable: 100-129 Borderline high: 130-159 High: 160-189 Very high: > or =190 Cholesterol, Non-HDL, Calculated 137 mg/dL 05/06/2020 12:00 PM SPORTS RECRUITER OWAT Comment: ----REFERENCE VALUE---- Desirable: <130 Above Desirable: 130-159 Borderline high: 160-189 High: 190-219 Very high: > or =220 Blood (Blood, Venous) 05/06/2020 11:20 AM SPORTS RECRUITER 05/06/2020 11:21 AM SPORTS RECRUITER us Dino Boothe M.D. LAB BLOOD ADD-ON Final Resu lt [facility] [address] [place] [address], [facility] [place] [address] [place] [address] * (ABNORMAL) ThinPrep Screen HPV Reflex (12/23/2019 10:25 AM CDT) (A) 0 9:15 AM CDT [facility] Participated in the Interpretation Interpreted by: Sho [...] 10:25 AM CDT 12/23/2019 2:11 PM CDT Dino Boothe M.D. LAB PAP PATHDX ORDERABLES F inal Result Performing Organization Address City/[facility]/ZIP Co de Phone Number [facility] [address] [place] [address], [facility] HKCY [facility] [address] [place] [id number] * Colonoscopy (02/19/2015 10:53 AM SPORTS RECRUITER) 02/19/2015 10:5 3 AM SPORTS RECRUITER Luis Enrique Hernandez M.D. GI PROCEDURE ORDERABLES Fin al Result Performing Organization Address City/[facility]/ZIP Co de Phone Number [address] * Acute Hepatitis Profile (01/04/2012 7:07 AM CDT) HBs Antigen, S Negative Negative POWERCHART Comment: Test Performed by: [place] [address] Activities Assistant: Nahun Pulliam III, M.D. HX Hep A IgM-Amity Negative Negative POWERCHART HX Hep B Core IgM-Amity Negative Negative POWERCHART Comment: Test Performed by: [place] [address] Activities Assistant: Nahun Pulliam III, M.D. HXHep C Ab-Amity Negative Negative POWERCHART Comment: Luxazf-ip-mgfqkz ratio is <1.00. Test Performed by: [place] [address] Activities Assistant: Nahun Pulliam III, M.D. Blood 01/04/2012 7:07 AM CDT Dino A Kaupa M.D. LAB MICROBIOLOGY - BLOOD OR DERABLES Final Result POWERCHART from Last 3 Months or Most Recently Relevant to Health Maintenance Insurance [employer] Advance Directives For more information, please contact: [phone] Documents on File Type Date Recorded Patient Cyber Security Administrator Expl anation Advance Directives 08/06/2013 12:00 AM David isabel document. See document viewer. Care Teams Sports Centre Manager Relationship Specialty Start Date End Date Elsewhere, Pcp PCP - General Family Medicine 11/01/20
--- OUTSIDE RECORDS SUMMARY | 2024-01-07 20:17 | XMS_ITS | Clinical Summary ---
Author Organization [employer] [facility] [employer] [facility] Address [place], [place] [address] Care Team Providers Care Forensic Dna Analyst Name Role Phone Lucero Bunch Primary Care Provider Allergies Active Allergy Reactions Criticality Noted Date Comments Adhesive Itching 07/10/2023 Adhesive Tape Rash,Itching,Edema High 12/25/2008 Amoxicillin Dizziness,Edema,Yeast Infection High Latex Erythema,Itching,Oth er - Describe In Comment Field,Rash 10/06/2013 Prednisone Throat Swelling/Closing,Edema High 2006 Tramadol Nausea And Vomiting Low 03/22/2021 Medications Medication Sig Dispensed Refills Start Date End Date Status calcium carbonate/vitamin D3 (CALCIUM-D ORAL) Take 1 Tablet by mouth once daily. Active furosemide (LASIX) 20 mg tablet Take 20 mg by mouth once daily if needed. Active indomethacin (INDOCIN) 50 mg capsuleIndications :Acute gout of wrist, unspecified cause, unspecified laterality Take 50 mg by mouth 3 times daily if needed for gout with meals. 20 Capsule 01/31/20 22 Active gabapentin (NEURONTIN) 300 mg capsuleIndications :Cervical radiculopathy at C6 Take 1 Capsule (300 mg) by mouth at bedtime. 30 Capsule 3 02/02/20 23 Active Additional Information Patient taking differently:300 mg Oral BEDTIME,As needed, Reported on 03/27/2023 amLODIPine (NORVASC) 10 mg tabletIndications: Essential hypertension Take 1 Tablet (10 mg) by mouth once daily. 90 Tablet 3 04/26/19 24 Active Senna 8.6 mg tablet Take 8.6 mg by mouth once daily if needed. 07/10/19 24 Active lidocaine 5 % topical patchIndications:P rimary osteoarthritis of left hip,Primary osteoarthritis of right hip,Other chronic pain,Controlled substance agreement signed,Greater trochanteric bursitis, unspecified laterality Apply on dry, clean, hairless skin. Apply 1 patch to painful area of skin for up to to 12 hours within 24 hour period. 30 Patch 11 09/27/19 24 Active eszopiclone (LUNESTA) 3 mg tabletIndications: Insomnia, idiopathic TAKE 1 TABLET AT BEDTIME 90 Tablet 1 10/13/19 24 Active omeprazole (PRILOSEC) 20 mg Delayed-Release capsuleIndications :Gastroesophageal reflux disease TAKE 1 CAPSULE DAILY BEFORE A MEAL NEEDED FOR REFLUX 90 Capsule 10/27/19 24 Active meloxicam (MOBIC) 7.5 mg tabletIndications: Other chronic pain TAKE 1 TABLET TWICE DAILY NEEDED FOR PAIN 180 Tablet 3 10/30/19 24 Active tiZANidine (ZANAFLEX) 4 mg tabletIndications: Lumbar nerve root impingement,Other chronic pain TAKE 1 TABLET EVERY 8 HOURS NEEDED FOR MUSCLE SPASM(S) 60 Tablet 3 10/30/19 24 Active citalopram (CELEXA) 20 mg tabletIndications: Anxiety,Hot flashes TAKE 1 TABLET EVERY MORNING 90 Tablet 11/04/19 24 Active LORazepam (ATIVAN) 0.5 mg tabIndications:Anx iety TAKE 1 TABLET ONE TIME DAILY NEEDED FOR ANXIETY 30 Tablet 12/26/19 24 Active cycloSPORINE (Restasis) 0.05 % ophthalmic emulsion Place 1 Drop into both eyes every 12 hours. 11/20/19 24 025 Active minocycline (MINOCIN) 50 mg capsule Take 50 mg by mouth two times daily. 10/05/19 24 Active HYDROcodone-acetam inophen (10-325 mg/tablet)Indicati ons:Other chronic pain,Controlled substance agreement signed,Greater trochanteric bursitis, unspecified laterality Take 1 tab twice daily as needed and a 1/2 tab in the afternoon as needed. Max per day is 2.5 tabs. Max acetaminophen 4000mg in 24 hours. 75 Tablet 12/29/19 24 Active LORazepam (ATIVAN) 0.5 mg tabIndications:Anx iety TAKE 1 TABLET ONE TIME DAILY NEEDED FOR ANXIETY 30 Tablet 2 07/23/19 24 024 Discontinued minocycline (MINOCIN) 50 mg tablet Take 50 mg by mouth two times daily. 09/20/19 24 024 aspirin chewable 81 mg chewable tablet Chew 81 mg by mouth once daily with a meal. 07/10/19 24 024 Discontinued(*P atient states no longer taking) Xarelto 10 mg tablet Take 10 mg by mouth once daily with evening meal. 07/11/19 24 024 Discontinued(*P atient states no longer taking) HYDROcodone-acetam inophen (10-325 mg/tablet)Indicati ons:Other chronic pain,Controlled substance agreement signed,Greater trochanteric bursitis, unspecified laterality Take 1 tab twice daily as needed and a 1/2 tab in the afternoon as needed. Max per day is 2.5 tabs. Max acetaminophen 4000mg in 24 hours. 75 Tablet 11/30/19 Discontinued(Re order (E-cancel not sent)) Active Problems Problem Noted Date Diagnosed Date Carpal tunnel syndrome of left wrist 02/13/2022 Primary osteoarthritis of right hip 12/12/2021 Uncomplicated opioid dependence 11/09/2021 Hypertensive heart and chronic kidney disease st age 3 11/09/2021 Chronic epigastric pain 11/05/2020 Cerebral meningocele 11/05/2020 Lumbar nerve root impingement 11/05/2020 Controlled substance agreement signed 10/08/2020 Overview (07/03/2023): Signed with Dr. Bunch on 10/08/20. Treating chronic pain. Receiving [place] 10/325 1 tab twice daily prn #60/month. 11/11/22 - compliance drug test positive for Urine Ethylglucuronide. Patient stated she doesn't drink alcohol. Has been using an alcohol based mouthwash several times a day due to dental issues. Stopped mouthwash use after this testing. 06/28/23 - repeat compliance drug test no long positive for alcohol since she has stopped her mouthwash. However she is having more dental issues per her dentist. She was given the ok to resume her mouthwash knowing her drug testing may be positive again in the future and shouldn't affect her ability to continue getting her medication. Other chronic pain 10/08/2020 Carpal tunnel syndrome 02/24/2020 Greater trochanteric bursitis 02/12/2020 Numbness of hand 01/27/2020 Ankle fracture, left, closed, initial encounter 2019 Constipation 04/01/2019 Urge incontinence of urine 02/08/2019 Ankle pain 10/16/2018 Prediabetes 07/12/2018 Venous stasis dermatitis 07/19/2016 Pain of foot 04/26/2016 Insomnia 02/01/2016 Essential hypertension 02/01/2016 Overview (10/08/2020): Anxiety 02/01/2016 Degeneration macular 09/21/2014 Dermatochalasis 10/03/2013 Personal history of colonic polyps 06/25/2013 Hyperlipidemia 01/02/2012 Gastroesophageal reflux disease 01/02/2011 Edema 08/20/2009 Resolved Problems Problem Noted Date Diagnosed Date Resolved Date Chronic post-traumatic stress disorder (PTSD) 02/16/20 16 12/27/2023 Encounters Date Type Department Care Team Description 01/04/2024 Refill [facility] [address] [place] [address] Lucero Bunch, Refill Request (Lorazepam) 12/27/2023 12:58 PM CDT - 12/27/2023 11:59 PM CDT Hospital Encounter [facility] [address] [place] [address] Encounter for other screening for malignant neoplasm of breast 12/27/2023 10:50 AM CDT Office Visit [facility] [address] [place] [address] Lucero Bunch DO Medicare ANNUAL (subsequent) Visit; Immunization/Injectio n 12/26/2023 11:10 AM CDT Anesthesia Event [facility] [address] [place] [address] Astrid Murcia, Lupe Metcalf CRNA 12/26/2023 11:02 AM CDT - 12/26/2023 11:47 AM CDT Surgery [facility] [address] [facility] [place] [address] Dez Ureña MD COLONOSCOPY WITH POLYPECTOMY 12/26/2023 10:16 AM CDT - 12/26/2023 12:50 PM CDT Hospital Encounter [facility] [address] [facility] [place] [address] Dez Ureña MD Discharge Disposition: Home Self Care 12/26/2023 Travel 12/24/2023 11:00 AM CDT Orders Only [facility] [address] [place] [address] [facility] 12/24/2023 Travel 12/21/2023 Refill [facility] [address] [place] [address] Lucero Bunch, Refill Request (Lorazepam) 12/20/2023 Travel 12/11/2023 10:45 AM CDT Telemedicine [facility] [address] [place] [address] Marilyn Bowles NP Sleep Consult; Telehealth (Virtual visit, no vitals taken.) 12/10/2023 Travel 12/05/2023 10:58 AM CDT - 12/05/2023 11:59 PM CDT Hospital Encounter [facility] and [facility] [place] [address] Abhijit Rai MD Helms, Colleen G, PT 12/05/2023 Travel 11/28/2023 10:15 AM CDT - 11/28/2023 11:59 PM CDT Hospital Encounter [facility] and [facility] [address] [place] [address] Abhijit Rai MD Helms, Colleen G, PT 11/28/2023 Travel 11/21/2023 10:15 AM CDT - 11/21/2023 11:59 PM CDT Hospital Encounter [facility] ? [facility] [address] [facility] [place] [address] Abhijit Rai MD Helms, Colleen G, PT 11/21/2023 Travel 11/07/2023 12:12 PM CDT - 11/07/2023 11:59 PM CDT Hospital Encounter [facility] ? [facility] [address] [facility] [place] [address] Abhijit Rai MD Helms, Colleen G, PT 11/06/2023 11:00 AM CDT Office Visit [facility] [address] [address] Dharmesh Saldaña DPM Follow Up (Left foot pain) 11/06/2023 Travel 11/01/[address] [address] Lucero Bunch, Refill Request (Citalopram) 10/31/2023 11:00 AM CDT - 10/31/2023 11:59 PM CDT Hospital Encounter [facility] ? [facility] [address] [place] [address] Abhijit Rai MD Helms, Colleen G, PT 10/31/2023 Travel 10/30/2023 10:40 AM CDT Office Visit [facility] [address] [place] [address] Ming Garcia MD Procedure (L5-S1 ILESI) 10/29/2023 Refill [facility] [address] [place] [address] Lucero Bunch DO Refill Request (Tizanidine) 10/29/2023 Telephone [facility] [address] [place] [address] Ming Garcia MD ESI 10/25/[address] [address] Lucero Bunch, DO Refill Request (Omeprazole, Meloxicam) 10/24/2023 10:59 AM CDT - 10/24/2023 11:59 PM CDT Hospital Encounter [facility] and [facility] [address] [place] [address] Abhijit Rai MD Helms, Colleen G, PT 10/24/2023 Travel 10/17/2023 11:00 AM CDT - 10/17/2023 11:59 PM CDT Hospital Encounter [facility] and [facility] [address] [place] [address] Abhijit Rai MD Helms, Colleen G, PT 10/17/2023 Travel 10/12/[address] [address] Lucero Bunch, DO Refill Request (Eszopiclone) 10/11/2023 3:15 PM CDT - 10/11/2023 11:59 PM CDT Hospital Encounter [facility] [address], [place] [address] Abhijit Rai MD Helms, Colleen G, PT 10/11/2023 12:30 PM CDT Ancillary Procedure [facility] [address] [place] [address] 10/11/2023 12:15 PM CDT Ancillary Procedure [facility] [address] [place] [address] 10/11/2023 11:00 AM CDT Office Visit [facility] [address] [place] [address] Ming Garcia MD Musculoskeletal Problem (Follow up neck andleft shoulder pain/Follow up low back and left leg pain) 10/11/2023 Travel from Last 3 Months Immunizations Name Administration Dates Next Due COVID-19 vaccine (Moderna Iglesia linh 50mcg/0.25mL) PF, MDV 01/26/2021 DTaP 08/20/2009 Influenza Virus, Unspecified 12/04/2016, 12/23/2015,12/12/2014,2005 Influenza, High-dose Quadriv alent Inactivated 01/17/2022 Influenza, IIV4 11/08/2019, 9,01/16/2018,2016 Influenza, Inactivated AIIV4 (Age 65+ Years) Preserv Free 12/01/2022,11/05/2020 Influenza, Inactivated IIV3 (Age 65+ Years) Preserv Free 12/27/2023 Pneumococcal Poly,23-Valent (Pneumovax) 11/05/2020 Td, Preservative Free (age > = 7 Years) 12/23/2019,09/22/1999 Tdap 08/20/2009 Zoster (Shingrix-RZV, recombinant) 02/14/2018, Zoster (Zostavax-ZVL, live) 02/16/2016, 6 Family History Medical History Relation Name Comments Cancer-breast No Family History Social History Tobacco Use Types Packs/Day Years Used Date Smoking Tobacco: Former Cigarettes 1.5 19.8 2 005 - 1970 Passive Smoke Exposure: Past Smokeless Tobacco: Never Tobacco Cessation:Counseling Given: Yes Comments:Quit in 2004 Passive Exposure Comments:past exsposure to smoke in child avila - mom/dad Alcohol Use Standard Drinks/Week Comments Yes 0 (1 standard drink = 0.6 oz pur e alcohol) rare PHQ-2 Answer Date Recorded PHQ-2 TOTAL SCORE 2 12/27/2023 Social Connections Answer Date Recorded Do you often feel lonely or isolated from those around you? 0 12/27/2023 Financial Resource Strain Answer Date R ecorded Difficulty of Paying Living Expenses 1 12/27/2023 Difficulty of Paying Living Expenses 2 12/27/2023 Food Insecurity Answer Date Recorded Do you worry your food will run out before you are able to buy more? 1 12/27/2023 Transportation Needs Answer Date Record ed Does lack of transportation keep you from medica l appointments? 1 12/27/2023 Does lack of transportation keep you from work, meetings or getting things that you need? 1 12/27/2023 Housing Stability Answer Date Recorded What is your housing situation today? 1 12/27/2023 Sex and Gender Information Value Date Recorded Sex Assigned at Not on file Gender Identity Not on file Sexual Orientation Not on file Obstetrics History Last Filed Vital Signs Vital Sign Reading Time Taken Comments Blood Pressure 116/72 12/27/2023 11:16 AM CDT Pulse 65 12/27/2023 11:16 AM CDT Temperature 36.6 ??C (97.9 ??F) 12/26/2023 10:48 AM C DT Respiratory Rate 18 12/27/2023 11:16 AM CDT Oxygen Saturation 98% 12/27/2023 11:16 AM CDT Inhaled Oxygen Concentration - - Weight 81 kg (178 lb 9.6 oz) 12/27/2023 11:16 AM CDT Height 157.5 cm (5' 2) 12/27/2023 11:16 AM CDT Body Mass Index 32.67 12/27/2023 11:16 AM CDT Plan of Treatment Upcoming Encounters Date Type Department Care Team (Late st Contact Info) Description 01/10/2024 10:45 AM DIRECTOR OF CARDIOPULMONARY SERVICES Nurse/Clinic Staff Only [address] [address] 01/23/2024 10:45 AM DIRECTOR OF CARDIOPULMONARY SERVICES Appointment [facility] ? [facility] [address], [place] [address] Anaid Cote, PT [address] [place] [address] 01/24/2024 3:30 PM DIRECTOR OF CARDIOPULMONARY SERVICES Telemedicine [facility] [place] [address] Carlos Hernandez MD [address] [place] [address] 02/07/2024 10:15 AM DIRECTOR OF CARDIOPULMONARY SERVICES Office Visit [facility] [place] [address] [address] Dharmesh Saldaña DPM [address] [place] [address] 03/28/2024 11:10 AM DIRECTOR OF CARDIOPULMONARY SERVICES Phone Office Visit [facility] [address] [place] [address] Lucero Bunch, [address] [place] [address] Health Maintenance Due Date Last Done Comments Pneumococcal series for age 65+ (2 of 2 - PCV) 11/05/2021 11/05/2020 COVID-19 vaccine series ( season) 2023 01/17/2022, 09/13/2021, 01/26/2021, Additional history exists BMI (ht and wt on same day) for age 18+ 12/26/2024 12/27/2023, 06/28/2023, 12/01/2022, Additional history exists Depression screening for age 12+ 12/26/2024 12/27/2023, 12/01/2022, 11/20/2022, Additional history exists Mammogram for age 45-75 12/26/2024 12/27/19 24, 12/01/2022, 11/09/2021, Additional history exists Medicare Wellness for age 65+ 12/27/2024 12/27/2023, 12/01/2022, 11/09/2021, Additional history exists Lipids for age 45-75 12/23/2028 12/24/2023, 12/01/2022, 11/09/2021, Additional history exists Colonoscopy through age 75 12/25/202812/25, 04/13/2023, 12/04/2017 Tetanus booster 12/22/2029 12/23/2019, 08/03, 09/22/1999 Tdap Completed 08/20/2009 Hepatitis C screening for age 18-79 Addressed 01/04/2012 (Verified in Care Everywhere or Patient Record) Overridden with the intention of not completing the topic Zoster (shingles) series for age 50+ Completed 02/14/2018, 09/18/2017, 02/16/2016, Additional history exists DEXA/DXA scan for age 65+ Completed 12/07/2020 Influenza for age 65+ Completed 12/27/2023 , 12/01/2022, 01/17/2022, Additional history exists Medical Devices Implanted Type Area Senior Account Manager Device Identifier Shelf Expiration Date Model / Serial / Lot Screw Headless 3.0x22mm - [id number] Implanted:Qty: 1 on 01/20/2014 by Santhosh Grant DPM at [facility] Left: Foot [employer] [id number] / / Screw Headless 3.0x26mm - [id number] Implanted:Qty: 1 on 01/20/2014 by Santhosh Grant DPM at [facility] Left: Foot [employer] [id number] / / Screw Foot 3.5x18mm Arthrex Low Pro Titnm - [id number] Implanted:Qty: 1 on 08/19/2019 by Ming Montenegro MD at [facility] Left: Ankle [employer] AR-8935-18 # / / Plate Sm Joint 7hole Arthrex Lock Third Tubular Titnm - [id number] Implanted:Qty: 1 on 08/19/2019 by Ming Montenegro MD at [facility] Left: Ankle [employer] AR-9943T-0 7# / / Screw Foot 3x18mm Arthrex Low Profile Gene - [id number] Implanted:Qty: 1 on 08/19/2019 by Ming Montenegro MD at [facility] Left: Ankle [employer] AR-8933-18 # / / Screw Sm Joint 4.0x16mm Arthrex Low Profile Titnm - [id number] Implanted:Qty: 1 on 08/19/2019 by Ming Montenegro MD at [facility] Left: Ankle [employer] AR-8940-16 # / / Sut Tightrope Xp Syndesmosis Kit St-St - [id number] Implanted:Qty: 1 on 08/19/2019 by Ming Montenegro MD at [facility] Left: Ankle [employer] 04/04/2024 AR-8925SS# / / [id number] Screw Sm Joint 4.0x16mm Arthrex Low Profile Titnm - [id number] Implanted:Qty: 1 on 08/19/2019 by Ming Montenegro MD at [facility] Left: Ankle [employer] AR-8940-16 # / / Screw Sm Joint 3.5x12mm Arthrex Low Profile Titnm - [id number] Implanted:Qty: 3 on 08/19/2019 by Ming Montenegro MD at [facility] Left: Ankle [employer] AR-8935-12 # / / Shell Hip 48d Trident Ii Clusterhole Tritanium - [id number] Implanted:Qty: 1 on 12/13/2021 by Ming Montenegro MD at [facility] Right: Hip [employer] 10/09/2026 702-04-48D / / [id number] Insert Sz D 32mm 10 Deg Trident X3 - [id number] Implanted:Qty: 1 on 12/13/2021 by Ming Montenegro MD at [facility] Right: Hip [employer] 01/17/2026 723-10-32D / / [id number] Screw Hip 6.5x35mm [employer] Low Profile Hex - [id number] Implanted:Qty: 1 on 12/13/2021 by Ming Montenegro MD at [facility] Right: Hip [employer] 11/20/2026 [id number] / / [id number] Stem Hip Sz 3 127 Deg Accolade Ii - [id number] Implanted:Qty: 1 on 12/13/2021 by Ming Montenegro MD at [facility] Right: Hip [employer] 12/21/2025 [id number] / / [id number] Head Hip Od32mm +0 Biolox Delta C-Taper Alumina Cer - [id number] Implanted:Qty: 1 on 12/13/2021 by Ming Montenegro MD at [facility] Right: Hip [employer] 09/20/2026 6570-0-132 / / [id number] Explanted Type Area Senior Account Manager Device Identifier Shelf Expiration Date Model / Serial / Lot K-Wire [id number] Blunt/Trocar - [id number] Explanted:Qty: 2 on 01/20/2014 by Santhosh Grant DPM at [facility] Left: Foot videoNEXT [id number] / / Procedures Procedure Name Priority Date/Time Associated Diagnosis Comments XR MAMMO CHANEL BILAT SCREEN Routine 12/27/2023 1:18 PM CDT Encounter for other screening for malignant neoplasm of breast HEMOGLOBIN A1C Routine 12/27/2023 12:51 PM CDT Prediabetes PATH TISSUE EXAM Today 12/26/2023 11:3 6 AM CDT COLONOSCOPY WITH POLYPECTOMY 12/26/2023 11:10 AM CDT Screen for colon cancer COLONOSCOPY 12/26/2023 11:04 AM CDT COMP METABOLIC PANEL Routine 12/24/2023 11:03 AM CDT Essential hypertension Hyperlipidemia, unspecified hyperlipidemia type CBC WITH AUTO DIFFERENTIAL Routine 12/24/2023 11:03 AM CDT Essential hypertension LIPID PANEL W REFLEX MEASURED LDL Routine 12/24/2023 11:03 AM CDT Essential hypertension Hyperlipidemia, unspecified hyperlipidemia type AMB EPIDURAL STEROID INJECTION Routine 10/30/2023 12:00 AM CDT Chronic pain of left knee Lumbar radiculopathy DDD (degenerative disc disease), lumbar XR SPINE LUMBAR 2 VIEWS Routine 10/11/2023 12:15 PM CDT Lumbar radiculopathy DDD (degenerative disc disease), lumbar XR KNEE WB 2 VIEWS BILATERAL AND 1 VIEW LEFT Routine 10/11/2023 12:14 PM CDT Chronic pain of left knee XR DXA BONE DENSITY 2 SITES AXIAL Routine 12/07/2020 2:12 PM CDT Menopause from Last 3 Months or Most Recently Relevant to Health Maintenance Results * XR MAMMO CHANEL BILAT SCREEN (12/27/2023 1:18 PM CDT) Anatomical Region Laterality Modality BREASTS, Breast Left, Breast Right Bilateral Mammography Impressions 12/28/2023 7:08 AM CDT ??There is no radiographic evidence for malignancy. ??Recommend annual mammograms. MAMMOGRAM ASSESSMENT: ??ACR 1 Negative PATIENTS: You will also receive a letter with your examination results in an easy to read format. ??If you have questions about your results, please contact your referring provider. Narrative 12/28/2023 7:08 AM CDT For Patients: As a result of the Century Cures Act, medical imaging exams and procedure reports are released immediately into your electronic medical record. You may view this report before your referring provider. If you have questions, please contact your health care provider. XR MAMMO CHANEL BILAT SCREEN [[id number]] CLINICAL HISTORY: ??This is an asymptomatic 68 y.o. patient. INDICATION FOR EXAM: Mammogram Screening. TECHNIQUE: CC & MLO views were obtained. ??This study was evaluated with the assistance of Computer-Aided Detection. Breast Tomosynthesis was used in interpretation. COMPARISON FILM: Yes 12/01/22 Talking Layers ?? FINDINGS: ??The breasts are heterogeneously dense, which may obscure small masses. There are no dominant masses, suspicious micro calcifications or areas of architectural distortion. Lucero Bunch DO MAMMO * HEMOGLOBIN A1C (12/27/2023 12:51 PM CDT) HEMOGLOBIN A1C 5.6 <5.7 % of total Hgb [facility] Comment: For the purpose of screening for the presence of diabetes: <5.7% ? Consistent with the absence of diabetes 5.7-6.4% ?Consistent with increased risk for diabetes ?(prediabetes) > or =6.5% ??Consistent with diabetes This assay result is consistent with a decreased risk of diabetes. Currently, no consensus exists regarding use of hemoglobin A1c for diagnosis of diabetes in children. According to [place] Diabetes Association (ADA) guidelines, hemoglobin A1c <7.0% represents optimal control in non- diabetic patients. Different metrics may apply to specific patient populations. Standards of Medical Care in Diabetes(ADA). ?? Blood BLOOD SPECIMEN / Unknown 12/27/2023 12:51 PM CDT 12/27/2023 12:51 PM CDT Lucero Bunch DO CHEMISTRY Performing Organization Address City/State/[facility] Co de Phone Number [employer] [facility] [address] [place] [address], [employer] [address] * PATH TISSUE EXAM (12/26/2023 11:36 AM CDT) Case Report Pathology Report ?Case: [id number] ? Authorizing Provider: ??Dez Ureña MD ?Collected: ? 12/26/2023 1136 ? Ordering Location: ? [facility] ?Received: ?12/26/2023 1324 ? Medical Center ? Pathologist: ? Sofie Gallegos DO ? Specimens: ?? A) - Descending Colon Polyp ? B) - Rectal Polyp , multiple ? 12/28/2023 2:16 PM CDT [facility] Final Diagnosis A) COLON, DESCENDING, POLYPECTOMY: 1. Tubular adenoma 2. Negative for high grade dysplasia 3. Per the colonoscopy report: ?? a. Polyp size: 4 mm ?? b. Resection: Complete ?? c. Retrieval: Complete B) RECTUM, POLYPECTOMIES: 1. Hyperplastic polyps (3 fragments received) 12/28/2023 2:16 PM CDT [facility] Clinical Information Ms. Perea is a 68 y.o. who presents for colon cancer surveillance. Multiple polyps are identified. 12/28/2023 2:16 PM CDT [facility] Gross Description A) Received in formalin is a prieto mucosal fragment measuring 4 mm in greatest dimension, which is entirely submitted in one cassette. It is labeled with the patient's name and designated descending colon polyp. B) Received in formalin are 3 prieto mucosal fragments averaging 2 mm in greatest dimension, which are entirely submitted in one cassette. It is labeled with the patient's name and designated rectal polyp, multiple. Anabella Roche Noon 12/27/2023 1:17 PM 12/28/2023 2:16 PM CDT [facility] Microscopic Description The final diagnosis is based on microscopic examination of appropriate sections of all specimens. 12/28/2023 2:16 PM CDT [facility] Additional Information Interpreted at [facility] - [address] [facility] [address], [place] [address] 12/28/2023 2:16 PM CDT [facility] Polyp (Descending Colon Polyp) 12/26/2023 11:36 AM CDT 12/26/2023 1:24 PM CDT Specimen from mass lesion (specimen) (Rectal Polyp ) 12/26/2023 11:39 AM CDT 12/26/2023 1:24 PM CDT Dez Ureña MD PATHOLOGY/CYTOLOGY [facility] [address] [place] [address], * COLONOSCOPY (12/26/2023 11:04 AM CDT) 12/26/2023 11:0 4 AM CDT Narrative Procedure Note Dez Ureña MD - 12/26/2023 11:54 AM CDT Patient Name: Bell Perea Procedure Date: 12/26/2023 Gender: Female Date of : 1955 Admit Type: Ambulatory Procedure: Colonoscopy Proceduralist: Dez Ureña MD [facility] Referring MD: Lucero Bunch Indications/Pre-Op Diagnosis: High risk colon cancer surveillance:Personal history of colonic polyps Medications: Propofol per Anesthesia Procedure Description: The patient had risks, benefits and alternatives explained to andgave informed consent. The patient had a stable cardiopulmonary status and judged an adequate candidate for conscious sedation. The endoscope [id number] was passed through the anus andadvanced to the cecum, identified by appendiceal orifice and ileocecal valve.The colonoscopy was performed without difficulty. The patient toleratedthe procedure well. The quality of the bowel preparation was adequate.The ileocecal valve, appendiceal orifice, and rectum were photographed. Estimated Blood Loss & Specimen: Estimated blood loss: none. Findings: The perianal and digital rectal examinations were normal. A 4 mm polyp was found in the descending colon. The polyp wassessile. The polyp was removed with a hot snare. Resection and retrieval were complete. Verification of patient identification for the specimen was done. Estimated blood loss was minimal. Multiple sessile polyps were found in the rectum. The polyps were 1to 3 mm in size. These polyps were removed with a cold biopsy forceps.Polyp resection was incomplete, and the resected tissue was partially retrieved. Verification of patient identification for the specimenwas done. Likely hyperplastic polyps. - encountered a fair amount of liquid stool with small particulate matterthat required additional time to suction clear for proper mucosalevaluation Impressions/Post-Op Diagnosis: - One 4 mm polyp in the descending colon, removed with a hot snare. Resected and retrieved. - Multiple 1 to 3 mm polyps in the rectum, removed with a cold biopsy forceps. Polyp resection was incomplete, and the resected tissue was partially retrieved. - tattoo present in ascending colon without evidence of recurrent polypsto the area Recommendation: - Await pathology results. - Repeat colonoscopy in 3 - 5 years for surveillance. Modifier 22: This procedure was considerably more difficult than thestandard procedure. The procedure was more difficult for several reasons.Increased Time: Due to the complexity of the pathology, approximatelytwice the routine [id number] was required in order to perform theprocedure. Given the above factors, I estimated that the case was 50% moredifficult than the standard procedure. Dez Ureña MD 12/26/2023 11:54:10 AM Note Initiated On: 12/26/2023 11:04 AM Dez Ureña MD PROCEDURE ORD * LIPID PANEL W REFLEX MEASURED LDL (12/24/2023 11:03 AM CDT) CHOLESTEROL, TOTAL 177 <200 mg/dL [facility] HDL CHOLESTEROL 57 > OR = 50 mg/dL [facility] TRIGLYCERIDES 138 <150 mg/dL [facility] LDL-CHOLESTEROL 96 mg/dL (calc) [facility] Comment: Reference range: <100 Desirable range <100 mg/dL for primary prevention; ?? <70 mg/dL for patients with CHD or diabetic patients with > or = 2 CHD risk factors. LDL-C is now calculated using the Jose-Fleming calculation, which is a validated novel method providing better accuracy than the Friedewald equation in the estimation of LDL-C. Jose SS et al. CHERYL. 2013;310(19): 9583-9990 (http://education.Fresh Dish.Enovex/faq/DAN160) CHOL/HDLC RATIO 3.1 <5.0 (calc) [facility] NON HDL CHOLESTEROL 120 <130 mg/dL (calc) [facility] Comment: For patients with diabetes plus 1 major ASCVD risk factor, treating to a non-HDL-C goal of <100 mg/dL (LDL-C of <70 mg/dL) is considered a therapeutic option. Blood BLOOD SPECIMEN / Unknown 12/24/2023 11:03 AM CDT 12/24/2023 11:04 AM CDT Lucero Bunch DO CHEMISTRY [employer] [facility] [address] [place] [address], [facility] [address] [place] [address] * CBC AND DIFFERENTIAL (12/24/2023 11:03 AM CDT) Pathologist [facility] WHITE BLOOD CELL COUNT 6.4 3.8 - 10.8 Thousand/u L [facility] RED BLOOD CELL COUNT 4.71 3.80 - 5.10 Million/uL [facility] HEMOGLOBIN 13.8 11.7 - 15.5 g/dL [facility] HEMATOCRIT 41.9 35.0 - 45.0 % [facility] MCV 89.0 80.0 - 100.0 fL [facility] MCH 29.3 27.0 - 33.0 pg [facility] MCHC 32.9 32.0 - 36.0 g/dL [facility] Comment: For adults, a slight decrease in the calculated MCHC value (in the range of 30 to 32 g/dL) is most likely not clinically significant; however, it should be interpreted with caution in correlation with other red cell parameters and the patient's clinical condition. RDW 14.0 11.0 - 15.0 % [facility] PLATELET COUNT 306 140 - 400 Thousand/u L [facility] MPV 10.2 7.5 - 12.5 fL [facility] ABSOLUTE NEUTROPHILS 4,538 1,500 - 7,800 cells/uL [facility] ABSOLUTE LYMPHOCYTES 1,434 850 - 3,900 cells/uL [facility] ABSOLUTE MONOCYTES 288 200 - 950 cells/uL [facility] ABSOLUTE EOSINOPHILS 122 15 - 500 cells/uL [facility] ABSOLUTE BASOPHILS 19 0 - 200 cells/uL [facility] NEUTROPHILS 70.9 % [facility] LYMPHOCYTES 22.4 % [facility] MONOCYTES 4.5 % [facility] EOSINOPHILS 1.9 % [facility] BASOPHILS 0.3 % [facility] Blood BLOOD SPECIMEN / Unknown 12/24/2023 11:03 AM CDT 12/24/2023 11:04 AM CDT Lucero Bunch DO HEMATOLOGY [employer] [facility] [address] [place] [address], [employer] [address] [place] [address] * (ABNORMAL) COMP METABOLIC PANEL (12/24/2023 11:03 AM CDT) GLUCOSE 176(H) 65 - 99 mg/dL [facility] Comment: ? Fasting reference interval For someone without known diabetes, a glucose value >125 mg/dL indicates that they may have diabetes and this should be confirmed with a follow-up test. UREA NITROGEN (BUN) 16 7 - 25 mg/dL [facility] CREATININE 0.86 0.50 - 1.05 mg/dL [facility] EGFR 74 > OR = 60 mL/min/1. 73m2 [facility] BUN/CREATININE RATIO SEE NOTE: 6 - 22 (calc) [facility] Comment: ?? Not Reported: BUN and Creatinine are within ?? reference range. ? SODIUM 140 135 - 146 mmol/L [facility] POTASSIUM 4.1 3.5 - 5.3 mmol/L [facility] CHLORIDE 105 98 - 110 mmol/L [facility] CARBON DIOXIDE 28 20 - 32 mmol/L [facility] CALCIUM 9.5 8.6 - 10.4 mg/dL [facility] PROTEIN, TOTAL 6.5 6.1 - 8.1 g/dL [facility] ALBUMIN 3.8 3.6 - 5.1 g/dL [facility] GLOBULIN 2.7 1.9 - 3.7 g/dL (calc) [facility] ALBUMIN/GLOBULIN RATIO 1.4 1.0 - 2.5 (calc) [facility] BILIRUBIN, TOTAL 0.3 0.2 - 1.2 mg/dL [facility] ALKALINE PHOSPHATASE 65 37 - 153 U/L [facility] AST 20 10 - 35 U/L [facility] ALT 17 6 - 29 U/L [facility] Blood BLOOD SPECIMEN / Unknown 12/24/2023 11:03 AM CDT 12/24/2023 11:04 AM CDT Lucero Bunch DO CHEMISTRY [employer] [facility] [address] [place] [address], [employer] [address] [place] [address] * AMB EPIDURAL STEROID INJECTION (10/30/2023 12:00 AM CDT) Ming Garcia MD NEUROLOGY ORD * XR SPINE LUMBAR 2 VIEWS (10/11/2023 12:15 PM CDT) Anatomical Region Laterality Modality LUMBAR SPINE Computed Radiogr aphy 10/12/2023 6:26 AM CDT Impressions 10/12/2023 6:26 AM CDT Mild multilevel degenerative disc disease lumbar spine and lower lumbar spine facet degeneration. Dictated by Guillaume Ventura MD @ 10/12/2023 6:26:39 AM (Electronically Signed) Narrative 10/12/2023 6:26 AM CDT For Patients: ??As a result of the Century Cures Act, medical imaging exams and procedure reports are released immediately into your electronic medical record. ??You may view this report before your referring provider. ??If you have questions, please contact your health care provider. INDICATION: Lumbar radiculopathy TECHNIQUE: 2-view lumbar spine. COMPARISON: none FINDINGS: No vertebral body compression fracture. Facet degeneration lower lumbar spine. No spondylolisthesis. Vascular calcifications. Mild multilevel discogenic spurring. Procedure Note Guillaume Ventura MD - 10/12/2023 For Patients: As a result of the Cures Act, medical imagingexams and procedure reports are released immediately into your electronicmedical record. You may view this report before your referring provider.If you have questions, please contact your health care provider. INDICATION: Lumbar radiculopathy TECHNIQUE: 2-view lumbar spine. COMPARISON: none FINDINGS: No vertebral body compression fracture. Facet degeneration lower lumbarspine. No spondylolisthesis. Vascular calcifications. Mild multileveldiscogenic spurring. IMPRESSION: Mild multilevel degenerative disc disease lumbar spine and lower lumbarspine facet degeneration. Dictated by Guillaume Ventura MD @ 10/12/2023 6:26:39 AM (Electronically Signed) Ming Garcia MD GENERAL IMAGING * XR KNEE WB 2 VIEWS BILATERAL AND 1 VIEW LEFT (10/11/2023 12:14 PM CDT) Anatomical Region Laterality Modality KNEES, KNEE L Computed Radiogr aphy 10/12/2023 6:25 AM CDT Narrative 10/12/2023 6:25 AM CDT For Patients: ??As a result of the Cures Act, medical imaging exams and procedure reports are released immediately into your electronic medical record. ??You may view this report before your referring provider. ??If you have questions, please contact your health care provider. Indication: Chronic left knee pain Technique: PA standing of both knees, standing lateral view left knee and patellofemoral view both knees, five views total Comparison: None Findings: Chondrocalcinosis of the menisci bilaterally. Normal standing alignment. No fracture. Chronic distal quadriceps tendinosis on the left. Soft tissue densities posterior left knee related to chondrocalcinosis. Mild patellofemoral spurring bilaterally. Impression: Mild patellofemoral compartment degenerative joint disease with bilateral chondrocalcinosis and left-sided distal quadriceps tendinosis. Dictated by Guillaume Ventura MD @ 10/12/2023 6:25:44 AM (Electronically Signed) Procedure Note Guillaume Ventura MD - 10/12/2023 For Patients: As a result of the Cures Act, medical imagingexams and procedure reports are released immediately into your electronicmedical record. You may view this report before your referring provider.If you have questions, please contact your health care provider. Indication: Chronic left knee pain Technique: PA standing of both knees, standing lateral view left knee andpatellofemoral view both knees, five views total Comparison: None Findings: Chondrocalcinosis of the menisci bilaterally. Normal standing alignment.No fracture. Chronic distal quadriceps tendinosis on the left. Soft tissuedensities posterior left knee related to chondrocalcinosis. Mildpatellofemoral spurring bilaterally. Impression: Mild patellofemoral compartment degenerative joint disease with bilateralchondrocalcinosis and left-sided distal quadriceps tendinosis. Dictated by Guillaume Ventura MD @ 10/12/2023 6:25:44 AM (Electronically Signed) Ming Garcia MD GENERAL IMAGING * XR DXA BONE DENSITY 2 SITES AXIAL [56832.1] (12/07/2020 2:12 PM CDT) Anatomical Region Laterality Modality Spine, HIPS, HIPL, HIPR Computed Radiography Impressions 12/07/2020 3:00 PM CDT Normal bone density. RECOMMENDATIONS: The National Osteoporosis Foundation recommends pharmacologic treatment for patients with T-scores of -2.5 or less, patients with prior history of fragility fractures, or patients with 10-year probability of greater than 3% at hips or greater than 20% of suffering major osteoporotic fractures. Recommend continued optimization of calcium and vitamin D intake through dietary means and/or supplementation and regular exercise. Repeat scan recommended in 7-10 years. Narrative 12/07/2020 3:00 PM CDT For Patients: Results are automatically released to your [employer] account once available, in compliance with federal regulations. This means that you may see your results before your provider has had a chance to review them. Please allow 2-3 business days for your provider to comment on the results. XR DXA Bone Mineral Density (BMD) EXAM LOCATION: [address] [address] PATIENT NAME: Bell Perea DATE OF : 1955 EXAM DATE: 12/07/2020 REQUESTING PROVIDER: Lucero Bunch, GENDER AT : female HEIGHT: 5' 3.5 (11/05/2020) WEIGHT: ??185 lb (11/05/2020) MENOPAUSAL STATUS: Postmenopausal RACE/ETHNICITY: White RISK FACTORS: History of Fragility Fracture (at a major site) CURRENT MEDICATION FOR BONE LOSS: NONE INDICATION: Menopausal COMPARISON DATE(S): None DXA scans are compared to prior studies for a patient only when the two (or more) studies were performed on the same scanner. It is not possible to compare data generated on one scanner to data from another because there are not standards in DXA equipment. This applies even if the two scanners are made by the same chiller operator. PROCEDURE: Dual-energy x-ray absorptiometry performed with routine technique. Reporting is completed in the form of a T-score. The T-score represents the standard deviation from peak bone mass based on young healthy adult. A Z-score is used for diagnosis in premenopausal women, and for men under the age of 50. FINDINGS: RESULT LUMBAR SPINE L1 - L4 BMD: 1.725 g/cm2 T-Score: + 4.5 Z-Score: + 5.6 Change from prior: ??None RESULTS FEMUR Left femoral neck BMD: 0.997 g/cm2 T-Score: - 0.3 Z-Score: + 0.8 Change from prior: ??None Right femoral neck BMD: 1.019 g/cm2 T-Score: - 0.1 Z-Score: + 1.0 Change from prior: ??None Left hip BMD: 1.083 g/cm2 T-Score: + 0.6 Z-Score: + 1.4 Change from prior: ??None Right hip BMD: 1.087 g/cm2 T-Score: + 0.6 Z-Score: + 1.4 Change from prior: ??None WHO criteria: Normal: T-score at or above -1 SD Osteopenia: T-score between -1.1 and -2.4 SD Osteoporosis: T-score at or below -2.5 SD Lucero Bunch DO DEXA from Last 3 Months or Most Recently Relevant to Health Maintenance Advance Directives Documents on File Type Date Recorded 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 Healthcare Directive 12/09/2021 022 * Full Code (Latest Code Status on File) Date Activated Date Inactivated Comments 12/26/2023 10:21 AM 12/26/2023 2:56 PM Question Answer Comments Code Status Discussion: Discussed * Full Code Date Activated Date Inactivated Comments 04/13/2023 8:09 AM 04/13/2023 4:22 PM Question Answer Comments Code Status Discussion: Not Discussed * Full Code Date Activated Date Inactivated Comments 02/14/2022 12:06 PM 02/14/2022 5:15 PM Question Answer Comments Code Status Discussion: Not Discussed * Full Code Date Activated Date Inactivated Comments 12/13/2021 7:42 AM 12/14/2021 2:36 PM Question Answer Comments Code Status Discussion: Not Discussed * Full Code Date Activated Date Inactivated Comments 03/07/2021 7:40 AM 03/07/2021 5:49 PM Question Answer Comments Code Status Discussion: Reviewed Preferences Care Teams Forensic Dna Analyst Relationship Specialty Start Date End Date Lucero Bunch DO [address] [facility] [place] [address] PCP - General Internal Medicine 10/08/20
== END 2024-01-07 20:12 | disposition home or self-care (01) ==
PROVIDERS: PCP Internal Medicine; Visit Provider Nurse Practitioner
DX: G47.33 Obstructive sleep apnea (adult) (pediatric) (principal)
CPT/HCPCS: 95810

== ENCOUNTER 2024-07-29 06:05 | Outpatient (CLI) | payer MEDICARE, SELFPAY ==
[2024-07-29 06:50] VITALS: BP 135/55; PULSE 56; RESP 16; O2SAT 98
--- NOTE | 2024-07-29 07:42 | P.ORPRC_ITS ---
Procedure Note Date of procedure: 07/29/24 Procedure: PREOPERATIVE DIAGNOSIS: Left hip abductor tendinopathy/greater trochanteric bursitis POSTOPERATIVE DIAGNOSIS: Left hip abductor tendinopathy/greater trochanteric bursitis NAME OF OPERATION: Percutaneous tenotomy SURGEON: Abhijit Rai MD VOICE ENGINEER: Isidra Connolly PA-C ANESTHESIA: Local ESTIMATED BLOOD LOSS: 2 mL. COMPLICATIONS: None. SPECIMENS: None. DRAINS: None. PREOPERATIVE ANTIBIOTICS: None INDICATIONS: The patient is a 68-year-old with a history of left hip pain secondary to the above diagnoses. Despite appropriate non operative management, they continue to have symptoms. Operative intervention was recommended. The risks, benefits and expected outcomes were discussed in detail. These included but were not limited to: Infection, bleeding, injury to blood vessel or nerve, venous thromboembolism. All questions were answered to their satisfaction. PROCEDURE: The patient was placed in the lateral decubitus position. The left hip was imaged in the long and short axes with the ultrasound transducer. Normal acoustic landmarks were identified. We then sterilely prepped and draped the skin, and used a sterile probe cover with sterile gel. Local anesthesia was established with 10 mL of a solution containing 2 % lidocaine without epinephrine, 0.5% Marcaine without epinephrine and sodium bicarbonate. An 11 blade was used to incise the skin. The Tenex TX 2 micro tip was used to treat the abductor tendon for a total of 3 minutes and 36 seconds. The incision was Steri-Stripped closed. A dry dressing was applied. Sponge and needle counts were correct x2. The patient tolerated the procedure well. There were no apparent complications. They were discharged to home in satisfactory condition. PLAN: The patient may weightbear as tolerates. Ice, Tylenol and ibuprofen can be used for discomfort. They may ramp up activity as the hip will allow. They will follow up in the office in 6 weeks to assess their progress.
[2024-07-29 07:52] VITALS: BP 173/77; PULSE 62; RESP 16; O2SAT 98
== END 2024-07-29 07:53 | disposition home or self-care (01) ==
PROVIDERS: PCP Internal Medicine; Visit Provider Orthopaedic Surgery
DX: M70.62 Trochanteric bursitis, left hip (principal)
CPT/HCPCS: 27006; 76942; J0665

== ENCOUNTER 2025-01-02 12:39 | Outpatient (CLI) | payer MEDICARE, SELFPAY ==
--- NOTE | 2025-01-02 13:00 | MR_ITS ---
[address] [address] Phone:?[phone] Fax:?[phone] Referring Physician Information: Abhijit Rai M.D. [id number] [facility] [address] Phone:?[phone] Fax:?[phone] Patient:Rick Hernandez D.O.B:?1955 Sex:?Female Phone:?[phone] [facility] MRN:?[id number] Exam Date:?01/02/2025 EXAM: MRI EXAMINATION OF THE LEFT SHOULDER CLINICAL INFORMATION: Left shoulder pain. No history of surgery to this area. Evaluate rotator cuff tear. TECHNICAL INFORMATION: Coronal STIR as well as axial, sagittal and coronal PD and T2-weighted images acquired. No prior studies for comparison. INTERPRETATION: Bones: There is no Hill-Sachs impaction deformity. No other occult fracture or osseous contusion. Mild osseous cystic changes involving the posterior greater tuberosity. Rotator Cuff: There is no evidence for a supraspinatus tendon tear. There are moderate changes of tendinopathy. Mild infraspinatus tendinopathy. The teres minor tendon is intact. Series 9 image 11 demonstrates a 4 mm shallow undersurface partial tear of the superior subscapularis tendon with mild to moderate tendinopathy. Series 6 images 14 and 15 demonstrate an ovoid 3.2 cm mediolateral simple lipoma within the distal supraspinatus muscle belly. No rotator cuff muscle belly atrophy. Coracoacromial arch: There is no discrete subacromial osseous spur. The bony acromiohumeral interval is measuring 7 mm. There is no thickening identified of the coracoacromial ligament. Acromioclavicular joint: Moderate AC joint DJD. Undersurface spurring and resultant mild underlying supraspinatus deformity. Mild to moderate thickening and edema signal the subacromial/subdeltoid bursa areas. Biceps tendon: The long head biceps tendon is intact and nondisplaced from the bicipital groove. No evidence for a tendon tear or appreciable changes of tendinopathy. Moderate bicipital tenosynovitis. Glenohumeral joint and labrum: No significant glenohumeral joint effusion. No discrete loose body within the joint. Osteochondral surfaces appear relatively preserved. No discrete SLAP tear. No other definite evidence for labral tear. No discrete paralabral cyst is identified. There is a somewhat thickened and heterogeneous appearance of the inferior glenohumeral capsule, particularly its anteroinferior aspect. CONCLUSION: 1. Moderate supraspinatus and mild infraspinatus opportunity. 2. There is a small and shallow partial tear of the superior subscapularis tendon with mild to moderate tendinopathy. 3. Moderate AC joint DJD with resultant mild underlying supraspinatus deformity. 4. Borderline narrowed acromiohumeral. Mild to moderate subacromial/subdeltoid bursitis. 5. Intact long head biceps tendon with moderate tenosynovitis. 6. MRI appearance as may be seen associated with adhesive capsulitis, and please correlate clinically. KES Electronically signed on 01/02/2025 4:24:00 PM by Gunner Nieves M.D.
== END 2025-01-02 12:40 | disposition home or self-care (01) ==
LOC: MRI 12:40
PROVIDERS: PCP Internal Medicine; Visit Provider Orthopaedic Surgery
DX: M25.512 Pain in left shoulder (principal); S46.812A Strain of other muscles, fascia and tendons at shoulder and upper arm level, left arm, initial encounter; M19.012 Primary osteoarthritis, left shoulder; M75.52 Bursitis of left shoulder; M75.22 Bicipital tendinitis, left shoulder
CPT/HCPCS: 73221